=== PATIENT | male | born 1950 ===

== ENCOUNTER 2021-08-15 14:21 | Emergency (ER) | payer MEDICARE, OTHER, SELFPAY ==
--- NOTE | ~2021-08-15 | CT_ITS ---
EXAMINATION: CT CERVICAL SPINE WITHOUT CONTRAST CT THORACIC SPINE WITHOUT CONTRAST CLINICAL INFORMATION: Neck and back pain for 3 months now worsening. COMPARISON: CXR from 08/15/2021 TECHNIQUE: Thoracic spine - A volumetric helical acquisition of the thoracic spine was performed and images presented at 1.5 mm and 2 mm slice thickness. Coronal and sagittal reformatted images were generated and reviewed. Cervical spine - A volumetric, helical CT acquisition of the cervical spine was obtained without contrast; in addition to the standard set of axial images, multiplanar reformatted images were provided in the coronal and sagittal imaging planes. This CT examination was performed using dose optimization techniques as appropriate, variously including the following: *Automated exposure control *Adjustment of mA and/or kV according to patient size (this includes techniques or standardized protocols for targeted exams where dose is matched to indication/reason for exam; i.e. extremities or head) *Use of iterative reconstruction technique DLP: 2262 mGy-cm (total) FINDINGS: CERVICAL SPINE: No acute abnormalities. The craniocervical junction is intact. The occipital condyles, dens and atlantodental articulation are intact. There is osseous spurring at the atlantodental articulation. The vertebral body heights are maintained. No fractures in the anterior or posterior elements. No prevertebral soft tissue swelling. Multilevel facet osteoarthritis is present. The facet joints are ankylosed at C3-C4, and there is chronic minimal anterolisthesis of C3 on C4. Otherwise, the cervical vertebra have normal alignment. Mild and moderate multilevel degenerative disc space narrowing and vertebral osteophyte formation of the degenerated cervical spine. The posterior disc osteophyte complexes of C6-C7 and C7-T1 produce mild indentation on the ventral surface of the thecal sac. No significant canal stenosis. The uncovertebral joint hypertrophy of the cervical spine is worst on the left at C5-C6. The osteophytes cause severe left-sided neural foraminal stenosis at C5-C6. No suspicious lytic or osteoblastic lesion. No spinal hematoma or focal fluid collection in the visualized neck. The examined lung apices are clear. Thyroid gland is normal. THORACIC SPINE: The thoracic vertebra have well preserved height and alignment. The anterior and posterior elements are intact. No acute fracture or subluxation. Diffuse idiopathic skeletal hyperostosis as manifest by bulky, flowing anterior ligament ossification of the thoracic spine. Mild multilevel disc space narrowing and osteophyte formation of the thoracic spine. No focal lytic or blastic lesion. No paraspinal soft tissue mass or hematoma. Posterior disc osteophyte complexes at T2-T3 and T3-T4 produce mild central canal stenosis. There are osteophytes that produce mild left-sided neural foraminal stenosis at T1-T2, mild bilateral foraminal stenosis at T2-T3 and mild foraminal stenosis at T3-T4. Mild foraminal narrowing also observed at other levels of the degenerated spine. There are ossifications/enthesophytes of ligamentum flava at several levels, including T10-T11. There are no vertebral endplate erosions. No evidence of discitis or osteomyelitis. The visualized lungs are unremarkable. No pneumothorax or pleural effusion. CT/CT thoracic spine wo con IMPRESSION: * No acute CT imaging abnormalities in the degenerated cervical or thoracic spine. * No fractures or paraspinal soft tissue swelling. * Within the cervical spine, there are mild and moderate multilevel discovertebral degenerative changes. No significant central canal stenosis. However, there is severe left-sided neural foraminal stenosis at C5-C6. * Diffuse idiopathic skeletal hyperostosis of the thoracic spine. No suspicious lytic or blastic bone lesions.
--- NOTE | ~2021-08-15 | XR_ITS ---
EXAMINATION: XR CHEST CLINICAL INFORMATION: Left upper back pain. COMPARISON: None TECHNIQUE: 2 views of the chest were obtained. FINDINGS: Normal appearance of the cardiomediastinal silhouette. There are subtle ill-defined interstitial opacities in the right lung base. Otherwise, the lungs are clear. No pleural effusions or pneumothorax. No acute compression deformities. Thoracic spondylosis. XR/XR chest 2V IMPRESSION: 1. Questionable subtle ill-defined opacities in the right base which could be related with subsegmental atelectasis or bronchovascular crowding. However, aspiration and early consolidation cannot be excluded. Correlate clinically. 2. No acute compression deformities or acutely displaced rib fractures.
[2021-08-15 14:37] VITALS: PULSE 68; RESP 18; TEMP 36.8; O2SAT 94; BMI 37.6
--- NOTE | 2021-08-15 14:40 | ECG_ITS ---
Test Reason : BACK PAIN Blood Pressure : / mmHG Vent. Rate : 069 BPM Atrial Rate : 069 BPM P-R Int : 146 ms QRS Dur : 102 ms QT Int : 430 ms P-R-T Axes : 031 -46 -05 degrees QTc Int : 460 ms Sinus rhythm with occasional Premature ventricular complexes Left anterior fascicular block Abnormal ECG No previous ECGs available Referred By: Generic ED Physician Electronically Signed By:BENITO KIRKPATRICK
--- NOTE | 2021-08-15 19:58 | ED.BACK ---
HPI - Back Pain/Injury General Chief Complaint: Back Pain/Injury Stated Complaint: BACK PAIN Time Seen by Provider: 08/15/21 19:21 Source: patient and family ( at bedside) Mode of arrival: ambulatory Limitations: language barrier ([place] Citizen-speaking) History of Present Illness HPI Narrative: 71-year-old male with a past medical history of hypertension and chronic back pain presenting to the ED with complaints of acute on chronic back pain to the left upper back for the past 3 months that he reports is the burning sensation and is worse with movement or palpation. He reports that he has been seen by his primary care provider for this and had x-rays and was told that he had ?arthritis?. He reports that his PCP sent him for an MRI I will go his insurance denied it because he did not complete physical therapy because physical therapy was going to be too expensive insurance was not going to be covering it. He reports that he is taking naproxen and baclofen and no symptomatic relief. He denies any dizziness, headaches, neck pain/stiffness, paresthesias, chest pain, dyspnea on exertion, orthopnea, palpitations, lower extremity edema or upper extremity edema, abdominal pain, radiation of the back pain, rashes, recent trauma, history of cancer, history of hypercoagulation disorder, recent surgery, urinary incontinence/retention, hematuria, lower extremity weakness or any other symptoms complaints or concerns at this time. MD elicited complaint: back pain Onset (ago): month(s) (Three months) Timing: constant and progressively worsening Severity: severe Similar Symptoms Previously: Yes Quality: burning Location: left upper back Radiation: none Exacerbating factors: movement and other (Palpation of the site) Relieving factors: none Context: unknown Associated symptoms: denies other symptoms Treatments prior to arrival: other (Patient reports he is currently using naproxen and baclofen and no symptomatic relief) Work related injury: No Related Data Previous Rx's Medication Instructions Recorded lidocaine HCl 4 % topical cream 1 appl TOPICAL BID PRN #120 g 08/15/21 (Aspercreme (lidocaine HCl)) oxycodone 5 mg tablet 5 mg PO Q6H PRN #14 tab 08/15/21 prednisone 20 mg tablet 40 mg PO DAILY 5 Days #10 tab 08/15/21 Allergies Allergy/AdvReac Type Severity Reaction Status Date / Time No Known Allergies Allergy Verified 08/15/21 14:37 [No Known Allergies*] Review of Systems Review of Systems: Constitutional : No trauma, No Weight loss, No Fever, No Chills, ENT/Mouth : No Hearing loss, No Ear Pain, No Nasal Congestion, No Sinus Pain, No Hoarseness, No sore throat, No Rhinorrhea, No Swallowing Difficulty Cardiovascular : No Chest Pain, No SOB Respiratory : No Cough, No Dyspnea Gastrointestinal : No Nausea, No Vomiting, No Diarrhea, No abdominal Pain, No Hematochezia, No Melena Genitourinary : No Dysuria, No Urinary Frequency, No Hematuria, No Urinary or Bowel Incontinence/retention Musculoskeletal : + Back pain, No neck pain, No joint stiffness, No joint swelling Skin : No Skin Lesions, No rash or signs of infection Neuro : No Weakness, No radiation, No Numbness, No Paresthesias, No headache, no loss of bowel or bladder incontinence, no saddle anesthesia, Focal weakness, No radiation Denies history of IV drug usage. Yes all other systems are reviewed and are negative [facility] Past Medical History Attestation statement: The following information was validated with the patient. Social History Social History Advance Directives: No Physical Exam Vital Signs: Vital Signs: Last Vital Signs Temp 98.2 F 08/15/21 14:37 Pulse 68 08/15/21 14:37 Resp 18 08/15/21 14:37 Pulse Ox 94 08/15/21 14:37 Body Mass Index 37.6 vital signs have been reviewed as normal and appeared to be correct. Blood pressure normal. Heart rate normal. Respiration rate normal. Temperature normal. Oxygen saturation normal. Appearance: Alert. Oriented X3. No acute distress. Head: Normal external exam. Normocephalic. Atraumatic. Eyes: PERRLA. EOMI. Conjunctiva and sclera normal. Eyelids normal. ENT: Pharynx normal. Uvula midline. Moist mucous membranes. Neck: Normal inspection. Neck supple. FROM. No adenopathy. No meningeal signs. No neck mass noted. CVS: Normal heart rate and rhythm. Heart sound normal. No murmurs noted. Pulses normal throughout. Respiratory: No respiratory distress. Painless inspiration. Breath sounds normal. No wheezes/rales/rhonchi noted. Chest nontender. No accessory muscle usage noted or decreased air movement noted. Abdomen: Soft and nontender. Bowel sounds normal in all 4 quadrants. No distention noted. No organomegaly noted. No visible injury noted. Back: No CVA tenderness. Full range of motion noted. No obvious deformities, or edema. Mild para-spinal muscular tenderness to the left upper thoracic paraspinous musculature. Full ROM in back and lower extremities. 5/5 strength hip extension/flexion, abduction, adduction. Mild Lumbar pain with hip flexion against resistance. Straight leg raise test negative on right; Straight leg raise test negative on left; Reflexes normal ankle and knee bilaterally; EHL motor strength normal bilaterally. No rashes/lesion/induration/fluctuance or signs infection noted. Skin: Skin warm and dry. Normal skin color. Normal skin turgor. No rashes/lesions/lacerations noted. Extremities: No lower extremity edema. No calf tenderness is noted. Extremities exhibit normal range of motion. Extremities nontender. Neuro: Oriented X 3. No motor deficit. No sensory deficit. Reflexes normal. Patient has a normal steady gait. Course Course Course Narrative: 19:30pm - 71-year-old male with a past medical history of hypertension and chronic back pain presenting to the ED with complaints of acute on chronic back pain to the left upper back for the past 3 months that he reports is the burning sensation and is worse with movement or palpation. He reports that he has been seen by his primary care provider for this and had x-rays and was told that he had ?arthritis?. He reports that his PCP sent him for an MRI I will go his insurance denied it because he did not complete physical therapy because physical therapy was going to be too expensive insurance was not going to be covering it. He reports that he is taking naproxen and baclofen and no symptomatic relief. Patient continues to deny chest pain. He reports that this has been his same back pain for the past 3 months. Therefore offered labs to evaluate a troponin and he declined. Reports that he notices his back. Therefore at this time an EKG was obtained an EKG is sinus rhythm with occasional PVCs with left anterior fascicular block otherwise no acute ischemic changes are noted. No prior EKGs to compare to in our system at this time. Therefore will obtain a CT scan of cervical spine and thoracic spine. Provide symptomatic treatment with oxycodone and Lidoderm patch then re-evaluate. Reevaluation(s) Reevaluation #1: - CXR revealed Questionable subtle ill-defined opacities in the right base which could be related with subsegmental atelectasis or bronchovascular crowding. However, aspiration and early consolidation cannot be excluded. - Although patient denies any cough or upper respiratory symptoms. Therefore most likely atelectasis. I gave him a copy and explained him to follow up his primary care provider. - patient also had a CT scan of cervical spine and thoracic spine and revealed chronic changes therefore I gave him a copy of his results to follow up with his primary care provider for physical therapy or locator specialist referral. Along with instructions return if any new or worsening symptom. Patient and at bedside to understand agree this plan. Time: 21:07 MDM - Back Pain/Injury Medical Records Attestation: I reviewed the patient's medical records. Imaging Data Chest x-ray: Attestation: I personally reviewed and interpreted this imaging study as follows: Radiologist's impression: FINDINGS: Normal appearance of the cardiomediastinal silhouette. There are subtle ill-defined interstitial opacities in the right lung base. Otherwise, the lungs are clear. No pleural effusions or pneumothorax. No acute compression deformities. Thoracic spondylosis. XR/XR chest 2V IMPRESSION: 1.? Questionable subtle ill-defined opacities in the right base which could be related with subsegmental atelectasis or bronchovascular crowding. However, aspiration and early consolidation cannot be excluded. Correlate clinically. 2.? No acute compression deformities or acutely displaced rib fractures. CT scan of cervical spine and thoracic spine without contrast: Attestation: I personally reviewed and interpreted this imaging study as follows: Radiologist's impression: FINDINGS: CERVICAL SPINE: No acute abnormalities. The craniocervical junction is intact. The occipital condyles, dens and atlantodental articulation are intact. There is osseous spurring at the atlantodental articulation. The vertebral body heights are maintained.? No fractures in the anterior or posterior elements. No prevertebral soft tissue swelling. Multilevel facet osteoarthritis is present. The facet joints are ankylosed at C3-C4, and there is chronic minimal anterolisthesis of C3 on C4. Otherwise, the cervical vertebra have normal alignment. Mild and moderate multilevel degenerative disc space narrowing and vertebral osteophyte formation of the degenerated cervical spine. The posterior disc osteophyte complexes of C6-C7 and C7-T1 produce mild indentation on the ventral surface of the thecal sac. No significant canal stenosis. The uncovertebral joint hypertrophy of the cervical spine is worst on the left at C5-C6. The osteophytes cause severe left-sided neural foraminal stenosis at C5-C6. No suspicious lytic or osteoblastic lesion. No spinal hematoma or focal fluid collection in the visualized neck.? The examined lung apices are clear. Thyroid gland is normal.? THORACIC SPINE: The thoracic vertebra have well preserved height and alignment. The anterior and posterior elements are intact. No acute fracture or subluxation. Diffuse idiopathic skeletal hyperostosis as manifest by bulky, flowing anterior ligament ossification of the thoracic spine. Mild multilevel disc space narrowing and osteophyte formation of the thoracic spine. No focal lytic or blastic lesion. No paraspinal soft tissue mass or hematoma. Posterior disc osteophyte complexes at T2-T3 and T3-T4 produce mild central canal stenosis. There are osteophytes that produce mild left-sided neural foraminal stenosis at T1-T2, mild bilateral foraminal stenosis at T2-T3 and mild foraminal stenosis at T3-T4. Mild foraminal narrowing also observed at other levels of the degenerated spine. There are ossifications/enthesophytes of ligamentum flava at several levels, including T10-T11. There are no vertebral endplate erosions. No evidence of discitis or osteomyelitis. The visualized lungs are unremarkable. No pneumothorax or pleural effusion. CT/CT thoracic spine wo con IMPRESSION: *? No acute CT imaging abnormalities in the degenerated cervical or thoracic spine. *? No fractures or paraspinal soft tissue swelling. *? Within the cervical spine, there are mild and moderate multilevel discovertebral degenerative changes. No significant central canal stenosis. However, there is severe left-sided neural foraminal stenosis at C5-C6. *? Diffuse idiopathic skeletal hyperostosis of the thoracic spine. No suspicious lytic or blastic bone lesions. ECG Data Attestation: I personally reviewed and interpreted this ECG as follows: ECG interpretation date: 08/15/21 ECG interpretation time: 19:07 Interpretation: EKG is sinus rhythm with occasional PVCs with left anterior fascicular block otherwise no acute ischemic changes are noted. No prior EKGs to compare to in our system at this time. 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
[2021-08-15] MEDS: Lidocaine 4 % Patch ADH..PATCH 1 PATCH TRANSDERMA (20:07)
[2021-08-15] MEDS: oxyCODONE HCl Immed Release 5 MG TABLET PO (20:08)
--- NOTE | 2021-08-15 21:35 | PC.NURSE ---
1ST ENCOUNTER WITH PATIENT FOR DC PURPOSES. PT AWAKE, ALERT AND ORIENTED X 3. SKIN WARM AND DRY. RESP UNLABORED. DENIES N/V. STATES PAIN REDUCED AFTER MEDICATION. NEUROS INTACT. PT SITTING UP ON STRETCHER. NO ACUTE DISTRESS NOTED. EVALUATED BY PA. AWARE AND AGREEABLE TO DISPO PLAN
== END 2021-08-15 21:37 | disposition home or self-care (01) ==
PROVIDERS: Emergency Provider Emergency Medicine; PCP Internal Medicine
DX: M48.02 Spinal stenosis, cervical region (principal); M51.34 Other intervertebral disc degeneration, thoracic region; M54.2 Cervicalgia; Z79.899 Other long term (current) drug therapy
CPT/HCPCS: 71046; 72125; 72128; 93005; 99283; 99284

== ENCOUNTER 2022-04-23 10:16 | Emergency (ER) | payer MEDICARE, OTHER, SELFPAY ==
[2022-04-23 10:41] VITALS: BP 140/70; PULSE 74; RESP 16; TEMP 36.5; O2SAT 98; BMI 39.0
--- NOTE | 2022-04-23 11:39 | ED_ITS ---
HPI - Skin/Abscess/Foreign Bdy General Chief complaint: Skin/Abscess/Foreign Body Stated complaint: abscess Time Seen by Provider: 04/23/22 11:39 Source: patient Mode of arrival: ambulatory Limitations: no limitations History of Present Illness HPI narrative: 72 y/o male presents to the ER for evaluation of a cyst on his left under on that has been getting more painful and enlarged over the last 3 days. He denies history of the same. He denies but bite or insect bite. He is not diabetic. He reports the area is swollen, tender, red and has been worsening over the last 3 days. He denies any fevers at home. MD complaint: abscess/boil Onset (ago): day(s) (3) Tetanus up to date: yes Location: LUE Severity: moderate Severity scale (1-10): 7 Quality: aching Pain Consistency: constant Relieving factors: none Exacerbating factors: palpation and movement Context: none Associated symptoms: denies other symptoms Treatments prior to arrival: none Related Data Previous Rx's Medication Instructions Recorded cyclobenzaprine 10 mg tablet 10 mg PO Q8H #10 tab 08/15/21 lidocaine HCl 4 % topical cream 1 appl TOPICAL BID PRN #120 g 08/15/21 (Aspercreme (lidocaine HCl)) oxycodone 5 mg tablet 5 mg PO Q6H PRN #14 tab 08/15/21 prednisone 20 mg tablet 40 mg PO DAILY 5 Days #10 tab 08/15/21 cephalexin 500 mg capsule 500 mg PO Q6H 5 Days #20 cap 04/23/22 Allergies Allergy/AdvReac Type Severity Reaction Status Date / Time No Known Allergies Allergy Verified 08/15/21 14:37 [No Known Allergies*] Review of Systems Review of Systems: Constitutional: No Fever, No Chills Cardiovascular: No Chest Pain, No SOB Gastrointestinal: No Nausea, No Vomiting, No abdominal Pain Musculoskeletal: No joint pain, No Myalgias Skin: + Skin Lesions, No rash Neuro: No Weakness, No Numbness, No Dizziness, No Headache Heme/Lymph: No Bruising, No Lymphadenopathy PMFSH Social History Social History Advance Directives: No Advance Directives Information Provided: No Physical Exam Vital Signs: Vital Signs: Last Vital Signs Temp 97.7 F 04/23/22 10:41 Pulse 74 04/23/22 10:41 Resp 16 04/23/22 10:41 BP 140/70 H 04/23/22 10:41 Pulse Ox 98 04/23/22 10:41 BMI result Body Mass Index 39.0 Appearance: Alert. Oriented X3. No acute distress. HEENT: normal inspection CVS: Normal heart rate and rhythm. Pulses normal. Respiratory: No respiratory distress. Skin: Skin warm and dry. Normal skin color. Normal skin turgor. No rashes. Extremities: left axilla with a large 3cm abscess on lower axillary area, fluctuant and tender with mild surrounding erythema. Neuro: Oriented X 3. Grossly normal, not full Course Course Course Narrative: 72-year-old male presenting to the ER for evaluation of a painful abscess under his left under arm. Area is swollen, tender, fluctuant. Multiple hair follicle seem to be involved. There is mild surrounding cellulitis. Amenable to incision and drainage. Patient agrees have the procedure performed. Reevaluation(s) Reevaluation #1: Patient tolerated procedure well. Small amount of packing was placed. Wound care was discussed with patient and his . They will remove the packing at home in 2 days. Will prescribe Keflex for surrounding cellulitis. He is not diabetic. Stable for discharge home. Procedures Abscess I/D Site: chest (left axillary area) Side (if applicable): left Local Anesthetic: lidocaine 2% Amount of anesthesia used (mL): 3 Technique: incised with blade Sent for culture/gram staining?: No Irrigation: Yes Packing used?: plain Discharge Plan Discharge Clinical Impression: Abscess of skin or subcutaneous tissue, Cellulitis Patient Disposition: Home, Self-Care Instructions: Abscess Incision and Drainage (DC), Warm Compress or Soak (ED) Additional Instructions: Use warm compresses to the area several times per day. Take the prescribed antibiotic as directed, complete the entire course. Removed the packing in 2 days. If you have worsening signs or symptoms of infection including worsening redness, pain, drainage of pus call your doctor or come back to the emergency room for further evaluation. Prescriptions: New cephalexin 500 mg capsule 500 mg PO Q6H 5 Days Qty: 20 0RF No Action lidocaine HCl [Aspercreme (lidocaine HCl)] 4 % cream 1 appl topical BID PRN (Reason: pain) Qty: 120 0RF prednisone 20 mg tablet 40 mg PO DAILY 5 Days Qty: 10 0RF oxycodone 5 mg tablet 5 mg PO Q6H PRN (Reason: pain) Qty: 14 0RF cyclobenzaprine 10 mg tablet 10 mg PO Q8H Qty: 10 0RF Interventions: ED Discharge Assessment Last Done: 04/23/22 12:20 Discharge Date/Time: 04/23/22 12:20 Print Language: [place]
[2022-04-23] MEDS: Lidocaine HCl 2 % MPF 5 ML VIAL SUBCUT (12:01)
== END 2022-04-23 12:20 | disposition home or self-care (01) ==
PROVIDERS: Emergency Provider Emergency Medicine; PCP Internal Medicine
DX: L02.412 Cutaneous abscess of left axilla (principal); L03.112 Cellulitis of left axilla
CPT/HCPCS: 10060; 99283; 99284

== ENCOUNTER 2022-09-19 05:51 | Emergency (ER) | payer MEDICARE, OTHER, SELFPAY ==
--- NOTE | ~2022-09-19 | US_ITS ---
EXAMINATION: US VENOUS WITH DOPPLER UPPER EXTREMITY, RIGHT CLINICAL INFORMATION: Pain and swelling. COMPARISON: None TECHNIQUE: Ultrasound of the upper extremity is performed using compression sonography and color and pulse Doppler flow with assessment of augmentation of flow. There is also imaging and Doppler assessment of the jugular and subclavian veins. Spectral analysis with color-flow imaging is performed. FINDINGS: Respiratory variation, normal compression, and augmented flow are noted throughout the upper extremity including the axillary, brachial, cubital, and radial and ulnar veins. There is normal flow in the internal jugular and subclavian veins. There is no visible deep or superficial thrombophlebitis. Mild heterogeneous hypoechoic echotexture seen in the muscles of the distal forearms bilaterally. If the patient's symptoms progress, a followup ultrasound in 5 -7 days might be of value to exclude proximal propagation from a nonvisualized distal arm vein. US/US venous duplex UE RT IMPRESSION: 1. No evidence for deep venous thrombosis in the visualized veins of the right upper extremity. 2. Mild heterogeneous hypoechoic echotexture in the muscles of the distal forearms bilaterally is nonspecific and could be baseline for the patient given the bilaterality. Mild edema of indeterminate origin cannot be excluded. Correlate with physical exam. * If these findings persist or enlarge, short-term repeat targeted soft tissue ultrasound can be performed as clinically indicated to assess for change.
[2022-09-19 06:07] VITALS: BP 149/55; PULSE 63; RESP 17; TEMP 36.7; O2SAT 100; BMI 35.4
--- NOTE | 2022-09-19 06:40 | ED.EXTPRO ---
HPI - Extremity Problem General Chief complaint: General Medical Stated complaint: numbness in hands Time Seen by Provider: 09/19/22 06:36 Source: patient and family Mode of arrival: ambulatory Limitations: no limitations History of Present Illness HPI Narrative: 72 yo male with hx of HTN on lisinopril, HCTZ, pre-diabetes, presents with RUE hand pain and swelling atraumatic x 5 days. He has never had this before. He doesn't overuse his hand. No procedures on that side, no bites/infection. He notes it hurts to move his arm and now the swelling is making his fingers feel tingly Complaint: extremity pain and extremity swelling Onset (ago): day(s) (5) Pain Consistency: constant Location: right and upper extremity Quality: aching Radiation: none Relieving factors: immobilization Exacerbating factors: range of motion and palpation Associated symptoms: denies other symptoms Related Data Previous Rx's Medication Instructions Recorded cyclobenzaprine 10 mg tablet 10 mg PO Q8H Muscle spasm #10 tabs 08/15/21 lidocaine HCl 4 % topical cream 1 appl topical BID PRN pain #120 08/15/21 (Aspercreme (lidocaine HCl)) grams oxycodone 5 mg tablet 5 mg PO Q6H PRN pain #14 tabs 08/15/21 prednisone 20 mg tablet 40 mg PO DAILY rash 5 days #10 tabs 08/15/21 cephalexin 500 mg capsule 500 mg PO Q6H 5 days #20 caps 04/23/22 lisinopril 20 mg tablet 20 mg PO DAILY 5 days #5 tabs 09/19/22 morphine 15 mg immediate release 15 mg PO TID PRN pain #10 tabs 09/19/22 tablet prednisone 20 mg tablet 40 mg PO DAILY 4 days #8 tabs 09/19/22 Allergies Allergy/AdvReac Type Severity Reaction Status Date / Time No Known Allergies Allergy Verified 09/19/22 06:06 [No Known Allergies*] Review of Systems Review of Systems: Constitutional : No Fever, No Chills ENT/Mouth : No Ear Pain, No Hoarseness, No sore throat Eyes: No Eye Pain, No Swelling, No Redness, No Foreign Body Cardiovascular : No Chest Pain, No SOB Respiratory : No Cough, No Dyspnea Gastrointestinal : No Nausea, No Vomiting, No Diarrhea, No abdominal Pain Genitourinary : No Dysuria, No Hematuria Musculoskeletal : positive joint pain, No Myalgias, pos Joint Swelling Skin : No Skin lacerations, No rash Neuro : No Weakness, No Numbness, No Loss of Consciousness, No Dizziness, No Headache Psych : No Anxiety/Panic, No Depression Heme/Lymph: no easy bruising, no Lymphadenopathy Endocrine : No Polyuria, No Polydipsia All other systems reviewed and are negative PENDING SALE TO [facility] Past Medical History Attestation statement: The following information was validated with the patient. Medical History HTN (hypertension) Hyperlipidemia Pre-diabetes Social History Social History Patient Tobacco Use Status: Never used Tobacco Advance Directives: Yes Advance Directives Information Provided: Yes Advance Directives on File: No Physical Exam Vital Signs: Vital Signs: Last Vital Signs Temp 98.1 F 09/19/22 08:24 Pulse 61 09/19/22 08:24 Resp 20 09/19/22 08:24 BP 138/78 09/19/22 08:24 Pulse Ox 96 09/19/22 08:24 O2 Del Method 09/19/22 08:24 BMI result Body Mass Index 35.4 Appearance: Alert. Oriented X3. No acute distress. Eyes: Pupils equal, round and reactive to light. ENT: Pharynx normal. Neck: Normal inspection. Neck supple. CVS: Normal heart rate and rhythm. Pulses normal. Respiratory: No respiratory distress. Breath sounds normal. Abdomen: Soft and nontender. Skin: Skin warm and dry. Normal skin color. Normal skin turgor. Extremities: No lower extremity edema. R hand no erythema but moderate swelling on hand itself into fingers with mild warmth and moderate ttp - distal NV intact, ttp into wrist 2+ radial pulse, arm itself hurts to touch, L hand minimal pain and swelling no erythema. Neuro: Oriented X 3. No motor deficit. No sensory deficit. Course Course Course Narrative: CRP elevated, normal WBC count, CPK normal - doubt myositis no signs of skin infection will start on steroids, pain control MDM - Extremity (Nontraumatic) MDM Narrative Medical decision making narrative: 72 yo male with hx of HTN on lisinopril, HCTZ, pre-diabetes here with c/o R hand L hand pain - it is not cellulitic and does not appear infected - suspect either arthritis or gout. Will obtain labs, PO pain medications and steroids. US for DVT ordered. Dispo per result and findings - if uric acid high will hold HCTZ. Lab Data Result diagrams: 09/19/22 08:31 09/19/22 08:31 Labs: Lab Results 09/19/22 09/19/22 09/19/22 Range/Units 08:31 08:31 08:31 WBC 8.1 (4.8-10.8) X10*3/uL RBC 3.98 L (4.60-5.80) X10*6/uL Hgb 11.1 L (14.0-18.0) g/dl Hct 34.9 L (42.0-52.0) % MCV 87.7 (80.0-98.0) fL MCH 27.9 (27.0-33.0) pg MCHC 31.8 (31.0-36.0) g/dl RDW 16.4 H (11.0-16.0) % Plt Count 301 (160-400) X10*3/uL MPV 9.2 L (9.4-12.4) fL Immature Gran % (Auto) 0.2 (0.0-0.4) % Neut % (Auto) 70.8 (45-73) % Lymph % (Auto) 18.1 L (20-40) % Lumpkin % (Auto) 8.8 (2-11) % Eos % (Auto) 1.7 (0-4) % Baso % (Auto) 0.4 (0-2) % Lymph # (Auto) 1.5 (1.2-4.9) X10*3/uL [place]kin # (Auto) 0.7 (0.1-1.2) X10*3/uL Eos # (Auto) 0.1 (0.0-0.4) X10*3/uL Baso # (Auto) 0.0 (0.0-0.2) X10*3/uL Abs Immat Gran (auto) 0.02 (0.00-0.03) X10*3/uL Absolute Neuts (auto) 5.7 (2.0-8.3) x10*3/uL Absolute Nucleated RBC 0.000 (0.0-0.012) X10*3/uL Nucleated RBC % (auto) 0.0 (0.0-0.2) /100WBC PT 12.4 (10.0-13.1) SEC INR 1.1 (0.9-1.1) Sodium 143 (135-145) mmol/L Potassium 4.3 (3.3-5.1) mmol/L Chloride 103 (96-108) mmol/L Carbon Dioxide 31 H (22-29) mmol/L Anion Gap 13 (12-20) BUN 12 (9-16) mg/dL Creatinine 0.75 (0.5-1.4) mg/dL Estim Creat Clear Calc 114.9 Estimated GFR > 60 Random Glucose 97 (60-115) mg/dL Uric Acid 6.3 (3.4-7.0) mg/dL Calcium 9.7 (8.4-10.2) mg/dL Total Creatine Kinase 113 (38-174) U/L C-Reactive Protein 4.23 H (< or = 0.50) mg/dL Procedures Orthopedic Splinting/Casting Injury #1: Side: right Upper Extremity Immobilizer: wrist splint Discharge Plan Discharge Clinical Impression: Arthralgia Qualifiers: Joint pain location: hand Laterality: right Qualified Code(s): M25.541 - Pain in joints of right hand Patient Disposition: Home, Self-Care Instructions: Arthralgia (ED), Arm Pain (ED) Additional Instructions: mantener la hidroclorotiazida armaan 5 d?as. Use f?marcelina armaan 5 d?as. si se desarrolla enrojecimiento, empeoramiento de la hinchaz?n o el dolor, regrese al servicio de urgencias empezar prednisona el 20/09 no oxycodone with morphine Prescriptions: New prednisone 20 mg tablet 40 mg PO DAILY 4 Days Qty: 8 0RF morphine 15 mg tablet 15 mg PO TID PRN (Reason: pain) Qty: 10 0RF Rx Instructions: partial fill okay; Partial Fill upon patient request. lisinopril 20 mg tablet 20 mg PO DAILY 5 Days Qty: 5 0RF No Action lidocaine HCl [Aspercreme (lidocaine HCl)] 4 % cream 1 appl topical BID PRN (Reason: pain) Qty: 120 0RF prednisone 20 mg tablet 40 mg PO DAILY 5 Days Qty: 10 0RF oxycodone 5 mg tablet 5 mg PO Q6H PRN (Reason: pain) Qty: 14 0RF cyclobenzaprine 10 mg tablet 10 mg PO Q8H Qty: 10 0RF cephalexin 500 mg capsule 500 mg PO Q6H 5 Days Qty: 20 0RF Referrals: Joleen Wilkinson MD [Primary Care Provider] - 5 days Stand Alone Forms: Work/School Release Interventions: ED Discharge Assessment Last Done: 09/19/22 09:28 Discharge Date/Time: 09/19/22 09:28 Print Language: Danish
[2022-09-19] MEDS: Morphine Sulfate Immed Release 15 MG TABLET PO (07:09)
[2022-09-19] MEDS: predniSONE 20 MG TABLET 40 MG PO (07:09)
[2022-09-19 08:24] VITALS: BP 138/78; PULSE 61; RESP 20; TEMP 36.7; O2SAT 96
[2022-09-19 08:35] LABS: MANUAL DIFF FLAG NO
[2022-09-19 08:37] LABS: Basophils Percent Auto 0.4 % (0-2); Eosinophils Absolute Auto 0.1 X10*3/uL (0.0-0.4); Eosinophils Percent Auto 1.7 % (0-4); Hematocrit 34.9 % (42.0-52.0); Hemoglobin 11.1 g/dl (14.0-18.0); Imm Gran Abs Auto 0.02 X10*3/uL (0.00-0.03); Imm Gran Pct Auto 0.2 % (0.0-0.4); Lymphocytes Absolute Auto 1.5 X10*3/uL (1.2-4.9); Lymphocytes Percent Auto 18.1 % (20-40); Mean Corpuscular HGB Conc 31.8 g/dl (31.0-36.0); Mean Corpuscular Hemoglobin 27.9 pg (27.0-33.0); Mean Corpuscular Volume 87.7 fL (80.0-98.0); Mean Platelet Volume 9.2 fL (9.4-12.4); Monocytes Absolute Auto 0.7 X10*3/uL (0.1-1.2); Monocytes Percent Auto 8.8 % (2-11); Neutrophils Absolute Auto 5.7 x10*3/uL (2.0-8.3); Neutrophils Percent Auto 70.8 % (45-73); Platelet Count 301 X10*3/uL (160-400); Red Blood Count 3.98 X10*6/uL (4.60-5.80); Red Cell Distribution Width 16.4 % (11.0-16.0); White Blood Count 8.1 X10*3/uL (4.8-10.8)
[2022-09-19 08:43] LABS: INTERNATIONAL NORM RATIO 1.1 (0.9-1.1); Prothrombin Time 12.4 SEC (10.0-13.1)
[2022-09-19 08:53] LABS: Anion Gap 13 (12-20); Blood Urea Nitrogen 12 mg/dL (9-16); C Reactive Protein 4.23 mg/dL (< or = 0.50); Calcium 9.7 mg/dL (8.4-10.2); Carbon Dioxide 31 mmol/L (22-29); Chloride 103 mmol/L (96-108); Creatinine Clr Calc Pharmacy 114.9; Estimated Glomerular Filt Rate > 60; Glucose Random 97 mg/dL (60-115); Potassium 4.3 mmol/L (3.3-5.1); Sodium 143 mmol/L (135-145)
[2022-09-19 09:05] LABS: Uric Acid 6.3 mg/dL (3.4-7.0)
== END 2022-09-19 09:28 | disposition home or self-care (01) ==
PROVIDERS: Emergency Provider Emergency Medicine; PCP Internal Medicine
DX: M25.541 Pain in joints of right hand (principal); R60.0 Localized edema; Z79.899 Other long term (current) drug therapy
CPT/HCPCS: 29125; 36415; 80048; 82550; 84550; 85025; 85610; 86140; 93971; 99283; 99284

== ENCOUNTER 2023-06-02 09:40 | Outpatient (REF) | payer MEDICARE, MEDICAID, SELFPAY ==
[2023-06-02 14:22] LABS: Basophils Absolute Auto 0.1 X10*3/uL (0.0-0.2); Basophils Percent Auto 0.7 % (0-2); Eosinophils Absolute Auto 0.1 X10*3/uL (0.0-0.4); Eosinophils Percent Auto 1.2 % (0-4); Hematocrit 39.8 % (42.0-52.0); Hemoglobin 13.2 g/dl (14.0-18.0); Imm Gran Abs Auto 0.01 X10*3/uL (0.00-0.03); Imm Gran Pct Auto 0.1 % (0.0-0.4); Lymphocytes Percent Auto 29.4 % (20-40); MANUAL DIFF FLAG NO; Mean Corpuscular HGB Conc 33.2 g/dl (31.0-36.0); Mean Corpuscular Hemoglobin 31.2 pg (27.0-33.0); Mean Corpuscular Volume 94.1 fL (80.0-98.0); Mean Platelet Volume 11.4 fL (9.4-12.4); Monocytes Absolute Auto 0.6 X10*3/uL (0.1-1.2); Monocytes Percent Auto 8.7 % (2-11); Neutrophils Percent Auto 59.9 % (45-73); Platelet Count 253 X10*3/uL (160-400); Red Blood Count 4.23 X10*6/uL (4.60-5.80); Red Cell Distribution Width 14.1 % (11.0-16.0); White Blood Count 6.7 X10*3/uL (4.8-10.8)
[2023-06-02 15:15] LABS: Alanine Aminotransferase 15 U/L (0-40); Alkaline Phosphatase 47 U/L (39-117); Anion Gap 14 (12-20); Aspartate Amino Transferase 18 U/L (5-37); Bilirubin Total 0.5 mg/dL (0.0-1.0); Blood Urea Nitrogen 14 mg/dL (9-16); Calcium 10.5 mg/dL (8.4-10.2); Carbon Dioxide 26 mmol/L (22-29); Chloride 105 mmol/L (96-108); Estimated Glomerular Filt Rate > 60; Glucose Fasting 64 mg/dL (60-99); Potassium 3.8 mmol/L (3.3-5.1); Sodium 141 mmol/L (135-145); Total Protein 7.3 g/dL (6.5-8.0)
== END 2023-06-02 09:41 | disposition home or self-care (01) ==
LOC: HO.CHCLDS 09:40
PROVIDERS: Visit Provider Internal Medicine
DX: R73.03 Prediabetes (principal)
CPT/HCPCS: 36415; 80053; 85025

== ENCOUNTER 2023-07-03 08:28 | Outpatient (REF) | payer MEDICARE, MEDICAID, SELFPAY ==
[2023-07-03 14:33] LABS: Immature Retic Fraction 27.6 % (2.3-13.4); Retic HGB Equivalent 37.2 pg (30.0-35.0); Reticulocyte Percent 2.5 % (0.5-1.8); Reticulocytes Absolute 0.097 X10*6/uL (0.026-0.095)
[2023-07-03 15:30] LABS: Anion Gap 12 (12-20); Blood Urea Nitrogen 14 mg/dL (9-16); Calcium 9.9 mg/dL (8.4-10.2); Carbon Dioxide 28 mmol/L (22-29); Chloride 107 mmol/L (96-108); Estimated Glomerular Filt Rate > 60; Glucose Fasting 70 mg/dL (60-99); Potassium 3.9 mmol/L (3.3-5.1); Sodium 143 mmol/L (135-145)
[2023-07-03 15:36] LABS: Vitamin D 25-OH Total 36.6 ng/mL (>30)
[2023-07-06 12:04] LABS: Calcium (PTHI) 9.4 mg/dL (8.6-10.3); PTHI 35 pg/mL (16-77)
== END 2023-07-03 08:29 | disposition home or self-care (01) ==
LOC: HO.CHCLDS 08:28
PROVIDERS: Visit Provider Internal Medicine
DX: E83.52 Hypercalcemia (principal); D50.9 Iron deficiency anemia, unspecified
CPT/HCPCS: 36415; 80048; 82306; 83970; 85045

== ENCOUNTER 2023-07-20 15:39 | Outpatient (REF) | payer MEDICARE, MEDICAID, SELFPAY ==
[2023-07-20 18:27] LABS: Prostate Specific Antigen 3.98 ng/mL (<0.05-4.0)
[2023-07-22 21:24] LABS: Follicle Stimulating Hormone 2.4 mIU/mL (1.6-8.0); Lutenizing Hormone 2.9 mIU/mL (1.6-15.2)
[2023-07-25 17:03] LABS: Testosterone, Free 31.2 pg/mL (30.0-135.0); Testosterone, Total 260 ng/dL (250-1100)
== END 2023-07-20 15:40 | disposition home or self-care (01) ==
LOC: HO.CHCLDS 15:39
PROVIDERS: Visit Provider Internal Medicine
DX: Z12.5 Encounter for screening for malignant neoplasm of prostate (principal); N52.8 Other male erectile dysfunction
CPT/HCPCS: 36415; 83001; 83002; 84146; 84153; 84402; 84403

== ENCOUNTER → 2023-08-06 20:30 | Outpatient (REF) | payer MEDICARE, MEDICAID, SELFPAY | LOC: HO.SL 20:30 | PROVIDERS: PCP Internal Medicine; Visit Provider Internal Medicine | DX: Z13.89 Encounter for screening for other disorder (principal) ==

== ENCOUNTER 2023-09-04 08:39 | Outpatient (REF) | payer MEDICARE, MEDICAID, SELFPAY ==
[2023-09-11 01:53] LABS: Testosterone, Free 42.2 pg/mL (30.0-135.0); Testosterone, Total 251 ng/dL (250-1100)
== END 2023-09-04 08:40 | disposition home or self-care (01) ==
LOC: HO.CHCLDS 08:39
PROVIDERS: Visit Provider Internal Medicine
DX: N52.8 Other male erectile dysfunction (principal)
CPT/HCPCS: 36415; 84402; 84403

== ENCOUNTER 2023-09-15 08:44 | Outpatient (REF) | payer MEDICARE, MEDICAID, SELFPAY ==
[2023-09-15 15:21] LABS: Ferritin 125 ng/mL (20-250); TSH reflex Free T4 1.57 uIU/mL (0.32-4.0)
[2023-09-15 15:29] LABS: Vitamin B12 1140 pg/mL (200-900)
== END 2023-09-15 08:45 | disposition home or self-care (01) ==
LOC: HO.CHCLDS 08:44
PROVIDERS: Visit Provider Internal Medicine
DX: G47.61 Periodic limb movement disorder (principal); I10 Essential (primary) hypertension; M62.838 Other muscle spasm; M19.90 Unspecified osteoarthritis, unspecified site; E66.9 Obesity, unspecified; D50.9 Iron deficiency anemia, unspecified
CPT/HCPCS: 36415; 82607; 82728; 84443

== ENCOUNTER → 2023-10-05 19:30 | Outpatient (BNV) | payer MEDICARE, MEDICAID, SELFPAY | PROVIDERS: PCP Internal Medicine; Visit Provider Internal Medicine | DX: G47.33 Obstructive sleep apnea (adult) (pediatric) (principal) | CPT/HCPCS: 95811 ==

== ENCOUNTER → 2023-10-05 23:03 | Outpatient (REF) | payer MEDICARE, MEDICAID, SELFPAY | LOC: HO.SL 23:03 | PROVIDERS: PCP Internal Medicine; Visit Provider Internal Medicine | DX: G47.33 Obstructive sleep apnea (adult) (pediatric) (principal) | CPT/HCPCS: 95810 ==

== ENCOUNTER 2023-10-13 09:02 | Outpatient (AMB) | payer MEDICARE, MEDICAID, SELFPAY ==
--- NOTE | 2023-10-13 09:04 | MHC.OFFVIS ---
Intake Vital Signs 10/13/23 09:07 Height 5 ft 11 in Weight 276 lb 3.827 oz BMI 38.5 BP 130/70 Blood Pressure Location Rt brachial Position Sitting Pulse 70 Pulse Source Pulse Oximeter Temp 97 F Temp Source Skin Pulse Oximetry (%) 98 Oxygen Delivery Method Room Air Intake Visit Reasons: Osteoarthritis Intake Note: New patient, externally referred, presents today for joint pain. Former rheumatology patient of [facility], Dr. Torrez. c/o joint pain, feet pain, finger pain Technical Instructor Course Developer Required: Yes Technical Instructor Course Developer Language: Cane Flume Watcher Name: Neal [id number] Information Interpreted: clinical only Accompanied by: Self / Same As Patient Allergies No Known Allergies [No Known Allergies*] Allergy (Verified 09/19/22 06:06) HPI HPI Comments History of Present Illness Details Mr. De La Torre 73 yoM, accompanied by his , is here for evaluation of multiple joint pains. The patient has transferred his care from the [facility] due to insurance reasons. Patient reports that he is being treated for arthritis. However, per patient the current provider states he is not able to tell what is the reason for his joint pains. He is currently on methotrexate 2.5 mg 6 pills per week with folic acid 1 mg per day. Patient reports that initial onset was within 3 months of him taking the COVID vaccine in 2021. Therefore, he has been experiencing this for an estimated 7 months. Initially it was in his shoulders and his upper arms and now it is mainly in his buttocks and thighs; his glutes hurt and it makes walking difficult. He states that the only thing that has helped is prednisone. He was on prednisone for about 2 months. After it was stopped he could feel the pain returned. Given that he is prediabetic they did not want him to stay on the prednisone for too much longer. He was then started on methotrexate for the last 7 months and does not think that methotrexate is helping. He describes morning stiffness that takes him at least half an hour to loosen up. He says that when he wakes up in the morning he starts to exercise in the bed before he gets up. It makes it easier to get up and move around -his hands, knees and mainly his hips are stiff in the morning. He also reports lower back pain. He endorses dry eyes and uses restasis about 2 times per day. He denies episodes of red warm swollen joints; denies gout. He reports occasional swelling in lower extremities but thinks this is because of circulation - when he elevates his feet at night they are not swollen. He denies known family history of inflammatory arthritis and autoimmune diseases. He reports a brother that at 80 years old from nephritis secondary to severely high albumin levels. The patient denies Raynaud's phenomenon, butterfly rash on face or other rashes; denies photosensitivity - getting sick or developing a rash from being out in the sun; denies blood or froth in urine; patient denies hx of SOB, chest pain. Patient denies hx of Carditis or Pleuritis. Patient denies any history of DVT/PE and is not taking a blood thinner. Denies fevers, excessive fatigue, unexplained weight-loss or weight-gain, Denies: thinning hair or hair loss, hx of rashes; Denies: red burning eyes needing steroids to treat; dry mouth, mouth sores or ulcers; nose bleed; ringing in the ear, He has a history of diverticulitis but denies chronic abdominal pain, blood or mucous in stool; nausea, vomiting and diarrhea , difficulty swallowing, heartburn. Malignancy screening: denies personal cancer hx. Colonoscopy : Y Prostate check Y See PMHx Excerpted from ER visit 09/19/2022 - start presents with RUE hand pain and swelling atraumatic x 5 days. He has never had this before. He doesn't overuse his hand. No procedures on that side, no bites/infection. He notes it hurts to move his arm and now the swelling is making his fingers feel tingly Appearance: Alert. Oriented X3. No acute distress. Eyes: Pupils equal, round and reactive to light. ENT: Pharynx normal. Neck: Normal inspection. Neck supple. CVS: Normal heart rate and rhythm. Pulses normal. Respiratory: No respiratory distress. Breath sounds normal. Abdomen: Soft and nontender. Skin: Skin warm and dry. Normal skin color. Normal skin turgor. Extremities: No lower extremity edema. R hand no erythema but moderate swelling on hand itself into fingers with mild warmth and moderate ttp - distal NV intact, ttp into wrist 2+ radial pulse, arm itself hurts to touch, L hand minimal pain and swelling no erythema. Neuro: Oriented X 3. No motor deficit. No sensory deficit. CRP elevated, normal WBC count, CPK normal - doubt myositis no signs of skin infection will start on steroids, pain control MDM - Extremity (Nontraumatic) MDM Narrative Medical decision making narrative: 72 yo male with hx of HTN on lisinopril, HCTZ, pre-diabetes here with c/o R hand L hand pain - it is not cellulitic and does not appear infected - suspect either arthritis or gout. Will obtain labs, PO pain medications and steroids. US for DVT ordered. Dispo per result and findings - if uric acid high will hold HCTZ. Excerpted from ER visit 09/19/2022 - end REPLACED BY [facility] Medical History (Updated 10/13/23 @ 14:30 by TIFFANY Patel-URSULA) Bilateral hand pain Finger joint swelling Primary osteoarthritis involving multiple joints History of arthritis Pre-diabetes Hyperlipidemia HTN (hypertension) Surgical History (Updated 10/13/23 @ 09:11 by FRANCI Garcia) Hx of hand surgery History of back surgery Family History (Updated 10/13/23 @ 09:10 by FRANCI Garcia) Mother Guillain-Enid (Updated 10/13/23 @ 09:09 by FRANCI Garcia) Household Members: Spouse Alcohol intake: former Patient Tobacco Use Status: Former Tobacco user Current occupational status: retired Review of Systems Const All systems reviewed & are unremarkable except as noted in HPI and below Physical Exam Vital Signs: Last Vital Signs Temp 97 F 10/13/23 09:07 Pulse 70 10/13/23 09:07 BP 130/70 10/13/23 09:07 Pulse Ox 98 10/13/23 09:07 Oxygen Delivery Method Room Air 10/13/23 09:07 BMI result Body Mass Index 38.5 APPEARANCE: Patient in no acute distress. Normal gait EYES no redness, pupils equal and reactive to light, eyelids normal EARS:? External ear normal, canal clear and tympanic membrane normal. NOSE/SINUS:? Airflow through both nares, no nasal discharge, no bleeding THROAT:? Oral mucosa moist, no ulcerations NECK:? No thyromegaly or masses, no adenopathy, trachea midline. HEART:? Regulrar rhythm, S1-S2 heard, no murmurs, rubs or gallops. LUNG:? Clear to percussion and auscultation ABD:? Normal bowel sounds, no organomegaly, masses or tenderness. EXTREMITIES:? No edema, no calf tenderness, normal peripheral pulses. NEURO:? Oriented and alert x3.? No focal weakness.? Reflexes symmetric.? Gait normal. SKIN:? There scattered sebhorric kerratosis to upper chest and neck. No objective signs of Raynaud's phenomenon. JOINT EXAM: Cervical Spine:.? Full range of motion without pain; no tenderness. Thoracic Spine:.? No scoliosis.? No tenderness on palpation. Lumbar Spine:.? Alignment normal.? Full range of motion without pain, no tenderness. Chest Wall:.? No tenderness, swelling, increased warmth or erythema. Hands:.? Right tenderness 2nd PIP, 3rd MCP and unable to make a fist without stiffness and pain. trace swelling to 2nd mcp. Left: trace swelling to 2nd MCP but no increased warmth or erythema. Able to make a full fist and has a good entry level mechanical engineer strength. Mild osteophytes to Misha 2nd and 3rd DIPs Wrists:.? Right: mild pain with movement, some tenderness on palpation. Left: Normal pain-free range of motion without tenderness, swelling, increased warmth or erythema. Elbows:. Normal pain-free range of motion without pain, swelling, increased warmth or erythema. Tenderness bilateral on palpation to lateral epicondyle and olecranon R>L Shoulders:.?? Initial stiffness with movement but full range of motion without pain after 3 times. No tenderness, weakness, swelling, increased warmth or erythema. Hips:.? Full range of motion without mild pain to left hip; Left lateral numbness along the thigh per patient Hip bursa:.? No tenderness but gluteal tenderness bilaterally Knees:.?? Normal pain-free range of motion without tenderness, swelling, increased warmth or erythema.? There is no effusion or crepitation Ankles:.? Normal pain-free range of motion without tenderness, swelling, increased warmth or erythema. Feet:.? Normal pain-free range of motion without tenderness, swelling, increased warmth or erythema. Tender points:? No tenderness to digital palpation at the occiput, trapezius, second rib, knees and greater trochanter? Results Reviewed Results Reviewed: July 2021 cervical and thoracic imaging CT/CT thoracic spine wo con IMPRESSION: * No acute CT imaging abnormalities in the degenerated cervical or thoracic spine. * No fractures or paraspinal soft tissue swelling. * Within the cervical spine, there are mild and moderate multilevel discovertebral degenerative changes. No significant central canal stenosis. However, there is severe left-sided neural foraminal stenosis at C5-C6. * Diffuse idiopathic skeletal hyperostosis of the thoracic spine. No suspicious lytic or blastic bone lesions. Assessment & Plan Assessment & Plan (1) PMR (polymyalgia rheumatica): Code(s): M35.3 - Polymyalgia rheumatica (2) Inflammatory arthropathy: Code(s): M19.90 - Unspecified osteoarthritis, unspecified site (3) Bilateral hand pain: Code(s): M79.641 - Pain in right hand; M79.642 - Pain in left hand (4) Swelling of finger joint of right hand: Code(s): M25.441 - Effusion, right hand Plan #PMR vs inflammatory arthropathy/Hand Pain and swelling: Mr. De La Torre, 73-year-old male, who is primary language is Cypriot, is here for evaluation of joint pain and transfer of care. The patient describes the onset of his pain approximately 1 year ago. Upon review of his ER medical records and diagnostics (09/19/2022), I have put the time as of August 2022. After careful review of his medical records, physical exam and in depth analysis of his diagnostics, I presume that the patient was suffering from polymyalgia rheumatica (PMR) or RS3PE. At this time, I do not have his records from the [facility] to indicate if relevant rheumatologic labs was done, so I will hold off on ordering some labs until medical records are received. However, based on PE, marked tenderness to gluteal muscles, upper arm stiffness and patient's oral history, most of his pain following was in his shoulders upper arms, thighs and buttocks. At the ER, a venous duplex Doppler (09/19/2022) was done on his right upper extremity because of swelling and pain (see ER excerpt on extremities in HPI) I reviewed the Doppler report and there was heterogeneous hypoechoic echotexture seen in the muscles of the distal forearms bilaterally, suggesting mild edema which correlated clinically given the patient's swollen hand. It was during this time that the patient['s CRP was markedly elevated at 4.23. I also deduce that he had more muscle than joint pain, given that additional labs such as CK and aldolase (within normal limits) were ordered. Uric acid were obtain and within normal limits, suspecting gout due to swollen fingers which can also be seen in PMR. By his experience the patient also states that the prednisone really helped his pain and when he stop date most of his pain returned even while on methotrexate. Therefore, at this time, presuming PMR, I will order update labs for ESR and CRP, start a course of prednisone and hold methotrexate. Patient is prediabetic so we will be judicious while using prednisone. I have explained to the patient that should this be PMR the prednisone taper will last at least 6 months to effectively treat PMR. I also discussed with the patient to call the office if he feels that the joint pain is increasing and if swelling of his fingers returns after stopping methotrexate. We discussed the short-term concerns for prednisone. More specifically patient will keep close watch on his blood sugar and call the office with concerns. Patient states hand x-rays were done last year so I have requested those records to review and assess for changes seen in the context of inflammatory arthritis. #Spine DDD. He has a history of back surgery to remove L4 and imaging shows OA of the cervical and thoracic spine. He sometimes takes Ibuprofen 800 mg which helps his back pain. Discussed with patient potiential side effects of NSAIDs. Encouraged to take with food and not to consume more that 3 doses per week. He can also take Tylenol Arthritis but denies good effect. Encourage safe exercises that can strengthen the paraspinal muscles. I will research a mild Yoga program to give to patient at next visit. I spent 45 minutes reviewing records, evaluating patient, ordering diagnostics, prescribing and documenting Orders: Orders C Reactive Protein Today M19.90 - Unspecified osteoarthritis, unspecified site Complete Blood Count Auto Diff Today M15.9 - Polyosteoarthritis, unspecified Comprehensive Met. Panel Today M15.9 - Polyosteoarthritis, unspecified Erythrocyte Sedimentation Rate Today M19.90 - Unspecified osteoarthritis, unspecified site Uric Acid Today M25.449 - Effusion, unspecified hand Medications: New prednisone 3 tablets per day x7 days 2 tablets per day until next visit; see taper instructions 90 tabs 0RF Coding Level of Care Code Est Pt Level 4 (09852) Diagnoses PMR (polymyalgia rheumatica) M35.3 Inflammatory arthropathy M19.90 Bilateral hand pain M79.641; M79.642 Swelling of finger joint of right hand M25.441
[2023-10-13 09:07] VITALS: BP 130/70; PULSE 70; TEMP 36.1; O2SAT 98; BMI 38.5
== END 2023-10-13 10:17 | disposition home or self-care (01) ==
PROVIDERS: PCP Internal Medicine; Visit Provider Nurse Practitioner Family
DX: M35.3 Polymyalgia rheumatica (principal); M19.90 Unspecified osteoarthritis, unspecified site; M79.641 Pain in right hand; M79.642 Pain in left hand; M25.441 Effusion, right hand
CPT/HCPCS: 99214

== ENCOUNTER → 2023-10-13 09:02 | Outpatient (BNVA) | payer MEDICARE, MEDICAID, SELFPAY | PROVIDERS: PCP Internal Medicine; Visit Provider Nurse Practitioner Family | DX: M35.3 Polymyalgia rheumatica (principal); M19.90 Unspecified osteoarthritis, unspecified site; M79.641 Pain in right hand; M79.642 Pain in left hand; M25.441 Effusion, right hand | CPT/HCPCS: 99212 ==

== ENCOUNTER 2023-10-13 10:21 | Outpatient (REF) | payer MEDICARE, MEDICAID, SELFPAY ==
[2023-10-13 13:12] LABS: MANUAL DIFF FLAG NO
[2023-10-13 13:17] LABS: Basophils Percent Auto 0.4 % (0-2); Eosinophils Absolute Auto 0.1 X10*3/uL (0.0-0.4); Eosinophils Percent Auto 1.2 % (0-4); Hemoglobin 13.7 g/dl (14.0-18.0); Imm Gran Abs Auto 0.01 X10*3/uL (0.00-0.03); Imm Gran Pct Auto 0.1 % (0.0-0.4); Lymphocytes Absolute Auto 1.8 X10*3/uL (1.2-4.9); Lymphocytes Percent Auto 24.2 % (20-40); Mean Corpuscular HGB Conc 33.4 g/dl (31.0-36.0); Mean Corpuscular Hemoglobin 31.5 pg (27.0-33.0); Mean Corpuscular Volume 94.3 fL (80.0-98.0); Mean Platelet Volume 10.9 fL (9.4-12.4); Monocytes Absolute Auto 0.6 X10*3/uL (0.1-1.2); Monocytes Percent Auto 8.7 % (2-11); Neutrophils Absolute Auto 4.7 x10*3/uL (2.0-8.3); Neutrophils Percent Auto 65.4 % (45-73); Platelet Count 215 X10*3/uL (160-400); Red Blood Count 4.35 X10*6/uL (4.60-5.80); Red Cell Distribution Width 14.6 % (11.0-16.0); White Blood Count 7.2 X10*3/uL (4.8-10.8)
[2023-10-13 13:30] LABS: Alanine Aminotransferase 22 U/L (0-40); Albumin Level 4.1 g/dL (3.5-5.0); Alkaline Phosphatase 45 U/L (39-117); Anion Gap 9 (12-20); Aspartate Amino Transferase 21 U/L (5-37); Bilirubin Total 0.3 mg/dL (0.0-1.0); Blood Urea Nitrogen 11 mg/dL (9-16); C Reactive Protein 0.75 mg/dL (< or = 0.50); Carbon Dioxide 32 mmol/L (22-29); Chloride 105 mmol/L (96-108); Estimated Glomerular Filt Rate > 60; Glucose Random 93 mg/dL (60-115); Potassium 4.2 mmol/L (3.3-5.1); Sodium 142 mmol/L (135-145); Total Protein 7.6 g/dL (6.5-8.0); Uric Acid 5.9 mg/dL (3.4-7.0)
[2023-10-13 14:00] LABS: Erythrocyte Sedimentation Rate 44 MM/HR (0-15)
== END 2023-10-13 10:22 | disposition home or self-care (01) ==
LOC: HO.10HDL 10:21
PROVIDERS: Visit Provider Nurse Practitioner Family
DX: M19.90 Unspecified osteoarthritis, unspecified site (principal); M15.9 Polyosteoarthritis, unspecified; M25.449 Effusion, unspecified hand
CPT/HCPCS: 36415; 80053; 84550; 85025; 85652; 86140

== ENCOUNTER 2023-10-20 09:39 | Outpatient (AMB) | payer MEDICARE, MEDICAID, SELFPAY ==
--- NOTE | 2023-10-20 09:50 | MHC.OFFVIS ---
Intake Vital Signs 10/20/23 09:54 Height 5 ft 11 in Weight 272 lb BMI 37.9 BP 124/68 Blood Pressure Location Lt brachial Position Sitting Pulse 72 Intake Visit Reasons: lipoma of Rt upper extremity Intake Note: Patient referred by PCP Dr. Wilkinson for lipoma on Rt upper arm ad back. Has been present for 6-7 yrs. Patient c/o: Pain, tenderness with touch. Currently on prednisone for body inflammation. 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 Mid lower back mass Left shoulder mass has been present for several years time. His increasing size, becoming more symptomatic. He wished to have removed. 2. Lower back cyst similarly has been present for many years time and increasing in size and he wishes to have removed. Chart was reviewed patient evaluated [facility] Medical History Bilateral hand pain Finger joint swelling Primary osteoarthritis involving multiple joints History of arthritis Pre-diabetes Hyperlipidemia HTN (hypertension) Surgical History Hx of hand surgery History of back surgery Family History Mother Guillain-[place] Household Members: Spouse Alcohol intake: former Patient Tobacco Use Status: Former Tobacco user Current occupational status: retired Physical Exam Vital Signs: Last Vital Signs Pulse 72 10/20/23 09:54 BP 124/68 10/20/23 09:54 BMI result Body Mass Index 37.9 Chest Other: Chest breath sounds bilaterally, HS 1 in 2 GI Other: Corpulent, soft, upper abdominal rectus diastasis. No obvious hernias. Patient was examined both supine and standing with Valsalva Back/Spine/Pelvis Other: Lower mid back mass approximately 3 x 3 cm consistent with a large sebaceous cyst. Several seborrheic keratotic skin lesions. Extrem Other: Approximately 5 x 4 cm left anterior deltoid soft tissue mass consistent with a large lipoma. No periclavicular or cervical adenopathy. Assessment & Plan Assessment & Plan (1) Lipoma: Code(s): D17.9 - Benign lipomatous neoplasm, unspecified (2) Sebaceous cyst: Code(s): L72.3 - Sebaceous cyst Plan Risks, benefits, alternatives of excision of the left L2 and lipoma and lower back sebaceous cyst reviewed the patient and his significant other and included but not limited to bleeding, infection, recurrence, numbness, pain, scarring, seroma formation, wound dehiscence and the patient wished to proceed. All questions were answered. Arrangements were made for this. Coding Level of Care Code New Pt Level 5 (29571) Diagnoses Lipoma D17.9 Sebaceous cyst L72.3
[2023-10-20 09:54] VITALS: BP 124/68; PULSE 72; BMI 37.9
== END 2023-10-20 10:00 | disposition home or self-care (01) ==
PROVIDERS: PCP Internal Medicine; Visit Provider Surgery
DX: D17.9 Benign lipomatous neoplasm, unspecified (principal); L72.3 Sebaceous cyst
CPT/HCPCS: 99204

== ENCOUNTER → 2023-10-20 09:39 | Outpatient (BNVA) | payer MEDICARE, MEDICAID, SELFPAY | PROVIDERS: PCP Internal Medicine; Visit Provider Surgery | DX: L72.3 Sebaceous cyst (principal); D17.9 Benign lipomatous neoplasm, unspecified | CPT/HCPCS: 99202 ==

== ENCOUNTER 2023-11-11 08:54 | Outpatient (REF) | payer MEDICARE, MEDICAID, SELFPAY ==
--- NOTE | ~2023-11-11 | XR_ITS ---
EXAMINATION: XR BILATERAL HIPS WITH AP PELVIS CLINICAL INFORMATION: Right hip pain. COMPARISON: None available. TECHNIQUE: AP and frog-leg lateral views of each hip were obtained. FINDINGS: No fracture. Hip joint spaces are maintained. There is minimal subchondral sclerosis and irregularity of the acetabular roofs. Alignment is anatomic. Sacroiliac joints and pubic symphysis are normal. No abnormal soft tissue calcifications. XR/XR hips NEYDA min 3V IMPRESSION: There is minimal degenerative change of the hips. No fracture or dislocation is seen.
[2023-11-11 10:18] LABS: MANUAL DIFF FLAG NO
[2023-11-11 10:43] LABS: Basophils Absolute Auto 0.1 X10*3/uL (0.0-0.2); Basophils Percent Auto 0.5 % (0-2); Eosinophils Absolute Auto 0.1 X10*3/uL (0.0-0.4); Eosinophils Percent Auto 0.6 % (0-4); Hematocrit 41.3 % (42.0-52.0); Hemoglobin 13.9 g/dl (14.0-18.0); Imm Gran Abs Auto 0.03 X10*3/uL (0.00-0.03); Imm Gran Pct Auto 0.3 % (0.0-0.4); Lymphocytes Absolute Auto 2.3 X10*3/uL (1.2-4.9); Lymphocytes Percent Auto 20.7 % (20-40); Mean Corpuscular HGB Conc 33.7 g/dl (31.0-36.0); Mean Corpuscular Hemoglobin 31.6 pg (27.0-33.0); Mean Corpuscular Volume 93.9 fL (80.0-98.0); Mean Platelet Volume 10.6 fL (9.4-12.4); Monocytes Absolute Auto 0.8 X10*3/uL (0.1-1.2); Monocytes Percent Auto 7.5 % (2-11); Neutrophils Absolute Auto 7.7 x10*3/uL (2.0-8.3); Neutrophils Percent Auto 70.4 % (45-73); Platelet Count 231 X10*3/uL (160-400); Red Cell Distribution Width 14.2 % (11.0-16.0); White Blood Count 10.9 X10*3/uL (4.8-10.8)
[2023-11-11 10:59] LABS: Rheumatoid Factor < 13.0 IU/mL (<15.0)
[2023-11-11 11:01] LABS: Alanine Aminotransferase 19 U/L (0-40); Albumin Level 4.3 g/dL (3.5-5.0); Alkaline Phosphatase 47 U/L (39-117); Anion Gap 13 (12-20); Aspartate Amino Transferase 21 U/L (5-37); Bilirubin Total 0.3 mg/dL (0.0-1.0); Blood Urea Nitrogen 17 mg/dL (9-16); C Reactive Protein 0.57 mg/dL (< or = 0.50); Calcium 10.1 mg/dL (8.4-10.2); Carbon Dioxide 30 mmol/L (22-29); Chloride 103 mmol/L (96-108); Estimated Glomerular Filt Rate > 60; Glucose Random 96 mg/dL (60-115); Potassium 4.2 mmol/L (3.3-5.1); Sodium 142 mmol/L (135-145)
[2023-11-11 11:22] LABS: Erythrocyte Sedimentation Rate 45 MM/HR (0-15)
[2023-11-13 11:58] LABS: Cyclic Citrullinated Peptide <16 UNITS
== END 2023-11-11 08:55 | disposition home or self-care (01) ==
LOC: HO.XRAY 08:54
PROVIDERS: PCP Internal Medicine; Visit Provider Nurse Practitioner Family
DX: M35.3 Polymyalgia rheumatica (principal); M25.551 Pain in right hip; M25.552 Pain in left hip; M25.751 Osteophyte, right hip
CPT/HCPCS: 36415; 73522; 80053; 85025; 85652; 86140; 86200; 86431; 99212

== ENCOUNTER 2023-11-11 08:54 | Outpatient (AMB) | payer MEDICARE, MEDICAID, SELFPAY ==
--- NOTE | 2023-11-11 08:55 | A.OFFVIS_ITS ---
Intake Intake Visit Reasons: PMR/Inflammatory Arthritis. Intake Note: Patient last seen 10/13/23, presents today for follow up and test results. Patient reports taking Prednisone 20 mg QD. Chart states he is taking 10 mg QD. c/o neyda hip pain Surgical Orderly Required: Yes Surgical Orderly Language: Drive Worker Name: Marj [id number] Information Interpreted: clinical only Accompanied by: Spouse Allergies No Known Allergies [No Known Allergies*] Allergy (Verified 11/11/23 08:59) HPI HPI Comments History of Present Illness Details Mr. De La Torre 73 yoM, accompanied by his , is here for evaluation of multiple joint pains. The patient has transferred his care from [facility] due to insurance reasons. Patient reports that he is being treated for arthritis. However, per patient the current provider states he is not able to tell what is the reason for his joint pains. He is currently on methotrexate 2.5 mg 6 pills per week with folic acid 1 mg per day. Patient reports that initial onset was within 3 months of him taking the COVID vaccine in 2021. Therefore, he has been experiencing this for an estimated 7 months. Initially it was in his shoulders and his upper arms and now it is mainly in his buttocks and thighs; his glutes hurt and it makes walking difficult. He states that the only thing that has helped is prednisone. He was on prednisone for about 2 months. After it was stopped he could feel the pain returned. Given that he is prediabetic they did not want him to stay on the prednisone for too much longer. He was then started on methotrexate for the last 7 months and does not think that methotrexate is helping. He describes morning stiffness that takes him at least half an hour to loosen up. He says that when he wakes up in the morning he starts to exercise in the bed before he gets up. It makes it easier to get up and move around -his hands, knees and mainly his hips are stiff in the morning. He also reports lower back pain. He endorses dry eyes and uses restasis about 2 times per day. He denies episodes of red warm swollen joints; denies gout. He reports occasional swelling in lower extremities but thinks this is because of circulation - when he elevates his feet at night they are not swollen. He denies known family history of inflammatory arthritis and autoimmune diseases. He reports a brother that at 80 years old from nephritis secon ruperto to severely high albumin levels. The patient denies Raynaud's phenomenon, butterfly rash on face or other rashes; denies photosensitivity - getting sick or developing a rash from being out in the sun; denies blood or froth in urine; patient denies hx of SOB, chest pain. Patient denies hx of Carditis or Pleuritis. Patient denies any history of DVT/PE and is not taking a blood thinner. Denies fevers, excessive fatigue, unexplained weight-loss or weight-gain, Denies: thinning hair or hair loss, hx of rashes; Denies: red burning eyes needing steroids to treat; dry mouth, mouth sores or u lcers; nose bleed; ringing in the ear, He has a history of diverticulitis but denies chronic abdominal pain, blood or mucous in stool; nausea, vomiting and diarrhea , difficulty swallowing, heartbur n. Malignancy screening: denies personal cancer hx. Colonoscopy : Y Prostate check Y See PMHx Excerpted from ER visit 09/19/2022 - start presents with RUE hand pain and swelling atraumatic x 5 days. He has never had this before. He doesn't overuse his hand. No procedures on that side, no bites/infection. He notes it hurts to move his arm and now the swelling is maris ing his fingers feel tingly Appearance: Alert. Oriented X3. No acute distress. Eyes: Pupils equal, round and reactive to light. ENT: Pharynx normal. Neck: Normal inspection. Neck supple. CVS: Normal heart rate and rhythm. Pulses normal. Respiratory: No respiratory distress. Breath sounds normal. Abdomen: Soft and nontender. Skin: Skin warm and dry. Normal skin color. Normal skin turgor. Extremities: No lower extremity edema. R hand no erythema but moderate swelling on hand itself into fingers with mild warmth and moderate ttp - distal NV intact, ttp into wrist 2+ radial pulse, arm itself hurts to touch, L hand minimal pain and swelling no erythema. Neuro: Oriented X 3. No motor deficit. No sensory deficit. CRP elevated, normal WBC count, CPK normal - doubt myositis no signs of skin infection will start on steroids, pain control MDM - Extremity (Nontraumatic) MDM Narrative Medical decision making narrative: 72 yo male with hx of HTN on lisinopril, HCTZ, pre-diabetes here with c/o R hand L hand pain - it is not cellulitic and does not appear infected - suspect either arthritis or gout. Will obtain labs, PO pain medications and steroids. US for DVT ordered. Dispo per result and findings - if uric acid high will hold HCTZ. Excerpted from ER visit 09/19/2022 - end [facility] Medical History (Updated 11/11/23 @ 09:20 by TIFFANY Patel-) Bilateral hip pain Polymyalgia rheumatica SHAVON (obstructive sleep apnea) Bilateral hand pain Finger joint swelling Primary osteoarthritis involving multiple joints History of arthritis Pre-diabetes Hyperlipidemia HTN (hypertension) Surgical History Hx of hand surgery History of back surgery Family History Mother Guillain-[place] Social History Household Members: Spouse Alcohol intake: former Patient Tobacco Use Status: Former Tobacco user Current occupational status: retired Physical Exam APPEARANCE: Patient in no acute distress. Normal gait EYES no redness, pupils equal and reactive to light, eyelids normal EARS:? External ear normal, canal clear and tympanic membrane normal. NOSE/SINUS:? Airflow through both nares, no nasal discharge, no bleeding THROAT:? Oral mucosa moist, no ulcerations NECK:? No thyromegaly or masses, no adenopathy, trachea midline. HEART:? Regulrar rhythm, S1-S2 heard, no murmurs, rubs or gallops. LUNG:? Clear to percussion and auscultation ABD:? Normal bowel sounds, no organomegaly, masses or tenderness. EXTREMITIES:? No edema, no calf tenderness, normal peripheral pulses. NEURO:? Oriented and alert x3.? No focal weakness.? Reflexes symmetric.? Gait normal. SKIN:? There scattered sebhorric kerratosis to upper chest and neck. No objective signs of Raynaud's phenomenon. JOINT EXAM: Cervical Spine:.? Full range of motion without pain; no tenderness. Thoracic Spine:.? No scoliosis.? No tenderness on palpation. Lumbar Spine:.? Alignment normal.? Full range of motion without pain, no tenderness. Chest Wall:.? No tenderness, swelling, increased warmth or erythema. Hands:.? No thenar atrophy. Right tenderness 2nd PIP, 3rd MCP is resolved and he is able to make a fist without stiffness and pain. trace swelling to 2nd mcp is also resolved. Left: trace swelling to 2nd MCP is resolved, no increased warmth or erythema. Able to make a full fist and has a good core shaper sides strength. Mild osteophytes to Neyda 2nd and 3rd DIPs. Wrists:.? Right: mild pain with movement, tenderness on palpation is resolved. Left: Normal pain-free range of motion without tenderness, swelling, increased warmth or erythema. Elbows:. Normal pain-free range of motion without pain, swelling, increased warmth or erythema. Tenderness bilateral on palpation to lateral epicondyle and olecranon R>L is resolved Shoulders:.?? Resolved- Initial stiffness with movement but full range of motion without pain after 3 times. No tenderness, weakness, swelling, increased warmth or erythema. Hips:.? Full range of motion without mild pain to left hip; Left lateral numbness along the thigh remains. Tenderness to right iliac crest is new. Hip bursa:.? No tenderness - resolved gluteal tenderness bilaterally Knees:.?? Normal pain-free range of motion without tenderness, swelling, increased warmth or erythema.? There is no effusion or crepitation Ankles:.? Normal pain-free range of motion without tenderness, swelling, increased warmth or erythema. Feet:.? Normal pain-free range of motion without tenderness, swelling, increased warmth or erythema. Tender points:? No tenderness to digital palpation at the occiput, trapezius, second rib, knees and greater trochanter? Results Reviewed Results Reviewed: Laboratory Tests 10/13/23 10:25 WBC 7.2 RBC 4.35 L Hgb 13.7 L Hct 41.0 L ESR 44 H C-Reactive Protein 0.75 H Assessment & Plan Assessment & Plan (1) PMR (polymyalgia rheumatica): Code(s): M35.3 - Polymyalgia rheumatica (2) Bilateral hip pain: Code(s): M25.551 - Pain in right hip; M25.552 - Pain in left hip (3) Osteophyte of right iliac crest: Code(s): M25.751 - Osteophyte, right hip Plan #Polymyalgia Rheumatica (PMR): Mr. De La Torre, 73-year-old male, who is primary language is Venezuelan, is being treated for PMR. He has done well on Prednsione and is now on 10mg per day and has stopped Methotrexate. The pain and tenderness to his upper arms and thighs have resolved, his hands do not hurt and there are no tenderness on PE. I will check today to see if the CRP/ESR has normalized in order to proceed with the prednisone taper.. We will continue the Prednisone taper, reducing by 1 mg each month for the next three months. Patient is prediabetic so we will be judicious while using prednisone. I have reminded the patient that the prednisone taper will last at least 6 months to effectively treat PMR. I also discussed with the patient to call the office if he feels that the muscle pain is increasing and if swelling of his fingers returns after stopping methotrexate. We discussed the short-term concerns for prednisone. More specifically patient will keep close watch on his blood sugar and call the office with concerns. I have not received any Xrays or historical labs among the documentation from prior RA provider. I will go ahead and order hand x-rays and RF and CCP. I do see it stated in the records received that he was on Prednisone from 09/2022 to 03/2023. If we find that there is a challenge in tapering of Prednisone with persistent return of symptoms on lowered doses, we may have to reconsider this as SeroNeg RA and start a biologic DMARD. #Bilateral Hip Pain/Right Iliac Crest Pain:What is left is the pain in his hips (Right>L) that has onset and with walking and intensifies the more he walks. There is tenderness with palpation at the posterior left illiac crest/spine. This was not improved with Prednisone. I will order an Xray of bilateral Hips. There is numbness along is lateral right thigh. #Spine DDD. He has a history of back surgery to remove L4 and imaging shows OA of the cervical and thoracic spine. He sometimes takes Ibuprofen 800 mg which helps his back pain. Discussed with patient potential side effects of NSAIDs. Encouraged to take with food and not to consume more that 3 doses per week. He can also take Tylenol Arthritis but denies good effect. Encouraged safe exercises that can strengthen the paraspinal muscles. Orders: Orders Comprehensive Met. Panel Today M35.3 - Polymyalgia rheumatica Complete Blood Count Auto Diff Today M35.3 - Polymyalgia rheumatica Rheumatoid Factor Today M25.551 - Pain in right hip, M25.552 - Pain in left hip XR hand RT min 3V Today M25.551 - Pain in right hip, M25.552 - Pain in left hip, M35.3 - Polymyalgia rheumatica, M79.641 - Pain in right hand, M79.642 - Pain in left hand XR hand LT min 3V Today M25.551 - Pain in right hip, M25.552 - Pain in left hip, M35.3 - Polymyalgia rheumatica, M79.641 - Pain in right hand, M79.642 - Pain in left hand C Reactive Protein Today M35.3 - Polymyalgia rheumatica Erythrocyte Sedimentation Rate Today M35.3 - Polymyalgia rheumatica XR hips NEYDA min 3V Today M25.551 - Pain in right hip, M25.552 - Pain in left hip Cyclic Citrullinated Peptide Today M25.551 - Pain in right hip, M25.552 - Pain in left hip Medications: New prednisone Take with one 5mg Tablet for taper. take 4 tablets per day for 30 days then 3 tablet per day for for 30 days 90 tabs 0RF M35.3 - Polymyalgia rheumatica Coding Level of Care Code Est Pt Level 4 (99351) Diagnoses PMR (polymyalgia rheumatica) M35.3 Bilateral hip pain M25.551; M25.552 Osteophyte of right iliac crest M25.751
== END 2023-11-11 09:54 | disposition home or self-care (01) ==
PROVIDERS: PCP Internal Medicine; Visit Provider Nurse Practitioner Family
DX: M35.3 Polymyalgia rheumatica (principal); M25.551 Pain in right hip; M25.552 Pain in left hip; M25.751 Osteophyte, right hip
CPT/HCPCS: 99214

== ENCOUNTER 2023-11-12 08:34 | Day surgery (SDC) | payer MEDICARE, MEDICAID, SELFPAY ==
[2023-11-10 09:26] VITALS: BMI 37.9
--- NOTE | 2023-11-10 14:39 | P.CONAN_ITS ---
Documented by User: Barbara Benites NP 11/10/23 14:42 HPI - Anesthesia Eval Consult details Narrative: 73yo M for Wide Local Excision LEFT anterior deltoid Mass,and Wide Local Excision of Lower Mid Back Mass ? prednisone daily for arthrits Anesthesia Pre-Procedure Meds Is the patient on any of the following meds?: Dulaglutide (Trulicity) PMFSH Active Problems Active Problems: All Active Problems (Updated 10/13/23 @ 14:30 by Candice Jordan [facility]) Sebaceous cyst (Acute) Lipoma (Acute) Bilateral hand pain (Acute) Finger joint swelling (Acute) Primary osteoarthritis involving multiple joints (Acute) Past Medical History Medical History Bilateral hip pain Polymyalgia rheumatica SHAVON (obstructive sleep apnea) Bilateral hand pain Finger joint swelling Primary osteoarthritis involving multiple joints History of arthritis Pre-diabetes Hyperlipidemia HTN (hypertension) Family History Family History Mother Guillain-[place] Surgical History Surgical History Hx of hand surgery History of back surgery Social History Social History Household Members: Spouse Alcohol intake: former Patient Tobacco Use Status: Former Tobacco user Are you DNR?: No Advance Directives: No Advance Directives Information Provided: Yes Nutrition Risks: No Nutritional Risk Current occupational status: retired Meds Allergies Allergy/AdvReac Type Severity Reaction Status Date / Time No Known Allergies Allergy Verified 11/11/23 08:59 [No Known Allergies*] Home Medications Medication Instructions Recorded Confirmed Last Taken Type atorvastatin 40 mg tablet 40 mg PO BEDTIME 10/13/23 11/10/23 Unknown History blood sugar diagnostic (OneTouch #10 ea 10/13/23 10/20/23 Unknown History Ultra Test strips) blood-glucose meter (OneTouch #1 ea 10/13/23 10/20/23 Unknown History Ultra2 Meter) cholecalciferol (vitamin D3) 25 25 mcg PO QAM 10/13/23 11/10/23 Unknown History mcg (1,000 unit) tablet (Vitamin D3) cyclosporine 0.05 % eye drops in a 1 drp ophthalmic (eye) BID 10/13/23 11/10/23 Unknown History dropperette (Restasis) dulaglutide 1.5 mg/0.5 mL 1.5 mg subcut QWEEK 10/13/23 11/11/23 11/02/23 History subcutaneous pen injector (Trulicity) gabapentin 100 mg capsule 100 mg PO BEDTIME 10/13/23 11/10/23 Unknown History lancets 33 gauge (OneTouch Delica #100 ea 10/13/23 10/20/23 Unknown History Plus Lancet) lisinopril 20 1 tab PO DAILY 10/13/23 11/10/23 Unknown History mg-hydrochlorothiazide 12.5 mg tablet prednisone 5 mg tablet 10 mg PO DAILY 11/10/23 11/10/23 11/12/23 History Exam Height,Weight and Vital Signs: Height 5 ft 11 in Weight 123.377 kg Pertinent Lab Results Pertinent Lab Results: Laboratory Tests 10/13/23 10:25 WBC 7.2 Hgb 13.7 L Hct 41.0 L Plt Count 215 Sodium 142 Potassium 4.2 Chloride 105 Carbon Dioxide 32 H BUN 11 Creatinine 0.78 Assessment and Plan Assessment Anesthesia Assessment: Chart Reviewed Documented by User: Kailey Jacobs MD 11/12/23 11:07 HPI - Anesthesia Eval Anesthesia Pre-Procedure Meds If Yes to any meds - educate patient: Pt education - increased risk of aspiration and Pt education - possibility of cancelled proc at provider's discretion PMFSH Past Medical History Medical History Bilateral hip pain Polymyalgia rheumatica SHAVON (obstructive sleep apnea) Bilateral hand pain Finger joint swelling Primary osteoarthritis involving multiple joints History of arthritis Pre-diabetes Hyperlipidemia HTN (hypertension) Family History Family History Mother Guillain-[place] Family history of problems with anesthesia: No Surgical History Surgical History Hx of hand surgery History of back surgery History of Problems with Anesthesia: No Social History Social History Household Members: Spouse Alcohol intake: former Patient Tobacco Use Status: Former Tobacco user Are you DNR?: No Advance Directives: No Advance Directives Information Provided: Yes Nutrition Risks: No Nutritional Risk Current occupational status: retired [employer] Allergies Allergy/AdvReac Type Severity Reaction Status Date / Time No Known Allergies Allergy Verified 11/11/23 08:59 [No Known Allergies*] Home Medications Medication Instructions Recorded Confirmed Last Taken Type atorvastatin 40 mg tablet 40 mg PO BEDTIME 10/13/23 11/10/23 Unknown History blood sugar diagnostic (OneTouch #10 ea 10/13/23 10/20/23 Unknown History Ultra Test strips) blood-glucose meter (Compass LabsTouch #1 ea 10/13/23 10/20/23 Unknown History Ultra2 Meter) cholecalciferol (vitamin D3) 25 25 mcg PO QAM 10/13/23 11/10/23 Unknown History mcg (1,000 unit) tablet (Vitamin D3) cyclosporine 0.05 % eye drops in a 1 drp ophthalmic (eye) BID 10/13/23 11/10/23 Unknown History dropperette (Restasis) dulaglutide 1.5 mg/0.5 mL 1.5 mg subcut QWEEK 10/13/23 11/11/23 11/02/23 History subcutaneous pen injector (Trulicity) gabapentin 100 mg capsule 100 mg PO BEDTIME 10/13/23 11/10/23 Unknown History lancets 33 gauge (OneTouch Delica #100 ea 10/13/23 10/20/23 Unknown History Plus Lancet) lisinopril 20 1 tab PO DAILY 10/13/23 11/10/23 Unknown History mg-hydrochlorothiazide 12.5 mg tablet prednisone 5 mg tablet 10 mg PO DAILY 11/10/23 11/10/23 11/12/23 History Exam Airway Mallampati Class: II TM Dist: >3cm Neck ROM: Full Heart: rrr Lungs: cta Assessment and Plan Assessment Anesthesia Assessment: Anesthesia Plan Discussed Final Anesthetic Review Family History of Problems with Anesthesia: No History of Problems with Anesthesia: No NPO: Yes ASA Class: III Final Preanesthetic Review: No Changes in Pt Med Stat, Meds/Allgs Chart Reviewed, Consent Obtained/Reviewed and Anes Risks/Benef Reviewed Patient Risk: Intermediate Procedure Risk: Low Anesthetic Plan Anesthetic Plan: MAC: Disposition: Standard PACU
--- NOTE | 2023-11-11 12:01 | MHC.SHP ---
Pre-Procedural Eval Section A Date of Service: 11/11/23 The patient is an INPATIENT: No Changes since office visit: No Cold of Flu in the past 2 weeks, No New Medical Problems, No Changes in Medication and No Patient answered all questions The History & Physical has been completed within 30 days and I have reviewed it.: Yes Section B Chief Complaint: Benign lipomatous neoplasm,Sebaceous cyst Allergies: Allergies Allergy/AdvReac Type Severity Reaction Status Date / Time No Known Allergies Allergy Verified 11/11/23 08:59 [No Known Allergies*] Plan I have reviewed the history and physical and performed a pertinent physical examination on my patient. No changes have occurred unless specified. Time Spent With Patient Time: Total time managing care of this patient today ____ minutes.
[2023-11-12 09:30] VITALS: BP 134/79; PULSE 65; RESP 17; TEMP 36.6; O2SAT 96
[2023-11-12 09:40] VITALS: BMI 37.7
--- NOTE | 2023-11-12 09:42 | PC.NURSE ---
poc 94 at [phone]
[2023-11-12] MEDS: Lactated Ringers 1,000 ML 100 ML IVCONT (09:53)
[2023-11-12 10:12] LABS: Glucose, Whole Blood 94 mg/dL (60-115)
[2023-11-12 12:31] VITALS: BP 122/65; PULSE 71; RESP 16; TEMP 37.2; O2SAT 97
[2023-11-12 12:46] VITALS: BP 138/69; PULSE 79; RESP 16; TEMP 36.7; O2SAT 95
--- NOTE | 2023-11-12 13:27 | P.OP_ITS ---
Operative Note Operative Note Date of Service: 11/12/23 Narrative: Preoperative diagnosis: [] 1. Left deltoid lipoma 2. Midline lower back large sebaceous cyst Postop diagnosis: [] same Procedure [] 1 wide local excision lipoma. 2. Wide local excision sebaceous cyst lower back Surgeon: [] Jeremie Document Coordinator: [] Mignon Type of Anesthesia: [] MAC Indication for surgery: [] 1. 6 x 3 cm large lipoma deltoid area 2. 6 x 3 cm large sebaceous cyst of lower back Findings: [] patient brought to the operating room, placed on operative table in supine position, after adequate level of MAC anesthesia was induced, patient was placed in Right lateral decubitus position. the shoulder and back areas were all prepped and draped in usual sterile fashion. Each area underwent 1% lidocaine and 0.5% Marcaine infiltration. Commencing with a lipoma, longitudinal incision was made over this and carried down through skin, subcutaneous tissue, where a large lipoma with dimensions as described above was uneventfully enucleated. Specimen sent to pathology. Wound was irrigated, secured hemostasis, and closed using interrupted inverted dermal 3-0 Vicryl sutures followed by Steri-Strips and sterile dressings. Large lower back sebaceous cyst underwent transverse bi- elliptical incision and carried down through skin, subcutaneous tissue, were superior and inferior skin flaps were developed and circumferential dissection of a large sebaceous cyst with dimensions as described above was uneventfully performed using Bovie. Specimen sent to pathology. Wound was irrigated, secured hemostasis, and closed using interrupted inverted dermal 3-0 Vicryl sutures followed by Steri-Strips and sterile dressings. Sponge, needle, instrument counts reported correct. Patient tolerated the procedure well and emerged anesthesia in stable condition. EBL minimal
== END 2023-11-12 13:35 | disposition home or self-care (01) ==
PROVIDERS: PCP Internal Medicine; Visit Provider Surgery
PROC: (CPT 23073; principal; 2023-11-12 11:00)
DX: D17.9 Benign lipomatous neoplasm, unspecified (principal); L72.3 Sebaceous cyst; R73.03 Prediabetes; I10 Essential (primary) hypertension; E78.5 Hyperlipidemia, unspecified; M15.9 Polyosteoarthritis, unspecified; Z79.85 Long-term (current) use of injectable non-insulin antidiabetic drugs; Z79.899 Other long term (current) drug therapy; Z79.52 Long term (current) use of systemic steroids; Z98.890 Other specified postprocedural states; Z87.891 Personal history of nicotine dependence
CPT/HCPCS: 23073; 11406; 82947; 88304; 88305; J0131; J0690; J2250; J2704; J2795; J3010

== ENCOUNTER → 2023-11-12 08:34 | Outpatient (BNV) | payer MEDICARE, MEDICAID, SELFPAY | PROVIDERS: PCP Internal Medicine; Visit Provider Surgery | DX: D17.22 Benign lipomatous neoplasm of skin and subcutaneous tissue of left arm (principal); L72.0 Epidermal cyst | CPT/HCPCS: 11406; 23071 ==

== ENCOUNTER 2023-11-24 09:35 | Outpatient (AMB) | payer MEDICARE, MEDICAID, SELFPAY ==
[2023-11-24 09:40] VITALS: BP 130/70; PULSE 71; BMI 38.5
--- NOTE | 2023-11-24 09:40 | A.OFFVIS_ITS ---
Intake Vital Signs 11/24/23 09:40 Height 5 ft 11 in Weight 276 lb BMI 38.5 BP 130/70 Blood Pressure Location Rt brachial Position Sitting Pulse 71 Intake Visit Reasons: S/P anterior deltoid & lower back mass Intake Note: Patient here s/p exc on Lt shoulder and lower back. Patient c/o: yellowish discharge for the back lesion. White suture sticking out along scar line on Lt shoulder Reports sites are healing well. Financial Solutions Advisor Required: No Accompanied by: Spouse Allergies No Known Allergies [No Known Allergies*] Allergy (Verified 11/24/23 09:42) HPI HPI Comments History of Present Illness Details Patient presents with his for follow-up. He has no wound issues or complaints. Pathology is were both benign. [facility] Medical History Bilateral hip pain Polymyalgia rheumatica SHAVON (obstructive sleep apnea) Bilateral hand pain Finger joint swelling Primary osteoarthritis involving multiple joints History of arthritis Pre-diabetes Hyperlipidemia HTN (hypertension) Surgical History Hx of hand surgery History of back surgery Family History Mother Guillain-[place] Social History Household Members: Spouse Alcohol intake: former Patient Tobacco Use Status: Former Tobacco user Current occupational status: retired Physical Exam Vital Signs: Last Vital Signs Pulse 71 11/24/23 09:40 BP 130/70 11/24/23 09:40 BMI result Body Mass Index 38.5 Chest Other: Left deltoid and lower back wounds are clean dry and intact healing uneventfully. Patient has some mild fullness over the incision of the left deltoid. Under sterile to need this was aspirated approximately 5 cc of seroma was drained. Dressing was applied. Well tolerated. Assessment & Plan Assessment & Plan (1) Lipoma: Code(s): D17.9 - Benign lipomatous neoplasm, unspecified (2) Sebaceous cyst: Code(s): L72.3 - Sebaceous cyst Plan Patient have been given local instructions, and will follow-up p.r.n.. All questions answered. Coding Level of Care Code Global (26981) Diagnoses Lipoma D17.9 Sebaceous cyst L72.3
== END 2023-11-24 09:48 | disposition home or self-care (01) ==
PROVIDERS: PCP Internal Medicine; Visit Provider Surgery
DX: D17.9 Benign lipomatous neoplasm, unspecified (principal); L72.3 Sebaceous cyst
CPT/HCPCS: 99024

== ENCOUNTER → 2023-11-24 09:35 | Outpatient (BNVA) | payer MEDICARE, OTHER, SELFPAY | PROVIDERS: PCP Internal Medicine; Visit Provider Surgery | DX: Z09 Encounter for follow-up examination after completed treatment for conditions other than malignant neoplasm (principal) | CPT/HCPCS: 99212 ==

== ENCOUNTER 2024-02-10 08:45 | Outpatient (AMB) | payer MEDICARE, MEDICAID, SELFPAY ==
--- NOTE | 2024-02-10 09:03 | MHC.OFFVIS ---
Intake Vital Signs 02/10/24 09:15 Height 5 ft 11 in Weight 276 lb 7.355 oz BMI 38.6 BP 114/68 Blood Pressure Location Rt brachial Position Sitting Respiration 16 Pulse 71 Pulse Source Pulse Oximeter Temp 97.9 F Temp Source Skin Pulse Oximetry (%) 97 Oxygen Delivery Method Room Air Intake Visit Reasons: PolyMyalgia Rheumatica Tele Marketing Executive Required: Yes Tele Marketing Executive Name: Herb #[id number] Allergies No Known Allergies [No Known Allergies*] Allergy (Verified 02/10/24 09:20) Medication List - Last Reconciled 02/10/24 by Bindu Brown RN atorvastatin 40 mg PO BEDTIME blood sugar diagnostic ([employer] Ultra Test strips) As directed blood-glucose meter ([employer] Ultra2 Meter) As directed cholecalciferol (vitamin D3) (Vitamin D3) 25 mcg PO QAM cyclosporine 0.05% (Restasis) 1 drp ophthalmic (eye) BID dulaglutide (Trulicity) 1.5 mg subcut QWEEK gabapentin 100 mg PO BEDTIME lancets ([employer] Delica Plus Lancet) As directed lisinopril-hydrochlorothiazide 20-12.5 mg 1 tab PO DAILY prednisone 5 mg PO DAILY prednisone Take with one 5mg Tablet for taper. Take 3 tablets each day for 30 days and continue taper down by 1 mg (1 tablet) every 30 days. HPI HPI Comments History of Present Illness Details Mr. De La Torre returns for evaluation of his PMR. 11/11/2023 visit Candice De La Torre 73 yoM, accompanied by his , is here for evaluation of multiple joint pains. The patient has transferred his care from the [facility] due to insurance reasons. Patient reports that he is being treated for arthritis. However, per patient the current provider states he is not able to tell what is the reason for his joint pains. He is currently on methotrexate 2.5 mg 6 pills per week with folic acid 1 mg per day. Patient reports that initial onset was within 3 months of him taking the COVID vaccine in 2021. Therefore, he has been experiencing this for an estimated 7 months. Initially it was in his shoulders and his upper arms and now it is mainly in his buttocks and thighs; his glutes hurt and it makes walking difficult. He states that the only thing that has helped is prednisone. He was on prednisone for about 2 months. After it was stopped he could feel the pain returned. Given that he is prediabetic they did not want him to stay on the prednisone for too much longer. He was then started on methotrexate for the last 7 months and does not think that methotrexate is helping. He describes morning stiffness that takes him at least half an hour to loosen up. He says that when he wakes up in the morning he starts to exercise in the bed before he gets up. It makes it easier to get up and move around -his hands, knees and mainly his hips are stiff in the morning. He also reports lower back pain. He endorses dry eyes and uses restasis about 2 times per day. He denies episodes of red warm swollen joints; denies gout. He reports occasional swelling in lower extremities but thinks this is because of circulation - when he elevates his feet at night they are not swollen. He denies known family history of inflammatory arthritis and autoimmune diseases. He reports a brother that at 80 years old from nephritis secondary to severely high albumin levels. The patient denies Raynaud's phenomenon, butterfly rash on face or other rashes; denies photosensitivity - getting sick or developing a rash from being out in the sun; denies blood or froth in urine; patient denies hx of SOB, chest pain. Patient denies hx of Carditis or Pleuritis. Patient denies any history of DVT/PE and is not taking a blood thinner. Denies fevers, excessive fatigue, unexplained weight-loss or weight-gain, Denies: thinning hair or hair loss, hx of rashes; Denies: red burning eyes needing steroids to treat; dry mouth, mouth sores or ulcers; nose bleed; ringing in the ear, He has a history of diverticulitis but denies chronic abdominal pain, blood or mucous in stool; nausea, vomiting and diarrhea , difficulty swallowing, heartburn. Malignancy screening: denies personal cancer hx. Colonoscopy : Y Prostate check Y See PMHx Excerpted from ER visit 09/19/2022 - start presents with RUE hand pain and swelling atraumatic x 5 days. He has never had this before. He doesn't overuse his hand. No procedures on that side, no bites/infection. He notes it hurts to move his arm and now the swelling is making his fingers feel tingly Appearance: Alert. Oriented X3. No acute distress. Eyes: Pupils equal, round and reactive to light. ENT: Pharynx normal. Neck: Normal inspection. Neck supple. CVS: Normal heart rate and rhythm. Pulses normal. Respiratory: No respiratory distress. Breath sounds normal. Abdomen: Soft and nontender. Skin: Skin warm and dry. Normal skin color. Normal skin turgor. Extremities: No lower extremity edema. R hand no erythema but moderate swelling on hand itself into fingers with mild warmth and moderate ttp - distal NV intact, ttp into wrist 2+ radial pulse, arm itself hurts to touch, L hand minimal pain and swelling no erythema. Neuro: Oriented X 3. No motor deficit. No sensory deficit. CRP elevated, normal WBC count, CPK normal - doubt myositis no signs of skin infection will start on steroids, pain control MDM - Extremity (Nontraumatic) MDM Narrative Medical decision making narrative: 72 yo male with hx of HTN on lisinopril, HCTZ, pre-diabetes here with c/o R hand L hand pain - it is not cellulitic and does not appear infected - suspect either arthritis or gout. Will obtain labs, PO pain medications and steroids. US for DVT ordered. Dispo per result and findings - if uric acid high will hold HCTZ. Excerpted from ER visit 09/19/2022 - end [facility] Medical History (Updated 02/10/24 @ 12:46 by [facility] Degenerative disc disease, lumbar Right hip pain Bilateral hip pain Polymyalgia rheumatica SHAVON (obstructive sleep apnea) Bilateral hand pain Finger joint swelling Primary osteoarthritis involving multiple joints History of arthritis Pre-diabetes Hyperlipidemia HTN (hypertension) Surgical History Hx of hand surgery History of back surgery Family History Mother Guillain-[place] Social History Household Members: Spouse Alcohol intake: former Patient Tobacco Use Status: Former Tobacco user Current occupational status: retired Physical Exam Vital Signs: Last Vital Signs Temp 97.9 F 02/10/24 09:15 Pulse 71 02/10/24 09:15 Resp 16 02/10/24 09:15 BP 114/68 02/10/24 09:15 Pulse Ox 97 02/10/24 09:15 Oxygen Delivery Method Room Air 02/10/24 09:15 BMI result Body Mass Index 38.6 APPEARANCE: Patient in no acute distress. Normal gait EYES no redness, pupils equal and reactive to light, eyelids normal EARS:? External ear normal, canal clear and tympanic membrane normal. NOSE/SINUS:? Airflow through both nares, no nasal discharge, no bleeding THROAT:? Oral mucosa moist, no ulcerations NECK:? No thyromegaly or masses, no adenopathy, trachea midline. HEART:? Regulrar rhythm, S1-S2 heard, no murmurs, rubs or gallops. LUNG:? Clear to percussion and auscultation ABD:? Normal bowel sounds, no organomegaly, masses or tenderness. EXTREMITIES:? No edema, no calf tenderness, normal peripheral pulses. NEURO:? Oriented and alert x3.? No focal weakness.? Reflexes symmetric.? Gait normal. SKIN:? There scattered sebhorric kerratosis to upper chest and neck. No objective signs of Raynaud's phenomenon. JOINT EXAM: Cervical Spine:.? Full range of motion without pain; no tenderness. Thoracic Spine:.? No scoliosis.? No tenderness on palpation. Lumbar Spine:.? Alignment normal.? Full range of motion without pain, no tenderness. Chest Wall:.? No tenderness, swelling, increased warmth or erythema. Hands:.? No thenar atrophy. Right tenderness 2nd PIP, 3rd MCP is resolved and he is able to make a fist without stiffness and pain. trace swelling to 2nd mcp is also resolved. Left: trace swelling to 2nd MCP is resolved, no increased warmth or erythema. 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 Mild osteophytes to Neyda 2nd and 3rd DIPs. Wrists:.? Right: mild pain with movement, tenderness on palpation is resolved. Left: Normal pain-free range of motion without tenderness, swelling, increased warmth or erythema. Elbows:. Normal pain-free range of motion without pain, swelling, increased warmth or erythema. Tenderness bilateral on palpation to lateral epicondyle and olecranon R>L is resolved Shoulders:.?? Resolved- Initial stiffness with movement but full range of motion without pain after 3 times. No tenderness, weakness, swelling, increased warmth or erythema. Hips:.? Full range of motion without mild pain to left hip; Left lateral numbness along the thigh remains. Tenderness to right iliac crest is new. Hip bursa:.? No tenderness - resolved gluteal tenderness bilaterally Knees:.?? Normal pain-free range of motion without tenderness, swelling, increased warmth or erythema.? There is no effusion or crepitation Ankles:.? Normal pain-free range of motion without tenderness, swelling, increased warmth or erythema. Feet:.? Normal pain-free range of motion without tenderness, swelling, increased warmth or erythema. Tender points:? No tenderness to digital palpation at the occiput, trapezius, second rib, knees and greater trochanter? Office Procedures Joint Injection/Drain Joint Injection/Drain Details: Left Trochanteric Bursa injection with Kenalog and Lidocaine Primary Site: other Prep: site was prepped using aseptic technique Injected: 80 mg of, Kenalog, with 1 mL of and 1% plain lidocaine Approach Used: posterolateral Procedure: The patient tolerated the procedure well Coding 82704 - Glenohumeral/Tronchanteric Bursa/Intraarticular Procedure code (CPT) selection complete Results Reviewed Results Reviewed: EXAMINATION: XR BILATERAL HIPS WITH AP PELVIS CLINICAL INFORMATION: Right hip pain. COMPARISON: None available. TECHNIQUE: AP and frog-leg lateral views of each hip were obtained. FINDINGS: No fracture. Hip joint spaces are maintained. There is minimal subchondral sclerosis and irregularity of the acetabular roofs. Alignment is anatomic. Sacroiliac joints and pubic symphysis are normal. No abnormal soft tissue calcifications. XR/XR hips NEYDA min 3V IMPRESSION: There is minimal degenerative change of the hips. No fracture or dislocation is seen. Results Reviewed Laboratory Tests 10/13/23 10:25 WBC 7.2 RBC 4.35 L Hgb 13.7 L Hct 41.0 L ESR 44 H C-Reactive Protein 0.75 H Assessment & Plan Assessment & Plan (1) PMR (polymyalgia rheumatica): Code(s): M35.3 - Polymyalgia rheumatica (2) Bilateral hip pain: Code(s): M25.551 - Pain in right hip; M25.552 - Pain in left hip (3) Osteophyte of right iliac crest: Code(s): M25.751 - Osteophyte, right hip (4) Degenerative disc disease, lumbar: Code(s): M51.36 - Other intervertebral disc degeneration, lumbar region Plan #Polymyalgia Rheumatica (PMR): Mr. De La Torre, 73-year-old male, who is primary language is Chinese, is being treated for PMR. He has done well on Prednsione and is now on 7 mg per day and 3 months off Methotrexate. The pain and tenderness to his upper arms and thighs have resolved, his hands do not hurt and there are no tenderness on PE. He did not do labs as requested before visit so he will recheck today to see if the CRP/ESR has normalized in order to proceed with the prednisone taper. We will continue the Prednisone taper, reducing by 1 mg each month for the next three months. Patient is prediabetic so we will be judicious while using prednisone. I have reminded the patient that the prednisone taper will last at least 6 months to effectively treat PMR. I also discussed with the patient to call the office if he feels that the muscle pain is increasing and if swelling of his fingers returns after stopping methotrexate. We discussed the short-term concerns for prednisone. More specifically patient will keep close watch on his blood sugar and call the office with concerns. I have not received any Xrays or historical labs among the documentation from prior RA provider. I will go ahead and order hand x-rays and RF and CCP. I do see it stated in the records received that he was on Prednisone from 09/2022 to 03/2023. If we find that there is a challenge in tapering of Prednisone with persistent return of symptoms on lowered doses, we may have to reconsider this as SeroNeg RA and start a biologic DMARD. #Bilateral Hip Pain/Right Iliac Crest Pain: He continue with hips concern that has onset and with walking and intensifies the more he walks. It is bothered by sitting or standing. Xray shows mild OA. Today there is more tenderness to left trochanteric so we will do an injection today and if that improves he will schedule to do the right hip in two weeks. There is numbness along is lateral right thigh. #Spine DDD. He has a history of back surgery to remove L4 and imaging shows OA of the cervical and thoracic spine. He sometimes takes Ibuprofen 800 mg which helps his back pain. Discussed with patient potential side effects of NSAIDs. Encouraged to take with food and not to consume more that 3 doses per week. He can also take Tylenol Arthritis but denies good effect. Encouraged safe exercises that can strengthen the paraspinal muscles. Follow-up in 4 months Spent 25 minutes reviewing chart, assessing patient and documenting. Orders: Orders Erythrocyte Sedimentation Rate Today M35.3 - Polymyalgia rheumatica C Reactive Protein Today M35.3 - Polymyalgia rheumatica Coding Level of Care Code Est Pt Level 3 (38369) Diagnoses PMR (polymyalgia rheumatica) M35.3 Bilateral hip pain M25.551; M25.552 Osteophyte of right iliac crest M25.751 Degenerative disc disease, lumbar M51.36 CPT Codes Coding - Joint 7: 45824 - Glenohumeral/Tronchanteric Bursa/Intraarticular ([id number])
[2024-02-10 09:15] VITALS: BP 114/68; PULSE 71; RESP 16; TEMP 36.6; O2SAT 97; BMI 38.6
== END 2024-02-10 10:09 | disposition home or self-care (01) ==
PROVIDERS: PCP Internal Medicine; Visit Provider Nurse Practitioner Family
DX: M35.3 Polymyalgia rheumatica (principal); M25.551 Pain in right hip; M25.552 Pain in left hip; M25.751 Osteophyte, right hip; M51.36 Other intervertebral disc degeneration, lumbar region
CPT/HCPCS: 20610; 99213

== ENCOUNTER → 2024-02-10 08:45 | Outpatient (BNVA) | payer MEDICARE, MEDICAID, SELFPAY | PROVIDERS: PCP Internal Medicine; Visit Provider Nurse Practitioner Family | DX: M35.3 Polymyalgia rheumatica (principal); M25.551 Pain in right hip; M25.751 Osteophyte, right hip; M51.36 Other intervertebral disc degeneration, lumbar region | CPT/HCPCS: 20610; 99212 ==

== ENCOUNTER 2024-06-13 09:14 | Outpatient (AMB) | payer MEDICARE, MEDICAID, SELFPAY ==
--- NOTE | 2024-06-13 09:26 | A.OFFVIS_ITS ---
Vital Signs 06/13/24 09:33 Height 5 ft 11 in Weight 274 lb 0.553 oz BMI 38.2 BP 122/70 Blood Pressure Location Rt brachial Position Sitting Respiration 16 Pulse 71 Pulse Source Pulse Oximeter Pulse Oximetry (%) 95 Oxygen Delivery Method Room Air Intake Visit Reasons: PMR/Right Piriformis Muscle Syndrome./CM Intake Note: Patient presents for PMR/Right Piriformis muscle syndrome. Coordinator Volunteer Services Required: Yes Coordinator Volunteer Services Services: Coordinator Volunteer Services Present Coordinator Volunteer Services Name: Kash Piedra [id number] Allergies No Known Allergies [No Known Allergies*] Allergy (Verified 06/13/24 09:32) Medication List - Last Reconciled 06/13/24 by Heber Weinberg MD atorvastatin 40 mg PO BEDTIME blood sugar diagnostic ([employer] Ultra Test strips) As directed blood-glucose meter ([employer] Ultra2 Meter) As directed cholecalciferol (vitamin D3) (Vitamin D3) 25 mcg PO QAM cyclosporine 0.05% (Restasis) 1 drp ophthalmic (eye) BID dulaglutide (Trulicity) 1.5 mg subcut QWEEK gabapentin 100 mg PO BEDTIME lancets ([employer] Delica Plus Lancet) As directed lisinopril-hydrochlorothiazide 20-12.5 mg 1 tab PO DAILY prednisone 5 mg PO DAILY prednisone Take with one 5mg Tablet for taper. Take 2 tablets each day for 30 days and continue taper down by 1 mg (1 tablet) every 30 days. HPI Comments Details: This is a 74-year-old male with PMR/seronegative RA who presents for follow-up. This is his 1st visit with me. Patient was previously diagnosed with rheumatoid arthritis and was started on methotrexate at the [facility]. Per patient methotrexate was not helpful it was stopped after 7 months and he has been on prednisone which had been tapered down by 1 mg per month. Currently on 3 mg of prednisone daily. He states that he feels about the same overall. Denies any swollen joints. States that his main complaint is pain on the outside of the both hips that radiates down the outside of the hips still bit worse on the left. When he walks he gets pain in the area, he rests for 15 seconds then continues and is able to complete 3-4 miles walk. [facility] Medical History Degenerative disc disease, lumbar Right hip pain Bilateral hip pain Polymyalgia rheumatica SHAVON (obstructive sleep apnea) Bilateral hand pain Finger joint swelling Primary osteoarthritis involving multiple joints History of arthritis Pre-diabetes Hyperlipidemia HTN (hypertension) Surgical History Hx of hand surgery History of back surgery Family History Mother Guillain-[place] Social History Household Members: Spouse Alcohol intake: former Patient Tobacco Use Status: Former Tobacco user Current occupational status: retired Review of Systems Musc Reports arthralgias, Reports numbness and Reports radiating pain into limb Neuro Reports numbness Physical Exam Vital Signs: Last Vital Signs Pulse 71 06/13/24 09:33 Resp 16 06/13/24 09:33 BP 122/70 06/13/24 09:33 Pulse Ox 95 06/13/24 09:33 Oxygen Delivery Method Room Air 06/13/24 09:33 BMI result Body Mass Index 38.2 Const General: cooperative, healthy appearing and comfortable Nutritional Appearance: obese morbidly obese Orientation/consciousness: patient oriented x3 Limitations: no limitations HEENT Head: Yes normocephalic and Yes atraumatic Mouth: oropharynx normal and moist mucous membranes Resp Effort & Inspection: normal respiratory effort and able to speak in complete sentences Auscultation: clear to auscultation bilaterally Cardio Rate: regular rate Rhythm: regular rhythm Skin General skin exam: no rashes or lesions noted Neuro General: patient oriented x3 Extrem Other: Osteoarthritic changes of both hands with no active synovitis No wrist swelling or tenderness or pain with flexion and extension bilaterally No elbow pain with full range of motion bilaterally Minimal bilateral shoulder stiffness with full abduction Negative better cuff provocative maneuvers, negative Speed's test bilaterally Discomfort with hip Allison's test on the left Assessment & Plan Assessment & Plan (1) Polymyalgia rheumatica: Code(s): M35.3 - Polymyalgia rheumatica Category: Medical Plan: This is a 74-year-old male who presents for follow-up. This is her 1st visit with me. Previously patient was diagnosed with seronegative RA and was on methotrexate for approximately 7 months without improvement. Was also on prednisone. He is now being treated as PMR. He has on has been tapered down by 1 mg per month. He is currently on 3 mg of prednisone daily. Upon clinical evaluation I do not see any signs suggestive of active inflammation. Symptoms are likely mechanical in nature Reduce prednisone to 2 mg daily for 1 month, 1 mg daily for 1 month then stop Labs today and before next visit in 3 months (2) Greater trochanteric bursitis of left hip: Code(s): M70.62 - Trochanteric bursitis, left hip Category: Medical Plan: Provided patient with home exercises Plan I spent 45 minutes reviewing patient's chart, evaluating patient, ordering diagnostic workup, counseling patient and documenting in the chart Orders: Orders Complete Blood Count Auto Diff 3 Months M35.3 - Polymyalgia rheumatica C Reactive Protein 3 Months M35.3 - Polymyalgia rheumatica Erythrocyte Sedimentation Rate 3 Months M35.3 - Polymyalgia rheumatica Complete Blood Count Auto Diff Today M35.3 - Polymyalgia rheumatica Comprehensive Met. Panel Today M35.3 - Polymyalgia rheumatica C Reactive Protein Today M35.3 - Polymyalgia rheumatica Erythrocyte Sedimentation Rate Today M35.3 - Polymyalgia rheumatica Immunofixation Pnl, Serum Today M35.3 - Polymyalgia rheumatica Protein Electrophoresis, Serum Today M35.3 - Polymyalgia rheumatica Comprehensive Met. Panel 3 Months M35.3 - Polymyalgia rheumatica Hepatitis A,B,C Profile Today Z11.59 - Encounter for screening for other viral diseases T Spot TB Today Z11.7 - Encounter for testing for latent tuberculosis infection Medications: Changed From prednisone Take with one 5mg Tablet for taper. Take 2 tablets each day for 30 days and continue taper down by 1 mg (1 tablet) every 30 days. 180 tabs 1RF M35.3 - Polymyalgia rheumatica To prednisone Take 2 mg daily for 1 month then 1 mg daily for 1 month then stop 90 tabs 0RF M35.3 - Polymyalgia rheumatica Discontinued prednisone Discontinued Reason: Doctor's Order 5 mg PO DAILY 30 tabs 1RF Coding Level of Care Code Est Pt Level 5 (92856) Diagnoses Polymyalgia rheumatica M35.3 Greater trochanteric bursitis of left hip M70.62
[2024-06-13 09:33] VITALS: BP 122/70; PULSE 71; RESP 16; O2SAT 95; BMI 38.2
== END 2024-06-13 10:06 | disposition home or self-care (01) ==
PROVIDERS: PCP Internal Medicine; Visit Provider Student in an Organized Health Care Education/Training Program
DX: M35.3 Polymyalgia rheumatica (principal); M70.62 Trochanteric bursitis, left hip
CPT/HCPCS: 99215

== ENCOUNTER → 2024-06-13 09:14 | Outpatient (BNVA) | payer MEDICARE, MEDICAID, SELFPAY | PROVIDERS: PCP Internal Medicine; Visit Provider Student in an Organized Health Care Education/Training Program | DX: M35.3 Polymyalgia rheumatica (principal); M70.62 Trochanteric bursitis, left hip | CPT/HCPCS: 99212 ==

== ENCOUNTER 2024-07-12 10:42 | Outpatient (REF) | payer MEDICARE, MEDICAID, SELFPAY ==
[2024-07-12 14:28] LABS: MANUAL DIFF FLAG NO
[2024-07-12 14:35] LABS: Basophils Absolute Auto 0.1 X10*3/uL (0.0-0.2); Basophils Percent Auto 0.7 % (0-2); Eosinophils Absolute Auto 0.1 X10*3/uL (0.0-0.4); Eosinophils Percent Auto 1.2 % (0-4); Hematocrit 40.7 % (42.0-52.0); Hemoglobin 13.4 g/dl (14.0-18.0); Imm Gran Abs Auto 0.02 X10*3/uL (0.00-0.03); Imm Gran Pct Auto 0.3 % (0.0-0.4); Lymphocytes Absolute Auto 1.7 X10*3/uL (1.2-4.9); Lymphocytes Percent Auto 23.8 % (20-40); Mean Corpuscular HGB Conc 32.9 g/dl (31.0-36.0); Mean Corpuscular Hemoglobin 30.6 pg (27.0-33.0); Mean Corpuscular Volume 92.9 fL (80.0-98.0); Mean Platelet Volume 11.1 fL (9.4-12.4); Monocytes Absolute Auto 0.6 X10*3/uL (0.1-1.2); Monocytes Percent Auto 8.8 % (2-11); Neutrophils Absolute Auto 4.7 x10*3/uL (2.0-8.3); Neutrophils Percent Auto 65.2 % (45-73); Platelet Count 252 X10*3/uL (160-400); Red Blood Count 4.38 X10*6/uL (4.60-5.80); Red Cell Distribution Width 13.9 % (11.0-16.0); White Blood Count 7.2 X10*3/uL (4.8-10.8)
[2024-07-12 15:02] LABS: Alanine Aminotransferase 16 U/L (0-40); Albumin Level 4.3 g/dL (3.5-5.0); Alkaline Phosphatase 46 U/L (39-117); Anion Gap 15 (12-20); Aspartate Amino Transferase 19 U/L (5-37); Bilirubin Total 0.3 mg/dL (0.0-1.0); Blood Urea Nitrogen 15 mg/dL (9-16); Calcium 10.3 mg/dL (8.4-10.2); Carbon Dioxide 26 mmol/L (22-29); Chloride 103 mmol/L (96-108); Cholesterol 129 mg/dL (<200); Estimated Glomerular Filt Rate > 60; Glucose Random 82 mg/dL (60-115); HDL Cholesterol 35 mg/dL (>40); LDL Cholesterol Calculated 58 mg/dL (<100); Potassium 4.3 mmol/L (3.3-5.1); Sodium 140 mmol/L (135-145); Total Protein 8.1 g/dL (6.5-8.0); Triglycerides 182 mg/dL (<150)
[2024-07-12 15:08] LABS: TSH reflex Free T4 1.35 uIU/mL (0.32-4.0)
== END 2024-07-12 10:43 | disposition home or self-care (01) ==
LOC: HO.CHCLDS 10:42
PROVIDERS: Visit Provider Internal Medicine
DX: I10 Essential (primary) hypertension (principal); E78.2 Mixed hyperlipidemia
CPT/HCPCS: 36415; 80053; 80061; 84443; 85025

== ENCOUNTER 2024-08-11 15:26 | Outpatient (REF) | payer MEDICARE, MEDICAID, SELFPAY ==
[2024-08-11 17:32] LABS: MANUAL DIFF FLAG NO
[2024-08-11 17:41] LABS: Basophils Absolute Auto 0.1 X10*3/uL (0.0-0.2); Basophils Percent Auto 0.7 % (0-2); Eosinophils Absolute Auto 0.1 X10*3/uL (0.0-0.4); Eosinophils Percent Auto 1.5 % (0-4); Hematocrit 38.7 % (42.0-52.0); Hemoglobin 12.9 g/dl (14.0-18.0); Imm Gran Abs Auto 0.02 X10*3/uL (0.00-0.03); Imm Gran Pct Auto 0.3 % (0.0-0.4); Lymphocytes Absolute Auto 2.1 X10*3/uL (1.2-4.9); Lymphocytes Percent Auto 27.8 % (20-40); Mean Corpuscular HGB Conc 33.3 g/dl (31.0-36.0); Mean Corpuscular Hemoglobin 30.2 pg (27.0-33.0); Mean Corpuscular Volume 90.6 fL (80.0-98.0); Mean Platelet Volume 11.5 fL (9.4-12.4); Monocytes Absolute Auto 0.7 X10*3/uL (0.1-1.2); Monocytes Percent Auto 8.8 % (2-11); Neutrophils Absolute Auto 4.5 x10*3/uL (2.0-8.3); Neutrophils Percent Auto 60.9 % (45-73); Platelet Count 227 X10*3/uL (160-400); Red Blood Count 4.27 X10*6/uL (4.60-5.80); Red Cell Distribution Width 14.3 % (11.0-16.0); White Blood Count 7.4 X10*3/uL (4.8-10.8)
[2024-08-11 17:49] LABS: C Reactive Protein 0.85 mg/dL (< or = 0.50); Uric Acid 6.7 mg/dL (3.4-7.0)
[2024-08-11 18:54] LABS: Erythrocyte Sedimentation Rate 38 MM/HR (0-15)
== END 2024-08-11 15:27 | disposition home or self-care (01) ==
LOC: HO.CHCLDS 15:26
PROVIDERS: Visit Provider Internal Medicine
DX: M25.561 Pain in right knee (principal)
CPT/HCPCS: 36415; 84550; 85025; 85652; 86140

== ENCOUNTER 2024-08-12 09:58 | Outpatient (REF) | payer MEDICARE, SELFPAY ==
--- NOTE | ~2024-08-12 | XR_ITS ---
EXAMINATION: XR KNEE, RIGHT CLINICAL INFORMATION: right knee pain COMPARISON: None available. TECHNIQUE: Four views of the right knee. FINDINGS: No acute fracture, dislocation, or suspicious bone lesion. Normal alignment. Minimal medial and patellofemoral compartment joint space narrowing with early marginal productive osteophytes. Mild spurring of the tibial spines. There are enthesophytes of the tibial tubercle, and both inferior and superior patella. No significant joint effusion evident on the lateral projection. Soft tissues demonstrate very early vascular calcifications. XR/XR knee RT 3V IMPRESSION: 1. No acute findings right knee. 2. Mild medial and patellofemoral degenerative arthritis. 3. No evidence of significant joint effusion. Electronically signed by: Lamberto Fuentes MD 10/23/2024 09:17 PM TEOFILO
== END 2024-08-12 09:59 | disposition home or self-care (01) ==
LOC: HO.XRAY 09:58
PROVIDERS: PCP Internal Medicine; Visit Provider Internal Medicine
DX: M25.561 Pain in right knee (principal)
CPT/HCPCS: 73562

== ENCOUNTER → 2024-08-12 10:00 | Outpatient (BNV) | payer MEDICARE, SELFPAY | PROVIDERS: PCP Internal Medicine; Visit Provider Radiology Diagnostic Radiology | DX: M25.561 Pain in right knee (principal) | CPT/HCPCS: 73564 ==

== ENCOUNTER 2024-08-23 09:39 | Outpatient (REF) | payer MEDICARE, SELFPAY ==
[2024-08-23 14:23] LABS: MANUAL DIFF FLAG NO
[2024-08-23 14:32] LABS: Basophils Percent Auto 0.5 % (0-2); Eosinophils Absolute Auto 0.1 X10*3/uL (0.0-0.4); Eosinophils Percent Auto 1.2 % (0-4); Hemoglobin 13.4 g/dl (14.0-18.0); Imm Gran Abs Auto 0.02 X10*3/uL (0.00-0.03); Imm Gran Pct Auto 0.2 % (0.0-0.4); Lymphocytes Percent Auto 24.5 % (20-40); Mean Corpuscular HGB Conc 32.7 g/dl (31.0-36.0); Mean Corpuscular Volume 91.7 fL (80.0-98.0); Monocytes Absolute Auto 0.8 X10*3/uL (0.1-1.2); Monocytes Percent Auto 9.2 % (2-11); Neutrophils Absolute Auto 5.3 x10*3/uL (2.0-8.3); Neutrophils Percent Auto 64.4 % (45-73); Platelet Count 254 X10*3/uL (160-400); Red Blood Count 4.47 X10*6/uL (4.60-5.80); Red Cell Distribution Width 14.2 % (11.0-16.0); White Blood Count 8.2 X10*3/uL (4.8-10.8)
[2024-08-23 14:43] LABS: Alanine Aminotransferase 13 U/L (0-40); Albumin Level 4.2 g/dL (3.5-5.0); Alkaline Phosphatase 51 U/L (39-117); Anion Gap 13 (12-20); Aspartate Amino Transferase 18 U/L (5-37); Bilirubin Total 0.4 mg/dL (0.0-1.0); Blood Urea Nitrogen 18 mg/dL (9-16); C Reactive Protein 1.36 mg/dL (< or = 0.50); Calcium 10.3 mg/dL (8.4-10.2); Carbon Dioxide 28 mmol/L (22-29); Chloride 103 mmol/L (96-108); Estimated Glomerular Filt Rate > 60; Glucose Random 89 mg/dL (60-115); Potassium 4.6 mmol/L (3.3-5.1); Sodium 139 mmol/L (135-145); Total Protein 7.9 g/dL (6.5-8.0)
[2024-08-23 15:08] LABS: Erythrocyte Sedimentation Rate 57 MM/HR (0-15)
[2024-08-24 08:07] LABS: HBsAGNum1 0.29 S/CO (0.00-0.99); Hepatitis A Antibody IgM 0.29 Index (0-0.79); Hepatitis B Core Antibody Nonreactive (Nonreactive); Hepatitis B Surface Antigen Negative (Negative); ~Hepatitis A Antibody IgM Nonreactive (Nonreactive); ~Hepatitis B Surface Antibody NONREACTIVE (Nonreactive); ~Hepatitis C Antibody Nonreactive (Nonreactive)
[2024-08-24 21:58] LABS: IgA 181 mg/dL (70-320); IgG 1351 mg/dL (600-1540); IgM 63 mg/dL (50-300)
[2024-08-25 12:48] LABS: Prot Elec - Albumin 4.1 g/dL (3.8-4.8); Prot Elec - Alpha1 0.3 g/dL (0.2-0.3); Prot Elec - Alpha2 0.9 g/dL (0.5-0.9); Prot Elec - Beta 1 0.5 g/dL (0.4-0.6); Prot Elec - Beta 2 0.5 g/dL (0.2-0.5); Prot Elec - Gamma 1.2 g/dL (0.8-1.7); Prot Elec - Total Protein 7.5 g/dL (6.1-8.1)
[2024-08-26 03:03] LABS: TS Negative Control Passed; TS Panel A 0; TS Panel B 0; TS Positive Control Passed; TSpotTB Negative (Negative)
== END 2024-08-23 09:40 | disposition home or self-care (01) ==
LOC: HO.CHCLDS 09:39
PROVIDERS: Nurse Practitioner Family; Visit Provider Student in an Organized Health Care Education/Training Program
DX: M35.3 Polymyalgia rheumatica (principal); Z11.59 Encounter for screening for other viral diseases; Z11.7 Encounter for testing for latent tuberculosis infection; Z72.89 Other problems related to lifestyle
CPT/HCPCS: 36415; 80053; 82784; 84165; 85025; 85652; 86140; 86334; 86481; 86704; 86706; 86709; 86803; 87340

== ENCOUNTER 2024-09-13 09:33 | Outpatient (AMB) | payer MEDICARE, MEDICAID, SELFPAY ==
--- NOTE | 2024-09-13 09:43 | A.OFFVIS_ITS ---
Vital Signs 09/13/24 09:49 Height 5 ft 11 in Weight 267 lb 10.259 oz BMI 37.3 BP 112/68 Blood Pressure Location Rt brachial Position Sitting Pulse 73 Pulse Oximetry (%) 96 Oxygen Delivery Method Room Air Intake Visit Reasons: PMR Intake Note: Patient presents for PMR. Electronics Scale Tester Required: Yes Electronics Scale Tester Language: Rubber Goods Repairer Services: Electronics Scale Tester Present Electronics Scale Tester Name: Lucero [id number] Information Interpreted: non-clinical & clinical Allergies No Known Allergies [No Known Allergies*] Allergy (Verified 09/13/24 09:48) Medication List - Last Reconciled 09/13/24 by Heber Weinberg MD atorvastatin 40 mg PO BEDTIME blood sugar diagnostic ([employer] Ultra Test strips) As directed blood-glucose meter ([employer] Ultra2 Meter) As directed cholecalciferol (vitamin D3) (Vitamin D3) 25 mcg PO QAM cyclosporine 0.05% (Restasis) 1 drp ophthalmic (eye) BID dulaglutide (Trulicity) 1.5 mg subcut QWEEK gabapentin 100 mg PO BEDTIME lancets ([employer] Delica Plus Lancet) As directed lisinopril-hydrochlorothiazide 20-12.5 mg 1 tab PO DAILY HPI Comments Details: 74-year-old male previously diagnosed with PMR and seronegative RA returns for follow-up. He has tapered off his prednisone about a month ago. He states that he continues to have pain in his left hip and buttock area, numbness along the outside of his left thigh. The numbness has been ongoing for the last 2 months. He also has been having right knee pain. states that his hands and low back are stiff in the morning for the last 10 minutes or so. Denies any recent illnesses or fevers. [facility] Medical History Diverticulitis Degenerative disc disease, lumbar Right hip pain Bilateral hip pain Polymyalgia rheumatica SHAVON (obstructive sleep apnea) Bilateral hand pain Finger joint swelling Primary osteoarthritis involving multiple joints History of arthritis Pre-diabetes Hyperlipidemia HTN (hypertension) Surgical History Hx of hand surgery History of back surgery Family History Mother Guillain-[place] Social History Household Members: Spouse Alcohol intake: former Patient Tobacco Use Status: Former Tobacco user Current occupational status: retired Review of [employer] Reports arthralgias, Reports numbness, Reports radiating pain into limb and Reports stiffness Neuro Reports numbness Physical Exam Vital Signs: Last Vital Signs Pulse 73 09/13/24 09:49 BP 112/68 09/13/24 09:49 Pulse Ox 96 09/13/24 09:49 Oxygen Delivery Method Room Air 09/13/24 09:49 BMI result Body Mass Index 37.3 Const General: cooperative, healthy appearing and comfortable Nutritional Appearance: obese morbidly obese Orientation/consciousness: patient oriented x3 Limitations: no limitations HEENT Head: Yes normocephalic and Yes atraumatic Mouth: oropharynx normal and moist mucous membranes Resp Effort & Inspection: normal respiratory effort and able to speak in complete sentences Auscultation: clear to auscultation bilaterally Cardio Rate: regular rate Rhythm: regular rhythm Skin General skin exam: no rashes or lesions noted Neuro General: patient oriented x3 Extrem Other: Osteoarthritic changes of both hands with no active synovitis No wrist swelling or tenderness or pain with flexion and extension bilaterally No elbow pain with full range of motion bilaterally Minimal bilateral shoulder stiffness with full abduction Negative better cuff provocative maneuvers, negative Speed's test bilaterally Discomfort with hip Allison's test on the left Assessment & Plan Assessment & Plan (1) Polymyalgia rheumatica: Code(s): M35.3 - Polymyalgia rheumatica Category: Medical Plan: This is a 74-year-old male who presents for follow-up. Previously patient was diagnosed with seronegative RA and was on methotrexate for approximately 7 months without improvement. Per patient, prednisone gave him about 70% improvement. He has been off prednisone now for the last month. Has been having recurrent left trochanteric bursitis/gluteus bursitis. Per patient has generalized morning stiffness lasting 10 minutes, intermittent swelling of his hands, right knee pain. I think at this time, we should change DMARDs. Given patient's history of diabetes on Mounjaro prednisone would not be a good choice. He also has history of diverticulitis and was hospitalized 2 years ago. IL 6 inhibitors would be relatively contraindicated at this time. Start leflunomide 10 mg daily for 1 month, check blood work, if unremarkable, I will increase it to 20 mg daily Labs in one-month and in 2 months before next visit (2) Encounter for monitoring leflunomide therapy: Code(s): Z51.81 - Encounter for therapeutic drug level monitoring; Z79.899 - Other custodial (current) drug therapy Category: Medical Plan: Monitor safety labs Plan I spent 35 minutes reviewing patient's chart, evaluating patient, ordering di agnostic workup, counseling patient and documenting in the chart Orders: Orders Complete Blood Count Auto Diff 2 Months M35.3 - Polymyalgia rheumatica C Reactive Protein 2 Months M35.3 - Polymyalgia rheumatica Erythrocyte Sedimentation Rate 2 Months M35.3 - Polymyalgia rheumatica Erythrocyte Sedimentation Rate 1 Month M35.3 - Polymyalgia rheumatica Comprehensive Met. Panel 2 Months M35.3 - Polymyalgia rheumatica Complete Blood Count Auto Diff 1 Month M35.3 - Polymyalgia rheumatica Comprehensive Met. Panel 1 Month M35.3 - Polymyalgia rheumatica C Reactive Protein 1 Month M35.3 - Polymyalgia rheumatica Medications: New leflunomide 10 mg PO DAILY 30 tabs 0RF Coding Level of Care Code Est Pt Level 4 (07180) Complex EM visit Add On G2211 Diagnoses Polymyalgia rheumatica M35.3 Encounter for monitoring leflunomide therapy Z51.81; Z79.899
[2024-09-13 09:49] VITALS: BP 112/68; PULSE 73; O2SAT 96; BMI 37.3
== END 2024-09-13 10:26 | disposition home or self-care (01) ==
PROVIDERS: PCP Internal Medicine; Visit Provider Student in an Organized Health Care Education/Training Program
DX: M35.3 Polymyalgia rheumatica (principal); Z51.81 Encounter for therapeutic drug level monitoring; Z79.899 Other long term (current) drug therapy
CPT/HCPCS: 99214; G2211

== ENCOUNTER → 2024-09-13 09:33 | Outpatient (BNVA) | payer MEDICARE, MEDICAID, SELFPAY | PROVIDERS: PCP Internal Medicine; Visit Provider Student in an Organized Health Care Education/Training Program | DX: M35.3 Polymyalgia rheumatica (principal); Z51.81 Encounter for therapeutic drug level monitoring; Z79.899 Other long term (current) drug therapy | CPT/HCPCS: 99212 ==

== ENCOUNTER 2024-11-08 14:07 | Outpatient (REF) | payer MEDICARE, MEDICAID, SELFPAY ==
[2024-11-08 17:47] LABS: MANUAL DIFF FLAG NO
[2024-11-08 17:59] LABS: Basophils Absolute Auto 0.1 X10*3/uL (0.0-0.2); Eosinophils Absolute Auto 0.2 X10*3/uL (0.0-0.4); Eosinophils Percent Auto 2.5 % (0-4); Hematocrit 38.5 % (42.0-52.0); Hemoglobin 12.9 g/dl (14.0-18.0); Imm Gran Abs Auto 0.01 X10*3/uL (0.00-0.03); Imm Gran Pct Auto 0.1 % (0.0-0.4); Lymphocytes Percent Auto 30.1 % (20-40); Mean Corpuscular HGB Conc 33.5 g/dl (31.0-36.0); Mean Corpuscular Hemoglobin 30.2 pg (27.0-33.0); Mean Corpuscular Volume 90.2 fL (80.0-98.0); Mean Platelet Volume 11.7 fL (9.4-12.4); Monocytes Absolute Auto 0.6 X10*3/uL (0.1-1.2); Monocytes Percent Auto 8.7 % (2-11); Neutrophils Absolute Auto 3.8 x10*3/uL (2.0-8.3); Neutrophils Percent Auto 57.6 % (45-73); Platelet Count 239 X10*3/uL (160-400); Red Blood Count 4.27 X10*6/uL (4.60-5.80); Red Cell Distribution Width 15.2 % (11.0-16.0); White Blood Count 6.7 X10*3/uL (4.8-10.8)
[2024-11-08 18:25] LABS: Alanine Aminotransferase 18 U/L (0-40); Albumin Level 3.9 g/dL (3.5-5.0); Alkaline Phosphatase 49 U/L (39-117); Anion Gap 10 (12-20); Aspartate Amino Transferase 22 U/L (5-37); Bilirubin Total 0.3 mg/dL (0.0-1.0); Blood Urea Nitrogen 15 mg/dL (9-16); C Reactive Protein 0.72 mg/dL (< or = 0.50); Calcium 9.3 mg/dL (8.4-10.2); Carbon Dioxide 30 mmol/L (22-29); Chloride 104 mmol/L (96-108); Estimated Glomerular Filt Rate > 60; Glucose Random 102 mg/dL (60-115); Sodium 140 mmol/L (135-145); Total Protein 7.2 g/dL (6.5-8.0)
[2024-11-08 19:32] LABS: Erythrocyte Sedimentation Rate 38 MM/HR (0-15)
== END 2024-11-08 14:08 | disposition home or self-care (01) ==
LOC: HO.CHCLDS 14:07
PROVIDERS: Visit Provider Student in an Organized Health Care Education/Training Program
DX: M35.3 Polymyalgia rheumatica (principal)
CPT/HCPCS: 36415; 80053; 85025; 85652; 86140

== ENCOUNTER 2024-11-10 12:28 | Outpatient (AMB) | payer MEDICARE, MEDICAID, SELFPAY ==
--- NOTE | 2024-11-10 12:36 | A.OFFVIS_ITS ---
Vital Signs 11/10/24 12:40 Height 5 ft 11 in Weight 266 lb 8.622 oz BMI 37.2 BP 120/60 Blood Pressure Location Rt brachial Position Sitting Pulse 67 Pulse Source Pulse Oximeter Pulse Oximetry (%) 97 Oxygen Delivery Method Room Air Intake Visit Reasons: PMR Intake Note: Patient presents for PMR. Editor Dictionary Required: Yes Editor Dictionary Language: Plastic Parts Fabricator Trimmer Services: Editor Dictionary Present Editor Dictionary Name: Calderon [id number] Information Interpreted: non-clinical & clinical Allergies No Known Allergies [No Known Allergies*] Allergy (Verified 11/10/24 12:40) Medication List - Last Reconciled 11/10/24 by Heber Weinberg MD atorvastatin 40 mg PO BEDTIME blood sugar diagnostic ([employer] Ultra Test strips) As directed blood-glucose meter ([employer] Ultra2 Meter) As directed cholecalciferol (vitamin D3) (Vitamin D3) 25 mcg PO QAM cyclosporine 0.05% (Restasis) 1 drp ophthalmic (eye) BID dulaglutide (Trulicity) 1.5 mg subcut QWEEK gabapentin 100 mg PO BEDTIME lancets ([employer] Delica Plus Lancet) As directed leflunomide 20 mg PO DAILY lisinopril-hydrochlorothiazide 20-12.5 mg 1 tab PO DAILY HPI Comments Details: 74-year-old male previously diagnosed with PMR and seronegative RA returns for follow-up. He took leflunomide 10 mg daily for 1 month, did not do the requested blood work, he has been without leflunomide for one-month. States that he feels better overall. His overall joint pains are improved. When he walks he does not have to stop, he can continue without significant pain. His morning stiffness of his hands that lasts 1 hour did specifically improve when he was taking leflunomide, it did get a little worse when he ran out. He does not recall any side effects related to leflunomide He continues to have right buttock pain especially when he sits on his buttocks, the pain shoots down his right thigh [facility] Medical History Diverticulitis Degenerative disc disease, lumbar Right hip pain Bilateral hip pain Polymyalgia rheumatica SHAVON (obstructive sleep apnea) Bilateral hand pain Finger joint swelling Primary osteoarthritis involving multiple joints History of arthritis Pre-diabetes Hyperlipidemia HTN (hypertension) Surgical History Hx of hand surgery History of back surgery Family History Mother Guillain-[place] Social History Household Members: Spouse Alcohol intake: former Patient Tobacco Use Status: Former Tobacco user Current occupational status: retired Review of Systems [facility] Reports arthralgias, Reports radiating pain into limb and Reports stiffness Physical Exam Vital Signs: Last Vital Signs Pulse 67 11/10/24 12:40 BP 120/60 11/10/24 12:40 Pulse Ox 97 11/10/24 12:40 Oxygen Delivery Method Room Air 11/10/24 12:40 BMI result Body Mass Index 37.2 Const General: cooperative, healthy appearing and comfortable Nutritional Appearance: obese morbidly obese Orientation/consciousness: patient oriented x3 Limitations: no limitations HEENT Head: Yes normocephalic and Yes atraumatic Mouth: oropharynx normal and moist mucous membranes Resp Effort & Inspection: normal respiratory effort and able to speak in complete sentences Auscultation: clear to auscultation bilaterally Cardio Rate: regular rate Rhythm: regular rhythm Skin General skin exam: no rashes or lesions noted Neuro General: patient oriented x3 Extrem Other: Osteoarthritic changes of both hands with no active synovitis No wrist swelling or tenderness or pain with flexion and extension bilaterally Normal bilateral hand knee bolter strength No elbow pain with full range of motion bilaterally Normal pain-free range of motion of shoulders Negative better cuff provocative maneuvers, negative Speed's test bilaterally Right buttock tenderness No trochanteric bursa area tenderness Negative straight leg raise test bilaterally No knee pain with full flexion-extension bilaterally Assessment & Plan Assessment & Plan (1) Polymyalgia rheumatica: Code(s): M35.3 - Polymyalgia rheumatica Category: Medical Plan: This is a 74-year-old male who presents for follow-up. Previously patient was diagnosed with seronegative RA and was on methotrexate for approximately 7 months without improvement. Per patient, prednisone gave him about 70% improvement. Patient took leflunomide 10 mg daily for one-month, then ran out for the last 30 days. He has noticed significant improvement since starting leflunomide. Specifically the pain and morning stiffness of his hands that lasts 1 hour significantly improved on leflunomide symptoms did get a little worse when he ran out of leflunomide Advised patient that he was supposed to get safety blood work done at one-month, so we can refill the leflunomide Restart leflunomide at 20 mg daily Blood work in one-month and in 2 months before next visit (2) Encounter for monitoring leflunomide therapy: Code(s): Z51.81 - Encounter for therapeutic drug level monitoring; Z79.899 - Other intermediate (current) drug therapy Category: Medical Plan: Monitor safety labs (3) Sciatica: Code(s): M54.30 - Sciatica, unspecified side Category: Medical Qualifiers: Laterality: right Qualified Code(s): M54.31 - Sciatica, right side Plan: Referred to pain meds Plan I spent 25 minutes reviewing patient's chart, evaluating patient, ordering diagnostic workup, counseling patient and documenting in the chart Orders: Orders Comprehensive Met. Panel 2 Months M35.3 - Polymyalgia rheumatica, Z51.81 - Encounter for therapeutic drug level monitoring, Z79.899 - Other intermediate (current) drug therapy Erythrocyte Sedimentation Rate 2 Months M35.3 - Polymyalgia rheumatica, Z51.81 - Encounter for therapeutic drug level monitoring, Z79.899 - Other intermediate (current) drug therapy Complete Blood Count Auto Diff 1 Month M35.3 - Polymyalgia rheumatica, Z51.81 - Encounter for therapeutic drug level monitoring, Z79.899 - Other terminal makeup operator (current) drug therapy Erythrocyte Sedimentation Rate 1 Month M35.3 - Polymyalgia rheumatica, Z51.81 - Encounter for therapeutic drug level monitoring, Z79.899 - Other intermediate (current) drug therapy Complete Blood Count Auto Diff 2 Months M35.3 - Polymyalgia rheumatica, Z51.81 - Encounter for therapeutic drug level monitoring, Z79.899 - Other intermediate (current) drug therapy C Reactive Protein 2 Months M35.3 - Polymyalgia rheumatica, Z51.81 - Encounter for therapeutic drug level monitoring, Z79.899 - Other intermediate (current) drug therapy Comprehensive Met. Panel 1 Month M35.3 - Polymyalgia rheumatica, Z51.81 - Encounter for therapeutic drug level monitoring, Z79.899 - Other terminal makeup operator (current) drug therapy C Reactive Protein 1 Month M35.3 - Polymyalgia rheumatica, Z51.81 - Encounter for therapeutic drug level monitoring, Z79.899 - Other terminal makeup operator (current) drug therapy Referrals Pain Management Referral M54.30 - Sciatica, unspecified side Medications: Changed From leflunomide 10 mg PO DAILY 90 tabs 0RF M35.3 - Polymyalgia rheumatica To leflunomide 20 mg PO DAILY 30 tabs 0RF M35.3 - Polymyalgia rheumatica Coding Level of Care Code Est Pt Level 4 (94660) Complex EM visit Add On G2211 Diagnoses Polymyalgia rheumatica M35.3 Encounter for monitoring leflunomide therapy Z51.81; Z79.899 Sciatica of right side M54.31 Laterality: right
[2024-11-10 12:40] VITALS: BP 120/60; PULSE 67; O2SAT 97; BMI 37.2
== END 2024-11-10 13:05 | disposition home or self-care (01) ==
PROVIDERS: PCP Internal Medicine; Visit Provider Student in an Organized Health Care Education/Training Program
DX: M35.3 Polymyalgia rheumatica (principal); Z51.81 Encounter for therapeutic drug level monitoring; Z79.899 Other long term (current) drug therapy; M54.31 Sciatica, right side
CPT/HCPCS: 99214; G2211

== ENCOUNTER → 2024-11-10 12:28 | Outpatient (BNVA) | payer MEDICARE, MEDICAID, SELFPAY | PROVIDERS: PCP Internal Medicine; Visit Provider Student in an Organized Health Care Education/Training Program | DX: M35.3 Polymyalgia rheumatica (principal); M06.00 Rheumatoid arthritis without rheumatoid factor, unspecified site; M54.31 Sciatica, right side; Z51.81 Encounter for therapeutic drug level monitoring; Z79.899 Other long term (current) drug therapy | CPT/HCPCS: 99212 ==

== ENCOUNTER 2024-11-22 08:36 | Outpatient (AMB) | payer MEDICARE, MEDICAID, SELFPAY ==
--- NOTE | 2024-11-22 08:38 | A.OFFVIS_ITS ---
Vital Signs 11/22/24 08:46 Height 5 ft 11 in Weight 265 lb BMI 37.0 BP 129/63 Blood Pressure Location Lt brachial Position Sitting Pulse 73 Pulse Source Pulse Oximeter Pulse Oximetry (%) 97 Oxygen Delivery Method Room Air Intake Visit Reasons: Sciatica Intake Note: Pain today 5.5 Drosser Required: No Accompanied by: Spouse Allergies No Known Allergies [No Known Allergies*] Allergy (Verified 11/22/24 08:45) HPI HPI Sciatica: Details: Patient is a pleasant 74 years old patient with history of arthritis, lumbar degenerative disc disease, h/o back surgery for L4 disc level over 20 years ago, bilateral hip pain, polymyalgia rheumatica, SHAVON, presents today for initial evaluation of lower back pain with radiation into bilateral lower extremities. Denies any recent trauma, injury or falls. He is on leflunomide therapy through [facility] for PMR. Patient reports low back pain that spreads across his waist line and into left buttock and lateral hip and into left anterior thigh. He also suffers from chronic multiple joint pain upper and lower extremities in his neck, hips, knees and legs. Patient also experiences bilateral sacroiliac joint pain. His walking is limited to 5 min, standing 10 min and sitting 20-30 min due to worsening low back pain. He reports no significant pain when sitting or resting but avoids prolonged sitting due to increased pain. Pain affects his daily activities and functioning, mobility, sleep, social interactions and quality of life. He completed 8 sessions of formal physical therapy and had to stop PT due to increasing pain with exercises. Patient reports he was getting spine injections in the past with various results. Denies any fever or chills, abdominal or groin pain, bladder or bowel dysfunction, or saddle anesthesia. Oswestry Low Back Pain Disability Score=26 (severe disability) Location: Lower back radiates down bilateral hips to knees, polyarthralgia Duration: Chronic pain, worsening for past 1 year Characteristics of symptom or complaint: Numbness, burning, tingling, pins and needles, sharp, pressure, shooting Aggravating or associated factors: Walking, standing, climbing or descending stairs, bending, lifting, heat Relieving factors: Cold therapy, topical OTC applications, naproxen, baclofen, rest Treatment: PT, injections PFSH Medical History Diverticulitis Degenerative disc disease, lumbar Right hip pain Bilateral hip pain Polymyalgia rheumatica SHAVON (obstructive sleep apnea) Bilateral hand pain Finger joint swelling Primary osteoarthritis involving multiple joints History of arthritis Pre-diabetes Hyperlipidemia HTN (hypertension) Surgical History Hx of hand surgery History of back surgery Family History Mother Guillain-[place] Social History Household Members: Spouse Alcohol intake: former Patient Tobacco Use Status: Former Tobacco user Current occupational status: retired Review of Systems Const All systems reviewed & are unremarkable except as noted in HPI and below Physical Exam Vital Signs: Last Vital Signs Pulse 73 11/22/24 08:46 BP 129/63 11/22/24 08:46 Pulse Ox 97 11/22/24 08:46 Oxygen Delivery Method Room Air 11/22/24 08:46 BMI result Body Mass Index 37.0 General: Appears afebrile. Alert and oriented. Mood and affect appropriate. Follows and participates in conversation appropriately. Respiratory effort is unlabored. No cough. Able to transition from sit to stand unassisted. Antalgic gait. Ambulates with normal heel strike and toe off on the right, increased pain on the left with toe/heel standing. General: Yes no CVA tenderness Back/Spine/Pelvis Other: Limited lumbar ROM due to pain. Mildly antalgic gait. No limping. Lumbar pain easily reproduces with extension, axial rotation and flexion or bending forward. Demonstrates 5/5 right and 4/5 left strength of quadriceps bilaterally as well as flexion/dorsiflexion of bilateral feet against resistance. 2+ pedal pulses bilaterally. Straight leg rise with dorsiflexion is positive on the left. Diminished patellar and achilles reflexes bilaterally. Facet loading test posi tive bilaterally. Nargis sign, Montez?s, Gaenslen, Pelvic compression and Stinchfield tests are positive bilaterally, right>left. Mild groin pain with I/E hip rotations on the right. Valsalva maneuver negative. Back: no CVA tenderness Cervical Spine: loss of normal cervical lordosis, cervical muscular tenderness, pain with cervical ROM and No Cervical spine tenderness Thoracic/Lumbar Spine: thoracic and lumbar spine normal to inspection, Thoracic/lumbar spine scar(s), Lasegue's sign positive on the left and l ocalized, pain with thoraco-lumbar ROM, paraspinal muscle tenderness, thoraco- lumbar ROM limited, No thoracic spinal tenderness and lumbar spinal tenderness (L4-S1) Pelvis: buttock tenderness (right>left) bilaterally Sacroiliac joints: bilaterally tender to palpation Extrem General: Yes capillary refill normal, Yes no clubbing, cyanosis or edema and Yes no calf tenderness Results Reviewed Results Reviewed: XR BILATERAL HIPS WITH AP PELVIS 11/11/23 CLINICAL INFORMATION: Right hip pain. FINDINGS: No fracture. Hip joint spaces are maintained. There is minimal subchondral sclerosis and irregularity of the acetabular roofs. Alignment is anatomic. Sacroiliac joints and pubic symphysis are normal. No abnormal soft tissue calcifications. IMPRESSION: There is minimal degenerative change of the hips. No fracture or dislocation is seen. XR KNEE, RIGHT 08/12/24 CLINICAL INFORMATION: right knee pain COMPARISON: None available. TECHNIQUE: Four views of the right knee. FINDINGS: No acute fracture, dislocation, or suspicious bone lesion. Normal alignment. Minimal medial and patellofemoral compartment joint space narrowing with early marginal productive osteophytes. Mild spurring of the tibial spines. There are enthesophytes of the tibial tubercle, and both inferior and superior patella. No significant joint effusion evident on the lateral projection. Soft tissues demonstrate very early vascular calcifications. IMPRESSION: 1. No acute findings right knee. 2. Mild medial and patellofemoral degenerative arthritis. 3. No evidence of significant joint effusion. CT CERVICAL SPINE WITHOUT CONTRAST CT THORACIC SPINE WITHOUT CONTRAST 08/15/21 CLINICAL INFORMATION: Neck and back pain for 3 months now worsening. COMPARISON: CXR from 08/15/2021 TECHNIQUE: Thoracic spine - A volumetric helical acquisition of the thoracic spine was performed and images presented at 1.5 mm and 2 mm slice thickness. Coronal and sagittal reformatted images were generated and reviewed. Cervical spine - A volumetric, helical CT acquisition of the cervical spine was obtained without contrast; in addition to the standard set of axial images, multiplanar reformatted images were provided in the coronal and sagittal imaging planes. This CT examination was performed using dose optimization techniques as appropriate, variously including the following: *Automated exposure control *Adjustment of mA and/or kV according to patient size (this includes techniques or standardized protocols for targeted exams where dose is matched to indication/reason for exam; i.e. extremities or head) *Use of iterative reconstruction technique DLP: 2262 mGy-cm (total) FINDINGS: CERVICAL SPINE: No acute abnormalities. The craniocervical junction is intact. The occipital condyles, dens and atlantodental articulation are intact. There is osseous spurring at the atlantodental articulation. The vertebral body heights are maintained. No fractures in the anterior or posterior elements. No prevertebral soft tissue swelling. Multilevel facet osteoarthritis is present. The facet joints are ankylosed at C3-C4, and there is chronic minimal anterolisthesis of C3 on C4. Otherwise, the cervical vertebra have normal alignment. Mild and moderate multilevel degenerative disc space narrowing and vertebral osteophyte formation of the degenerated cervical spine. The posterior disc osteophyte complexes of C6-C7 and C7-T1 produce mild indentation on the ventral surface of the thecal sac. No significant canal stenosis. The uncovertebral joint hypertrophy of the cervical spine is worst on the left at C5-C6. The osteophytes cause severe left-sided neural foraminal stenosis at C5-C6. No suspicious lytic or osteoblastic lesion. No spinal hematoma or focal fluid collection in the visualized neck. The examined lung apices are clear. Thyroid gland is normal. THORACIC SPINE: The thoracic vertebra have well preserved height and alignment. The anterior and posterior elements are intact. No acute fracture or subluxation. Diffuse idiopathic skeletal hyperostosis as manifest by bulky, flowing anterior ligament ossification of the thoracic spine. Mild multilevel disc space narrowing and osteophyte formation of the thoracic spine. No focal lytic or blastic lesion. No paraspinal soft tissue mass or hematoma. Posterior disc osteophyte complexes at T2-T3 and T3-T4 produce mild central canal stenosis. There are osteophytes that produce mild left-sided neural foraminal stenosis at T1-T2, mild bilateral foraminal stenosis at T2-T3 and mild foraminal stenosis at T3-T4. Mild foraminal narrowing also observed at other levels of the degenerated spine. There are ossifications/enthesophytes of ligamentum flava at several levels, including T10-T11. There are no vertebral endplate erosions. No evidence of discitis or osteomyelitis. The visualized lungs are unremarkable. No pneumothorax or pleural effusion. IMPRESSION: * No acute CT imaging abnormalities in the degenerated cervical or thoracic spine. * No fractures or paraspinal soft tissue swelling. * Within the cervical spine, there are mild and moderate multilevel discovertebral degenerative changes. No significant central canal stenosis. However, there is severe left-sided neural foraminal stenosis at C5-C6. * Diffuse idiopathic skeletal hyperostosis of the thoracic spine. No suspicious lytic or blastic bone lesions. Assessment & Plan Assessment & Plan (1) Degenerative disc disease, lumbar: Code(s): M51.36 - Other intervertebral disc degeneration, lumbar region Category: Medical (2) Lumbar radiculopathy: Code(s): M54.16 - Radiculopathy, lumbar region Category: Medical (3) Lumbar post-laminectomy syndrome: Code(s): M96.1 - Postlaminectomy syndrome, not elsewhere classified Category: Medical (4) Discogenic low back pain: Code(s): M51.360 - Other intervertebral disc degeneration, lumbar region with discogenic back pain only Category: Medical (5) Degenerative disc disease, lumbar: Code(s): M51.36 - Other intervertebral disc degeneration, lumbar region Category: Medical (6) Lumbar radiculopathy: Code(s): M54.16 - Radiculopathy, lumbar region Category: Medical (7) Lumbar post-laminectomy syndrome: Code(s): M96.1 - Postlaminectomy syndrome, not elsewhere classified Category: Medical (8) Primary osteoarthritis involving multiple joints: Code(s): M15.9 - Polyosteoarthritis, unspecified Category: Medical Plan Discussed interventional treatments for axial low back, radicular and discogenic back pain with SIJ and hip pain components. We will obtain MRI of the lumbar spine to assess for neural integrity and compression prior to interventional treatments. He is unable to restart formal PT due to significant pain with exercises and movements. Refill provided for gabapentin with increased dose. Reviewed side effects and precautions with patient. All questions and concerns have been answered and patient agreed with the treatment plan. Follow up for MRI results and sooner as needed. Orders: Orders MR lumbar spine wo con 11/22/24 M51.36 - Other intervertebral disc degeneration, lumbar region, M51.360 - Other intervertebral disc degeneration, lumbar region with discogenic back pain only, M54.16 - Radiculopathy, lumbar region, M96.1 - Postlaminectomy syndrome, not elsewhere classified Medications: Changed From gabapentin 100 mg PO BEDTIME M51.36 - Other intervertebral disc degenerat ion, lumbar region, M51.360 - Other intervertebral disc degeneration, lumbar region with discogenic back pain only, M54.16 - Radiculopathy, lumbar region, M54.31 - Sciatica, right side, M96.1 - Postlaminectomy syndrome, not elsewhere classified To gabapentin 100 mg PO TID 30 days 90 caps 0RF pain M51.36 - Other intervertebral disc degeneration, lumbar region, M51.360 - Other intervertebral disc degeneration, lumbar region with discogenic back pain only, M54.16 - Radiculopathy, lumbar region, M54.31 - Sciatica, right side, M96.1 - Postlaminectomy syndrome, not elsewhere classified Coding Level of Care Code New Pt Level 4 (47196) Complex EM visit Add On G2211 Diagnoses Degenerative disc disease, lumbar M51.36 Lumbar radiculopathy M54.16 Lumbar post-laminectomy syndrome M96.1 Discogenic low back pain M51.360 Primary osteoarthritis involving multiple joints M15.9
[2024-11-22 08:46] VITALS: BP 129/63; PULSE 73; O2SAT 97; BMI 37.0
== END 2024-11-22 09:19 | disposition home or self-care (01) ==
PROVIDERS: PCP Internal Medicine; Referring Provider Student in an Organized Health Care Education/Training Program; Visit Provider Nurse Practitioner Family
DX: M51.369 Other intervertebral disc degeneration, lumbar region without mention of lumbar back pain or lower extremity pain (principal); M54.16 Radiculopathy, lumbar region; M96.1 Postlaminectomy syndrome, not elsewhere classified; M51.360 Other intervertebral disc degeneration, lumbar region with discogenic back pain only; M15.9 Polyosteoarthritis, unspecified
CPT/HCPCS: 99204; G2211

== ENCOUNTER → 2024-11-22 08:36 | Outpatient (BNVA) | payer MEDICARE, MEDICAID, SELFPAY | PROVIDERS: PCP Internal Medicine; Referring Provider Student in an Organized Health Care Education/Training Program; Visit Provider Nurse Practitioner Family | DX: M51.360 Other intervertebral disc degeneration, lumbar region with discogenic back pain only (principal); M54.16 Radiculopathy, lumbar region; M96.1 Postlaminectomy syndrome, not elsewhere classified; M15.9 Polyosteoarthritis, unspecified | CPT/HCPCS: 99202 ==

== ENCOUNTER 2024-11-29 18:12 | Outpatient (REF) | payer MEDICARE, MEDICAID, SELFPAY ==
--- NOTE | ~2024-11-29 | MR_ITS ---
CLINICAL HISTORY: M51.36 - Other intervertebral disc degeneration, lumbar region MR lumbar spine without gadolinium Comparison: None available at this time Findings: Small subacute Schmorl's node of the lower endplate of L3. Otherwise, normal heights of 5 lumbar vertebrae. Mild retrolisthesis at L3-L4 and lumbosacral junction. Modic type 1 endplate changes at L3-L4, L4-L5, and L5-S1. Multifocal hemangiomas noted. Subcutaneous edema present. No drainable paraspinal fluid collection. No suspicious features of the imaged renal cystic lesions by noncontrast imaging in the [id number]. Conus terminates at T12-L1. L1-L2: Disc bulge and bilateral facet arthropathy. No spinal stenosis. L2-L3: Disc bulge, annular fissure, endplate hypertrophy, and bilateral facet arthropathy. Mild bilateral lateral recess narrowing. Trace left foraminal narrowing. L3-L4: Disc bulge, annular fissure, small extrusion, endplate hypertrophy, and bilateral facet arthropathy. Mild spinal canal stenosis with moderate to marked bilateral lateral recess narrowing. Mild bilateral foraminal narrowing. L4-L5: Disc bulge, endplate hypertrophy, and bilateral facet arthropathy. No significant central spinal canal stenosis. Severe left lateral recess narrowing. Moderate -severe left-sided foraminal narrowing. L5-S1: Listhesis, disc bulge, endplate hypertrophy, and annular fissure. Mild left lateral recess narrowing. Mild right and mild-moderate left foraminal narrowing. IMPRESSION: 1. Severe left lateral recess narrowing and severe left-sided foraminal narrowing at L4-L5. 2. Additional spinal stenosis including bilateral lateral recess narrowing of L3-L4. 3. Multifocal facet arthropathy of the lumbar spine. This document has been electronically signed by: Nathanael Espinoza MD on 11/29/2024 19:03:21
== END 2024-11-29 18:13 | disposition home or self-care (01) ==
LOC: HO.MRI 18:12
PROVIDERS: PCP Internal Medicine; Visit Provider Nurse Practitioner Family
DX: M54.16 Radiculopathy, lumbar region (principal); M96.1 Postlaminectomy syndrome, not elsewhere classified; M51.360 Other intervertebral disc degeneration, lumbar region with discogenic back pain only
CPT/HCPCS: 72148

== ENCOUNTER → 2024-11-29 18:28 | Outpatient (BNV) | payer MEDICARE, MEDICAID, SELFPAY | PROVIDERS: PCP Internal Medicine; Visit Provider Radiology Neuroradiology | DX: M48.061 Spinal stenosis, lumbar region without neurogenic claudication (principal); M46.96 Unspecified inflammatory spondylopathy, lumbar region | CPT/HCPCS: 72148 ==

== ENCOUNTER 2024-12-08 13:19 | Outpatient (AMB) | payer MEDICARE, MEDICAID, SELFPAY ==
--- NOTE | 2024-12-08 13:21 | A.OFFVIS_ITS ---
Vital Signs 12/08/24 13:26 Height 5 ft 11 in Weight 266 lb 7 oz BMI 37.2 BP 148/78 H Blood Pressure Location Lt brachial Position Sitting Pulse 72 Pulse Source Pulse Oximeter Pulse Oximetry (%) 98 Oxygen Delivery Method Room Air Intake Visit Reasons: MRI FOLLOW UP Intake Note: Pain today 05/02 Player Manager Required: Yes Player Manager Language: Thread Milling Machine Set Up Operator Services: Player Manager Present Player Manager Name: [id number] Information Interpreted: non-clinical & clinical Accompanied by: Spouse Allergies No Known Allergies [No Known Allergies*] Allergy (Verified 12/08/24 13:26) HPI Comments Details: Patient presents today for follow up to discuss recent lumbar spine MRI results. Patient continues to endorse significant low back pain with radiation into both legs, worse on the left side in L5 distribution. Lumbar spine MRI results were discussed with patient and his with assistance of Medical call center receptionist via [employer] device. Patient is interested to undergo therapeutic SALVATORE injections. Patient does not want additional back surgery but will consider neurosurgical evaluation if no relief with injection. Denies any recent cough, cold, infection, fever or any other significant changes in medical history since last office visit. Denies any changes to medications, medical history or recent hospitalizations. PRIOR: Patient is a pleasant 74 years old patient with history of arthritis, lumbar degenerative disc disease, h/o back surgery for L4 disc level over 20 years ago, bilateral hip pain, polymyalgia rheumatica, SHAVON, presents today for initial evaluation of lower back pain with radiation into bilateral lower extremities. Denies any recent trauma, injury or falls. He is on leflunomide therapy through [facility] for PMR. Patient reports low back pain that spreads across his waist line and into left buttock and lateral hip and into left anterior thigh. He also suffers from chronic multiple joint pain upper and lower extremities in his neck, hips, knees and legs. Patient also experiences bilateral sacroiliac joint pain. His walking is limited to 5 min, standing 10 min and sitting 20-30 min due to worsening low back pain. He reports no significant pain when sitting or resting but avoids prolonged sitting due to increased pain. Pain affects his daily activities and functioning, mobility, sleep, social interactions and quality of life. He completed 8 sessions of formal physical therapy and had to stop PT due to increasing pain with exercises. Patient reports he was getting spine injections in the past with various results. Denies any fever or chills, abdominal or groin pain, bladder or bowel dysfunction, or saddle anesthesia. Oswestry Low Back Pain Disability Score=26 (severe disability) Location: Lower back radiates down bilateral hips to knees, polyarthralgia Duration: Chronic pain, worsening for past 1 year Characteristics of symptom or complaint: Numbness, burning, tingling, pins and needles, sharp, pressure, shooting Aggravating or associated factors: Walking, standing, climbing or descending stairs, bending, lifting, heat Relieving factors: Cold therapy, topical OTC applications, naproxen, baclofen, rest Treatment: PT, injections PFSH Medical History Diverticulitis Degenerative disc disease, lumbar Right hip pain Bilateral hip pain Polymyalgia rheumatica SHAVON (obstructive sleep apnea) Bilateral hand pain Finger joint swelling Primary osteoarthritis involving multiple joints History of arthritis Pre-diabetes Hyperlipidemia HTN (hypertension) Surgical History Hx of hand surgery History of back surgery Family History Mother Guillain-[place] Social History Household Members: Spouse Alcohol intake: former Patient Tobacco Use Status: Former Tobacco user Current occupational status: retired Review of Systems Const All systems reviewed & are unremarkable except as noted in HPI and below Physical Exam Vital Signs: Last Vital Signs Pulse 72 12/08/24 13:26 BP 148/78 H 12/08/24 13:26 Pulse Ox 98 12/08/24 13:26 Oxygen Delivery Method Room Air 12/08/24 13:26 BMI result Body Mass Index 37.2 General: Appears afebrile. Alert and oriented. Mood and affect appropriate. Follows and participates in conversation appropriately. Respiratory effort is unlabored. No cough. Able to transition from sit to stand unassisted. Antalgic gait. Ambulates with normal heel strike and toe off on the right, increased pain on the left with toe/heel standing. General: Yes no CVA tenderness Back/Spine/Pelvis Other: Limited lumbar ROM due to pain. Mildly antalgic gait with limping. Lumbar pain significantly reproduced with extension, axial rotation and flexion or bending forward. Demonstrates 5/5 right and 4/5 left strength of quadriceps bilaterally as well as flexion/dorsiflexion of bilateral feet against resistance. 2+ pedal pulses bilaterally. Straight leg rise with dorsiflexion is positive on the left. Diminished patellar and achilles reflexes bilaterally. Facet loading test positive bilaterally. Nargis sign, Montez?s, Gaenslen, Pelvic compression and Stinchfield tests are positive bilaterally, right>left. Mild groin pain with I/E hip rotations on the right. Valsalva maneuver is negative. Back: no CVA tenderness Cervical Spine: loss of normal cervical lordosis, cervical muscular tenderness, pain with cervical ROM and No Cervical spine tenderness Thoracic/Lumbar Spine: thoracic and lumbar spine normal to inspection, Thoracic/lumbar spine scar(s), Lasegue's sign positive on the left and localized, pain with thoraco-lumbar ROM, paraspinal muscle tenderness, thoraco- lumbar ROM limited, No thoracic spinal tenderness and lumbar spinal tenderness (L4-S1) Pelvis: buttock tenderness (right>left) bilaterally Sacroiliac joints: bilaterally tender to palpation Results Reviewed Results Reviewed: MR lumbar spine without gadolinium 11/29/24 Comparison: None available at this time Findings: Small subacute Schmorl's node of the lower endplate of L3. Otherwise, normal heights of 5 lumbar vertebrae. Mild retrolisthesis at L3-L4 and lumbosacral junction. Modic type 1 endplate changes at L3-L4, L4-L5, and L5-S1. Multifocal hemangiomas noted. Subcutaneous edema present. No drainable paraspinal fluid collection. No suspicious features of the imaged renal cystic lesions by noncontrast imaging in the [id number]. Conus terminates at T12-L1. L1-L2: Disc bulge and bilateral facet arthropathy. No spinal stenosis. L2-L3: Disc bulge, annular fissure, endplate hypertrophy, and bilateral facet arthropathy. Mild bilateral lateral recess narrowing. Trace left foraminal narrowing. L3-L4: Disc bulge, annular fissure, small extrusion, endplate hypertrophy, and bilateral facet arthropathy. Mild spinal canal stenosis with moderate to marked bilateral lateral recess narrowing. Mild bilateral foraminal narrowing. L4-L5: Disc bulge, endplate hypertrophy, and bilateral facet arthropathy. No significant central spinal canal stenosis. Severe left lateral recess narrowing. Moderate -severe left-sided foraminal narrowing. L5-S1: Listhesis, disc bulge, endplate hypertrophy, and annular fissure. Mild left lateral recess narrowing. Mild right and mild-moderate left foraminal narrowing. IMPRESSION: 1. Severe left lateral recess narrowing and severe left-sided foraminal narrowing at L4-L5. 2. Additional spinal stenosis including bilateral lateral recess narrowing of L3-L4. 3. Multifocal facet arthropathy of the lumbar spine. Assessment & Plan Assessment & Plan (1) Degenerative disc disease, lumbar: Code(s): M51.36 - Other intervertebral disc degeneration, lumbar region Category: Medical (2) Lumbar radiculopathy: Code(s): M54.16 - Radiculopathy, lumbar region Category: Medical (3) Lumbar post-laminectomy syndrome: Code(s): M96.1 - Postlaminectomy syndrome, not elsewhere classified Category: Medical (4) Neuroforaminal stenosis of lumbar spine: Code(s): M48.061 - Spinal stenosis, lumbar region without neurogenic claudication Category: Medical Plan Lumbar spine MRI results were discussed with patient and his family with assistance of Internship via [employer]. Schedule Left L4-L5 TFESI injection with local and fluoroscopy. Expectations, risks and benefits were reviewed. Patient is aware he will be contacted to schedule this procedure. Patient is aware of hyperglycemic effects of steroids. Short script provided for Vicodin for moderate-severe pain while patient awaits for injection. Side effects and precautions reviewed with patient. All questions were answered and the patient is in agreement of plan. Follow-up after injections and sooner as needed. Medications: New hydrocodone-acetaminophen 5-325 mg Partial Fill upon patient request. 1 tab PO BID PRN 20 tabs 0RF pain M51.36 - Other intervertebral disc degeneration, lumbar region Coding Level of Care Code Est Pt Level 4 (06189) Complex EM visit Add On G2211 Diagnoses Degenerative disc disease, lumbar M51.36 Lumbar radiculopathy M54.16 Lumbar post-laminectomy syndrome M96.1 Neuroforaminal stenosis of lumbar spine M48.061
[2024-12-08 13:26] VITALS: BP 148/78; PULSE 72; O2SAT 98; BMI 37.2
== END 2024-12-08 14:01 | disposition home or self-care (01) ==
PROVIDERS: PCP Internal Medicine; Visit Provider Nurse Practitioner Family
DX: M51.369 Other intervertebral disc degeneration, lumbar region without mention of lumbar back pain or lower extremity pain (principal); M54.16 Radiculopathy, lumbar region; M96.1 Postlaminectomy syndrome, not elsewhere classified; M48.061 Spinal stenosis, lumbar region without neurogenic claudication
CPT/HCPCS: 99214; G2211

== ENCOUNTER 2025-01-05 07:34 | Outpatient (REF) | payer MEDICARE, MEDICAID, SELFPAY ==
--- NOTE | ~2025-01-05 | FL_ITS ---
EXAMINATION: FLUOROSCOPY GUIDANCE FOR NEEDLE PLACEMENT CLINICAL INFORMATION: M54.16 - Radiculopathy, lumbar region COMPARISON: None available. TECHNIQUE: Fluoroscopy guidance for treatment planning. 2 static images obtained. Lumbar region. FINDINGS: 2 images obtained during a procedure in the lumbar region demonstrated a needle overlapping the vertebral body in the level of concern this is nondiagnostic. FLUOROSCOPY TIME: 0.2 minutes. DOSE AREA PRODUCT: 4.98 uGy-m2 (microgray-meter squared) FL/FL guidance in treatment room IMPRESSION: Nondiagnostic fluoroscopy-guided in the lumbar region. Please refer to the procedure note. Electronically signed by: Calderon Rendon MD 01/05/2025 11:30 AM TEOFILO
--- OUTSIDE RECORDS SUMMARY | 2025-01-05 07:36 | XMS_ITS | Clinical Summary ---
Author Organization [facility] Address [address] [place] [address] Care Team Providers Care Try On Baster Name Role Phone Yasir Patel Primary Care Provider [phone] Source Comments PLEASE NOTE, if this patient is a minor, it may be UNLAWFUL to discuss sensitive information that is contained in these records (such as FAMILY PLANNING, MENTAL HEALTH or SUBSTANCE ABUSE) with the minor patient's parent or other person without the patient's specific authorization.[facility] Allergies No known active allergies Medications loratadine (CLARITIN) 10 mg tabletIndication s:Cough TAKE 1 TAB BY MOUTH NIGHTLY AT BEDTIME NEEDED FOR ALLERGIES 30 Tab 1 09/20/20 20 Active miscellaneous medical supply miscIndications: Other sleep apnea by miscellaneous route nightly at bedtime CPAP supplies per patient need 99 Each 5 08/27/20 21 Active acetaminophen (TYLENOL) 500 mg tabletIndication s:Fever, unspecified fever cause Take 2 Tablets by mouth every 8 (eight) hours 90 Tablet 11 10/24/20 21 Active diclofenac sodium (VOLTAREN) 1 % gelIndications:N julius pain APPLY TOPICALLY 2 (TWO) TIMES DAILY NEEDED FOR PAIN 100 g 1 11/19/20 21 Active naproxen (NAPROSYN) 500 mg tabletIndication s:Neck pain on right side Take 1 Tablet by mouth 2 (two) times daily with a meal prn 60 Tablet 5 01/29/20 22 Active baclofen 20 mg tablet Take 1 Tablet by mouth 3 (three) times daily prn 90 Tablet 5 01/29/20 22 Active polyethylene glycol 3350 17 gram/dose powderIndication s:Constipation by delayed colonic transit Take 17 g by mouth once daily 510 g 5 01/29/20 22 Active lisinopriL-hydro chlorothiazide 20-12.5 mg per tabletIndication s:Essential hypertension TAKE 1 TABLET BY MOUTH EVERY DAY 90 Tablet 08/21/20 22 Active atorvastatin (LIPITOR) 40 mg tabletIndication s:Mixed hyperlipidemia,E ssential hypertension TAKE 1 TABLET BY MOUTH EVERY DAY 90 Tablet 09/03/20 22 Active metFORMIN XR (GLUCOPHAGE-XR) 500 mg 24 hr tablet TAKE 1 TABLET BY MOUTH ONCE DAILY WITH DINNER 90 Tablet 11/21/20 22 Active Active Problems Problem Noted Date Diagnosed Date Prediabetes 08/30/2020 Overview (08/30/2020): August 2020- A1c 6.4% Other sleep apnea 08/11/2019 Overview (11/30/2020): On CPAP HTN (hypertension) 12/01/2016 OA (osteoarthritis) 12/01/2016 Hyperlipidemia 12/01/2016 Muscle spasm 12/01/2016 History of back surgery 12/01/2016 Overview (12/01/2016): S/p Lumbar surgery L4 removed. 10+ yrs ago, says one day did a bad movement and got a herniated disk, could not move, called 911, went to the hosp, had emergency surgery, got better but for ever has some pain, some days worse than others. H/O colonoscopy 12/01/2016 Overview (03/26/2021): January 2020 [facility] tubular adenoma x2, follow up 5-7 years Immunizations Name Administration Dates Next Due Flu, Adjuvant, 65y+ (Fluad) 08/04/2020, 0 Flu, Multi Dose 0.5 ML 08/17/2018,08/17/2018 Flu, Preservative Free 08/11/2019,09/08/2017, Influenza (FLUZONE), high-do se, trivalent, PF 10/22/2021 Moderna COVID-19 Vaccine, re d cap blue label, 12+ Primary Series 10/10/2021,02/09/2021,01/12/2021 PNEUMOCOCCAL CONJUGATE PCV 13 08/11/2019 PNEUMOCOCCAL POLYSACCHARIDE PPV23 09/03/2017,10/2017 TDAP 08/11/2019,09/03/2017,09/03/2017 Td (adult) unspecified 03/11/2001 ZOSTER VACCINE, RECOMBINANT (SHINGRIX) 0,09/30/2019 Zoster, Live Vaccine (Zostavax) 09/03/2017,09/03 Family History Medical History Relation Name Comments Hypertension Brother No Known Problems Daughter Cancer Father prostrate Cancer Mother ovarian Cancer Sister ovarian No Known Problems Son Relation Name Status Comments Brother Alive 4 brothers Daughter Father Alive Mother Sister 0 sister Son Social History Tobacco Use Types Packs/Day Years Used Date Smoking Tobacco: Former Cigarettes 1 10 Smokeless Tobacco: Never Comments:quit 30 years ago Alcohol Use Standard Drinks/Week Comments No 0 (1 standard drink = 0.6 oz pur e alcohol) Social Connections Answer Date Recorded Connectedness 0 01/28/2022 Financial Resource Strain Answer Date R ecorded Financial Resource Strain 0 2021 Stress Answer Date Recorded Stress 0 01/28/2022 Physical Activity Answer Date Recorded Physical Activity 0 07/17/2019 Food Insecurity Answer Date Recorded Food 0 01/28/2022 Transportation Needs Answer Date Record ed Transportation 0 01/28/2022 Housing Stability Answer Date Recorded Housing 0 01/28/2022 Safety and Environment Answer Date Jorge rded Safety 0 01/28/2022 Utilities Answer Date Recorded Utilities 0 01/28/2022 Employment Answer Date Recorded Employment 0 07/17/2019 Sex and Gender Information Value Date Recorded Sex Assigned at Male 08/11/2019 7:14 AM PDT Legal Sex Male 6:29 AM PST Gender Identity Male 08/11/2019 7:14 AM PDT Sexual Orientation Straight 08/13/2019 11 :24 PM PDT 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 Not on file Not on file Not on f ile Last Filed Vital Signs Vital Sign Reading Time Taken Comments Blood Pressure 129/75 07/20/2023 1:04 PM EDT Pulse 71 07/20/2023 1:04 PM EDT Temperature 37.4 ??C (99.4 ??F) 10/29/2021 1:47 PM ES T Respiratory Rate 18 01/28/2022 3:15 PM EST Oxygen Saturation 96% 10/29/2021 1:47 PM EST Inhaled Oxygen Concentration - - Weight 124.3 kg (274 lb) 01/28/2022 3:15 PM EST Height 180.3 cm (5' 11 ) 01/28/2022 3:15 PM EST Body Mass Index 38.22 01/28/2022 3:15 PM EST Plan of Treatment Health Maintenance Due Date Last Done Comments Dental FMX/Pano [address] Colonography 1995 FIT/gFOBT 1995 Fecal DNA 1995 Flexible Sigmoidoscopy 1995 Falls Prevention 02/28/2022 02/28/2021, 09/30/2019 Lipid Screening 09/05/2022 09/05/2021, 05/2020, 08/11/2019, Additional history exists Medicare Annual Wellness Visit 01/28/2023 0 01/28/2022, 08/27/2021, 11/30/2020 Diabetes Screening 07/23/2023 07/23/2022, 0 06/11/2022, 01/28/2022, Additional history exists Dental BW 06/12/2024 06/10/2023 Dental Examination 06/12/2024 06/10/2023 Dental Perio Charting 06/12/2024 06/10/2023 Dental Prophy 06/12/2024 06/10/2023 [id number]-96 ( season) 2024 10/10/2021, 02/09/2021, 01/12/2021 Imm-Influenza (#1) 2024 10/22/2021, 1 (Managed by Outside Provider), 08/04/2020, Additional history exists Alcohol and Drug Screen 11/23/2024 01/29/20 22, 08/27/2021, 02/28/2021, Additional history exists Depression Annual Screen 11/23/2024 022, 08/29/2020, 12/01/2016 Colonoscopy 01/30/2025 01/31/2020 Colorectal Cancer Screening 01/30/2025 Imm-DTaP/Tdap/Td (4 - Td or Tdap) 08/11/2029 08/11/2019, 09/03/2017, 09/03/2017, Additional history exists Hepatitis C Screening Completed 08/11/2019 Imm-Pneumococcal 65+ Completed 08/11/2019, 09/03/2017, 09/03/2017 Imm-Zoster, Recombinant Completed 08/29/20 20, 09/30/2019, 09/03/2017, Additional history exists Abdominal Aortic Aneurysm Screening Completed 05/31/2021 Procedures Procedure Name Priority Date/Time Associated Diagnosis Comments COMP PERIODONTAL EVALUATION - NEW/EST PATIENT Routine 06/10/2023 9:40 AM EDT Encounter for dental examination BITEWINGS - FOUR RADIOGRAPHIC IMAGES Routine 06/10/2023 9:40 AM EDT Fractured dental jewish with loss of material Encounter for dental examination PROPHYLAXIS - ADULT Routine 06/10/2023 9 :40 AM EDT Encounter for dental examination PERIODIC ORAL EVALUATION ESTABLISHED PATIENT Routine 06/10/2023 9:40 AM EDT Encounter for dental examination HEMOGLOBIN GLYCOSYLATED A1C Routine 01/28/2022 3:54 PM EST Prediabetes LIPID PANEL Routine 09/05/2021 9:15 AM EDT Examination, medical, general Primary hypertension US ABDOMINAL AORTA REAL TIME SCREEN STUDY AAA Routine 05/31/2021 12:00 AM EDT History of smoking COLONOSCOPY Routine 01/31/2020 HEPATITIS A,B,C PANEL Routine 08/11/2019 11:33 AM EDT Laboratory exam ordered as part of routine general medical examination Need for hepatitis C screening test from Last 3 Months or Most Recently Relevant to Health Maintenance Results * (ABNORMAL) HEMOGLOBIN, GLYCOSYLATED (A1C) (01/28/2022 3:54 PM EST) HEMOGLOBIN A1C 5.9(H) <5.7 % of total Hgb [facility] Comment: For someone without known diabetes, a hemoglobin A1c value between 5.7% and 6.4% is consistent with prediabetes and should be confirmed with a follow-up test. For someone with known diabetes, a value <7% indicates that their diabetes is well controlled. A1c targets should be individualized based on duration of diabetes, age, comorbid conditions, and other considerations. This assay result is consistent with an increased risk of diabetes. Currently, no consensus exists regarding use of hemoglobin A1c for diagnosis of diabetes for children. Blood Blood / Unknown 01/28/2022 3 :54 PM EST 01/28/2022 3:55 PM EST Yasir Patel [facility] - BLOOD DRAW Edited R esult - Final [id number] [address] [address], [facility] [address] [address] * (ABNORMAL) LIPID PANEL (09/05/2021 9:15 AM EDT) CHOLESTEROL, TOTAL 146 <200 mg/dL [facility] HDL CHOLESTEROL 38(L) > OR = 40 mg/dL [facility] TRIGLYCERIDES 220(H) <150 mg/dL [facility] Comment: If a non-fasting specimen was collected, consider repeat triglyceride testing on a fasting specimen if clinically indicated. Kelby et al. J. of Clin. Lipidol. 2015;9:129-169. LDL-CHOLESTEROL 76 99 mg/dL (calc) [facility] Comment: Reference range: <100 Desirable range <100 mg/dL for primary prevention; ?? <70 mg/dL for patients with CHD or diabetic patients with > or = 2 CHD risk factors. LDL-C is now calculated using the Jaime-Kevin calculation, which is a validated novel method providing better accuracy than the Friedewald equation in the estimation of LDL-C. Jaime AGUILA et al. ANA LUISA. 2013;310(19): 7341-1259 (http://education.poLight/faq/SQJ881) CHOL/HDLC RATIO 3.8 <5.0 (calc) [facility] NON-HDL CHOLESTEROL 108 <130 mg/dL (calc) [facility] Comment: For patients with diabetes plus 1 major ASCVD risk factor, treating to a non-HDL-C goal of <100 mg/dL (LDL-C of <70 mg/dL) is considered a therapeutic option. Blood Blood / Unknown 09/05/2021 9 :15 AM EDT 09/05/2021 9:15 AM EDT [facility] - BLOOD DRAW Final Re sult [facility] [address] [facility] [address] [place] [address], [place] [facility] [address] [facility] [address] [address] * US ABDOMINAL AORTA REAL TIME SCREEN STUDY AAA (05/31/2021 12:00 AM EDT) 05/31/2021 Yasir GARZAP IMG ULTRASOUND Final Res ult * COLONOSCOPY (01/31/2020) Provider [facility] PROCEDURES Final Result * (ABNORMAL) HEPATITIS A,B,C PANEL (08/11/2019 11:33 AM EDT) HEPATITIS B SURFACE ANTIBODY NEGATIVE NEGATIVE [facility] HEPATITIS B SURFACE ANTIGEN NEGATIVE NEGATIVE [facility] Comment: Over the counter supplements containing high doses of biotin may interfere with this assay. ??If interference is suspected, patients shoud be retested after refraining from biotin supplements for 72 hours. HEPATITIS B CORE ANTIBODY NEGATIVE NEGATIVE [facility] HEPATITIS C VIRUS DIAGNOSTIC NEGATIVE NEGATIVE [facility] HEPATITIS A ANTIBODY TOTAL POSITIVE(A) NEGATIVE [facility] Comment: Over the counter supplements containing high doses of biotin may interfere with this assay. ??If interference is suspected, patients shoud be retested after refraining from biotin supplements for 72 hours. Blood specimen (specimen) Blood / Unknown 08/11/2019 11:33 AM EDT 08/11/2019 12:47 PM EDT Narrative [facility] - 08/11/2019 4:24 PM EDT [employer], a member of [address] [address] Hotel Assistant General Manager - Bethany Vigil MD PT ID [id number] ORD# [id number] Ranjan Howardgeovanikatarinacorey [facility] - BLOOD DRAW Edited Result - Final [facility] [address] [place] [address], from Last 3 Months or Most Recently Relevant to Health Maintenance Insurance [place] MED[place] HE[employer] SAF[employer] [place] [address] [place] [address] [facility] Care Teams Try On Baster Relationship Specialty Start Date End Date Yasir Patel FNP [address] [place] [address] PCP - General Family Medicine, DIRECTOR OF PLANNING 06/17/23
--- OUTSIDE RECORDS SUMMARY | 2025-01-05 07:36 | XMS_ITS | Encounter Summary ---
Author Organization [employer] Address [address] [facility] [address] [place] [address] Care Team Providers Care Auto Claim Representative Name Role Phone Joleen Wilkinson MD Primary Care Provider [phone] Encounter Details Date Type Department Care Team ([facility] st Contact Info) Description 08/12/2024 Orders Only [facility] [address] [place], [place] [id number] Joleen Wilkinson MD [address] [place] [address] Acute pain of right knee (Primary Dx) Social History Tobacco Use Types Packs/Day Years Used Date Smoking Tobacco: Never Passive Smoke Exposure: Never Smokeless Tobacco: Never Alcohol Use Standard Drinks/Week Comments Never 0 (1 standard drink = 0.6 oz pur e alcohol) Depression Answer Date Recorded Patient Health Questionnaire-9 Score 0 07/20/2023 Housing Stability Answer Date Recorded What is your housing situation today? I have awildagurinder hyman 09/09/[address] you li ve. Do you have problems with any of the following? None of the above 09/09/2023 Food Insecurity Answer Date Recorded Within the past 12 months, y ou worried that your food would run out before you got money to buy more: Never True 09/09/2023 Within the past 12 months,th e food you bought just didn't last and you didn't have enough money to get more: Never True Transportation Answer Date Recorded In the past 12 months, has l ack of transportation kept you from medical appts, meetings, work or from getting things needed for daily living? No 09/09/2023 Utilities Answer Date Recorded In the past 12 months, has t he electric, gas, oil or water company threatened to shut off services in your home? No 09/09/2023 Depression Answer Date Recorded Patient Health Questionnaire-2 Score 0 07/20/2023 Sex and Gender Information Value Date Recorded Sex Assigned at Male 09/22/2022 10:31 AM EDT Legal Sex Male 10:31 AM EDT Gender Identity Male 03/20/2023 4:00 PM EDT Sexual Orientation Don't know 09/22/2022 10 :31 AM EDT documented as of this encounter Plan of Treatment Upcoming Encounters Date Type Department Care Team (Late st Contact Info) Description 01/31/2025 10:00 AM EDT Office Visit [facility] [address] [place] [address] Joleen Wilkinson MD [address] [place] [address] documented as of this encounter Visit Diagnoses Diagnosis Acute pain of right knee- Primary documented in this encounter Additional Health Concerns Assessment Noted Time PHQ-9 Depression Total Score: 0 07/20/20 23 2:36 PM EDT documented as of this encounter Care Teams Auto Claim Representative Relationship Specialty Start Date End Date Joleen Wilkinson MD [address] [place] [address] PCP - General Internal Medicine 03/26/17 documented as of this encounter
--- OUTSIDE RECORDS SUMMARY | 2025-01-05 07:36 | XMS_ITS | Clinical Summary ---
Author Organization [employer] Address [address] [facility] [address] [place] [address] Care Team Providers Care Intelligence Support Officer Name Role Phone Joleen Wilkinson MD Primary Care Provider [phone] Allergies No known active allergies Medications * This document contains information received from the source organization and may not represent a complete record from that organization. fexofenadine (Sharon) 180 MG tabletIndications :Urticaria Take 1 tablet (180 mg) by mouth if needed each day (Allergies). 30 tablet 1 07/20/20 23 Active diphenhydrAMINE (BENADryl) 25 MG tabletIndications :Urticaria Take 1 tablet (25 mg) by mouth if needed at bedtime for itching. 30 tablet 1 07/20/20 23 Active Restasis 0.05 % ophthalmic emulsion INSTILL INSTILL 1 DROP INTO BOTH EYES TWICE A DAY 07/28/20 23 Active folic acid (Folvite) 1 MG tablet Take 1,000 mcg by mouth in the morning. 07/16/20 23 Active vardenafil (Levitra) 10 MG tabletIndications :Other male erectile dysfunction Take 1 tablet (10 mg) by mouth if needed each day for erectile dysfunction. 10 tablet 09/03/20 23 Active Blood Glucose Monitoring Suppl (FreeStyle Lite) w/Device kitIndications:Pr ediabetes 1 Units in the morning. 1 kit 09/03/20 23 Active Alcohol Swabs (Alcohol Pads) 70 % padsIndications:P rediabetes 1 Box in the morning. 100 each 11 09/03/20 23 Active gabapentin (Neurontin) 100 MG capsuleIndication s:Periodic limb movement Take 1 capsule (100 mg) by mouth at bedtime. 30 capsule 11 09/11/20 23 Active zolpidem (Ambien) 10 MG tabletIndications :Other sleep apnea TAKE 1/2 TABLET BY MOUTH IF NEEDED AT BEDTIME FOR SLEEP FOR UP TO 1 DAYTAKE 1 TABLET 30 MINUTES BEFORE THE PROCEDURE.ND GHT TAKE ANOTHER IF NOT SLEEPING 2 tablet 10/05/20 23 Active baclofen (Lioresal) 20 MG tablet Take 1 tablet by mouth in the morning and 1 tablet in the evening. 06/14/20 22 Active naproxen (Naprosyn) 500 MG tablet Take 1 tablet by mouth every 12 (twelve) hours. 06/11/20 22 Active baclofen (Lioresal) 20 MG tabletIndications :Chronic left-sided low back pain without sciatica Take 1 tablet (20 mg) by mouth 3 times daily. 40 tablet 2 07/12/20 24 Active predniSONE (Deltasone) 20 MG tabletIndications :Acute pain of right knee 20 mg once a day x 3 days. 3 tablet 08/12/20 24 Active Mounjaro 7.5 MG/0.5ML solution auto-injectorIndi cations:Prediabet es,Class 2 severe obesity due to excess calories with serious comorbidity and body mass index (BMI) of 37.0 to 37.9 in adult (CMS/[facility]) INJECT 7.5 MG UNDER THE SKIN 1 (ONE) TIME PER WEEK. 2 mL 1 09/09/20 24 Active naproxen (Naprosyn) 500 MG tabletIndications :Chronic left-sided low back pain without sciatica TAKE 1 TABLET BY MOUTH WITH BREAKFAST AND EVENING MEAL 60 tablet 3 11/09/20 24 Active leflunomide (Arava) 20 MG tablet Take 1 tablet by mouth Once per day. 11/10/20 24 Active metFORMIN XR (Glucophage-XR) 500 MG 24 hr tablet Take 500 mg by mouth with evening meal. 11/21/20 22 Active Mounjaro 10 MG/0.5ML solution auto-injectorIndi cations:Class 2 severe obesity due to excess calories with serious comorbidity and body mass index (BMI) of 37.0 to 37.9 in adult (CMS/HCC) INJECT 10 MG UNDER THE SKIN 1 (ONE) TIME PER WEEK. 2 mL 1 12/05/19 25 Active lisinopril-hydroC HLOROthiazide 20-12.5 MG tabletIndications :Essential hypertension TOME PABLO TABLETA TODOS [place] EN LA MANANA 90 tablet 2 12/08/19 25 Active atorvastatin (Lipitor) 40 MG tablet TOME PABLO TABLETA TODOS [place] 90 tablet 1 12/08/19 25 Active cholecalciferol (D3-1000) 25 MCG (1000 UT) tabletIndications :Other osteoarthritis involving multiple joints TAKE 1 TABLET BY MOUTH EVERY MORNING 90 tablet 3 12/09/19 25 Active cholecalciferol (Vitamin D-3) 25 MCG (1000 UT) tabletIndications :Other osteoarthritis involving multiple joints Take 1 tablet (25 mcg) by mouth in the morning. 60 tablet 11 09/22/20 23 025 Discontinued lisinopril-hydroC HLOROthiazide 20-12.5 MG tabletIndications :Essential hypertension TAKE 1 TABLET BY MOUTH EVERY DAY IN THE MORNING 90 tablet 3 01/12/20 24 025 Discontinued atorvastatin (Lipitor) 40 MG tablet TOME PABLO TABLETA TODOS [place] 90 tablet 1 06/07/20 24 025 Discontinued Active Problems Problem Noted Date Diagnosed Date Rheumatoid arthritis with negative rheumatoid fa ctor 10/13/2024 PMR (polymyalgia rheumatica) 10/13/2024 Arthritis pain 10/22/2022 Microcytic anemia 07/24/2022 Prediabetes 08/30/2020 Overview (04/23/2023): August 2020- A1c 6.4% Chronic back pain 03/26/2017 Obesity 03/26/2017 Other sleep apnea 03/26/2017 Overview (04/23/2023): On CPAP Hyperlipidemia 12/01/2016 Muscle spasm 12/01/2016 OA (osteoarthritis) 12/01/2016 HTN (hypertension) 03/26/1999 Encounters Date Type Department Care Team Description 12/21/2024 10:00 AM EST Office Visit [facility] [address] [place] [address] Bryant Renee 12/09/2024 9:00 AM EST Office Visit [facility] [address] [place] [address] Bryant Renee 12/09/2024 Refill [facility] [address] [place] [address] Joleen Wilkinson MD Other osteoarthritis involving multiple joints 12/08/2024 Orders Only GENERIC EXTERNAL DATA DEPARTMENT Provider, Generic External Data 12/08/2024 Refill [facility] [address] [place] [address] Joleen Wilkinson MD Essential hypertension 12/04/2024 Refill [facility] [address] [place] [address] Joleen Wilkinson MD Class 2 severe obesity due to excess calories with serious comorbidity and body mass index (BMI) of 37.0 to 37.9 in adult ([facility]) 11/29/2024 11:00 AM EST Office Visit [facility] [address] [place] [address] Shantelle Mancia Dental calculus (Primary Dx) 11/29/2024 Orders Only [facility] External Provider, [facility] 11/09/2024 Refill [facility] [address] [place] [address] Joleen Wilkinson MD Chronic left-sided low back pain without sciatica 10/13/2024 9:15 AM EST Office Visit [facility] [address] [place] [address] Joleen Wilkinson MD Class 2 severe obesity due to excess calories with serious comorbidity and body mass index (BMI) of 37.0 to 37.9 in adult ([facility]) (Primary Dx); Prediabetes; 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 ([facility]); PMR (polymyalgia rheumatica) ([facility]) 10/13/2024 Travel from Last 3 Months Immunizations Name Administration Dates Next Due Influenza High-dose Quadriva lent Preservative Free 09/04/2023,10/22/2022,08/12/2021 Influenza Quadrivalent Adjuvanted 08/04/2020 Influenza injectable quadriv alent IIV4 with preservative 08/17/2018 Influenza injectable quadriv alent preservative free 08/11/2019,08/17/2018,09/08/2017 Influenza, High Dose Seasona l, Preservative Free 10/22/2021 Pneumococcal Conjugate PCV 13 08/11/2019 Pneumococcal Polysaccharide PPSV23 09/03/2017 Td (adult), unspecified 03/11/2001 Tdap 08/11/2019,09/03/2017 Zoster, Recombinant 08/29/2020,09/30/2019 Zoster, live 09/03/2017 Social History Tobacco Use Types Packs/Day Years Used Date Smoking Tobacco: Never Passive Smoke Exposure: Never Smokeless Tobacco: Never Tobacco Cessation:Counseling Given: Not Answered Alcohol Use Standard Drinks/Week Comments Never 0 (1 standard drink = 0.6 oz pur e alcohol) Depression Answer Date Recorded Patient Health Questionnaire-9 Score 0 07/20/2023 Housing Stability Answer Date Recorded What is your housing situation today? I have awilda hyman 09/09/[address] you [...] Don't know 09/22/2022 10 :31 AM EDT Last Filed Vital Signs Vital Sign Reading Time Taken Comments Blood Pressure 130/70 12/21/2024 10:15 AM EST Pulse 70 10/13/2024 9:25 AM EST Temperature 36.7 ??C (98 ??F) 10/13/2024 9:25 AM EST Respiratory Rate 20 10/13/2024 9:25 AM EST Oxygen Saturation 98% 10/13/2024 9:25 AM EST Inhaled Oxygen Concentration - - Weight 118 kg (261 lb) 10/13/2024 9:25 AM EST Height 182 cm (5' 11.65 ) 10/13/2024 9:25 AM EST Body Mass Index 35.74 10/13/2024 9:25 AM EST Plan of Treatment Upcoming Encounters Date Type Department Care Team (Late st Contact Info) Description 01/31/2025 10:00 AM EDT Office Visit [facility] [address], [place] [phone] Joleen Wilkinson MD [address] [place] [address] Health Maintenance Due Date Last Done Comments CT Colonography 1950 FIT DNA/Cologuard 1950 FIT 1950 FOBT 1950 Sigmoidoscopy 1950 Alcohol/Substance Use Screening 1962 Depression Screening 07/20/2024 07/20/2023, 07/20/20 23 SDOH Screening 07/20/2024 07/20/2023 COVID-19 Vaccine ( season) 2024 10/10/2021, 02/09/2021, 01/12/2021 RSV Patients and Patients Aged 60 years or older (1 - 1-dose 75+ series) 2025 Dental Oral Exam 05/30/2025 11/29/2024, , 08/19/2023 Dental Prophylaxis 05/30/2025 11/29/2024, 0 02/18/2024, 08/19/2023 Diabetes: Hemoglobin A1C 07/12/2025 024, 07/23/2022, 06/11/2022 Dental X-Ray: Bitewings 11/30/2025 11/29/2024, 08/19 Tobacco Screening 12/21/2025 12/21/2024 Dental X-Ray: Full Mouth 08/20/2026 08/19/2023 Lipid Panel 07/12/2029 07/12/2024, 08/3 11/2021, 06/11/2022 DTaP/Tdap/Td Vaccines (3 - Td or Tdap) 08/11/2029 08/11/2019, 09/03/2017, 03/11/2001 Colonoscopy 09/09/2032 09/09/2022 Colorectal Cancer Screening 09/09/2032 Pneumococcal Vaccine: 50+ Years Completed 08/11/2019, 09/03/2017 Zoster Vaccines Completed 08/29/2020, 11/0 06/2019, 09/03/2017 Hepatitis C Screening Completed 07/23/2022, 022 Influenza Vaccine Completed 08/18/2024, , 10/22/2022, Additional history exists HIB Vaccines Aged Out No longer eligi ble based on patient's age to complete this topic HPV Vaccines Aged Out No longer eligi ble based on patient's age to complete this topic Hepatitis A Vaccines Aged Out No long er eligible based on patient's age to complete this topic Hepatitis B Vaccines Aged Out No long er eligible based on patient's age to complete this topic IPV Vaccines Aged Out No longer eligi ble based on patient's age to complete this topic Meningococcal Vaccine Aged Out No lucy kortney eligible based on patient's age to complete this topic RSV under 20 months Aged Out No longe r eligible based on patient's age to complete this topic Rotavirus Vaccines Aged Out No longer eligible based on patient's age to complete this topic Procedures Procedure Name Priority Date/Time Associated Diagnosis Comments CASE PRESENTATION, DETAILED AND EXTENSIVE TREATMENT PLANNING Routine 12/21/2024 10:00 AM EST 27 I RESIN-BASED COMPOSITE - 1 SURF, ANTERIOR Routine 12/21/2024 10:00 AM EST 13 B(V) RESIN-BASED COMPOSITE - 1 SURF, POSTERIOR Routine 12/21/2024 10:00 AM EST 12 B(V) RESIN-BASED COMPOSITE - 1 SURF, POSTERIOR Routine 12/21/2024 10:00 AM EST CASE PRESENTATION, DETAILED AND EXTENSIVE TREATMENT PLANNING Routine 12/09/2024 9:00 AM EST 11 I RESIN-BASED COMPOSITE - 1 SURF, ANTERIOR Routine 12/09/2024 9:00 AM EST 10 I RESIN-BASED COMPOSITE - 1 SURF, ANTERIOR Routine 12/09/2024 9:00 AM EST 5 O RESIN-BASED COMPOSITE - 1 SURF, POSTERIOR Routine 12/09/2024 9:00 AM EST 6 I RESIN-BASED COMPOSITE - 1 SURF, ANTERIOR Routine 12/09/2024 9:00 AM EST C-REACTIVE PROTEIN Routine 12/08/2024 2: 19 PM EST COMPREHENSIVE METABOLIC PANEL Routine 12/08/2024 2:19 PM EST SED RATE BY MODIFIED WESTERGREN Routine 12/08/2024 2:19 PM EST CBC WITH AUTO DIFFERENTIAL Routine 12/08/2024 2:19 PM EST MR LUMBAR SPINE WO CONTRAST Routine 11/29/2024 7:03 PM EST COMPREHENSIVE PERIODONTAL EVALUATION - NEW OR ESTABLISHED PATIENT Routine 11/29/2024 11:00 AM EST PERIODIC ORAL EVALUATION - ESTABLISHED PATIENT Routine 11/29/2024 11:00 AM EST INTRAORAL - PERIAPICAL EACH ADDITIONAL RADIOGRAPHIC IMAGE Routine 11/29/2024 11:00 AM EST INTRAORAL - PERIAPICAL FIRST RADIOGRAPHIC IMAGE Routine 11/29/2024 11:00 AM EST BITEWINGS - 4 RADIOGRAPHIC IMAGES Routine 11/29/2024 11:00 AM EST ORAL HYGIENE INSTRUCTIONS Routine 11/29/2024 11:00 AM EST CASE PRESENTATION, DETAILED AND EXTENSIVE TREATMENT PLANNING Routine 11/29/2024 11:00 AM EST PROPHYLAXIS - ADULT Routine 11/29/2024 1 1:00 AM EST 5 B(V) COMPOSITE FILLING Routine 11/29/2024 12:00 AM EST POCT GLUCOSE Routine 10/13/2024 10:12 AM EST Class 2 severe obesity due to excess calories with serious comorbidity and body mass index (BMI) of 37.0 to 37.9 in adult ([facility]) Prediabetes POCT GLYCATED HEMOGLOBIN, TOTAL Routine 07/12/2024 11:24 AM EDT Prediabetes LIPID PANEL, STANDARD Routine 07/12/2024 10:44 AM EDT Primary hypertension Mixed hyperlipidemia INTRAORAL - COMPLETE SERIES OF RADIOGRAPHIC IMAGES Routine 08/19/2023 10:00 AM EDT HM COLONOSCOPY Routine 09/09/2022 ANDREIA HISTORICAL HEPATITIS C AB W/REFL TO HCV RNA, QN, PCR Routine 07/23/2022 8:48 AM EDT from Last 3 Months or Most Recently Relevant to Health Maintenance Results * (ABNORMAL) CBC auto differential (12/08/2024 2:19 PM EST) White Blood Count 7.2 4.8 - 10.8 X10*3/uL [facility] Red Blood Count 4.34(L) 4.60 - 5.80 X10*6/uL [facility] Hemoglobin 13.0(L) 14.0 - 18.0 g/dl [facility] Hematocrit 39.5(L) 42.0 - 52.0 % [facility] Mean Corpuscular Volume 91.0 80.0 - 98.0 fL [facility] Mean Corpuscular Hemoglobin 30.0 27.0 - 33.0 pg [facility] Mean Corpuscular HGB Conc 32.9 31.0 - 36.0 g/dl [facility] Red Cell Distribution Width 14.4 11.0 - 16.0 % [facility] Platelet Count 231 160 - 400 X10*3/uL [facility] Mean Platelet Volume 11.1 9.4 - 12.4 fL [facility] Neutrophils Percent Auto 61.3 45 - 73 % [facility] Imm Gran Pct Auto 0.3 0.0 - 0.4 % [facility] Lymphocytes Percent Auto 26.7 20 - 40 % [facility] Monocytes Percent Auto 9.0 2 - 11 % [facility] Eosinophils Percent Auto 1.7 0 - 4 % [facility] Basophils Percent Auto 1.0 0 - 2 % [facility] NRBC Pct Auto 0.0 0.0 - 0.2 /100WBC [facility] Neutrophils Absolute Auto 4.4 2.0 - 8.3 x10*3/uL [facility] Imm Gran Abs Auto 0.02 0.00 - 0.03 X10*3/uL [facility] Lymphocytes Absolute Auto 1.9 1.2 - 4.9 X10*3/uL [facility] Monocytes Absolute Auto 0.7 0.1 - 1.2 X10*3/uL [facility] Eosinophils Absolute Auto 0.1 0.0 - 0.4 X10*3/uL [facility] Basophils Absolute Auto 0.1 0.0 - 0.2 X10*3/uL [facility] NRBC Abs Auto 0.000 0.0 - 0.012 X10*3/uL [facility] 12/08/2024 2:19 PM EST 12/08/2024 2:19 PM EST Generic External Data Provider LAB BLOOD ORDERAB LES Final Result Performing Organization Address [facility] Co de Phone Number [facility] [address] [place] [phone] * (ABNORMAL) Sed Rate by Modified Westergren (12/08/2024 2:19 PM EST) Pathologist [facility] Erythrocyte Sedimentation Rate 51(H) 0 - 15 MM/HR [facility] Comment:Patients with polycy themia and many hemoglobin abnormalitiesmay have depressed sed rates whereas patients with anemiamay have elevated sed rates. 12/08/2024 2:19 PM EST 12/08/2024 2:19 PM EST Generic External Data Provider LAB BLOOD ORDERAB LES Final Result Performing Organization Address [facility] Co de Phone Number [facility] [address] [place] [phone] * (ABNORMAL) C-reactive Protein (12/08/2024 2:19 PM EST) Pathologist [facility] C Reactive Protein 0.66(H) < or = 0.50 mg/dL [facility] 12/08/2024 2:19 PM EST 12/08/2024 2:19 PM EST us Generic External Data Provider LAB BLOOD ORDERAB LES Final Result [facility] [address] [place] [address] [phone] * (ABNORMAL) Comprehensive Metabolic Panel (12/08/2024 2:19 PM EST) Sodium 143 135 - 145 mmol/L [facility] Potassium 3.9 3.3 - 5.1 mmol/L [facility] Chloride 108 96 - 108 mmol/L [facility] Carbon Dioxide 30(H) 22 - 29 mmol/L [facility] Anion Gap 9(L) 12 - 20 [facility] Urea Nitrogen (BUN) 15 9 - 16 mg/dL [facility] Creatinine, Serum 0.78 0.5 - 1.4 mg/dL [facility] Estimated Glomerular Filt Rate >60 [facility] Comment:Chronic Kidney Disea se: Estimated GFR < 60 mL/min/1.07l3Npgaug Kidney Disease: Estimated GFR < 15 mL/min/1.73m2 Glucose 81 60 - 115 mg/dL [facility] Calcium 9.5 8.4 - 10.2 mg/dL [facility] Bilirubin, Total 0.2 0.0 - 1.0 mg/dL [facility] Aspartate Amino Transferase 21 5 - 37 U/L [facility] Alanine Aminotransferase 16 0 - 40 U/L [facility] Total Protein 7.7 6.5 - 8.0 g/dL [facility] Albumin Level 4.0 3.5 - 5.0 g/dL [facility] Alkaline Phosphatase 46 39 - 117 U/L [facility] 12/08/2024 2:19 PM EST 12/08/2024 2:19 PM EST us Generic External Data Provider LAB BLOOD ORDERAB LES Final Result [facility] [address] [place] [phone] [phone] * MR Lumbar Spine w/o Contrast (11/29/2024 7:03 PM EST) Anatomical Region Laterality Modality Spine, L-spine Magnetic Resonan ce 11/29/2024 7:03 PM EST Narrative 11/29/2024 7:04 PM EST ? [facility] ?[address] ?[place] [address] ? Magnetic Resonance Report ? Signed ? Patient: Jeferson Rae ?MR#: [id number] ?? [id number] ? : 1950 ?Acct:[id number] ? Age/Sex: 74 / M ?ADM Date: 11/29/24 ? Loc: HO.MRI ? Attending Dr: Caroline ALLEN ? Ordering Physician: Caroline Allison ?? Date of Service: 11/29/24 ?? Procedure(s): MR lumbar spine wo con ?? Accession Number(s): [id number] ? cc: Joleen Wilkinson MD; Caroline Allison ? CLINICAL HISTORY: M51.36 - Other intervertebral disc degeneration, lumbar region ? MR lumbar spine without gadolinium ? Comparison: None available at this time ? Findings: ?? Small subacute Schmorl's node of the lower endplate of L3. Otherwise, ?? normal heights of 5 lumbar vertebrae. Mild retrolisthesis at L3-L4 and ?? lumbosacral junction. ?? Modic type 1 endplate changes at L3-L4, L4-L5, and L5-S1. Multifocal ?? hemangiomas noted. ?? Subcutaneous edema present. No drainable paraspinal fluid collection. No ?? suspicious features of the imaged renal cystic lesions by noncontrast ?? imaging in the [id number]. Conus terminates at T12-L1. ?? L1-L2: Disc bulge and bilateral facet arthropathy. No spinal stenosis. ?? L2-L3: Disc bulge, annular fissure, endplate hypertrophy, and bilateral ?? facet arthropathy. Mild bilateral lateral recess narrowing. Trace left ?? foraminal narrowing. ?? L3-L4: Disc bulge, annular fissure, small extrusion, endplate hypertrophy, ?? and bilateral facet arthropathy. Mild spinal canal stenosis with moderate ?? to marked bilateral lateral recess narrowing. Mild bilateral foraminal ?? narrowing. ?? L4-L5: Disc bulge, endplate hypertrophy, and bilateral facet arthropathy. ?? No significant central spinal canal stenosis. Severe left lateral recess ?? narrowing. Moderate -severe left-sided foraminal narrowing. ?? L5-S1: Listhesis, disc bulge, endplate hypertrophy, and annular fissure. ?? Mild left lateral recess narrowing. Mild right and mild-moderate left ?? foraminal narrowing. ? IMPRESSION: ?? 1. Severe left lateral recess narrowing and severe left-sided foraminal ?? narrowing at L4-L5. ?? 2. Additional spinal stenosis including bilateral lateral recess narrowing ?? of L3-L4. ?? 3. Multifocal facet arthropathy of the lumbar spine. ? This document has been electronically signed by: Nathanael Espinoza MD on ?? 11/29/2024 19:03:21 ? Dictated By: ?Nathanael Espinoza MD ? Signed By: ?<Electronically signed by Nathanael Espinoza MD in OV> ? 11/29/24 1904 ? DD/ 02 ? TD/TT: 11/29/241902 ? Cane Stripper: ? Procedure Note Al, Venkatesh - 11/29/2024 [place] [address] Magnetic Resonance Report Signed Patient: Bernard Rae#: [id number] : 1950Acct:[id number] Age/Sex: 74 / MADM Date: 11/29/24 Loc: HO.MRI Attending Dr: Caroline ALLEN Ordering Physician: Caroline Allison Date of Service: 11/29/24 Procedure(s): MR lumbar spine wo con Accession Number(s): [id number] cc: Joleen Wilkinson MD; Caroline Allison CLINICAL HISTORY: M51.36 - Other intervertebral disc degeneration, lumbarregion MR lumbar spine without gadolinium Comparison: None available at this time Findings: Small subacute Schmorl's node of the lower endplate of L3. Otherwise, normal heights of 5 lumbar vertebrae. Mild retrolisthesis at L3-L4 and lumbosacral junction. Modic type 1 endplate changes at L3-L4, L4-L5, and L5-S1. Multifocal hemangiomas noted. Subcutaneous edema present. No drainable paraspinal fluid collection. No suspicious features of the imaged renal cystic lesions by noncontrast imaging in the [id number]. Conus terminates at T12-L1. L1-L2: Disc bulge and bilateral facet arthropathy. No spinal stenosis. L2-L3: Disc bulge, annular fissure, endplate hypertrophy, and bilateral facet arthropathy. Mild bilateral lateral recess narrowing. Trace left foraminal narrowing. L3-L4: Disc bulge, annular fissure, small extrusion, endplate hypertrophy, and bilateral facet arthropathy. Mild spinal canal stenosis with moderate to marked bilateral lateral recess narrowing. Mild bilateral foraminal narrowing. L4-L5: Disc bulge, endplate hypertrophy, and bilateral facet arthropathy. No significant central spinal canal stenosis. Severe left lateral recess narrowing. Moderate -severe left-sided foraminal narrowing. L5-S1: Listhesis, disc bulge, endplate hypertrophy, and annular fissure. Mild left lateral recess narrowing. Mild right and mild-moderate left foraminal narrowing. IMPRESSION: 1. Severe left lateral recess narrowing and severe left-sided foraminal narrowing at L4-L5. 2. Additional spinal stenosis including bilateral lateral recess narrowing of L3-L4. 3. Multifocal facet arthropathy of the lumbar spine. This document has been electronically signed by: Nathanael Espinoza MD on 11/29/2024 19:03:21 Dictated By: Nathanael Espinoza MD Signed By: <Electronically signed by Nathanael Espinoza MD in OV> 11/29/241903 DD/ 02 TD/TT: 11/29/241902 Cane Stripper: [facility] External Provider IMG MRI PROCEDURES Edited Result - Final * POCT Glucose (10/13/2024 10:12 AM EST) Glucose Blood, POC 113 60 - 200 mg/dL QC Media Lot # [id number] Lot# Expiration Date [id number] Blood Capillary blood specimen / Unknown 10/13/2024 10:12 AM EST Joleen Wilkinson MD POINT OF CARE TEST ENTER/ED IT ORDERABLES Final Result * POCT HGB A1C (07/12/2024 11:24 AM EDT) Hemoglobin A1C 5.6 4.0 - 6.0 % QC Media Lot # [id number] Lot# Expiration Date Blood 07/12/2024 11:2 4 AM EDT Joleen Wilkinson MD POINT OF CARE TEST ENTER/ED IT ORDERABLES Final Result * (ABNORMAL) Lipid Panel, Standard (07/12/2024 10:44 AM EDT) Triglycerides 182(H) <150 mg/dL [facility] Comment:Desirable Triglyceri de: less than 150 mg/dLBorderline High Triglyceride 150-199 mg/dLHigh Triglyceride: 200-499 mg/dLVery High Triglyceride: greater than or equal to 5OO mg/dL Cholesterol 129 <200 mg/dL [facility] Comment:Desirable Cholestero l: less than 200 mg/dLBorderline High Cholesterol: 200-239 mg/dLHigh Cholesterol: greater than 239 mg/dL LDL Cholesterol Calculated 58 <100 mg/dL [facility] Comment:Desirable LDL: less than 100 mg/dLNear Optimal/Above Optimal LDL: 110- 129 mg/dLBorderline High LDL: 130-159 mg/dLHigh LDL: 160-189 mg/dLVery High LDL: greater than or equal to 190 mg/dL HDL Cholesterol 35(L) >40 mg/dL [facility] Comment:Desirable HDL: great er than 40 mg/dL Note: This HDL assay may give artificially low results in patients with liver disease. Blood Venous blood specimen / Unknown 07/12/2024 10:44 AM EDT 07/12/2024 2:24 PM EDT us Joleen Wilkinson MD LAB BLOOD ORDERABLES Final Result [facility] [address] [place] [address] [phone] * Hm Colonoscopy (09/09/2022) Colonoscopy Normal Normal Historical Provider HEALTH MAINTENANCE Edited Result - Final * HEPATITIS C AB W/REFL TO HCV RNA, QN, PCR (07/23/2022 8:48 AM EDT) HEPATITIS C ANTIBODY NON-REACT MAURICE NON-REACT MAURICE [facility] INDEX 0.17 <1.00 [facility] Comment: ?? HCV antibody was non-reactive. There is no laboratory ?? evidence of HCV infection. ?? In most cases, no further action is required. However, if recent HCV exposure is suspected, a test for HCV RNA (test code 30776) is suggested. ?? For additional information please refer to http://education.Prixel/faq/QXI53h4 (This link is being provided for informational/ educational purposes only.) ?? 07/23/2022 8:48 AM EDT Joleen Wilkinson MD HISTORICAL/NON ORDERABLE LA BS Final Result [facility] [address] from Last 3 Months or Most Recently Relevant to Health Maintenance Insurance [facility] STANDARD AET[employer] MEDICARE REPLACEMENT DENTAL - HSN FULL (MEDICAID) Care Teams Intelligence Support Officer Relationship Specialty Start Date End Date Joleen Wilkinson MD [address] [place] [address] [place] [address] PCP - General Internal Medicine 03/26/17
--- OUTSIDE RECORDS SUMMARY | 2025-01-05 07:36 | XMS_ITS | Clinical Summary ---
Author Organization [facility] Address [address] [place] [address] Care Team Providers Care Barista Name Role Phone Unavailable Primary Care Provider Unavailabl e Social History Tobacco Use Types Packs/Day Years Used Date Smoking Tobacco: Never Assessed Sex and Gender Information Value Date Recorded Sex Assigned at Not on file Gender Identity Not on file Sexual Orientation Not on file Job Start Date Occupation Industry Not on file Not on file Not on file Plan of Treatment Not on file
--- OUTSIDE RECORDS SUMMARY | 2025-01-05 07:37 | XMS_ITS | Encounter Summary ---
Author Organization [employer] Address [address] [place] [address] [address], [place] [address] Care Team Providers Care Machine Carton Marker Name Role Phone Joleen Wilkinson MD Primary Care Provider [phone] Reason for Visit * Reason Onset Date Comments Appointment Confirmation 07/06/2023 Encounter Details Date Type Department Care Team ([facility] st Contact Info) Description 07/06/2023 Telephone [facility] PEDS [address] [place] [address] Joleen Wilkinson MD [address] [place] [address] Appointment Confirmation Social History Tobacco Use Types Packs/Day Years Used Date Smoking Tobacco: Never Smokeless Tobacco: Never Alcohol Use Standard Drinks/Week Comments Never 0 (1 standard drink = 0.6 oz pur e alcohol) Sex and Gender Information Value Date Recorded Sex Assigned at Male 09/22/2022 10:31 AM EDT Legal Sex Male 10:31 AM EDT Gender Identity Male 03/20/2023 4:00 PM EDT Sexual Orientation Don't know 09/22/2022 10 :31 AM EDT documented as of this encounter Miscellaneous Notes * Telephone Encounter - Hong Luther RN - 07/06/2023 1:02 PM EDT Referred for sleep study on 07/02/23. Please contact pt with status. Thank you. * Telephone Encounter - Kelley Oh - 07/06/2023 10:42 AM EDT Tc from pt stating that on last Visit 07/02/2023, that he was informed by a nurse that he was goingto receive a call with appt details at [facility] but pt states that no one at [facility] has contact him with appt details. Please contact pt at [phone] Yi Speaker documented in this encounter Plan of Treatment Upcoming Encounters Date Type Department Care Team (Late st Contact Info) Description 01/31/2025 10:00 AM EDT Office Visit [facility] MED & PEDS [address] [place] [address] Joleen Wilkinson MD [address] [place] [address] documented as of this encounter Visit Diagnoses Not on filedocumented in this encounter Care Teams Machine Carton Marker Relationship Specialty Start Date End Date Joleen Wilkinson MD [address] [place] [address] PCP - General Internal Medicine 03/26/17 documented as of this encounter
--- OUTSIDE RECORDS SUMMARY | 2025-01-05 07:37 | XMS_ITS | Encounter Summary ---
Author Organization [facility] Address [address] [facility] 7t [place] [address] Care Team Providers Care Bill Board Poster Name Role Phone Joleen Wilkinson MD Primary Care Provider [phone] Encounter Details Date Type Department Care Team (Late st Contact Info) Description 12/08/2024 Orders Only GENERIC EXTERNAL DATA DEPARTMENT Provider, Generic External Data Social History Tobacco Use Types Packs/Day Years [...] Description 01/31/2025 10:00 AM EDT Office Visit [facility] MED & PEDS [address] [place] [address] Joleen Wilkinson MD [address] [place] [address] documented as of this encounter Procedures Procedure Name Priority Date/Time Associated Diagnosis Comments CBC WITH AUTO DIFFERENTIAL Routine 12/08/2024 2:19 PM EST SED RATE BY MODIFIED WESTERGREN Routine 12/08/2024 2:19 PM EST C-REACTIVE PROTEIN Routine 12/08/2024 2: 19 PM EST COMPREHENSIVE METABOLIC PANEL Routine 12/08/2024 2:19 PM EST documented in this encounter Results * (ABNORMAL) C-reactive Protein (12/08/2024 2:19 PM EST) C Reactive Protein 0.66(H) < or = 0.50 mg/dL [facility] 12/08/2024 2:19 PM EST 12/08/2024 2:19 PM EST us Generic External Data Provider LAB BLOOD ORDERAB LES Final Result [facility] [address] [place] [address] [phone] * (ABNORMAL) Comprehensive Metabolic Panel (12/08/2024 2:19 PM EST) Sodium 143 135 - 145 mmol/L [facility] Potassium 3.9 3.3 - 5.1 mmol/L [facility] Chloride 108 96 - 108 mmol/L [facility] Carbon Dioxide 30(H) 22 - 29 mmol/L [facility] Anion Gap 9(L) 12 - 20 [facility] Urea Nitrogen (BUN) 15 9 - 16 mg/dL [facility] Creatinine, Serum 0.78 0.5 - 1.4 mg/dL [facility] Estimated Glomerular Filt Rate >60 [facility] Comment:Chronic Kidney Disea se: Estimated GFR < 60 mL/min/1.27i0Fftgda Kidney Disease: Estimated GFR < 15 mL/min/1.73m2 Glucose 81 60 - 115 mg/dL [facility] Calcium 9.5 8.4 - 10.2 mg/dL [facility] Bilirubin, Total 0.2 0.0 - 1.0 mg/dL [facility] Aspartate Amino Transferase 21 5 - 37 U/L [facility] Alanine Aminotransferase 16 0 - 40 U/L [facility] Total Protein 7.7 6.5 - 8.0 g/dL [facility] Albumin Level 4.0 3.5 - 5.0 g/dL [facility] Alkaline Phosphatase 46 39 - 117 U/L [facility] 12/08/2024 2:19 PM EST 12/08/2024 2:19 PM EST us Generic External Data Provider LAB BLOOD ORDERAB LES Final Result [facility] [address] [place] [phone] * (ABNORMAL) Sed Rate by Modified Ant (12/08/2024 2:19 PM EST) Erythrocyte Sedimentation Rate 51(H) 0 - 15 MM/HR [facility] Comment:Patients with polycy themia and many hemoglobin abnormalitiesmay have depressed sed rates whereas patients with anemiamay have elevated sed rates. 12/08/2024 2:19 PM EST 12/08/2024 2:19 PM EST us Generic External Data Provider LAB BLOOD ORDERAB LES Final Result [facility] [address] [place], [place] [phone] * (ABNORMAL) CBC auto differential (12/08/2024 2:19 PM EST) White Blood Count 7.2 4.8 - 10.8 X10*3/uL [facility] Red Blood Count 4.34(L) 4.60 - 5.80 X10*6/uL [facility] Hemoglobin 13.0(L) 14.0 - 18.0 g/dl [facility] Hematocrit 39.5(L) 42.0 - 52.0 % [facility] Mean Corpuscular Volume 91.0 80.0 - 98.0 fL [facility] Mean Corpuscular Hemoglobin 30.0 27.0 - 33.0 pg [facility] Mean Corpuscular HGB Conc 32.9 31.0 - 36.0 g/dl [facility] Red Cell Distribution Width 14.4 11.0 - 16.0 % [facility] Platelet Count 231 160 - 400 X10*3/uL [facility] Mean Platelet Volume 11.1 9.4 - 12.4 fL [facility] Neutrophils Percent Auto 61.3 45 - 73 % [facility] Imm Gran Pct Auto 0.3 0.0 - 0.4 % [facility] Lymphocytes Percent Auto 26.7 20 - 40 % [facility] Monocytes Percent Auto 9.0 2 - 11 % [facility] Eosinophils Percent Auto 1.7 0 - 4 % [facility] Basophils Percent Auto 1.0 0 - 2 % [facility] NRBC Pct Auto 0.0 0.0 - 0.2 /100WBC [facility] Neutrophils Absolute Auto 4.4 2.0 - 8.3 x10*3/uL [facility] Imm Gran Abs Auto 0.02 0.00 - 0.03 X10*3/uL [facility] Lymphocytes Absolute Auto 1.9 1.2 - 4.9 X10*3/uL [facility] Monocytes Absolute Auto 0.7 0.1 - 1.2 X10*3/uL [facility] Eosinophils Absolute Auto 0.1 0.0 - 0.4 X10*3/uL [facility] Basophils Absolute Auto 0.1 0.0 - 0.2 X10*3/uL [facility] NRBC Abs Auto 0.000 0.0 - 0.012 X10*3/uL [facility] 12/08/2024 2:19 PM EST 12/08/2024 2:19 PM EST us Generic External Data Provider LAB BLOOD ORDERAB LES Final Result [facility] [address] [place] [address] [phone] documented in this encounter Visit Diagnoses Not on filedocumented in this encounter Additional Health Concerns Assessment Noted Time PHQ-9 Depression Total Score: 0 07/20/20 23 2:36 PM EDT documented as of this encounter Care Teams Bill Board Poster Relationship Specialty Start Date End Date Joleen Wilkinson MD [address] [place] [address] PCP - General Internal Medicine 03/26/17 documented as of this encounter
--- OUTSIDE RECORDS SUMMARY | 2025-01-05 07:37 | XMS_ITS | Encounter Summary ---
Author Organization [employer] Address [address] [place] [address] 7t [place] [address] Care Team Providers Care Shallot Packer Name Role Phone Joleen Wilkinson MD Primary Care Provider [phone] Encounter Details Date Type Department Care Team ([facility] st Contact Info) Description 07/16/2023 Orders Only [facility] MED & PEDS [address] [place], [place] [phone] Joleen Wilkinson MD [address] [place] [address] Other sleep apnea (Primary Dx) Social History Tobacco Use Types Packs/Day Years Used Date Smoking Tobacco: Never Smokeless Tobacco: Never Alcohol Use Standard Drinks/Week Comments Never 0 (1 standard drink = 0.6 oz pur e alcohol) Depression Answer Date Recorded Patient Health Questionnaire-9 Score 0 07/20/2023 Depression Answer Date Recorded Patient Health Questionnaire-2 Score 0 07/20/2023 Sex and Gender Information Value Date Recorded Sex Assigned at Male 09/22/2022 10:31 AM EDT Legal Sex Male 10:31 AM EDT Gender Identity Male 03/20/2023 4:00 PM EDT Sexual Orientation Don't know 09/22/2022 10 :31 AM EDT documented as of this encounter Progress Notes * Joleen Wilkinson MD - 07/16/2023 7:55 PM EDT Subjective Patient ID: Jeferson De La Torre is a 73 y.o. male who presents for No chief complaint on file.. HPI Review of Systems Objective Physical Exam Assessment/Plan documented in this encounter Plan of Treatment Upcoming Encounters Date Type Department Care Team (Late st Contact Info) Description 01/31/2025 10:00 AM EDT Office Visit [facility] MED & PEDS [address] [place] [address] Joleen Wilkinson MD [address] [place] [address] documented as of this encounter Visit Diagnoses Diagnosis Other sleep apnea- Primary documented in this encounter Care Teams Shallot Packer Relationship Specialty Start Date End Date Joleen Wilkinson MD [address] [place] [address] PCP - General Internal Medicine 03/26/17 documented as of this encounter
--- OUTSIDE RECORDS SUMMARY | 2025-01-05 07:37 | XMS_ITS | Encounter Summary ---
Author Organization [employer] Address [address] [facility] 7t [place] [address] Care Team Providers Care Computer Help Desk Representative Name Role Phone Joleen Wilkinson MD Primary Care Provider [phone] Reason for Visit * Reason Comments Filling Encounter Details Date Type Department Care Team ([facility] Contact Info) Description 12/21/2024 10:00 AM EST Office Visit [facility] [address] [place] [address] Bryant Renee [address] [place] [address] Social History Tobacco Use Types Packs/Day Years [...] AM EDT documented as of this encounter Last Filed Vital Signs Vital Sign Reading Time Taken Comments Blood Pressure 130/70 12/21/2024 10:15 AM EST Pulse - - Temperature - - Respiratory Rate - - Oxygen Saturation - - Inhaled Oxygen Concentration - - Weight - - Height - - Body Mass Index - - documented in this encounter Progress Notes * Bryant Renee - 12/21/2024 10:00 AM EST Patient ID: Jeferson De La Torre is a 74 y.o. male. Time Out: Timeout Date: 12/21/24, Timeout Time: 101 Location: [facility] Tooth: #12, #13, and #27 Procedure: Presybeterian Verified the above with patient, assistant infant teacher, and provider. Confirmed via patient's chart, intraorally and by radiographs. Rib Sawyer: Yes. Language: Yoruba. Rib Sawyer's Name: Roosevelt Ross pt can understand Icelandic partially Chief Complaint Patient presents with Filling Medical Hx: Vitals: Blood pressure 130/70. Medications, Med Hx reviewed with patient and updated in chart. Consent Obtained: The risks, benefits, indications, potential complications, and alternatives were explained to the patient and informed consent was obtained with good understanding. Treatment Provided: Dental procedures in this visit D2391 - RESTORATIVE - RESIN-BASED COMPOSITE RESTORATIONS - DIRECT - RESIN-BASED COMPOSITE - ONE SURFACE, POSTERIOR 12 B(V) (Completed) Service provider: Bryant Renee Billez provider: Bryant Renee [id number] - RESTORATIVE - RESIN-BASED COMPOSITE RESTORATIONS - DIRECT - RESIN-BASED COMPOSITE - ONE SURFACE, POSTERIOR 13 B(V) (Completed) Service provider: Bryant Renee Billez provider: Bryant Renee [id number] - RESTORATIVE - RESIN-BASED COMPOSITE RESTORATIONS - DIRECT - RESIN-BASED COMPOSITE - ONE SURFACE, ANTERIOR 27 I (Completed) Service provider: Bryant Renee Billing provider: Bryant Renee [id number] - ADJUNCTIVE GENERAL SERVICES - PROFESSIONAL VISITS - CASE PRESENTATION, SUBSEQUENT TO DETAILED AND EXTENSIVE TREATMENT PLANNING (Completed) Service provider: Bryant Renee Billing provider: Bryant Renee Diagnosis: #12, 13 - cervical abfraction ; #27 #- incisal attrition Topical: 20% Benzocaine Anesthesia: 4% Septocaine (Articaine) w/ 1:200,000 epinephrine Number of Cartridges: 1 Injection Type: Buccal infiltration Confirmed profound anesthesia. Isolation: high speed suction and cotton rolls and bite block Prep: All caries removed and Preparation finalized Matrix: None Etch: 37% Phosphoric Acid Etch Desensitizer: Gluma Liner/Base: None Haddad: I-Haddad Presybeterian Material: Voco Grandioso Packable Shade: A3 Polished. Occlusion & contacts verified. Patient satisfied with comfort and esthetics. Patient tolerated procedure well. Post-operative instructions were given. Patient departed alert, oriented, and in stable condition. 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 Pt was recommended to get eleni removed surgically as that makes acceptance of partial dentures difficult. NV: post and core #19 Aircraft Accessories Mechanic: Roosevelt Dentist: Dr. Bryant Renee, DMD documented in this encounter Plan of Treatment Upcoming Encounters Date Type Department Care Team (Late st Contact Info) Description 01/31/2025 10:00 AM EDT Office Visit [facility] MED & PEDS [address] [place] [address] Joleen Wilkinson MD [address] [place], [place] [phone] Scheduled Orders Name Type Priority Associated Diagnoses Orde r Schedule Kailey Kailey ADJUNCTIVE GENERAL SERVICES - MISCELLANEOUS SERVICES - OCCLUSAL GUARD - HARD APPLIANCE, FULL ARCH Dental Routine 1 Occurren jeni starting 12/21/2024 19 19 CROWN PREP Dental Routine 1 Occurr ences starting 12/21/2024 documented as of this encounter Procedures Procedure Name Priority Date/Time Associated Diagnosis Comments 13 B(V) RESIN-BASED COMPOSITE - 1 SURF, POSTERIOR Routine 12/21/2024 10:00 AM EST 12 B(V) RESIN-BASED COMPOSITE - 1 SURF, POSTERIOR Routine 12/21/2024 10:00 AM EST 27 I RESIN-BASED COMPOSITE - 1 SURF, ANTERIOR Routine 12/21/2024 10:00 AM EST CASE PRESENTATION, DETAILED AND EXTENSIVE TREATMENT PLANNING Routine 12/21/2024 10:00 AM EST documented in this encounter Visit Diagnoses Not on filedocumented in this encounter Additional Health Concerns Assessment Noted Time PHQ-9 Depression Total Score: 0 07/20/20 23 2:36 PM EDT documented as of this encounter Care Teams Computer Help Desk Representative Relationship Specialty Start Date End Date Joleen Wilkinson MD [address] [place] [address] PCP - General Internal Medicine 03/26/17 documented as of this encounter
--- OUTSIDE RECORDS SUMMARY | 2025-01-05 07:37 | XMS_ITS | Clinical Summary ---
Author Organization [facility] Address [address] [place] [address] Care Team Providers Care Television Newscast Director Name Role Phone Joleen Wilkinson MD Primary Care Provider [phone] Social History Tobacco Use Types Packs/Day Years Used Date Smoking Tobacco: Former Smokeless Tobacco: Never Alcohol Use Standard Drinks/Week Comments Never 0 (1 standard drink = 0.6 oz pur e alcohol) Sex and Gender Information Value Date Recorded Sex Assigned at Not on file Legal Sex Male 2:10 PM EST Gender Identity Not on file Sexual Orientation Not on file Obstetrics History Plan of Treatment Health Maintenance Due Date Last Done Comments DTaP,Tdap,and Td Vaccines (1 - Tdap) 1957 Pneumococcal Vaccine: 50+ Ye ars (1 of 1 - PCV) 2000 Zoster Vaccines (1 of 2) 2000 Cholesterol Screening (Lipid Panel) 10/22/2022 Colorectal Cancer Screening: Colonoscopy 10/22/2022 Depression Screening 10/22/2022 Falls Risk Assessment 10/22/2022 Hepatitis C Screening 10/22/2022 Social Influencers of Health Screening 10/22/2022 COVID-19 Vaccine ( - 2023-2 5 season) 2024 Influenza Vaccine (#1) 2024 RSV Immunization Patients 60 + Years Old (1 - 1-dose 75+ series) 2025 Abdominal Aortic Aneurysm (A AA) Screen Completed 07/15/2021 HIB Vaccines Aged Out No longer eligi [...] on patient's age to complete this topic MMR Vaccines Aged Out No longer eligi ble based on patient's age to complete this topic Meningococcal ACWY Vaccine Aged Out N o longer eligible based on patient's age to complete this topic Meningococcal B Vacine Aged Out No lo nger eligible based on patient's age to complete this topic RSV Immunization Patients Un griffin 20 months Aged Out No longer eligible b ased on patient's age to complete this topic Varicella Vaccines Aged Out No longer eligible based on patient's age to complete this topic Procedures Procedure Name Priority Date/Time Associated Diagnosis Comments US ABDOMEN AORTA SCR STUDY AAA Routine 07/15/2021 10:57 AM EDT Encounter for screening for cardiovascular disorders from Last 3 Months or Most Recently Relevant to Health Maintenance Results * US ABDOMEN AORTA SCR STUDY AAA (07/15/2021 10:57 AM EDT) Anatomical Region Laterality Modality Ultrasound 07/15/2021 10:3 0 AM EDT Narrative 07/15/2021 10:57 AM EDT [facility] Diagnostic Imaging Department [address] [place] [address] Patient: ??JEFERSON EDGE ?/Age/Sex: 1950 - 71 - M Unit#: ??[id number] ? Location/Status: ??SPDIUS/REG CLI ? Mnemonic/Ordering Site: ??AAASCRSTUD/SPUS Ordering Physician: ??JAE PATEL DRILL PUNCH OPERATOR US Abdomen Aorta Scr Study AAA - 07/15/21 - 1046 HISTORY: The patient is a 71-year-old male smoker with hypercholesterolemia presenting for screening for an abdominal aortic aneurysm. FINDINGS: Real-time ultrasonography of the abdominal aorta is performed. ??The examination is somewhat limited by the patient's body habitus. ??The abdominal aorta is normal in caliber, with the suprarenal aorta measuring 2.2 x 2.3 cm, the proximal infrarenal aorta measuring 1.9 x 2.3 cm, and the distal infrarenal aorta measuring 1.7 x 2.4 cm. ??The common iliac arteries are normal in caliber, with the right NICO measuring 1.1 cm and the left NICO measuring 1.2 cm. IMPRESSION: Somewhat limited examination demonstrates the abdominal aorta to be of normal caliber, without aneurysm. Code 70956 G9551 Dictating Physician: ??LUIS MIGUEL STANTON MD Electronically Signed by: ??LUIS MIGUEL STANTON MD Dic Date/Time: ??07/15/21 1055 Sign date/Time: ??07/15/21 1057 Procedure Note Luis Miguel Stanton MD - 11/19/2022 [facility] Diagnostic Imaging Department [address] [place] [address] Patient: JEFERSON EDGE /Age/Sex: 1950 - 71 - M Unit#: [id number] Location/Status: [facility]/REG CLI Mnemonic/Ordering Site: [facility] Ordering Physician: JAE PATEL DRILL PUNCH OPERATOR US Abdomen Aorta Scr Study AAA - 07/15/21 - 1046 HISTORY: The patient is a 71-year-old male smoker withhypercholesterolemia presenting for screening for an abdominal aortic aneurysm. FINDINGS: Real-time ultrasonography of the abdominal aorta is performed.The examination is somewhat limited by the patient's body habitus. Theabdominal aorta is normal in caliber, with the suprarenal aorta measuring 2.2 x 2.3cm, the proximal infrarenal aorta measuring 1.9 x 2.3 cm, and the distalinfrarenal aorta measuring 1.7 x 2.4 cm. The common iliac arteries are normal incaliber, with the right NICO measuring 1.1 cm and the left NICO measuring 1.2 cm. IMPRESSION: Somewhat limited examination demonstrates the abdominal aortato be of normal caliber, without aneurysm. Code 95803 G9551 Dictating Physician: LUIS MIGUEL STANTON MD Electronically Signed by: LUIS MIGUEL STANTON MD Dic Date/Time: 07/15/21 1055 Sign date/Time: 07/15/21 105 us aJe Patel NP IMG US PROCEDURES Final Re sult from Last 3 Months or Most Recently Relevant to Health Maintenance Care Teams Television Newscast Director Relationship Specialty Start Date End Date Joleen Wilkinson MD [address] [place] [address] PCP - General Internal Medicine 08/05/22
--- OUTSIDE RECORDS SUMMARY | 2025-01-05 07:37 | XMS_ITS | Encounter Summary ---
Author Organization [employer] Address [address] [facility] 7t [place] [address] Care Team Providers Care Physician Neonatology Name Role Phone Joleen Wilkinson MD Primary Care Provider [phone] Reason for Visit * Reason Comments Med Refill Encounter Details Date Type Department Care Team ([facility] st Contact Info) Description 12/08/2024 Refill [facility] MED & PEDS [address] [place] [address] Joleen Wilkinson MD [address] [place] [address] Essential hypertension Social History Tobacco Use Types Packs/Day Years [...] Description 01/31/2025 10:00 AM EDT Office Visit [facility] MED & PEDS [address] [place] [address] Joleen Wilkinson MD [address] [place] [address] documented as of this encounter Visit Diagnoses Diagnosis Essential hypertension Unspecified essential hypertension documented in this encounter Additional Health Concerns Assessment Noted Time PHQ-9 Depression Total Score: 0 07/20/20 23 2:36 PM EDT documented as of this encounter Care Teams Physician Neonatology Relationship Specialty Start Date End Date Joleen Wilkinson MD [address] [place] [address] PCP - General Internal Medicine 03/26/17 documented as of this encounter
--- OUTSIDE RECORDS SUMMARY | 2025-01-05 07:37 | XMS_ITS | Encounter Summary ---
Author Organization [employer] Address [address] [facility] 7t [place] [address] Care Team Providers Care Substation Operator Chief Name Role Phone Joleen Wilkinson MD Primary Care Provider [phone] Encounter Details Date Type Department Care Team ([facility] st Contact Info) Description 06/06/2024 Orders Only [facility] MED & PEDS [address] [place], [place] [phone] Joleen Wilkinson MD [address] [place] [address] Class 2 obesity due to excess calories without serious comorbidity with body mass index (BMI) of 37.0 to 37.9 in adult (Primary Dx) Social History Tobacco Use Types [...] Description 01/31/2025 10:00 AM EDT Office Visit [facility] MED & PEDS [address] [place] [address] Joleen Wilkinson MD [address] [place] [address] documented as of this encounter Visit Diagnoses Diagnosis Class 2 obesity due to excess calories without serious comorbidity with body mass index (BMI) of 37.0 to 37.9 in adult- Primary documented in this encounter Additional Health Concerns Assessment Noted Time PHQ-9 Depression Total Score: 0 07/20/20 23 2:36 PM EDT documented as of this encounter Care Teams Substation Operator Chief Relationship Specialty Start Date End Date Joleen Wilkinson MD [address] [place] [address] PCP - General Internal Medicine 03/26/17 documented as of this encounter
--- OUTSIDE RECORDS SUMMARY | 2025-01-05 07:37 | XMS_ITS | Encounter Summary ---
Author Organization [employer] Address [address] [facility] 7t [place] [address] Care Team Providers Care Outbound Supervisor Name Role Phone Joleen Wilkinson MD Primary Care Provider [phone] Encounter Details Date Type Department Care Team (Late st Contact Info) Description 09/23/[address] [facility] MEDICINE [address] [place] [address] Joleen Wilkinson MD [address] [place], [place] [phone] Social History Tobacco Use Types Packs/Day Years [...] [facility] MED & PEDS [address] [place] [address] Joleen Wilkinson MD 505 [place] [address] documented as of this encounter Procedures Procedure Name Priority Date/Time Associated Diagnosis Comments COLONOSCOPY Routine 09/09/2022 documented in this encounter Results * Hm Colonoscopy (09/09/2022) Colonoscopy Normal Normal us Historical Provider HEALTH MAINTENANCE Edited Result - Final documented in this encounter Visit Diagnoses Not on filedocumented in this encounter Additional Health Concerns Assessment Noted Time PHQ-9 Depression Total Score: 0 07/20/20 23 2:36 PM EDT documented as of this encounter Care Teams Outbound Supervisor Relationship Specialty Start Date End Date Joleen Wilkinson MD [address] [place] [address] PCP - General Internal Medicine 03/26/17 documented as of this encounter
--- OUTSIDE RECORDS SUMMARY | 2025-01-05 07:37 | XMS_ITS | Encounter Summary ---
Author Organization [employer] Address [address] [facility] 7t [place] [address] Care Team Providers Care Monitor And Storage Bin Tender Name Role Phone Joleen Wilkinson MD Primary Care Provider [phone] Reason for Visit * Reason Comments Med Refill Encounter Details Date Type Department Care Team ([facility] st Contact Info) Description 12/09/2024 Refill [facility] CHC MED & PEDS [address] [place] [address] Joleen Wilkinson MD [address] [place] [address] Other osteoarthritis involving multiple joints Social History Tobacco Use Types Packs/Day Years [...] Description 01/31/2025 10:00 AM EDT Office Visit [facility] CH[facility] MED & PEDS [address] [place] [address] Joleen Wilkinson MD [address] [place] [address] documented as of this encounter Visit Diagnoses Diagnosis Other osteoarthritis involving multiple joints documented in this encounter Additional Health Concerns Assessment Noted Time PHQ-9 Depression Total Score: 0 07/20/20 23 2:36 PM EDT documented as of this encounter Care Teams Monitor And Storage Bin Tender Relationship Specialty Start Date End Date Joleen Wilkinson MD [address] [place] [address] PCP - General Internal Medicine 03/26/17 documented as of this encounter
--- OUTSIDE RECORDS SUMMARY | 2025-01-05 07:37 | XMS_ITS | Encounter Summary ---
Author Organization [employer] Address [address] [facility] 7t [place] [address] Care Team Providers Care Public Accountant Name Role Phone Joleen Wilkinson MD Primary Care Provider [phone] Encounter Details Date Type Department Care Team ([facility] st Contact Info) Description 04/08/2024 Orders Only [facility] CHC MED & PEDS [address] [place] [address] Joleen Wilkinson MD [address] [place] [address] Social History Tobacco Use Types Packs/Day Years [...] t he electric, gas, oil or water [employer] threatened to shut off services in your [...] Description 01/31/2025 10:00 AM EDT Office Visit [facility] MED & PEDS [address] [place] [address] Joleen Wilkinson MD [address] [place] [address] documented as of this encounter Visit Diagnoses Not on filedocumented in this encounter Additional Health Concerns Assessment Noted Time PHQ-9 Depression Total Score: 0 07/20/20 23 2:36 PM EDT documented as of this encounter Care Teams Public Accountant Relationship Specialty Start Date End Date Joleen Wilkinson MD [address] [place] [address] PCP - General Internal Medicine 03/26/17 documented as of this encounter
--- OUTSIDE RECORDS SUMMARY | 2025-01-05 07:37 | XMS_ITS | Encounter Summary ---
Author Organization [employer] [facility] Address [address] [facility] 7t [place] [address] Care Team Providers Care Bottle Capper Name Role Phone Joleen Wilkinson MD Primary Care Provider [phone] Reason for Visit * Reason Onset Date Comments Lab Orders 02/23/2024 Referral 02/23/2024 Encounter Details Date Type Department Care Team ([facility] st Contact Info) Description 02/23/2024 Telephone [facility] MEDICINE [address] [place], [place] [phone] Joleen Wilkinson MD [address] [place], [place] [phone] Lab Orders; Referral Social History Tobacco Use Types Packs/Day Years [...] encounter Miscellaneous Notes * Telephone Encounter - Mona Venegas RN - 02/23/2024 12:58 PM EDT Please call pt to r/s cancelled f/u appt with PCP. Pt is requesting routine BW but pt had CMP whichincludes most of these labs requested. PCP can determine need for repeat labs if indicated. * Telephone Encounter - Claudio Barraza - 02/23/2024 11:34 AM EDT Tc wilver Daniels from [employer] calling on behalf of the patient requesting a referral for a Kidney Health Screening and a GFR Blood test as well as a ACR urine test documented in this encounter Plan of Treatment Upcoming Encounters Date Type Department Care Team ([facility] st Contact Info) Description 01/31/2025 10:00 AM EDT Office Visit [facility] MED & PEDS [address] [place] [address] Joleen Wilkinson MD 505 [place] [address] documented as of this encounter Visit Diagnoses Not on filedocumented in this encounter Additional Health Concerns Assessment Noted Time PHQ-9 Depression Total Score: 0 07/20/20 23 2:36 PM EDT documented as of this encounter Care Teams Bottle Capper Relationship Specialty Start Date End Date Joleen Wilkinson MD [address] [place] [address] PCP - General Internal Medicine 03/26/17 documented as of this encounter
--- OUTSIDE RECORDS SUMMARY | 2025-01-05 07:37 | XMS_ITS | Encounter Summary ---
Author Organization [employer] [facility] Address [address] [facility] 7t [place] [address] Care Team Providers Care Barrel Inspector Tight Name Role Phone Joleen Wilkinson MD Primary Care Provider [phone] Reason for Visit * Reason Comments Filling Encounter Details Date Type Department Care Team ([facility] Contact Info) Description 12/09/2024 9:00 AM EST Office Visit [facility] ADULT DENTAL [address] [place] [address] Bryant Renee [address] [place] [address] Social History Tobacco Use Types Packs/Day Years [...] Sign Reading Time Taken Comments Blood Pressure 128/84 12/09/2024 8:53 AM EST Pulse - - Temperature - - Respiratory Rate - - Oxygen Saturation - - Inhaled Oxygen Concentration - - Weight - - Height - - Body Mass Index - - documented in this encounter Progress Notes * Bryant Renee - 12/09/2024 9:00 AM EST Patient ID: Jeferson De La Torre is a 74 y.o. male. Time Out: Timeout Date: 12/09/24, Timeout Time: 852 Location: [facility] Tooth: #5, #6, #10, and #11 Procedure: Taoist Verified the above with patient, instructional support assistant, and provider. Confirmed via patient's chart, intraorally and by radiographs. Welder Journeyman: not applicable Chief Complaint Patient presents with Filling Medical Hx: Vitals: Blood pressure 128/84. Medications, Med Hx reviewed with patient and updated in chart. Consent Obtained: The risks, benefits, indications, potential complications, and alternatives were explained to the patient and informed consent was obtained with good understanding. Treatment Provided: Dental procedures in this visit [id number] - RESTORATIVE - RESIN-BASED COMPOSITE RESTORATIONS - DIRECT - RESIN-BASED COMPOSITE - ONE SURFACE, ANTERIOR 6 I (Completed) Service provider: Bryant Renee Billing provider: Bryant Renee [id number] - RESTORATIVE - RESIN-BASED COMPOSITE RESTORATIONS - DIRECT - RESIN-BASED COMPOSITE - ONE SURFACE, POSTERIOR 5 O (Completed) Service provider: Bryant Renee Billing provider: Bryant Renee [id number] - RESTORATIVE - RESIN-BASED COMPOSITE RESTORATIONS - DIRECT - RESIN-BASED COMPOSITE - ONE SURFACE, ANTERIOR 10 I (Completed) Service provider: Bryant Renee Billing provider: Bryant Renee [id number] - RESTORATIVE - RESIN-BASED COMPOSITE RESTORATIONS - DIRECT - RESIN-BASED COMPOSITE - ONE SURFACE, ANTERIOR 11 I (Completed) Service provider: Bryant Renee Billing provider: Bryant Renee [id number] - ADJUNCTIVE GENERAL SERVICES - PROFESSIONAL VISITS - CASE PRESENTATION, SUBSEQUENT TO DETAILED AND EXTENSIVE TREATMENT PLANNING (Completed) Service provider: Bryant Renee Billing provider: Bryant Renee Diagnosis: Incisal and occlusal attrition Topical: 20% Benzocaine Anesthesia: n/a Number of Cartridges: n/a Injection Type: N/A Confirmed profound anesthesia. Isolation: high speed suction and cotton rolls and bite block Prep: Preparation finalized Matrix: None Etch: 37% Phosphoric Acid Etch Desensitizer: Gluma Liner/Base: None Haddad: I-Haddad Taoist Material: Voco Grandioso Packable Shade: A3 Polished. Occlusion & contacts verified. Patient satisfied with comfort and esthetics. Patient tolerated procedure well. Post-operative instructions were given. Patient departed alert, oriented, and in stable condition. NV: restorative Care Process Manager: Mary Henderson Dentist: Dr. Bryant Renee, DMD documented in this encounter Plan of Treatment Upcoming Encounters Date Type Department Care Team (Late st Contact Info) Description 01/31/2025 10:00 AM EDT Office Visit [facility] MED & PEDS [address] [place] [address] Joleen Wilkinson MD [address] [place] [address] documented as of this encounter Procedures Procedure Name Priority Date/Time Associated Diagnosis Comments 5 O RESIN-BASED COMPOSITE - 1 SURF, POSTERIOR Routine 12/09/2024 9:00 AM EST 11 I RESIN-BASED COMPOSITE - 1 SURF, ANTERIOR Routine 12/09/2024 9:00 AM EST 10 I RESIN-BASED COMPOSITE - 1 SURF, ANTERIOR Routine 12/09/2024 9:00 AM EST 6 I RESIN-BASED COMPOSITE - 1 SURF, ANTERIOR Routine 12/09/2024 9:00 AM EST CASE PRESENTATION, DETAILED AND EXTENSIVE TREATMENT PLANNING Routine 12/09/2024 9:00 AM EST documented in this encounter Visit Diagnoses Not on filedocumented in this encounter Additional Health Concerns Assessment Noted Time PHQ-9 Depression Total Score: 0 07/20/20 23 2:36 PM EDT documented as of this encounter Care Teams Barrel Inspector Tight Relationship Specialty Start Date End Date Joleen Wilkinson MD [address] [place] [address] PCP - General Internal Medicine 03/26/17 documented as of this encounter
--- OUTSIDE RECORDS SUMMARY | 2025-01-05 07:37 | XMS_ITS | Encounter Summary ---
Author Organization [employer] Address [address] [facility] 7t [place] [address] Care Team Providers Care Environmental Assistant Name Role Phone Joleen Wilkinson MD Primary Care Provider [phone] Encounter Details Date Type Department Care Team ([facility] st Contact Info) Description 09/11/2023 Orders Only [facility] CHC MED & PEDS [address] [place], [place] [phone] Joleen Wilkinson MD [address] [place] [address] Other sleep apnea (Primary Dx); Periodic limb movement Social History Tobacco Use Types Packs/Day Years Used Date Smoking Tobacco: Never Passive Smoke Exposure: Never Smokeless Tobacco: Never Alcohol Use Standard Drinks/Week Comments Never 0 (1 standard drink = 0.6 oz pur e alcohol) Depression Answer Date Recorded Patient Health Questionnaire-9 Score 0 07/20/2023 Housing Stability Answer Date Recorded What is your housing situation today? I have awilda hyamn 09/09/[address] you li [...] [facility] [address] [place], [place] [phone] Joleen Wilkinson MD [address] [place], [place] [phone] documented as of this encounter Procedures Procedure Name Priority Date/Time Associated Diagnosis Comments TSH W/REFLEX TO FT4 Routine 09/15/2023 8 :48 AM EDT Periodic limb movement FERRITIN Routine 09/15/2023 8:48 AM EDT Periodic limb movement VITAMIN B12 Routine 09/15/2023 8:48 AM EDT Periodic limb movement documented in this encounter Results * Ferritin (09/15/2023 8:48 AM EDT) Ferritin 125 20 - 250 ng/mL [facility] Blood Venous blood specimen / Unknown 09/15/2023 8:48 AM EDT 09/15/2023 2:36 PM EDT Joleen Wilkinson MD LAB BLOOD ORDERABLES Final Result [facility] [address] [place] [address] [phone] * (ABNORMAL) Vitamin B12 (09/15/2023 8:48 AM EDT) Vitamin B12 1,140(H) 200 - 900 pg/mL [facility] Comment:NORMAL 200-900 PG/ML INDETERMINATE 160-199 PG/ML DEFICIENT < 160 PG/ML Blood Venous blood specimen / Unknown 09/15/2023 8:48 AM EDT 09/15/2023 2:36 PM EDT us Joleen Wilkinson MD LAB BLOOD ORDERABLES Final Result Performing Organization Address [facility] Co de Phone Number [facility] [address] [place] [address] [phone] * TSH W/Reflex to FT4 (09/15/2023 8:48 AM EDT) TSH reflex Free T4 1.57 0.32 - 4.0 uIU/mL [facility] Blood 09/15/2023 8:48 AM EDT 09/15/2023 2:36 PM EDT us Joleen Wilkinson MD LAB BLOOD ORDERABLES Final Result Performing Organization Address [facility] de Phone Number [facility] [address] [place] [phone] documented in this encounter Visit Diagnoses Diagnosis Other sleep apnea- Primary Periodic limb movement Periodic limb movement disorder documented in this encounter Additional Health Concerns Assessment Noted Time PHQ-9 Depression Total Score: 0 07/20/20 23 2:36 PM EDT documented as of this encounter Care Teams Environmental Assistant Relationship Specialty Start Date End Date Joleen Wilkinson MD [address] [place] [address] PCP - General Internal Medicine 03/26/17 documented as of this encounter
--- OUTSIDE RECORDS SUMMARY | 2025-01-05 07:37 | XMS_ITS | Encounter Summary ---
Author Organization [employer] Address [address] [facility] 7t [place] [address] Care Team Providers Care Careers Counsellor Name Role Phone Joleen Wilkinson MD Primary Care Provider [phone] Reason for Visit * Reason Onset Date Comments Call Back Request 10/21/2023 Encounter Details Date Type Department Care Team ([facility] st Contact Info) Description 10/21/2023 Telephone [facility] MEDICINE [address] [place] [address] Joleen Wilkinson MD [address] [facility] [address] [place], [place] [phone] Call Back Request Social History Tobacco Use Types Packs/Day Years [...] Telephone Encounter - Mona Venegas RN - 10/23/2023 10:49 AM EST Noted thank you. * Telephone Encounter - Mona Venegas RN - 10/22/2023 11:16 AM EST Returned call to pt regarding message below. Pt states requesting sleep study results. Informed pt results were just scanned into chart yesterday and will send message to PCP for next steps for CPAP.Pt verbalized understanding and agrees with plan. Please review and advise if rx can be generated for CPAP and supplies. * Telephone Encounter - Claudio Barraza - 10/21/2023 1:38 PM EST Tc from patient requesting a call back in regards to lab work results. Patient speaks croatian documented in this encounter Plan of Treatment Upcoming Encounters Date Type Department Care Team (Late st Contact Info) Description 01/31/2025 10:00 AM EDT Office Visit [facility] MED & PEDS [address] [place] [address] Joleen Wilkinson MD [address] [place] [address] documented as of this encounter Visit Diagnoses Not on filedocumented in this encounter Additional Health Concerns Assessment Noted Time PHQ-9 Depression Total Score: 0 07/20/20 23 2:36 PM EDT documented as of this encounter Care Teams Careers Counsellor Relationship Specialty Start Date End Date Joleen Wilkinson MD [address] [place] [phone] PCP - General Internal Medicine 03/26/17 documented as of this encounter
== END 2025-01-05 07:35 | disposition home or self-care (01) ==
LOC: CF 07:34
PROVIDERS: Visit Provider Internal Medicine
DX: M54.16 Radiculopathy, lumbar region (principal)
CPT/HCPCS: 64483; J1100; J2003; Q9967

== ENCOUNTER 2025-01-05 10:34 | Outpatient (AMB) | payer MEDICARE, MEDICAID, SELFPAY ==
[2025-01-05 10:39] VITALS: BP 139/71; PULSE 78; O2SAT 98; BMI 37.0
--- NOTE | 2025-01-05 10:39 | A.OFFVIS_ITS ---
Vital Signs 01/05/25 10:39 Height 5 ft 11 in Weight 265 lb BMI 37.0 BP 139/71 Blood Pressure Location Lt brachial Position Sitting Pulse 78 Pulse Source Pulse Oximeter Pulse Oximetry (%) 98 Oxygen Delivery Method Room Air Intake Visit Reasons: Left L4-L5 TF[employer] Consultant Required: No Allergies No Known Allergies [No Known Allergies*] Allergy (Verified 01/05/25 10:40) Medication List - Last Reconciled 01/05/25 by Dulce Pacheco, MARKET DEVELOPMENT DIRECTOR atorvastatin 40 mg PO BEDTIME blood sugar diagnostic (Climeworksuch Ultra Test strips) As directed blood-glucose meter (just.me Ultra2 Meter) As directed cholecalciferol (vitamin D3) (Vitamin D3) 25 mcg PO QAM cyclosporine 0.05% (Restasis) 1 drp ophthalmic (eye) BID dulaglutide (Trulicity) 1.5 mg subcut QWEEK gabapentin 100 mg PO TID 30 days hydrocodone-acetaminophen 5-325 mg 1 tab PO BID PRN lancets (Senior Whole HealthTouch Delica Plus Lancet) As directed leflunomide 20 mg PO DAILY lisinopril-hydrochlorothiazide 20-12.5 mg 1 tab PO DAILY HPI HPI Left L4-L5 TFESI: Details: Patient presents for scheduled procedure. Denies any recent cough, cold, infection, fever or other significant changes in medical history since last offi ce visit. [facility] Medical History Diverticulitis Degenerative disc disease, lumbar Right hip pain Bilateral hip pain Polymyalgia rheumatica SHAVON (obstructive sleep apnea) Bilateral hand pain Finger joint swelling Primary osteoarthritis involving multiple joints History of arthritis Pre-diabetes Hyperlipidemia HTN (hypertension) Surgical History Hx of hand surgery History of back surgery Family History Mother Guillain-[place] Social History Household Members: Spouse Alcohol intake: former Patient Tobacco Use Status: Former Tobacco user Current occupational status: retired Physical Exam Vital Signs: Last Vital Signs Pulse 78 01/05/25 10:39 BP 139/71 01/05/25 10:39 Pulse Ox 98 01/05/25 10:39 Oxygen Delivery Method Room Air 01/05/25 10:39 BMI result Body Mass Index 37.0 Office Procedures Details: Transforaminal epidural steroid injection, Left L4/5 After obtaining written consent, pre-procedure blood pressure and heart rate were stable and recorded in the nursing record. The patient was placed in the prone position on the fluoroscopy table. The lumbosacral area was prepped with chloraprep, allowed to dry and draped in sterile fashion. Using fluoroscopy, the skin overlying our target was anesthetized with 0.5% lidocaine. A 22 gauge 3.5 inch spinal needle was advanced to the safe triangle in the upper pole of the left L4 foramen. No paresthesias were elicited with needle placement and aspiration was negative for blood and CSF. Correct needle position was confirmed with approximately 1 ml contrast dye (Omnipaque 180 mg/ml) injected under real-time fluoroscopy. No evidence of vascular or intrathecal uptake was seen and there was both epidural and peripheral spread of the contrast agent. 10 mg dexamethasone plus 1 ml containing 0.5% lidocaine was slowly injected. The needle was flushed and removed. The skin was cleansed and a sterile bandages were applied. The patient tolerated the procedure well and no complications were encountered. Following the procedure the patient's vital signs were stable. The patient was discharged home in good condition with post-procedural instructions. Time Out: Immediately prior to the procedure, the following was verbally confirmed that there is a signed consent form and that the correct patient, planned procedure, site and side are consistent with documentation and that necessary equipment and/or blood products are available prior to the start of the case. Complications: none EBL: <5 cc 27[address] - Lumbar/Sacral Procedure code (CPT) selection complete Assessment & Plan Assessment & Plan (1) Neuroforaminal stenosis of lumbar spine: Code(s): M48.061 - Spinal stenosis, lumbar region without neurogenic claudication Category: Medical (2) Lumbar radiculopathy: Code(s): M54.16 - Radiculopathy, lumbar region Category: Medical Plan Patient is status post left L4-5 TFESI. Patient tolerated procedure well and was discharged home in stable condition with discharge instructions. All questions were answered. We will follow-up via telephone or in clinic to assess response to therapy. A f ollow-up appointment was made during today's visit. Orders: Orders FL guidance in treatment room Today M54.16 - Radiculopathy, lumbar region Coding Level of Care Code Procedure Only Diagnoses Neuroforaminal stenosis of lumbar spine M48.061 Lumbar radiculopathy M54.16 CPT Codes Transforaminal Epidural Steroid Inj - TESI 3: 78853 - Lumbar/Sacral ([id number])
--- OUTSIDE RECORDS SUMMARY | 2025-01-05 11:16 | XMS_ITS | Clinical Summary ---
Author Organization [facility] it Address [address] [place] [address] Care Team Providers Care Tufting Machine Operator Name Role Phone Joleen Wilkinson MD Primary Care Provider +1 [phone] Social History Tobacco Use Types Packs/Day Years [...] Comments DTaP,Tdap,and Td Vaccines (1 - Tdap) 1969 Pneumococcal Vaccine: 50+ Ye ars (1 of [...] AM EDT Narrative 07/15/2021 10:57 AM EDT [facility] Diagnostic Imaging Department [address] [place] [address] Patient: ??JEFERSON EDGE ?/Age/Sex: 1950 - 71 - M Unit#: ??[id number] ? Location/Status: ??SPDIUS/REG CLI ? Mnemonic/Ordering Site: ??AAASCRSTUD/SPUS Ordering Physician: ??JAE PATEL PULLEY MORTISER OPERATOR US Abdomen Aorta Scr Study AAA [...] be of normal caliber, without aneurysm. Code 38737 G9551 Dictating Physician: ??LUIS MIGUEL STANTON MD Electronically Signed by: ??LUIS MIGUEL STANTON MD Dic Date/Time: ??07/15/21 1055 Sign date/Time: ??07/15/21 1057 Procedure Note Luis Miguel Stanton MD - 11/19/2022 [facility] Diagnostic Imaging Department [address] [place] [address] Patient: JEFERSON EDGE /Age/Sex: 1950 - 71 - M Unit#: [id number] [facility] Mnemonic/Ordering Site: [facility] Ordering Physician: JAE PATEL PULLEY MORTISER OPERATOR US Abdomen Aorta Scr Study AAA [...] be of normal caliber, without aneurysm. Code 83881 G9551 Dictating Physician: LUIS MIGUEL STANTON MD Electronically Signed by: LUIS MIGUEL STANTON MD Dic Date/Time: 07/15/21 1055 Sign date/Time: 07/15/21 105 us Jae Patel NP IMG US PROCEDURES Final Re sult from Last 3 Months or Most Recently Relevant to Health Maintenance Care Teams Tufting Machine Operator Relationship Specialty Start Date End Date Joleen Wilkinson MD [address] [place] [address] PCP - General Internal Medicine 08/05/22
--- OUTSIDE RECORDS SUMMARY | 2025-01-05 11:16 | XMS_ITS | Encounter Summary ---
Author Organization [employer] Address [address] [facility] 7t [place] [address] Care Team Providers Care Employment Supervisor Name Role Phone Joleen Wilkinson MD Primary Care Provider +1 [phone] Encounter Details Date Type Department Care Team ([facility] st Contact Info) Description 09/11/2023 Orders Only [facility] CHC MED & PEDS [address] [place], [place] [phone] Joleen Wilkinson MD [address] [place] [address] Other sleep apnea (Primary Dx); Periodic limb [...] Description 01/31/2025 10:00 AM EDT Office Visit [facility] CHC MED & PEDS [address] [place], [place] [phone] Joleen Wilkinson MD [address], [place] [phone] documented as of this encounter Procedures Procedure Name Priority Date/Time Associated Diagnosis Comments TSH W/REFLEX TO FT4 Routine 09/15/2023 8 :48 AM EDT Periodic limb movement FERRITIN Routine 09/15/2023 8:48 AM EDT Periodic limb movement VITAMIN B12 Routine 09/15/2023 8:48 AM EDT Periodic limb movement documented in this encounter Results * Ferritin (09/15/2023 8:48 AM EDT) Ferritin 125 20 - 250 ng/mL [facility] Blood Venous blood specimen / Unknown 09/15/2023 8:48 AM EDT 09/15/2023 2:36 PM EDT Joleen Wilkinson MD LAB BLOOD ORDERABLES Final Result [facility] [address] [place] [address] [phone] * (ABNORMAL) Vitamin B12 (09/15/2023 8:48 AM EDT) Vitamin B12 1,140(H) 200 - 900 pg/mL [facility] Comment:NORMAL 200-900 PG/ML INDETERMINATE 160-199 PG/ML DEFICIENT < 160 PG/ML Blood Venous blood specimen / Unknown 09/15/2023 8:48 AM EDT 09/15/2023 2:36 PM EDT us Joleen Wilkinson MD LAB BLOOD ORDERABLES Final Result Performing Organization Address [facility] Co de Phone Number [facility] [address] [place] [address] [phone] * TSH W/Reflex to FT4 (09/15/2023 8:48 AM EDT) TSH reflex Free T4 1.57 0.32 - 4.0 uIU/mL [facility] Blood 09/15/2023 8:48 AM EDT 09/15/2023 2:36 PM EDT us Joleen Wilkinson MD LAB BLOOD ORDERABLES Final Result Performing Organization Address [facility] de Phone Number [facility] [address] [place] [phone] documented in this encounter Visit Diagnoses Diagnosis Other sleep apnea- Primary Periodic limb movement Periodic limb movement disorder documented in this encounter Additional Health Concerns Assessment Noted Time PHQ-9 Depression Total Score: 0 07/20/20 23 2:36 PM EDT documented as of this encounter Care Teams Employment Supervisor Relationship Specialty Start Date End Date Joleen Wilkinson MD [address] [place] [address] PCP - General Internal Medicine 03/26/17 documented as of this encounter
--- OUTSIDE RECORDS SUMMARY | 2025-01-05 11:16 | XMS_ITS | Clinical Summary ---
Author Organization [facility] Address [address] [place] [address] Care Team Providers Care Bolter Helper Name Role Phone Unavailable Primary Care Provider [...]
--- OUTSIDE RECORDS SUMMARY | 2025-01-05 11:16 | XMS_ITS | Encounter Summary ---
Author Organization [employer] Address [address] [facility] 7t [place] [address] Care Team Providers Care Administrative Services Coordinator Name Role Phone Joleen Wilkinson MD Primary Care Provider [phone] [phone] Encounter Details Date Type Department Care Team ([facility] st Contact Info) Description 08/12/2024 Orders Only [facility] CHC MED & PEDS [address] [place], [place] [phone] Joleen Wilkinson MD [address] [place] [address] Acute pain of right knee (Primary Dx) [...] [facility] MED [facility] PEDS [address] [place] [address] Joleen Wilkinson MD [address] [place] [address] documented as of this encounter Visit Diagnoses Diagnosis Acute pain of right knee- Primary documented in this encounter Additional Health Concerns Assessment Noted Time PHQ-9 Depression Total Score: 0 07/20/20 23 2:36 PM EDT documented as of this encounter Care Teams Administrative Services Coordinator Relationship Specialty Start Date End Date Joleen Wilkinson MD [address] [place] [address] PCP - General Internal Medicine 03/26/17 documented as of this encounter
--- OUTSIDE RECORDS SUMMARY | 2025-01-05 11:16 | XMS_ITS | Encounter Summary ---
Author Organization [employer] Address [address] [place] [address] 7t [place] [address] Care Team Providers Care Offset Press Operator Name Role Phone Joleen Wilkinson MD Primary Care Provider [phone]- [phone] Encounter Details Date Type Department Care Team ([facility] st Contact Info) Description 07/16/2023 Orders Only [facility] CHC MED & PEDS [address] [place], [place] [phone] Joleen Wilkinson MD [address] [place] [address] Other sleep apnea (Primary Dx) Social History [...] 10:00 AM EDT Office Visit [facility] MED & PEDS [address] [place] [address] Joleen Wilkinson MD [address] [place] [address] documented as of this encounter Visit Diagnoses Diagnosis Other sleep apnea- Primary documented in this encounter Care Teams Offset Press Operator Relationship Specialty Start Date End Date Joleen Wilkinson MD [address] [place] [address] PCP - General Internal Medicine 03/26/17 documented as of this encounter
--- OUTSIDE RECORDS SUMMARY | 2025-01-05 11:16 | XMS_ITS | Encounter Summary ---
Author Organization [employer] Address [address] [facility] 7t [place] [address] Care Team Providers Care Laborer Hoisting Name Role Phone Joleen Wilkinson MD Primary Care Provider [phone]- [phone] Reason for Visit * Reason Onset Date Comments Call Back Request 10/21/2023 Encounter Details Date Type Department Care Team ([facility] st Contact Info) Description 10/21/2023 Telephone [facility] MEDICINE [address] [place] [address] Joleen Wilkinson MD [address] [facility] [address] [place], [place] [phone] Call Back Request Social History Tobacco Use [...] regards to lab work results. Patient speaks chinese documented in this encounter Plan of Treatment Upcoming Encounters Date Type Department Care Team (Late st Contact Info) Description 01/31/2025 10:00 AM EDT Office Visit [facility] MED & PEDS [address] [place] [address] Joleen Wilkinson MD [address] [place] [address] documented as of this encounter Visit Diagnoses Not on filedocumented in this encounter Additional Health Concerns Assessment Noted Time PHQ-9 Depression Total Score: 0 07/20/20 23 2:36 PM EDT documented as of this encounter Care Teams Laborer Hoisting Relationship Specialty Start Date End Date Joleen Wilkinson MD [address] [place] [address] PCP - General Internal Medicine 03/26/17 documented as of this encounter
--- OUTSIDE RECORDS SUMMARY | 2025-01-05 11:16 | XMS_ITS | Encounter Summary ---
Author Organization [employer] [facility] Address [address] [facility] 7t [place] [address] Care Team Providers Care Route Delivery Manager Name Role Phone Joleen Wilkinson MD Primary Care Provider [phone]- [phone] Reason for Visit * Reason Onset Date Comments Lab Orders 02/23/2024 Referral 02/23/2024 Encounter Details Date Type Department Care Team ([facility] st Contact Info) Description 02/23/2024 Telephone [facility] MEDICINE [address] [place], [place] [phone] Joleen Wilkinson MD [address] [facility] [address] [place], [place] [phone] Lab Orders; Referral Social History Tobacco Use [...] 11:34 AM EDT Tc wilver Daniels from [employer] calling on behalf of the patient requesting a referral for a Kidney Health Screening and a GFR Blood test as well as a ACR urine test documented in this encounter Plan of Treatment Upcoming Encounters Date Type Department Care Team ([facility] st Contact Info) Description 01/31/2025 10:00 AM EDT Office Visit [facility] MED & PEDS [address] [place] [address] Joleen Wilkinson MD [address] [place] [address] documented as of this encounter Visit Diagnoses Not on filedocumented in this encounter Additional Health Concerns Assessment Noted Time PHQ-9 Depression Total Score: 0 07/20/20 23 2:36 PM EDT documented as of this encounter Care Teams Route Delivery Manager Relationship Specialty Start Date End Date Joleen Wilkinson MD [address] [place] [address] PCP - General Internal Medicine 03/26/17 documented as of this encounter
--- OUTSIDE RECORDS SUMMARY | 2025-01-05 11:16 | XMS_ITS | Encounter Summary ---
Author Organization [employer] Address [address] [facility] 7t [place] [address] Care Team Providers Care Associate Professor Of Forestry Name Role Phone Joleen Wilkinson MD Primary Care Provider [phone] Encounter Details Date Type Department Care Team (Late st Contact Info) Description 09/23/2023 Abstract [facility] MEDICINE [address] [place] [address] Joleen Wilkinson MD [address] [place], [place] [phone] Social History Tobacco Use Types Packs/Day Years [...] Description 01/31/2025 10:00 AM EDT Office Visit [facility] MED & PEDS [address] [place] [address] Joleen Wilkinson MD [address] [place] [address] documented as of this encounter Procedures Procedure [...] documented as of this encounter Care Teams Associate Professor Of Forestry Relationship Specialty Start Date End Date Joleen Wilkinson MD [address] [place] [address] PCP - General Internal Medicine 03/26/17 documented as of this encounter
--- OUTSIDE RECORDS SUMMARY | 2025-01-05 11:16 | XMS_ITS | Clinical Summary ---
Author Organization [facility] Address [address] [place] [address] Care Team Providers Care Program Director/Morning Show Host Name Role Phone Yasir Patel Primary Care Provider [phone] [phone] Source Comments PLEASE NOTE, if this patient [...] H/O colonoscopy 12/01/2016 Overview (03/26/2021): January 2020 [facility] tubular adenoma x2, follow up 5-7 [...] Charting 06/12/2024 06/10/2023 Dental Prophy 06/12/2024 06/10/2023 [id number] ( season) 2024 10/10/2021, 02/09/2021, 01/12/2021 Imm-Influenza [...] Routine 06/10/2023 9:40 AM EDT Fractured dental mandaen with loss of material Encounter for dental [...] A1C 5.9(H) <5.7 % of total Hgb [employer] Comment: For someone without known diabetes, a [...] EST 01/28/2022 3:55 PM EST Yasir Patel CLINIC NURSE LAB - BLOOD DRAW Edited R esult - Final [employer] [address] [address], [employer] [address] [address] * (ABNORMAL) LIPID PANEL (09/05/2021 9:15 AM EDT) CHOLESTEROL, TOTAL 146 <200 mg/dL [employer] HDL CHOLESTEROL 38(L) > OR = 40 mg/dL [employer] TRIGLYCERIDES 220(H) <150 mg/dL [employer] Comment: If a non-fasting specimen was collected, consider repeat triglyceride testing on a fasting specimen if clinically indicated. Kelby et al. J. of Clin. Lipidol. 2015;9:129-169. LDL-CHOLESTEROL 76 99 mg/dL (calc) [employer] Comment: Reference range: <100 Desirable range <100 mg/dL for primary prevention; ?? <70 mg/dL for patients with CHD or diabetic patients with > or = 2 CHD risk factors. LDL-C is now calculated using the Jaime-Kevin calculation, which is a validated novel method providing better accuracy than the Friedewald equation in the estimation of LDL-C. Jaime AGUILA et al. ANA LUISA. 2013;310(19): 3853-5706 (http://education.Descargas Online/faq/QUX799) CHOL/HDLC RATIO 3.8 <5.0 (calc) [facility] NON-HDL CHOLESTEROL 108 <130 mg/dL (calc) [employer] Comment: For patients with diabetes plus 1 major ASCVD risk factor, treating to a non-HDL-C goal of <100 mg/dL (LDL-C of <70 mg/dL) is considered a therapeutic option. Blood Blood / Unknown 09/05/2021 9 :15 AM EDT 09/05/2021 9:15 AM EDT Yasir GARZ[facility] LAB - BLOOD DRAW Final Re sult [facility] [address] [facility] [address] [place] [address], [place] [facility] [address] [facility] [address] [address] * US ABDOMINAL AORTA REAL TIME SCREEN STUDY AAA (05/31/2021 12:00 AM EDT) 05/31/2021 Yasir GARZAP IMG ULTRASOUND Final Res ult * COLONOSCOPY (01/31/2020) Provider Ochin PROCEDURES Final Result * (ABNORMAL) HEPATITIS A,B,C PANEL (08/11/2019 11:33 AM EDT) HEPATITIS B SURFACE ANTIBODY NEGATIVE NEGATIVE [facility] HEPATITIS B SURFACE ANTIGEN NEGATIVE NEGATIVE [facility] Comment: Over the counter supplements containing high doses of biotin may interfere with this assay. ??If interference is suspected, patients shoud be retested after refraining from biotin supplements for 72 hours. HEPATITIS B CORE ANTIBODY NEGATIVE NEGATIVE [facility] HEPATITIS C VIRUS DIAGNOSTIC NEGATIVE NEGATIVE [facility] HEPATITIS A ANTIBODY TOTAL POSITIVE(A) NEGATIVE [facility] Comment: Over the counter supplements containing high doses of biotin may interfere with this assay. ??If interference is suspected, patients shoud be retested after refraining from biotin supplements for 72 hours. Blood specimen (specimen) Blood / Unknown 08/11/2019 11:33 AM EDT 08/11/2019 12:47 PM EDT Narrative [email or web address] [facility] - 08/11/2019 4:24 PM EDT [employer], a member of [address] [address] Drycleaner - Bethany Vigil MD PT ID [id number] ORD# [id number] Ranjan Howardgeovanikatarinacorey [facility] - BLOOD DRAW Edited Result - Final [facility] [address] [place] [address], from Last 3 Months or Most Recently Relevant to Health Maintenance Insurance [place] [employer] [place] [address] [address] [facility] Care Teams Program Director/Morning Show Host Relationship Specialty Start Date End Date Yasir Patel FNP [address] [place] [address] PCP - General Family Medicine, PIPE CHANGER 06/17/23
--- OUTSIDE RECORDS SUMMARY | 2025-01-05 11:16 | XMS_ITS | Clinical Summary ---
Author Organization [employer] Address [address] [facility] 7t [place] [address] Care Team Providers Care Supervisor Rod Placing Name Role Phone Joleen Wilkinson MD Primary Care Provider [phone] Allergies No known active allergies Medications * [...] DAYTAKE 1 TABLET 30 MINUTES BEFORE THE PROCEDURE.PA GHT TAKE ANOTHER IF NOT SLEEPING 2 [...] (BMI) of 37.0 to 37.9 in adult ([facility]) INJECT 7.5 MG UNDER THE SKIN 1 [...] 12/21/2024 10:00 AM EST Office Visit [facility] [address] [place] [address] Bryant Renee 12/09/2024 9:00 AM EST Office Visit [facility] [address] [place] [address] Bryant Renee 12/09/2024 Refill [facility] [address] [place] [address] Joleen Wilkinson MD Other osteoarthritis involving multiple joints 12/08/2024 Orders Only GENERIC EXTERNAL DATA DEPARTMENT Provider, Generic External Data 12/08/2024 Refill [facility] [address] [place] [address] Joleen Wilkinson MD Essential hypertension 12/04/2024 Refill [facility] [address] [place] [address] Joleen Wilkinson MD Class 2 severe obesity due to excess calories with serious comorbidity and body mass index (BMI) of 37.0 to 37.9 in adult ([facility]) 11/29/2024 11:00 AM EST Office Visit [facility] [address] [place] [address] Shantelle Mancia Dental calculus (Primary Dx) 11/29/2024 Orders Only [facility] External Provider, [facility] 11/09/2024 Refill [facility] [address] [place] [address] Joleen Wilkinson MD Chronic left-sided low back pain without sciatica 10/13/2024 9:15 AM EST Office Visit [facility] [address] [place] [address] Joleen Wilkinson MD Class 2 severe obesity due to excess calories with serious comorbidity and body mass index (BMI) of 37.0 to 37.9 in adult ([facility]) (Primary Dx); Prediabetes; 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 ([facility]); PMR (polymyalgia rheumatica) ([facility]) 10/13/2024 Travel from Last 3 Months Immunizations [...] Description 01/31/2025 10:00 AM EDT Office Visit [facility] MED & PEDS [address] [place], [place] [phone] Joleen Wilkinson MD [address] [place] [address] Health Maintenance Due Date Last Done Comments [...] (BMI) of 37.0 to 37.9 in adult ([facility]) Prediabetes POCT GLYCATED HEMOGLOBIN, TOTAL Routine 07/12/2024 [...] Blood Count 7.2 4.8 - 10.8 X10*3/uL [facility] Red Blood Count 4.34(L) 4.60 - 5.80 X10*6/uL [facility] Hemoglobin 13.0(L) 14.0 - 18.0 g/dl [facility] Hematocrit 39.5(L) 42.0 - 52.0 % [facility] Mean Corpuscular Volume 91.0 80.0 - 98.0 fL [facility] Mean Corpuscular Hemoglobin 30.0 27.0 - 33.0 pg [facility] Mean Corpuscular HGB Conc 32.9 31.0 - 36.0 g/dl [facility] Red Cell Distribution Width 14.4 11.0 - 16.0 % [facility] Platelet Count 231 160 - 400 X10*3/uL [facility] Mean Platelet Volume 11.1 9.4 - 12.4 fL [facility] Neutrophils Percent Auto 61.3 45 - 73 % [facility] Imm Gran Pct Auto 0.3 0.0 - 0.4 % [facility] Lymphocytes Percent Auto 26.7 20 - 40 % [facility] Monocytes Percent Auto 9.0 2 - 11 % [facility] Eosinophils Percent Auto 1.7 0 - 4 % [facility] Basophils Percent Auto 1.0 0 - 2 % [facility] NRBC Pct Auto 0.0 0.0 - 0.2 /100WBC [facility] Neutrophils Absolute Auto 4.4 2.0 - 8.3 x10*3/uL [facility] Imm Gran Abs Auto 0.02 0.00 - 0.03 X10*3/uL [facility] Lymphocytes Absolute Auto 1.9 1.2 - 4.9 X10*3/uL [facility] Monocytes Absolute Auto 0.7 0.1 - 1.2 X10*3/uL [facility] Eosinophils Absolute Auto 0.1 0.0 - 0.4 X10*3/uL [facility] Basophils Absolute Auto 0.1 0.0 - 0.2 X10*3/uL [facility] NRBC Abs Auto 0.000 0.0 - 0.012 X10*3/uL [facility] 12/08/2024 2:19 PM EST 12/08/2024 2:19 PM EST Generic External Data Provider LAB BLOOD ORDERAB LES Final Result Performing Organization Address [facility] Co de Phone Number [facility] [address] [place] [phone] * (ABNORMAL) Sed Rate by Modified Westergren (12/08/2024 2:19 PM EST) Pathologist [facility] Erythrocyte Sedimentation Rate 51(H) 0 - 15 MM/HR [facility] Comment:Patients with polycy themia and many hemoglobin abnormalitiesmay have depressed sed rates whereas patients with anemiamay have elevated sed rates. 12/08/2024 2:19 PM EST 12/08/2024 2:19 PM EST Generic External Data Provider LAB BLOOD ORDERAB LES Final Result Performing Organization Address [facility] Co de Phone Number [facility] [address] [place] [phone] * (ABNORMAL) C-reactive Protein (12/08/2024 2:19 PM EST) Pathologist [facility] C Reactive Protein 0.66(H) < or = 0.50 mg/dL [facility] 12/08/2024 2:19 PM EST 12/08/2024 2:19 PM EST us Generic External Data Provider LAB BLOOD ORDERAB LES Final Result [facility] [address] [place] [address] [phone] * (ABNORMAL) Comprehensive Metabolic Panel (12/08/2024 2:19 PM EST) Sodium 143 135 - 145 mmol/L [facility] Potassium 3.9 3.3 - 5.1 mmol/L [facility] Chloride 108 96 - 108 mmol/L [facility] Carbon Dioxide 30(H) 22 - 29 mmol/L [facility] Anion Gap 9(L) 12 - 20 [facility] Urea Nitrogen (BUN) 15 9 - 16 mg/dL [facility] Creatinine, Serum 0.78 0.5 - 1.4 mg/dL [facility] Estimated Glomerular Filt Rate >60 [facility] Comment:Chronic Kidney Disea se: Estimated GFR < 60 mL/min/1.93b6Kyqhnl Kidney Disease: Estimated GFR < 15 mL/min/1.73m2 Glucose 81 60 - 115 mg/dL [facility] Calcium 9.5 8.4 - 10.2 mg/dL [facility] Bilirubin, Total 0.2 0.0 - 1.0 mg/dL [facility] Aspartate Amino Transferase 21 5 - 37 U/L [facility] Alanine Aminotransferase 16 0 - 40 U/L [facility] Total Protein 7.7 6.5 - 8.0 g/dL [facility] Albumin Level 4.0 3.5 - 5.0 g/dL [facility] Alkaline Phosphatase 46 39 - 117 U/L [facility] 12/08/2024 2:19 PM EST 12/08/2024 2:19 PM EST us Generic External Data Provider LAB BLOOD ORDERAB LES Final Result [facility] [address] [place] [phone] * MR Lumbar Spine w/o Contrast (11/29/2024 7:03 PM EST) Anatomical Region Laterality Modality Spine, L-spine Magnetic Resonan ce 11/29/2024 7:03 PM EST Narrative 11/29/2024 7:04 PM EST ? [facility] ?[address] ?[place] [address] ? Magnetic Resonance Report ? Signed ? Patient: Jeferson Rae ?MR#: [id number] ?? [id number] ? : 1950 ?Acct:[id number] ? Age/Sex: 74 / M ?ADM Date: 11/29/24 ? Loc: HO.MRI ? Attending Dr: Caroline ALLEN ? Ordering Physician: Caroline Allison ?? Date of Service: 11/29/24 ?? Procedure(s): MR lumbar spine wo con ?? Accession Number(s): [id number] ? cc: Joleen Wilkinson MD; Caroline Allison [...] lesions by noncontrast ?? imaging in the mmcke-oc-hghe. Conus terminates at T12-L1. ?? L1-L2: Disc [...] ? DD/ 02 ? TD/TT: 11/29/241902 ? [employer]: ? Procedure Note Al, Venkatesh - 11/29/2024 [place] [address] Magnetic Resonance Report Signed Patient: Bernard Rae#: [id number] : 1950Acct:[id number] Age/Sex: 74 / MADM Date: 11/29/24 Loc: HO.MRI Attending Dr: Caroline ALLEN Ordering Physician: Caroline Allison Date of Service: 11/29/24 Procedure(s): MR lumbar spine wo con Accession Number(s): [id number] cc: Joleen Wilkinson MD; Caroline Allison CLINICAL [...] cystic lesions by noncontrast imaging in the ldjjs-aa-jhib. Conus terminates at T12-L1. L1-L2: Disc bulge [...] in OV> 11/29/241903 DD/ 02 TD/TT: 11/29/241902 [employer]: [facility] External Provider IMG MRI PROCEDURES Edited Result - Final * POCT Glucose (10/13/2024 10:12 AM EST) Glucose Blood, POC 113 60 - 200 mg/dL QC Media Lot # [id number] Lot# Expiration Date [id number] Blood Capillary blood specimen / Unknown 10/13/2024 [...] 10:44 AM EDT) Triglycerides 182(H) <150 mg/dL [facility] Comment:Desirable Triglyceri de: less than 150 mg/dLBorderline High Triglyceride 150-199 mg/dLHigh Triglyceride: 200-499 mg/dLVery High Triglyceride: greater than or equal to 5OO mg/dL Cholesterol 129 <200 mg/dL [facility] Comment:Desirable Cholestero l: less than 200 mg/dLBorderline High Cholesterol: 200-239 mg/dLHigh Cholesterol: greater than 239 mg/dL LDL Cholesterol Calculated 58 <100 mg/dL [facility] Comment:Desirable LDL: less than 100 mg/dLNear Optimal/Above Optimal LDL: 110- 129 mg/dLBorderline High LDL: 130-159 mg/dLHigh LDL: 160-189 mg/dLVery High LDL: greater than or equal to 190 mg/dL HDL Cholesterol 35(L) >40 mg/dL [facility] Comment:Desirable HDL: great er than 40 mg/dL Note: This HDL assay may give artificially low results in patients with liver disease. Blood Venous blood specimen / Unknown 07/12/2024 10:44 AM EDT 07/12/2024 2:24 PM EDT us Joleen Wilkinson MD LAB BLOOD ORDERABLES Final Result [facility] [address] [place] [address] [phone] * Hm Colonoscopy (09/09/2022) Colonoscopy Normal Normal Historical Provider HEALTH MAINTENANCE Edited Result - Final * HEPATITIS C AB W/REFL TO HCV RNA, QN, PCR (07/23/2022 8:48 AM EDT) HEPATITIS C ANTIBODY NON-REACT MAURICE NON-REACT MAURICE [facility] INDEX 0.17 <1.00 [facility] Comment: ?? HCV antibody was non-reactive. There is no laboratory ?? evidence of HCV infection. ?? In most cases, no further action is required. However, if recent HCV exposure is suspected, a test for HCV RNA (test code 06450) is suggested. ?? For additional information please refer to http://education.Treato/faq/NBZ44d7 (This link is being provided for informational/ educational purposes only.) ?? 07/23/2022 8:48 AM EDT Joleen Wilkinson MD HISTORICAL/NON ORDERABLE LA BS Final Result [facility] [address] from Last 3 Months or Most Recently Relevant to Health Maintenance Insurance [facility] STANDARD [employer] MEDICARE REPLACEMENT DENTAL - HSN FULL (MEDICAID) Care Teams Supervisor Rod Placing Relationship Specialty Start Date End Date Joleen Wilkinson MD [address] [place] [address] [place] [address] PCP - General Internal Medicine 03/26/17
--- OUTSIDE RECORDS SUMMARY | 2025-01-05 11:16 | XMS_ITS | Encounter Summary ---
Author Organization [employer] Address [address] [facility] 7t [place] [address] Care Team Providers Care Assistant Head Cashier Name Role Phone Joleen Wilkinson MD Primary Care Provider [phone] Encounter Details Date Type Department Care Team ([facility] st Contact Info) Description 06/06/2024 Orders Only [facility] MED & PEDS [address] [place], [place] [phone] Joleen Wilkinson MD [address] [place] [address] Class 2 obesity due to excess calories [...] 10:00 AM EDT Office Visit [facility] [address] [place] [address] Joleen Wilkinson MD [address] [place] [address] documented as of this encounter Visit Diagnoses Diagnosis Class 2 obesity due to excess calories without serious comorbidity with body mass index (BMI) of 37.0 to 37.9 in adult- Primary documented in this encounter Additional Health Concerns Assessment Noted Time PHQ-9 Depression Total Score: 0 07/20/20 23 2:36 PM EDT documented as of this encounter Care Teams Assistant Head Cashier Relationship Specialty Start Date End Date Joleen Wilkinson MD [address] [place] [address] PCP - General Internal Medicine 03/26/17 documented as of this encounter
--- OUTSIDE RECORDS SUMMARY | 2025-01-05 11:16 | XMS_ITS | Encounter Summary ---
Author Organization [employer] Address [address] [facility] 7t [place] [address] Care Team Providers Care Core Machine Operator Name Role Phone Joleen Wilkinson MD Primary Care Provider [phone] Encounter Details Date Type Department Care Team ([facility] st Contact Info) Description 04/08/2024 Orders Only [facility] MED & PEDS [address] [place] [address] Joleen Wilkinson MD [address] [place] [address] Social History Tobacco Use Types Packs/Day Years [...] t he electric, gas, oil or water [employer] threatened to shut off services in your [...] Description 01/31/2025 10:00 AM EDT Office Visit [facility] MED & PEDS [address] [place] [address] Joleen Wilkinson MD [address] [place] [address] documented as of this encounter Visit Diagnoses Not on filedocumented in this encounter Additional Health Concerns Assessment Noted Time PHQ-9 Depression Total Score: 0 07/20/20 23 2:36 PM EDT documented as of this encounter Care Teams Core Machine Operator Relationship Specialty Start Date End Date Joleen Wilkinson MD [address] [place] [address] PCP - General Internal Medicine 03/26/17 documented as of this encounter
--- OUTSIDE RECORDS SUMMARY | 2025-01-05 11:17 | XMS_ITS | Encounter Summary ---
Author Organization [employer] Address 75 [facility] 7t [place] [address] Care Team Providers Care System Support Technician Name Role Phone Joleen Wilkinson MD Primary Care Provider [phone] Reason for Visit * Reason Comments Filling Encounter Details Date Type Department Care Team ([facility] Contact Info) Description 12/21/2024 10:00 AM EST Office Visit [facility] ADULT DENTAL [address] [place] [address] Bryant Renee [address] [place] [address] Social History Tobacco Use Types Packs/Day Years [...] Timeout Date: 12/21/24, Timeout Time: 101 Location: [facility] Tooth: #12, #13, and #27 Procedure: Baptism Verified the above with patient, wardrobe assistant, and provider. Confirmed via patient's chart, intraorally and by radiographs. Director Quality Systems: Yes. Language: Danish. Director Quality Systems's Name: Roosevelt Ross pt can understand Lithuanian partially Chief Complaint Patient presents with Filling [...] (Completed) Service provider: Bryant Renee Billez provider: Braynt Renee [id number] - RESTORATIVE - RESIN-BASED COMPOSITE [...] Etch Desensitizer: Gluma Liner/Base: None Haddad: I-Haddad Baptism Material: Voco Grandioso Packable Shade: A3 Polished. Occlusion & contacts verified. Patient satisfied with comfort and esthetics. Patient tolerated procedure well. Post-operative instructions were given. Patient departed alert, oriented, and in stable condition. 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 Pt was recommended to get eleni removed surgically as that makes acceptance of partial dentures difficult. NV: post and core #19 Mill Feeder: Roosevelt Dentist: Dr. Bryant Renee, DMD documented in this encounter Plan of Treatment Upcoming Encounters Date Type Department Care Team (Late st Contact Info) Description 01/31/2025 10:00 AM EDT Office Visit [facility] MED & PEDS [address] [place] [address] Joleen Wilkinson MD [address] [place], [place] [phone] Scheduled Orders Name Type Priority Associated Diagnoses [...] documented as of this encounter Care Teams System Support Technician Relationship Specialty Start Date End Date Joleen Wilkinson MD [address] [place] [address] PCP - General Internal Medicine 03/26/17 documented as of this encounter
--- OUTSIDE RECORDS SUMMARY | 2025-01-05 11:17 | XMS_ITS | Encounter Summary ---
Author Organization [employer] Address 75 [facility] [address]t [place] [address] Care Team Providers Care Batch Tester Name Role Phone Joleen Wilkinson MD Primary Care Provider [phone] Reason for Visit * Reason Comments Med Refill Encounter Details Date Type Department Care Team ([facility] st Contact Info) Description 12/08/2024 Refill [facility] MED & PEDS [address] [place] [address] Joleen Wilkinson MD [address] [place] [address] Essential hypertension Social History Tobacco Use Types [...] 01/31/2025 10:00 AM EDT Office Visit [facility] MED & PEDS [address] [place] [address] Joleen Wilkinson MD [address] [place] [address] documented as of this encounter Visit Diagnoses Diagnosis Essential hypertension Unspecified essential hypertension documented in this encounter Additional Health Concerns Assessment Noted Time PHQ-9 Depression Total Score: 0 07/20/20 23 2:36 PM EDT documented as of this encounter Care Teams Batch Tester Relationship Specialty Start Date End Date Joleen Wilkinson MD [address] [place] [address] PCP - General Internal Medicine 03/26/17 documented as of this encounter
--- OUTSIDE RECORDS SUMMARY | 2025-01-05 11:17 | XMS_ITS | Encounter Summary ---
Author Organization [employer] Address [address] [place] [address] [address], [place] [address] Care Team Providers Care Novelties Sales Representative Name Role Phone Joleen Wilkinson MD Primary Care Provider [phone] Reason for Visit * Reason Onset Date Comments Appointment Confirmation 07/06/2023 Encounter Details Date Type Department Care Team ([facility] st Contact Info) Description 07/06/2023 Telephone [facility] MED & PEDS [address] [place] [address] Joleen Wilkinson MD [address] [place] [address] Appointment Confirmation Social History Tobacco Use Types [...] receive a call [facility] [place] [facility] but pt states that no one at [facility] has contact him with appt details. Please contact pt at [phone] Wolof Speaker documented in this encounter Plan of Treatment Upcoming Encounters Date Type Department Care Team (Late st Contact Info) Description 01/31/2025 10:00 AM EDT Office Visit [facility] MED & PEDS [address] [place] [address] Joleen Wilkinson MD [address] [place] [address] documented as of this encounter Visit Diagnoses Not on filedocumented in this encounter Care Teams Novelties Sales Representative Relationship Specialty Start Date End Date Joleen Wilkinson MD [address] [place] [address] PCP - General Internal Medicine 03/26/17 documented as of this encounter
--- OUTSIDE RECORDS SUMMARY | 2025-01-05 11:17 | XMS_ITS | Encounter Summary ---
Author Organization [facility] Address 75 [facility] [address]t [place] [address] Care Team Providers Care Mailhouse Operator Name Role Phone Joleen Wilkinson MD Primary Care Provider [phone] Reason for Visit * Reason Comments Filling Encounter Details Date Type Department Care Team ([facility] Contact Info) Description 12/09/2024 9:00 AM EST Office Visit [facility] ADULT DENTAL [address] [place] [address] Bryant Renee [address] [place] [address] Social History Tobacco Use Types Packs/Day Years [...] Timeout Date: 12/09/24, Timeout Time: 852 Location: [facility] Tooth: #5, #6, #10, and #11 Procedure: Evangelical Verified the above with patient, hospital administrative assistant, and provider. Confirmed via patient's chart, intraorally and by radiographs. Senior Maintenance Machinist: not applicable Chief Complaint Patient presents with [...] Etch Desensitizer: Gluma Liner/Base: None Haddad: I-Haddad Evangelical Material: Voco Grandioso Packable Shade: A3 Polished. Occlusion & contacts verified. Patient satisfied with comfort and esthetics. Patient tolerated procedure well. Post-operative instructions were given. Patient departed alert, oriented, and in stable condition. NV: restorative [place] Strip Gauger: Mary Henderson Dentist: Dr. Bryant Renee, DMD documented in this encounter Plan of Treatment Upcoming Encounters Date Type Department Care Team (Late st Contact Info) Description 01/31/2025 10:00 AM EDT Office Visit [facility] MED & PEDS [address] [place] [address] Joleen Wilkinson MD [address] [place] [address] documented as of this encounter Procedures Procedure [...] documented as of this encounter Care Teams Mailhouse Operator Relationship Specialty Start Date End Date Joleen Wilkinson MD [address] [place] [address] PCP - General Internal Medicine 03/26/17 documented as of this encounter
--- OUTSIDE RECORDS SUMMARY | 2025-01-05 11:17 | XMS_ITS | Encounter Summary ---
Author Organization [facility] Address [address] [facility] [address] [place] [address] Care Team Providers Care Feather Cutting Machine Feeder Name Role Phone Joleen Wilkinson MD Primary Care Provider [phone] Encounter Details Date Type Department Care Team [...] Description 01/31/2025 10:00 AM EDT Office Visit [facility] CH[facility] MED & PEDS [address] [place] [address] Joleen Wilkinson MD [address] [place] [address] documented as of this encounter Procedures Procedure [...] Protein 0.66(H) < or = 0.50 mg/dL [facility] 12/08/2024 2:19 PM EST 12/08/2024 2:19 PM EST us Generic External Data Provider LAB BLOOD ORDERAB LES Final Result [facility] [address] [place] [address] [phone] * (ABNORMAL) Comprehensive Metabolic Panel (12/08/2024 2:19 PM EST) Sodium 143 135 - 145 mmol/L [facility] Potassium 3.9 3.3 - 5.1 mmol/L [facility] Chloride 108 96 - 108 mmol/L [facility] Carbon Dioxide 30(H) 22 - 29 mmol/L [facility] Anion Gap 9(L) 12 - 20 [facility] Urea Nitrogen (BUN) 15 9 - 16 mg/dL [facility] Creatinine, Serum 0.78 0.5 - 1.4 mg/dL [facility] Estimated Glomerular Filt Rate >60 [facility] Comment:Chronic Kidney Disea se: Estimated GFR < 60 mL/min/1.13a4Mrevyf Kidney Disease: Estimated GFR < 15 mL/min/1.73m2 Glucose 81 60 - 115 mg/dL [facility] Calcium 9.5 8.4 - 10.2 mg/dL [facility] Bilirubin, Total 0.2 0.0 - 1.0 mg/dL [facility] Aspartate Amino Transferase 21 5 - 37 U/L [facility] Alanine Aminotransferase 16 0 - 40 U/L [facility] Total Protein 7.7 6.5 - 8.0 g/dL [facility] Albumin Level 4.0 3.5 - 5.0 g/dL [facility] Alkaline Phosphatase 46 39 - 117 U/L [facility] 12/08/2024 2:19 PM EST 12/08/2024 2:19 PM EST us Generic External Data Provider LAB BLOOD ORDERAB LES Final Result [facility] [address] [place] [phone] * (ABNORMAL) Sed Rate by Modified Ant (12/08/2024 2:19 PM EST) Erythrocyte Sedimentation Rate 51(H) 0 - 15 MM/HR [facility] Comment:Patients with polycy themia and many hemoglobin abnormalitiesmay have depressed sed rates whereas patients with anemiamay have elevated sed rates. 12/08/2024 2:19 PM EST 12/08/2024 2:19 PM EST us Generic External Data Provider LAB BLOOD ORDERAB LES Final Result [facility] [address] [place], [place] [phone] * (ABNORMAL) CBC auto differential (12/08/2024 2:19 PM EST) White Blood Count 7.2 4.8 - 10.8 X10*3/uL [facility] Red Blood Count 4.34(L) 4.60 - 5.80 X10*6/uL [facility] Hemoglobin 13.0(L) 14.0 - 18.0 g/dl [facility] Hematocrit 39.5(L) 42.0 - 52.0 % [facility] Mean Corpuscular Volume 91.0 80.0 - 98.0 fL [facility] Mean Corpuscular Hemoglobin 30.0 27.0 - 33.0 pg [facility] Mean Corpuscular HGB Conc 32.9 31.0 - 36.0 g/dl [facility] Red Cell Distribution Width 14.4 11.0 - 16.0 % [facility] Platelet Count 231 160 - 400 X10*3/uL [facility] Mean Platelet Volume 11.1 9.4 - 12.4 fL [facility] Neutrophils Percent Auto 61.3 45 - 73 % [facility] Imm Gran Pct Auto 0.3 0.0 - 0.4 % [facility] Lymphocytes Percent Auto 26.7 20 - 40 % [facility] Monocytes Percent Auto 9.0 2 - 11 % [facility] Eosinophils Percent Auto 1.7 0 - 4 % [facility] Basophils Percent Auto 1.0 0 - 2 % [facility] NRBC Pct Auto 0.0 0.0 - 0.2 /100WBC [facility] Neutrophils Absolute Auto 4.4 2.0 - 8.3 x10*3/uL [facility] Imm Gran Abs Auto 0.02 0.00 - 0.03 X10*3/uL [facility] Lymphocytes Absolute Auto 1.9 1.2 - 4.9 X10*3/uL [facility] Monocytes Absolute Auto 0.7 0.1 - 1.2 X10*3/uL [facility] Eosinophils Absolute Auto 0.1 0.0 - 0.4 X10*3/uL [facility] Basophils Absolute Auto 0.1 0.0 - 0.2 X10*3/uL [facility] NRBC Abs Auto 0.000 0.0 - 0.012 X10*3/uL [facility] 12/08/2024 2:19 PM EST 12/08/2024 2:19 PM EST us Generic External Data Provider LAB BLOOD ORDERAB LES Final Result [facility] [address] [place] [address] [phone] documented in this encounter Visit Diagnoses Not on filedocumented in this encounter Additional Health Concerns Assessment Noted Time PHQ-9 Depression Total Score: 0 07/20/20 23 2:36 PM EDT documented as of this encounter Care Teams Feather Cutting Machine Feeder Relationship Specialty Start Date End Date Joleen Wlikinson MD [address] [place] [phone] PCP - General Internal Medicine 03/26/17 documented as of this encounter
--- OUTSIDE RECORDS SUMMARY | 2025-01-05 11:17 | XMS_ITS | Encounter Summary ---
Author Organization [employer] Address [address] [place] [address] Care Team Providers Care Financial Aid Director Name Role Phone Joleen Wilkinson MD Primary Care Provider [phone] Reason for Visit * Reason Comments Med Refill Encounter Details Date Type Department Care Team ([facility] st Contact Info) Description 12/09/2024 Refill [facility] CHC MED & PEDS [address] [place] [address] Joleen Wilkinson MD [address] [place] [address] Other osteoarthritis involving multiple joints Social History [...] Description 01/31/2025 10:00 AM EDT Office Visit [facility] CHC MED & PEDS [address] [place] [address] Joleen Wilkinson MD [address] [place] [address] documented as of this encounter Visit Diagnoses Diagnosis Other osteoarthritis involving multiple joints documented in this encounter Additional Health Concerns Assessment Noted Time PHQ-9 Depression Total Score: 0 07/20/20 23 2:36 PM EDT documented as of this encounter Care Teams Financial Aid Director Relationship Specialty Start Date End Date Joleen Wilkinson MD [address] [place] [address] PCP - General Internal Medicine 03/26/17 documented as of this encounter
== END 2025-01-05 11:02 | disposition home or self-care (01) ==
LOC: HO.PMCPRC 10:34
PROVIDERS: PCP Internal Medicine; Visit Provider Internal Medicine
DX: M54.16 Radiculopathy, lumbar region (principal); M48.061 Spinal stenosis, lumbar region without neurogenic claudication
CPT/HCPCS: 64483

== ENCOUNTER 2025-01-06 09:29 | Outpatient (REF) | payer MEDICARE, MEDICAID, SELFPAY ==
[2025-01-06 09:49] LABS: MANUAL DIFF FLAG NO
--- OUTSIDE RECORDS SUMMARY | 2025-01-06 09:56 | XMS_ITS | Clinical Summary ---
Author Organization [facility] it Address [address] [place] [address] Care Team Providers Care Needle Punch Machine Operator Helper Name Role Phone Joleen Wilkinson MD Primary Care Provider [phone] Social History Tobacco Use Types Packs/Day Years [...] AM EDT Narrative 07/15/2021 10:57 AM EDT [facility] Diagnostic Imaging Department [address] [place] [address] Patient: ??JEFERSON EGDE ?/Age/Sex: 1950 - 71 - M Unit#: ??[id number] ? Location/Status: ??SPDIUS/REG CLI ? Mnemonic/Ordering Site: ??AAASCRSTUD/SPUS Ordering Physician: ??JAE PATEL SOUBRETTE US Abdomen Aorta Scr Study AAA - [...] be of normal caliber, without aneurysm. Code 55281 G9551 Dictating Physician: ??LUIS MIGUEL STANTON MD Electronically Signed by: ??LUIS MIGUEL STANTON MD Dic Date/Time: ??07/15/21 1055 Sign date/Time: ??07/15/21 1057 Procedure Note Luis Miguel Stanton MD - 11/19/2022 [facility] Diagnostic Imaging Department [address] [place] [address] Patient: JEFERSON EDGE /Age/Sex: 1950 - 71 - M Unit#: [id number] [facility]ing Site: [facility] Ordering Physician: JAE PATEL SOUBRETTE US Abdomen Aorta Scr Study AAA - [...] be of normal caliber, without aneurysm. Code 74613 G9551 Dictating Physician: LUIS MIGUEL STANTON MD Electronically Signed by: LUIS MIGUEL STANTON MD Dic Date/Time: 07/15/21 1055 Sign date/Time: 07/15/21 105 us Jae Patel NP IMG US PROCEDURES Final Re sult from Last 3 Months or Most Recently Relevant to Health Maintenance Care Teams Needle Punch Machine Operator Helper Relationship Specialty Start Date End Date Joleen Wilkinson MD [address] [place] [address] PCP - General Internal Medicine 08/05/22
--- OUTSIDE RECORDS SUMMARY | 2025-01-06 09:56 | XMS_ITS | Encounter Summary ---
Author Organization [employer] Address [address] [facility] 7t [place] [address] Care Team Providers Care Aircraft Life Support Fitter Name Role Phone Joleen Wilkinson MD Primary Care Provider [phone] Encounter Details Date Type Department Care Team ([facility] st Contact Info) Description 06/06/2024 Orders Only [facility] CHC MED & PEDS [address] [place], [place] [phone] Joleen Wilkinson MD [address] [place] [address] Class 2 obesity due to excess calories [...] [facility] [address] [place] [address] Joleen Wilkinson MD [address] [place] [address] documented as of this encounter Visit Diagnoses Diagnosis Class 2 obesity due to excess calories without serious comorbidity with body mass index (BMI) of 37.0 to 37.9 in adult- Primary documented in this encounter Additional Health Concerns Assessment Noted Time PHQ-9 Depression Total Score: 0 07/20/20 23 2:36 PM EDT documented as of this encounter Care Teams Aircraft Life Support Fitter Relationship Specialty Start Date End Date Joleen Wilkinson MD [address] [place] [address] PCP - General Internal Medicine 03/26/17 documented as of this encounter
--- OUTSIDE RECORDS SUMMARY | 2025-01-06 09:56 | XMS_ITS | Clinical Summary ---
Author Organization [facility] Address [address] [place] [address] Care Team Providers Care Bulk Tank Car Unloader Name Role Phone Yasir Patel Primary Care Provider [phone] Source Comments PLEASE NOTE, if this patient [...] H/O colonoscopy 12/01/2016 Overview (03/26/2021): January 2020 [facility] tubular adenoma x2, follow up 5-7 [...] Charting 06/12/2024 06/10/2023 Dental Prophy 06/12/2024 06/10/2023 [id number] ( season) 2024 10/10/2021, 02/09/2021, 01/12/2021 Imm-Influenza [...] Routine 06/10/2023 9:40 AM EDT Fractured dental [facility] with loss of material Encounter for dental [...] A1C 5.9(H) <5.7 % of total Hgb [facility] Comment: For someone without known diabetes, a [...] EST 01/28/2022 3:55 PM EST Yasir Patel TOOL ROOM ATTENDANT LAB - BLOOD DRAW Edited R esult - Final [facility] [address] [address], [facility] [address] [address] * (ABNORMAL) LIPID PANEL (09/05/2021 9:15 AM EDT) CHOLESTEROL, TOTAL 146 <200 mg/dL [facility] HDL CHOLESTEROL 38(L) > OR = 40 mg/dL [facility] TRIGLYCERIDES 220(H) <150 mg/dL [facility] Comment: If a non-fasting specimen was collected, consider repeat triglyceride testing on a fasting specimen if clinically indicated. Kelby et al. J. of Clin. Lipidol. 2015;9:129-169. LDL-CHOLESTEROL 76 99 mg/dL (calc) [facility] Comment: Reference range: <100 Desirable range <100 mg/dL for primary prevention; ?? <70 mg/dL for patients with CHD or diabetic patients with > or = 2 CHD risk factors. LDL-C is now calculated using the Jaime-Kevin calculation, which is a validated novel method providing better accuracy than the Friedewald equation in the estimation of LDL-C. Jaime AGUILA et al. ANA LUISA. 2013;310(19): 1428-1187 (http://education.Topadmit/faq/XCY092) CHOL/HDLC RATIO 3.8 <5.0 (calc) [facility] NON-HDL CHOLESTEROL 108 <130 mg/dL (calc) [facility] Comment: For patients with diabetes plus 1 major ASCVD risk factor, treating to a non-HDL-C goal of <100 mg/dL (LDL-C of <70 mg/dL) is considered a therapeutic option. Blood Blood / Unknown 09/05/2021 9 :15 AM EDT 09/05/2021 9:15 AM EDT Yasir GARZAP LAB - BLOOD DRAW Final Re sult [facility] [address] [facility] [address] [place] [address], [place] [facility] [address] [facility] [address] [address] * US ABDOMINAL AORTA REAL TIME SCREEN STUDY AAA (05/31/2021 12:00 AM EDT) 05/31/2021 Yasir GARZAP IMG ULTRASOUND Final Res ult * COLONOSCOPY (01/31/2020) Provider [facility] PROCEDURES Final Result * (ABNORMAL) HEPATITIS A,B,C PANEL (08/11/2019 11:33 AM EDT) HEPATITIS B SURFACE ANTIBODY NEGATIVE NEGATIVE [facility] HEPATITIS B SURFACE ANTIGEN NEGATIVE NEGATIVE [facility] Comment: Over the counter supplements containing high doses of biotin may interfere with this assay. ??If interference is suspected, patients shoud be retested after refraining from biotin supplements for 72 hours. HEPATITIS B CORE ANTIBODY NEGATIVE NEGATIVE [facility] HEPATITIS C VIRUS DIAGNOSTIC NEGATIVE NEGATIVE [facility] HEPATITIS A ANTIBODY TOTAL POSITIVE(A) NEGATIVE [facility] Comment: Over the counter supplements containing high doses of biotin may interfere with this assay. ??If interference is suspected, patients shoud be retested after refraining from biotin supplements for 72 hours. Blood specimen (specimen) Blood / Unknown 08/11/2019 11:33 AM EDT 08/11/2019 12:47 PM EDT Narrative [employer] [facility] - 08/11/2019 4:24 PM EDT [employer], a member of [address] [address] Scientific Research Manager - Bethany Vigil MD PT ID [id number] ORD# [id number] Ranjan Howardgeovanikatarinacorey [facility] LAB - BLOOD DRAW Edited Result - Final [facility] [address] [place] [address], from Last 3 Months or Most Recently Relevant to Health Maintenance [place] HEALTH SAF[employer]Y NET [place] [address] [place] [address] [facility]ARE [facility] MEDICARE DENTAL Care Teams Bulk Tank Car Unloader Relationship Specialty Start Date End Date Yasir Patel FNP [address] [place] [address] PCP - General Family Medicine, RENAL SOCIAL WORKER 06/17/23
--- OUTSIDE RECORDS SUMMARY | 2025-01-06 09:56 | XMS_ITS | Encounter Summary ---
Author Organization [employer] Address [address] [place] [address] Care Team Providers Care Contract Sheltered Workshop Supervisor Name Role Phone Joleen Wilkinson MD Primary Care Provider [phone] Encounter Details Date Type Department Care Team ([facility] st Contact Info) Description 04/08/2024 Orders Only [facility] MED & PEDS [address] [place], [place] [phone] Joleen Wilkinson MD [address] [place] [address] Social History Tobacco Use Types Packs/Day Years [...] t he electric, gas, oil or water [employer] threatened to shut off services in your [...] 10:00 AM EDT Office Visit [facility] MED & PEDS [address] [place] [address] Joleen Wilkinson MD [address] [place] [address] documented as of this encounter Visit Diagnoses Not on filedocumented in this encounter Additional Health Concerns Assessment Noted Time PHQ-9 Depression Total Score: 0 07/20/20 23 2:36 PM EDT documented as of this encounter Care Teams Contract Sheltered Workshop Supervisor Relationship Specialty Start Date End Date Joleen Wilkinson MD [address] [place] [address] PCP - General Internal Medicine 03/26/17 documented as of this encounter
--- OUTSIDE RECORDS SUMMARY | 2025-01-06 09:56 | XMS_ITS | Clinical Summary ---
Author Organization [facility] Address [address] [place] [address] Care Team Providers Care Rinkman Name Role Phone Unavailable Primary Care Provider [...]
--- OUTSIDE RECORDS SUMMARY | 2025-01-06 09:56 | XMS_ITS | Clinical Summary ---
Author Organization [employer] Address [address] [facility] 7t [place] [address] Care Team Providers Care Javascript Programmer Name Role Phone Joleen Wilkinson MD Primary Care Provider +1 [phone] Allergies No known active allergies Medications * [...] DAYTAKE 1 TABLET 30 MINUTES BEFORE THE PROCEDURE.GA GHT TAKE ANOTHER IF NOT SLEEPING 2 [...] (BMI) of 37.0 to 37.9 in adult ([facility]) INJECT 7.5 MG UNDER THE SKIN 1 [...] [facility] [address] [place] [address] Bryant Renee 12/09/2024 9:00 AM EST Office Visit [facility] [address] [place] [address] Bryant Renee 12/09/2024 Refill [facility] [address] [place] [address] Joleen Wilkinson MD Other osteoarthritis involving multiple joints 12/08/2024 Orders Only GENERIC EXTERNAL DATA DEPARTMENT Provider, Generic External Data 12/08/2024 Refill [facility] [address] [place] [address] Joleen Wilkinson MD Essential hypertension 12/04/2024 Refill [facility] [address] [place] [address] Joleen Wilkinson MD Class 2 severe obesity due to excess calories with serious comorbidity and body mass index (BMI) of 37.0 to 37.9 in adult ([facility]) 11/29/2024 11:00 AM EST Office Visit [facility] [address] [place] [address] Shantelle Mancia Dental calculus (Primary Dx) 11/29/2024 Orders Only [facility] External Provider, [facility] 11/09/2024 Refill [facility] [address] [place] [address] Joleen Wilkinson MD Chronic left-sided low back pain without sciatica 10/13/2024 9:15 AM EST Office Visit [facility] [address] [place] [address] Joleen Wilkinson MD Class 2 severe obesity due to excess calories with serious comorbidity and body mass index (BMI) of 37.0 to 37.9 in adult (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); PMR (polymyalgia rheumatica) ([facility]) 10/13/2024 Travel from Last 3 Months Immunizations [...] Description 01/31/2025 10:00 AM EDT Office Visit [facility] & PEDS [address] [place], [place] [phone] Joleen Wilkinson MD [address] [place] [address] Health Maintenance Due Date Last Done Comments [...] (BMI) of 37.0 to 37.9 in adult ([facility]) Prediabetes POCT GLYCATED HEMOGLOBIN, TOTAL Routine 07/12/2024 [...] Blood Count 7.2 4.8 - 10.8 X10*3/uL [facility] Red Blood Count 4.34(L) 4.60 - 5.80 X10*6/uL [facility] Hemoglobin 13.0(L) 14.0 - 18.0 g/dl [facility] Hematocrit 39.5(L) 42.0 - 52.0 % [facility] Mean Corpuscular Volume 91.0 80.0 - 98.0 fL [facility] Mean Corpuscular Hemoglobin 30.0 27.0 - 33.0 pg [facility] Mean Corpuscular HGB Conc 32.9 31.0 - 36.0 g/dl [facility] Red Cell Distribution Width 14.4 11.0 - 16.0 % [facility] Platelet Count 231 160 - 400 X10*3/uL [facility] Mean Platelet Volume 11.1 9.4 - 12.4 fL [facility] Neutrophils Percent Auto 61.3 45 - 73 % [facility] Imm Gran Pct Auto 0.3 0.0 - 0.4 % [facility] Lymphocytes Percent Auto 26.7 20 - 40 % [facility] Monocytes Percent Auto 9.0 2 - 11 % [facility] Eosinophils Percent Auto 1.7 0 - 4 % [facility] Basophils Percent Auto 1.0 0 - 2 % [facility] NRBC Pct Auto 0.0 0.0 - 0.2 /100WBC [facility] Neutrophils Absolute Auto 4.4 2.0 - 8.3 x10*3/uL [facility] Imm Gran Abs Auto 0.02 0.00 - 0.03 X10*3/uL [facility] Lymphocytes Absolute Auto 1.9 1.2 - 4.9 X10*3/uL [facility] Monocytes Absolute Auto 0.7 0.1 - 1.2 X10*3/uL [facility] Eosinophils Absolute Auto 0.1 0.0 - 0.4 X10*3/uL [facility] Basophils Absolute Auto 0.1 0.0 - 0.2 X10*3/uL [facility] NRBC Abs Auto 0.000 0.0 - 0.012 X10*3/uL [facility] 12/08/2024 2:19 PM EST 12/08/2024 2:19 PM EST Generic External Data Provider LAB BLOOD ORDERAB LES Final Result Performing Organization Address [facility] Co de Phone Number [facility] [address] [place] [phone] * (ABNORMAL) Sed Rate by Modified Westergren (12/08/2024 2:19 PM EST) Pathologist [facility] Erythrocyte Sedimentation Rate 51(H) 0 - 15 MM/HR [facility] Comment:Patients with polycy themia and many hemoglobin abnormalitiesmay have depressed sed rates whereas patients with anemiamay have elevated sed rates. 12/08/2024 2:19 PM EST 12/08/2024 2:19 PM EST Generic External Data Provider LAB BLOOD ORDERAB LES Final Result Performing Organization Address [facility] Co de Phone Number [facility] [address] [place] [phone] * (ABNORMAL) C-reactive Protein (12/08/2024 2:19 PM EST) Pathologist [facility] C Reactive Protein 0.66(H) < or = 0.50 mg/dL [facility] 12/08/2024 2:19 PM EST 12/08/2024 2:19 PM EST us Generic External Data Provider LAB BLOOD ORDERAB LES Final Result [facility] [address] [place] [address] [phone] * (ABNORMAL) Comprehensive Metabolic Panel (12/08/2024 2:19 PM EST) Sodium 143 135 - 145 mmol/L [facility] Potassium 3.9 3.3 - 5.1 mmol/L [facility] Chloride 108 96 - 108 mmol/L [facility] Carbon Dioxide 30(H) 22 - 29 mmol/L [facility] Anion Gap 9(L) 12 - 20 [facility] Urea Nitrogen (BUN) 15 9 - 16 mg/dL [facility] Creatinine, Serum 0.78 0.5 - 1.4 mg/dL [facility] Estimated Glomerular Filt Rate >60 [facility] Comment:Chronic Kidney Disea se: Estimated GFR < 60 mL/min/[id number] Kidney Disease: Estimated GFR < 15 mL/min/1.73m2 Glucose 81 60 - 115 mg/dL [facility] Calcium 9.5 8.4 - 10.2 mg/dL [facility] Bilirubin, Total 0.2 0.0 - 1.0 mg/dL [facility] Aspartate Amino Transferase 21 5 - 37 U/L [facility] Alanine Aminotransferase 16 0 - 40 U/L [facility] Total Protein 7.7 6.5 - 8.0 g/dL [facility] Albumin Level 4.0 3.5 - 5.0 g/dL [facility] Alkaline Phosphatase 46 39 - 117 U/L [facility] 12/08/2024 2:19 PM EST 12/08/2024 2:19 PM EST us Generic External Data Provider LAB BLOOD ORDERAB LES Final Result [facility] [address] [place] [phone] * MR Lumbar Spine w/o Contrast (11/29/2024 7:03 PM EST) Anatomical Region Laterality Modality Spine, L-spine Magnetic Resonan ce 11/29/2024 7:03 PM EST Narrative 11/29/2024 7:04 PM EST ? [facility] ?[address] ?[place] [address] ? Magnetic Resonance Report ? Signed ? Patient: Jeferson Rae ?MR#: [id number] ?? [id number] ? : 1950 ?Acct:[id number] ? Age/Sex: 74 / M ?ADM Date: 11/29/24 ? Loc: HO.MRI ? Attending Dr: Caroline ALLEN ? Ordering Physician: Caroline Allison ?? Date of Service: 11/29/24 ?? Procedure(s): MR lumbar spine wo con ?? Accession Number(s): [id number] ? cc: Joleen Wilkinson MD; Caroline Allison [...] lesions by noncontrast ?? imaging in the barjq-cz-kzns. Conus terminates at T12-L1. ?? L1-L2: Disc [...] ? DD/ 02 ? TD/TT: 11/29/241902 ? Network Professional: ? Procedure Note Al, Venkatesh - 11/29/2024 [place] [address] Magnetic Resonance Report Signed Patient: Bernard Rae#: [id number] : 1950Acct:[id number] Age/Sex: 74 / MADM Date: 11/29/24 Loc: HO.MRI Attending Dr: Caroline ALLEN Ordering Physician: Caroline Allison Date of Service: 11/29/24 Procedure(s): MR lumbar spine wo con Accession Number(s): [id number] cc: Joleen Wilkinson MD; Caroline Allison CLINICAL [...] cystic lesions by noncontrast imaging in the tsfke-nm-stam. Conus terminates at T12-L1. L1-L2: Disc bulge [...] in OV> 11/29/241903 DD/ 02 TD/TT: 11/29/241902 Network Professional: [facility] External Provider IMG MRI PROCEDURES Edited Result - Final * POCT Glucose (10/13/2024 10:12 AM EST) Glucose Blood, POC 113 60 - 200 mg/dL QC Media Lot # [id number] Lot# Expiration Date [id number] Blood Capillary blood specimen / Unknown 10/13/2024 [...] 10:44 AM EDT) Triglycerides 182(H) <150 mg/dL [facility] Comment:Desirable Triglyceri de: less than 150 mg/dLBorderline High Triglyceride 150-199 mg/dLHigh Triglyceride: 200-499 mg/dLVery High Triglyceride: greater than or equal to 5OO mg/dL Cholesterol 129 <200 mg/dL [facility] Comment:Desirable Cholestero l: less than 200 mg/dLBorderline High Cholesterol: 200-239 mg/dLHigh Cholesterol: greater than 239 mg/dL LDL Cholesterol Calculated 58 <100 mg/dL [facility] Comment:Desirable LDL: less than 100 mg/dLNear Optimal/Above Optimal LDL: 110- 129 mg/dLBorderline High LDL: 130-159 mg/dLHigh LDL: 160-189 mg/dLVery High LDL: greater than or equal to 190 mg/dL HDL Cholesterol 35(L) >40 mg/dL [facility] Comment:Desirable HDL: great er than 40 mg/dL Note: This HDL assay may give artificially low results in patients with liver disease. Blood Venous blood specimen / Unknown 07/12/2024 10:44 AM EDT 07/12/2024 2:24 PM EDT us Joleen Wilkinson MD LAB BLOOD ORDERABLES Final Result [facility] [address] [place] [address] [phone] * Hm Colonoscopy (09/09/2022) Colonoscopy Normal Normal Historical Provider HEALTH MAINTENANCE Edited Result - Final * HEPATITIS C AB W/REFL TO HCV RNA, QN, PCR (07/23/2022 8:48 AM EDT) HEPATITIS C ANTIBODY NON-REACT MAURICE NON-REACT MAURICE [facility] INDEX 0.17 <1.00 [facility] Comment: ?? HCV antibody was non-reactive. There is no laboratory ?? evidence of HCV infection. ?? In most cases, no further action is required. However, if recent HCV exposure is suspected, a test for HCV RNA (test code 04704) is suggested. ?? For additional information please refer to http://education.[employer]/faq/HLY53u4 (This link is being provided for informational/ educational purposes only.) ?? 07/23/2022 8:48 AM EDT Joleen Wilkinson MD HISTORICAL/NON ORDERABLE LA BS Final Result [facility] [address] from Last 3 Months or Most Recently Relevant to Health Maintenance Insurance [facility] STANDARD [employer] MEDICARE REPLACEMENT DENTAL - HSN FULL (MEDICAID) Care Teams Javascript Programmer Relationship Specialty Start Date End Date Joleen Wilkinson MD [address] [place] [address] [place] [address] PCP - General Internal Medicine 03/26/17
--- OUTSIDE RECORDS SUMMARY | 2025-01-06 09:56 | XMS_ITS | Encounter Summary ---
Author Organization [employer] Address [address] [facility] 7t [place] [address] Care Team Providers Care Cylinder Machine Operator Name Role Phone Joleen Wilkinson MD Primary Care Provider +1 [phone] Encounter Details Date Type Department Care Team ([facility] st Contact Info) Description 08/12/2024 Orders Only [facility] MED & PEDS [address] [place], [place] [phone] Joleen Wilkinson MD [address] [place] [address] Acute pain of right knee (Primary Dx) [...] 01/31/2025 10:00 AM EDT Office Visit [facility]ED[facility] [address] [place] [address] Joleen Wilkinson MD [address] [place] [address] documented as of this encounter Visit Diagnoses Diagnosis Acute pain of right knee- Primary documented in this encounter Additional Health Concerns Assessment Noted Time PHQ-9 Depression Total Score: 0 07/20/20 23 2:36 PM EDT documented as of this encounter Care Teams Cylinder Machine Operator Relationship Specialty Start Date End Date Joleen Wilkinson MD [address] [place] [address] PCP - General Internal Medicine 03/26/17 documented as of this encounter
--- OUTSIDE RECORDS SUMMARY | 2025-01-06 09:56 | XMS_ITS | Encounter Summary ---
Author Organization [employer] Address [address] [facility] 7t [place] [address] Care Team Providers Care Sound Person Name Role Phone Joleen Wilkinson MD Primary Care Provider [phone]- [phone] Reason for Visit * Reason Onset Date Comments Call Back Request 10/21/2023 Encounter Details Date Type Department Care Team ([facility] st Contact Info) Description 10/21/2023 Telephone [facility] MEDICINE [address] [place] [address] Joleen Wilkinson MD [address] [facility] [address] [place], [place] [phone] Call Back Request Social History Tobacco Use [...] regards to lab work results. Patient speaks polish documented in this encounter Plan of Treatment Upcoming Encounters Date Type Department Care Team (Late st Contact Info) Description 01/31/2025 10:00 AM EDT Office Visit [facility] MED & PEDS [address] [place] [address] Joleen Wilkinson MD [address] [place] [address] documented as of this encounter Visit Diagnoses Not on filedocumented in this encounter Additional Health Concerns Assessment Noted Time PHQ-9 Depression Total Score: 0 07/20/20 23 2:36 PM EDT documented as of this encounter Care Teams Sound Person Relationship Specialty Start Date End Date Joleen Wilkinson MD [address] [place] [phone] PCP - General Internal Medicine 03/26/17 documented as of this encounter
--- OUTSIDE RECORDS SUMMARY | 2025-01-06 09:56 | XMS_ITS | Encounter Summary ---
Author Organization [employer] Address [address] [facility] 7t [place] [address] Care Team Providers Care Highway Construction Inspector Name Role Phone Joleen Wilkinson MD Primary Care Provider [phone] [phone] Encounter Details Date Type Department Care Team ([facility] st Contact Info) Description 09/11/2023 Orders Only [facility] CHC MED & PEDS [address] [place], [place] [phone] Joleen Wilkinson MD [address] [place] [address] Other sleep apnea (Primary Dx); Periodic limb [...] Description 01/31/2025 10:00 AM EDT Office Visit [facility] MED & PEDS [address] [place], [place] [phone] Joleen Wilkinson MD [address] [place], [place] [phone] documented as of this encounter Procedures Procedure Name Priority Date/Time Associated Diagnosis Comments TSH W/REFLEX TO FT4 Routine 09/15/2023 8 :48 AM EDT Periodic limb movement FERRITIN Routine 09/15/2023 8:48 AM EDT Periodic limb movement VITAMIN B12 Routine 09/15/2023 8:48 AM EDT Periodic limb movement documented in this encounter Results * Ferritin (09/15/2023 8:48 AM EDT) Ferritin 125 20 - 250 ng/mL [facility] Blood Venous blood specimen / Unknown 09/15/2023 8:48 AM EDT 09/15/2023 2:36 PM EDT Joleen Wilkinson MD LAB BLOOD ORDERABLES Final Result [facility] [address] [place] [address] [phone] * (ABNORMAL) Vitamin B12 (09/15/2023 8:48 AM EDT) Vitamin B12 1,140(H) 200 - 900 pg/mL [facility] Comment:NORMAL 200-900 PG/ML INDETERMINATE 160-199 PG/ML DEFICIENT < 160 PG/ML Blood Venous blood specimen / Unknown 09/15/2023 8:48 AM EDT 09/15/2023 2:36 PM EDT us Joleen Wilkinson MD LAB BLOOD ORDERABLES Final Result Performing Organization Address [facility] Co de Phone Number [facility] [address] [place] [address] [phone] * TSH W/Reflex to FT4 (09/15/2023 8:48 AM EDT) TSH reflex Free T4 1.57 0.32 - 4.0 uIU/mL [facility] Blood 09/15/2023 8:48 AM EDT 09/15/2023 2:36 PM EDT us Joleen Wilkinson MD LAB BLOOD ORDERABLES Final Result Performing Organization Address [facility] de Phone Number [facility] [address] [place] [phone] documented in this encounter Visit Diagnoses Diagnosis Other sleep apnea- Primary Periodic limb movement Periodic limb movement disorder documented in this encounter Additional Health Concerns Assessment Noted Time PHQ-9 Depression Total Score: 0 07/20/20 23 2:36 PM EDT documented as of this encounter Care Teams Highway Construction Inspector Relationship Specialty Start Date End Date Joleen Wilkinson MD [address] [place] [address] PCP - General Internal Medicine 03/26/17 documented as of this encounter
--- OUTSIDE RECORDS SUMMARY | 2025-01-06 09:56 | XMS_ITS | Encounter Summary ---
Author Organization [employer] [facility] Address [address] [facility] 7t [place] [address] Care Team Providers Care Shopping Centre Manager Name Role Phone Joleen Wilkinson MD Primary Care Provider [phone]- [phone] Reason for Visit * Reason Onset Date Comments Lab Orders 02/23/2024 Referral 02/23/2024 Encounter Details Date Type Department Care Team ([facility] st Contact Info) Description 02/23/2024 Telephone [facility] MEDICINE [address] [place], [place] [phone] Joleen Wilkinson MD [address] [facility] [address] [place], [place] [phone] Lab Orders; Referral Social History Tobacco Use [...] 11:34 AM EDT Tc wilver Daniels from [employer] calling on behalf of the patient requesting a referral for a Kidney Health Screening and a GFR Blood test as well as a ACR urine test documented in this encounter Plan of Treatment Upcoming Encounters Date Type Department Care Team ([facility] st Contact Info) Description 01/31/2025 10:00 AM EDT Office Visit [facility] MED & PEDS [address] [place] [address] Joleen Wilkinson MD [address] [place] [address] documented as of this encounter Visit Diagnoses Not on filedocumented in this encounter Additional Health Concerns Assessment Noted Time PHQ-9 Depression Total Score: 0 07/20/20 23 2:36 PM EDT documented as of this encounter Care Teams Shopping Centre Manager Relationship Specialty Start Date End Date Joleen Wilkinson MD [address] [place] [address] PCP - General Internal Medicine 03/26/17 documented as of this encounter
--- OUTSIDE RECORDS SUMMARY | 2025-01-06 09:57 | XMS_ITS | Encounter Summary ---
Author Organization [employer] Address [address] [facility] 7t [place] [address] Care Team Providers Care Microwave Remote Sensing Scientist Name Role Phone Joleen Wilkinson MD Primary Care Provider [phone] Encounter Details Date Type Department Care Team (Late st Contact Info) Description 09/23/2023 Abstract [facility] MEDICINE [address] [place] [address] Joleen Wilkinson MD [address] [place], [place] [phone] Social History Tobacco Use Types Packs/Day Years [...] 10:00 AM EDT Office Visit [facility] MED & PEDS [address] [place] [address] Joleen Wilkinson MD [address] [place] [address] documented as of this encounter Procedures Procedure [...] documented as of this encounter Care Teams Microwave Remote Sensing Scientist Relationship Specialty Start Date End Date Joleen Wilkinson MD [address] [place] [address] PCP - General Internal Medicine 03/26/17 documented as of this encounter
--- OUTSIDE RECORDS SUMMARY | 2025-01-06 09:57 | XMS_ITS | Encounter Summary ---
Author Organization [employer] Address [address] [place] [address] 7t [place] [address] Care Team Providers Care Staff Assistant Name Role Phone Joleen Wilkinson MD Primary Care Provider +1- [phone] Encounter Details Date Type Department Care Team ([facility] st Contact Info) Description 07/16/2023 Orders Only [facility] CHC MED & PEDS [address] [place], [place] [phone] Joleen Wilkinson MD [address] [place] [address] Other sleep apnea (Primary Dx) Social History [...] Description 01/31/2025 10:00 AM EDT Office Visit [facility] MED & PEDS [address] [place] [address] Joleen Wilkinson MD [address] [place] [address] documented as of this encounter Visit Diagnoses Diagnosis Other sleep apnea- Primary documented in this encounter Care Teams Staff Assistant Relationship Specialty Start Date End Date Joleen Wilkinson MD 505 [place] [address] PCP - General Internal Medicine 03/26/17 documented as of this encounter
--- OUTSIDE RECORDS SUMMARY | 2025-01-06 09:57 | XMS_ITS | Encounter Summary ---
Author Organization [employer] Address [address] [facility] 7t [place] [address] Care Team Providers Care Sales/Marketing Name Role Phone Joleen Wilkinson MD Primary Care Provider +1 [phone] Reason for Visit * Reason Comments Med Refill Encounter Details Date Type Department Care Team ([facility] st Contact Info) Description 12/09/2024 Refill [facility] CHC MED & PEDS [address] [place] [address] Joleen Wilkinson MD [address] [place], [place] [phone] Other osteoarthritis involving multiple joints Social History [...] Description 01/31/2025 10:00 AM EDT Office Visit [facility] MED & PEDS [address] [place] [address] Joleen Wilkinson MD [address] [place] [address] documented as of this encounter Visit Diagnoses Diagnosis Other osteoarthritis involving multiple joints documented in this encounter Additional Health Concerns Assessment Noted Time PHQ-9 Depression Total Score: 0 07/20/20 23 2:36 PM EDT documented as of this encounter Care Teams Sales/Marketing Relationship Specialty Start Date End Date Joleen Wilkinson MD [address] [place] [address] PCP - General Internal Medicine 03/26/17 documented as of this encounter
--- OUTSIDE RECORDS SUMMARY | 2025-01-06 09:57 | XMS_ITS | Encounter Summary ---
Author Organization [employer] Address [address] [place] [address], [place] [address] Care Team Providers Care Piston Maker Name Role Phone Joleen Wilkinson MD Primary Care Provider +1- [phone] Reason for Visit * Reason Onset Date Comments Appointment Confirmation 07/06/2023 Encounter Details Date Type Department Care Team ([facility] st Contact Info) Description 07/06/2023 Telephone [facility] CHC MED & PEDS [address] [place] [address] Joleen Wilkinson MD [address] [place] [address] Appointment Confirmation Social History Tobacco Use Types [...] receive a call with appt details at [facility] but pt states that no one at [facility] has contact him with appt details. Please contact pt at [phone] Kiswahili Speaker documented in this encounter Plan of Treatment Upcoming Encounters Date Type Department Care Team (Late st Contact Info) Description 01/31/2025 10:00 AM EDT Office Visit [facility] MED & PEDS [address] [place] [address] Joleen Wilkinson MD [address] [place] [address] documented as of this encounter Visit Diagnoses Not on filedocumented in this encounter Care Teams Piston Maker Relationship Specialty Start Date End Date Joleen Wilkinson MD [address] [place] [address] PCP - General Internal Medicine 03/26/17 documented as of this encounter
--- OUTSIDE RECORDS SUMMARY | 2025-01-06 09:57 | XMS_ITS | Encounter Summary ---
Author Organization [facility] Address [address] [facility] [address] [place] [address] Care Team Providers Care Efficiency Manager Name Role Phone Joleen Wilkinson MD Primary Care Provider [phone] Encounter Details Date Type Department Care Team [...] Description 01/31/2025 10:00 AM EDT Office Visit [facility] MED & PEDS [address] [place] [address] Joleen Wilkinson MD [address] [place] [address] documented as of this encounter Procedures Procedure [...] Protein 0.66(H) < or = 0.50 mg/dL [facility] 12/08/2024 2:19 PM EST 12/08/2024 2:19 PM EST us Generic External Data Provider LAB BLOOD ORDERAB LES Final Result [facility] [address] [place] [phone] * (ABNORMAL) Comprehensive Metabolic Panel (12/08/2024 2:19 PM EST) Sodium 143 135 - 145 mmol/L [facility] Potassium 3.9 3.3 - 5.1 mmol/L [facility] Chloride 108 96 - 108 mmol/L [facility] Carbon Dioxide 30(H) 22 - 29 mmol/L [facility] Anion Gap 9(L) 12 - 20 [facility] Urea Nitrogen (BUN) 15 9 - 16 mg/dL [facility] Creatinine, Serum 0.78 0.5 - 1.4 mg/dL [facility] Estimated Glomerular Filt Rate >60 [facility] Comment:Chronic Kidney Disea se: Estimated GFR < 60 mL/min/[id number] Kidney Disease: Estimated GFR < 15 mL/min/1.73m2 Glucose 81 60 - 115 mg/dL [facility] Calcium 9.5 8.4 - 10.2 mg/dL [facility] Bilirubin, Total 0.2 0.0 - 1.0 mg/dL [facility] Aspartate Amino Transferase 21 5 - 37 U/L [facility] Alanine Aminotransferase 16 0 - 40 U/L [facility] Total Protein 7.7 6.5 - 8.0 g/dL [facility] Albumin Level 4.0 3.5 - 5.0 g/dL [facility] Alkaline Phosphatase 46 39 - 117 U/L [facility] 12/08/2024 2:19 PM EST 12/08/2024 2:19 PM EST us Generic External Data Provider LAB BLOOD ORDERAB LES Final Result [facility] [address] [place] [phone] * (ABNORMAL) Sed Rate by Modified Ant (12/08/2024 2:19 PM EST) Erythrocyte Sedimentation Rate 51(H) 0 - 15 MM/HR [facility] Comment:Patients with polycy themia and many hemoglobin abnormalitiesmay have depressed sed rates whereas patients with anemiamay have elevated sed rates. 12/08/2024 2:19 PM EST 12/08/2024 2:19 PM EST us Generic External Data Provider LAB BLOOD ORDERAB LES Final Result [facility] [address], [place] [phone] * (ABNORMAL) CBC auto differential (12/08/2024 2:19 PM EST) White Blood Count 7.2 4.8 - 10.8 X10*3/uL [facility] Red Blood Count 4.34(L) 4.60 - 5.80 X10*6/uL [facility] Hemoglobin 13.0(L) 14.0 - 18.0 g/dl [facility] Hematocrit 39.5(L) 42.0 - 52.0 % [facility] Mean Corpuscular Volume 91.0 80.0 - 98.0 fL [facility] Mean Corpuscular Hemoglobin 30.0 27.0 - 33.0 pg [facility] Mean Corpuscular HGB Conc 32.9 31.0 - 36.0 g/dl [facility] Red Cell Distribution Width 14.4 11.0 - 16.0 % [facility] Platelet Count 231 160 - 400 X10*3/uL [facility] Mean Platelet Volume 11.1 9.4 - 12.4 fL [facility] Neutrophils Percent Auto 61.3 45 - 73 % [facility] Imm Gran Pct Auto 0.3 0.0 - 0.4 % [facility] Lymphocytes Percent Auto 26.7 20 - 40 % [facility] Monocytes Percent Auto 9.0 2 - 11 % [facility] Eosinophils Percent Auto 1.7 0 - 4 % [facility] Basophils Percent Auto 1.0 0 - 2 % [facility] NRBC Pct Auto 0.0 0.0 - 0.2 /100WBC [facility] Neutrophils Absolute Auto 4.4 2.0 - 8.3 x10*3/uL [facility] Imm Gran Abs Auto 0.02 0.00 - 0.03 X10*3/uL [facility] Lymphocytes Absolute Auto 1.9 1.2 - 4.9 X10*3/uL [facility] Monocytes Absolute Auto 0.7 0.1 - 1.2 X10*3/uL [facility] Eosinophils Absolute Auto 0.1 0.0 - 0.4 X10*3/uL [facility] Basophils Absolute Auto 0.1 0.0 - 0.2 X10*3/uL [facility] NRBC Abs Auto 0.000 0.0 - 0.012 X10*3/uL [facility] 12/08/2024 2:19 PM EST 12/08/2024 2:19 PM EST us Generic External Data Provider LAB BLOOD ORDERAB LES Final Result [facility] [address] [place] [phone] documented in this encounter Visit Diagnoses Not on filedocumented in this encounter Additional Health Concerns Assessment Noted Time PHQ-9 Depression Total Score: 0 07/20/20 23 2:36 PM EDT documented as of this encounter Care Teams Efficiency Manager Relationship Specialty Start Date End Date Joleen Wilkinson MD [address] [place] [phone] PCP - General Internal Medicine 03/26/17 documented as of this encounter
--- OUTSIDE RECORDS SUMMARY | 2025-01-06 09:57 | XMS_ITS | Encounter Summary ---
Author Organization [facility] Address [address] [facility] 7[address] [place] [address] Care Team Providers Care Registered Veterinary Technician Name Role Phone Joleen Wilkinson MD Primary Care Provider [phone] Reason for Visit * Reason Comments Filling Encounter Details Date Type Department Care Team ([facility] Contact Info) Description 12/09/2024 9:00 AM EST Office Visit [facility] ADULT DENTAL [address] [place] [address] Bryant Renee [address] [place] [address] Social History Tobacco Use Types Packs/Day Years [...] Timeout Date: 12/09/24, Timeout Time: 852 Location: [facility] Tooth: #5, #6, #10, and #11 Procedure: Gnosticism Verified the above with patient, administrative assistant office manager, and provider. Confirmed via patient's chart, intraorally and by radiographs. Java Sdet: not applicable Chief Complaint Patient presents with [...] Etch Desensitizer: Gluma Liner/Base: None Haddad: I-Haddad Gnosticism Material: Voco Grandioso Packable Shade: A3 Polished. Occlusion & contacts verified. Patient satisfied with comfort and esthetics. Patient tolerated procedure well. Post-operative instructions were given. Patient departed alert, oriented, and in stable condition. NV: restorative Medical Appointment Clerk: Mary Henderson Dentist: Dr. Bryant Renee, DMD documented in this encounter Plan of Treatment Upcoming Encounters Date Type Department Care Team (Late st Contact Info) Description 01/31/2025 10:00 AM EDT Office Visit [facility] MED & PEDS [address] [place] [address] Joleen Wilkinson MD [address] [place] [address] documented as of this encounter Procedures Procedure [...] documented as of this encounter Care Teams Registered Veterinary Technician Relationship Specialty Start Date End Date Joleen Wilkinson MD [address] [place] [phone] PCP - General Internal Medicine 03/26/17 documented as of this encounter
--- OUTSIDE RECORDS SUMMARY | 2025-01-06 09:57 | XMS_ITS | Encounter Summary ---
Author Organization [facility] Address [address] [facility] 7[address] [place] [address] Care Team Providers Care Surveyor Rod Helper Name Role Phone Joleen Wilkinson MD Primary Care Provider [phone] Reason for Visit * Reason Comments Med Refill Encounter Details Date Type Department Care Team ([facility] st Contact Info) Description 12/08/2024 Refill [facility] CHC MED & PEDS [address] [place] [address] Joleen Wilkinson MD [address] [place] [address] Essential hypertension Social History Tobacco Use Types [...] Description 01/31/2025 10:00 AM EDT Office Visit [facility] MED & PEDS [address] [place] [address] Joleen Wilkinson MD [address] [place] [address] documented as of this encounter Visit Diagnoses Diagnosis Essential hypertension Unspecified essential hypertension documented in this encounter Additional Health Concerns Assessment Noted Time PHQ-9 Depression Total Score: 0 07/20/20 23 2:36 PM EDT documented as of this encounter Care Teams Surveyor Rod Helper Relationship Specialty Start Date End Date Joleen Wilkinson MD [address] [place] [address] PCP - General Internal Medicine 03/26/17 documented as of this encounter
--- OUTSIDE RECORDS SUMMARY | 2025-01-06 09:57 | XMS_ITS | Encounter Summary ---
Author Organization [facility] Address [address] [facility] [address] [place] [address] Care Team Providers Care Oyster Grower Name Role Phone Joleen Wilkinson MD Primary Care Provider [phone] Reason for Visit * Reason Comments Filling Encounter Details Date Type Department Care Team ([facility] Contact Info) Description 12/21/2024 10:00 AM EST Office Visit [facility] ADULT DENTAL [address] [place] [address] Bryant Renee [address] [place] [address] Social History Tobacco Use Types Packs/Day Years [...] Timeout Date: 12/21/24, Timeout Time: 101 Location: [facility] Tooth: #12, #13, and #27 Procedure: Religious Verified the above with patient, agency sales management assistant, and provider. Confirmed via patient's chart, intraorally and by radiographs. Artificial Fly Tier: Yes. Language: Pashto. Artificial Fly Tier's Name: Roosevelt Ross pt can understand Setswana partially Chief Complaint Patient presents with Filling [...] Etch Desensitizer: Gluma Liner/Base: None Haddad: I-Haddad Religious Material: Voco Grandioso Packable Shade: A3 Polished. Occlusion & contacts verified. Patient satisfied with comfort and esthetics. Patient tolerated procedure well. Post-operative instructions were given. Patient departed alert, oriented, and in stable condition. 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 Pt was recommended to get eleni removed surgically as that makes acceptance of partial dentures difficult. NV: post and core #19 Plate Roller: Roosevelt Dentist: Dr. Bryant Renee, DMD documented in this encounter Plan of Treatment Upcoming Encounters Date Type Department Care Team (Late st Contact Info) Description 01/31/2025 10:00 AM EDT Office Visit [facility] MED & PEDS [address] [place] [address] Joleen Wilkinson MD [address] [place], [place] [phone] Scheduled Orders Name Type Priority Associated Diagnoses [...] documented as of this encounter Care Teams Oyster Grower Relationship Specialty Start Date End Date Joleen Wilkinson MD [address] [place] [phone] PCP - General Internal Medicine 03/26/17 documented as of this encounter
[2025-01-06 10:08] LABS: Basophils Percent Auto 0.2 % (0-2); Imm Gran Abs Auto 0.06 X10*3/uL (0.00-0.03); Imm Gran Pct Auto 0.5 % (0.0-0.4); Lymphocytes Absolute Auto 1.3 X10*3/uL (1.2-4.9); Lymphocytes Percent Auto 10.8 % (20-40); Mean Corpuscular HGB Conc 33.3 g/dl (31.0-36.0); Mean Corpuscular Hemoglobin 29.5 pg (27.0-33.0); Mean Corpuscular Volume 88.6 fL (80.0-98.0); Mean Platelet Volume 11.5 fL (9.4-12.4); Monocytes Absolute Auto 0.8 X10*3/uL (0.1-1.2); Monocytes Percent Auto 6.8 % (2-11); Neutrophils Absolute Auto 10.1 x10*3/uL (2.0-8.3); Neutrophils Percent Auto 81.7 % (45-73); Platelet Count 241 X10*3/uL (160-400); Red Cell Distribution Width 14.2 % (11.0-16.0); White Blood Count 12.4 X10*3/uL (4.8-10.8)
[2025-01-06 10:41] LABS: Erythrocyte Sedimentation Rate 49 MM/HR (0-15)
[2025-01-06 11:10] LABS: Alanine Aminotransferase 19 U/L (0-40); Albumin Level 4.1 g/dL (3.5-5.0); Alkaline Phosphatase 50 U/L (39-117); Anion Gap 13 (12-20); Aspartate Amino Transferase 24 U/L (5-37); Bilirubin Total 0.2 mg/dL (0.0-1.0); Blood Urea Nitrogen 16 mg/dL (9-16); C Reactive Protein 0.68 mg/dL (< or = 0.50); Calcium 9.6 mg/dL (8.4-10.2); Carbon Dioxide 23 mmol/L (22-29); Chloride 107 mmol/L (96-108); Estimated Glomerular Filt Rate > 60; Glucose Random 151 mg/dL (60-115); Potassium 3.4 mmol/L (3.3-5.1); Sodium 140 mmol/L (135-145); Total Protein 7.7 g/dL (6.5-8.0)
== END 2025-01-06 09:30 | disposition home or self-care (01) ==
LOC: HO.LAB 09:29
PROVIDERS: PCP Internal Medicine; Visit Provider Student in an Organized Health Care Education/Training Program
DX: M35.3 Polymyalgia rheumatica (principal); Z51.81 Encounter for therapeutic drug level monitoring; Z79.899 Other long term (current) drug therapy
CPT/HCPCS: 36415; 80053; 85025; 85652; 86140

== ENCOUNTER 2025-01-12 13:00 | Outpatient (AMB) | payer MEDICARE, MEDICAID, SELFPAY ==
--- NOTE | 2025-01-12 13:02 | MHC.OFFVIS ---
Vital Signs 01/12/25 13:13 Height 5 ft 11 in Weight 257 lb 7.999 oz BMI 35.9 BP 112/70 Blood Pressure Location Lt brachial Position Sitting Pulse 83 Pulse Source Pulse Oximeter Pulse Oximetry (%) 97 Oxygen Delivery Method Room Air Intake Visit Reasons: PMR Intake Note: Patient presents for PMR. I been taking Leflunomide for 2 months and is not working. Health Insurance Assessor Required: Yes Health Insurance Assessor Language: Mine Car Dispatcher Services: Health Insurance Assessor Offered & Declined Health Insurance Assessor Name: Tania Guerra Information Interpreted: non-clinical & clinical Merchandiser Retail Representative: Merchandiser Retail Representative Present (Tania Guerra) Accompanied by: Spouse Allergies No Known Allergies [No Known Allergies*] Allergy (Verified 01/12/25 13:13) Medication List - Last Reconciled 01/12/25 by Jil Claros MD atorvastatin 40 mg PO BEDTIME blood sugar diagnostic (MiewTouch Ultra Test strips) As directed blood-glucose meter (OneTouch Ultra2 Meter) As directed cholecalciferol (vitamin D3) (Vitamin D3) 25 mcg PO QAM cyclosporine 0.05% (Restasis) 1 drp ophthalmic (eye) BID dulaglutide (Trulicity) 1.5 mg subcut QWEEK gabapentin 100 mg PO TID 30 days hydrocodone-acetaminophen 5-325 mg 1 tab PO BID PRN lancets (MiewTouch Delica Plus Lancet) As directed leflunomide 20 mg PO DAILY lisinopril-hydrochlorothiazide 20-12.5 mg 1 tab PO DAILY HPI Comments Details: Patient is a 74-year-old male with hyperlipidemia, diabetes, hypertension, degenerative disc disease of the lumbar spine, polyarticular osteoarthritis and polymyalgia rheumatica/Seronegative RA here today for follow up Interval History: Patient last seen 11/10/[address] Weinberg. At that time he was started on leflunomide however did not do the monitoring labs and so no refills were given. He does note that he felt better while he was taking the leflunomide. Numbness to the lateral thigh Had steroid injection to the back 7 days ago AM stiffness for 30 mins No associated swelling to the hands Rheumatologic History: Initial history: Mr. De La Torre 73 yoM, accompanied by his , is here for evaluation of multiple joint pains. The patient has transferred his care from the [facility] due to insurance reasons. Patient reports that he is being treated for arthritis. However, per patient the current provider states he is not able to tell what is the reason for his joint pains. He is currently on methotrexate 2.5 mg 6 pills per week with folic acid 1 mg per day. Patient reports that initial onset was within 3 months of him taking the COVID vaccine in 2021. Therefore, he has been experiencing this for an estimated 7 months. Initially it was in his shoulders and his upper arms and now it is mainly in his buttocks and thighs; his glutes hurt and it makes walking difficult. He states that the only thing that has helped is prednisone. He was on prednisone for about 2 months. After it was stopped he could feel the pain returned. Given that he is prediabetic they did not want him to stay on the prednisone for too much longer. He was then started on methotrexate for the last 7 months and does not think that methotrexate is helping. He describes morning stiffness that takes him at least half an hour to loosen up. He says that when he wakes up in the morning he starts to exercise in the bed before he gets up. It makes it easier to get up and move around -his hands, knees and mainly his hips are stiff in the morning. He also reports lower back pain. He endorses dry eyes and uses restasis about 2 times per day. He denies episodes of red warm swollen joints; denies gout. He reports occasional swelling in lower extremities but thinks this is because of circulation - when he elevates his feet at night they are not swollen. He denies known family history of inflammatory arthritis and autoimmune diseases. He reports a brother that at 80 years old from nephritis secondary to severely high albumin levels. The patient denies Raynaud's phenomenon, butterfly rash on face or other rashes; denies photosensitivity - getting sick or developing a rash from being out in the sun; denies blood or froth in urine; patient denies hx of SOB, chest pain. Patient denies hx of Carditis or Pleuritis. Patient denies any history of DVT/PE and is not taking a blood thinner. Denies fevers, excessive fatigue, unexplained weight-loss or weight-gain, Denies: thinning hair or hair loss, hx of rashes; Denies: red burning eyes needing steroids to treat; dry mouth, mouth sores or ulcers; nose bleed; ringing in the ear, He has a history of diverticulitis but denies chronic abdominal pain, blood or mucous in stool; nausea, vomiting and diarrhea , difficulty swallowing, heartburn. Current Rheumatology Medication(s): Leflunomide 20 mg PFSH Medical History Diverticulitis Degenerative disc disease, lumbar Right hip pain Bilateral hip pain Polymyalgia rheumatica SHAVON (obstructive sleep apnea) Bilateral hand pain Finger joint swelling Primary osteoarthritis involving multiple joints History of arthritis Pre-diabetes Hyperlipidemia HTN (hypertension) Surgical History Hx of hand surgery History of back surgery Family History Mother Guillain-Ogema Social History Household Members: Spouse Alcohol intake: former Patient Tobacco Use Status: Former Tobacco user Current occupational status: retired Review of Systems Const Details: Review of Systems Constitutional: Denies fever, chills, weight loss ENT: Denies vision changes, eye pain or eye redness, dental caries, dry mouth GI: Denies nausea, vomiting, diarrhea, abdominal pain, change in BM Pulm: Denies SOB, KELLOGG, hemoptysis, wheezing Cards: Denies chest pain, palpitations Skin: Denies Raynaud's, rash, nail changes, photosensitivity, STUDENT COUNSELLOR: Denies headaches, weakness, paresthesias, recurrent falls MSK: as per HPI All other systems reviewed and are unremarkable except noted above Physical Exam Vital signs reviewed Physical Examination CONSTITUITIONAL Patient alert and cooperative. Well appearing and in no apparent painful distress HEENT Conjunctiva and sclera clear. ?Pupils equal round and reactive to light. ?No lymphadenopathy. ? CHEST/RESPIRATORY SYSTEM Normal respiratory effort and able to speak in complete sentences. ?Clear to auscultation bilaterally. ?No crackles, rales, rhonchi, wheezes heard. CARDIAC SYSTEM Regular rate and rhythm. ?S1 and S2 heard no murmurs. ?Radial pulses intact bilaterally MSK Hands: ?Good aviation survival technician strength bilaterally. No deformities noted. ?No synovitis noted to the MCPs, PIPs or DIPs. ?No tenderness to palpation of these joints. Heberden's nodes Wrists: ?Full range of motion at the wrists without pain. ?No tenderness to palpation or synovitis noted to the wrists. Elbows: Full range of motion without pain. No tenderness, weakness, swelling, increased warmth or erythema. Shoulders: Full range of motion without pain. No tenderness, weakness, swelling, increased warmth or erythema. Hips: Full range of motion without pain. Hip bursa: No tenderness to palpation. Tenderness to palpation of the lateral thigh on the left Knees: ?Full range of motion. ?No tenderness, swelling, increased warmth or erythema.? Bilateral crepitations Ankles: Full range of motion. ?No tenderness, swelling, increased warmth or erythema.? Feet: ?Negative squeeze test. ?No tenderness to palpation or swelling of the MTPs. Tender points:?No tenderness to palpation of the bilateral trapezius, supraspinatus, greater trochanters, anterior costochondral junctions, bilateral gluteal areas, bilateral suboccipital muscle insertions SKIN Skin intact without rashes. Results Reviewed Results Reviewed: Laboratory Tests 11/11/23 08/23/24 01/06/25 10:16 09:42 09:48 WBC 12.4 H RBC 4.40 L Hgb 13.0 L Hct 39.0 L Plt Count 241 ESR 49 H Sodium 140 Potassium 3.4 Chloride 107 Carbon Dioxide 23 BUN 16 Creatinine 0.80 Calcium 9.6 Total Bilirubin 0.2 AST 24 ALT 19 Alkaline Phosphatase 50 C-Reactive Protein 0.68 H Rheumatoid Factor < 13.0 Cycl Citrul Peptide IgG <16 Hepatitis A IgM Ab Nonreactive Hep Bs Antigen Negative Hep Bs Antibody NONREACTIVE Hep B Core Total Ab Nonreactive Hepatitis C Ab (EIA) Nonreactive TB Test (T-Spot) Com Negative Assessment & Plan Assessment & Plan (1) Primary osteoarthritis involving multiple joints: Code(s): M15.9 - Polyosteoarthritis, unspecified Category: Medical Plan: #Polyarticular OA Patient today based on my exam does not have any evidence of inflammatory arthritis. He is on leflunomide 20 mg but continues to report OA type symptoms with 30 minutes of morning stiffness in the hands, no MCP or PIP involvement and no swelling to any joints. Discussed increasing his gabapentin to 300 mg t.i.d. and using topical diclofenac q.i.d.. We will hold leflunomide for now Unsure if the elevated inflammatory markers are related to an underlying inflammatory process. We will monitor off immunosuppression and and see if there is any change in his numbers. Plan - Stop leflunomide - Topical diclofenac q.i.d. to bilateral hands - Increase gabapentin to 300 mg t.i.d. - RTC 4 months - Labs prior to visit: CBC, CMP, ESR, CRP Plan I spent 30 minutes reviewing the record and labs, taking a history, examining the patient, discussing the treatment plan and documenting in the medical record Orders: Orders Comprehensive Met. Panel 4 Months M35.3 - Polymyalgia rheumatica C Reactive Protein 4 Months M35.3 - Polymyalgia rheumatica Complete Blood Count Auto Diff 4 Months M35.3 - Polymyalgia rheumatica Erythrocyte Sedimentation Rate 4 Months M35.3 - Polymyalgia rheumatica Medications: New diclofenac sodium 1% apply to single knee, ankle, foot; for foot includes sole/toes/top of foot 4 grams topical QID 100 grams 4RF M19.049 - Primary osteoarthritis, unspecified hand Changed From gabapentin 100 mg PO TID 30 days 90 caps 0RF pain M51.36 - Other intervertebral disc degeneration, lumbar region, M51.360 - Other intervertebral disc degeneration, lumbar region with discogenic back pain only, M54.16 - Radiculopathy, lumbar region, M54.31 - Sciatica, right side, M96.1 - Postlaminectomy syndrome, not elsewhere classified To gabapentin 300 mg PO TID 30 days 90 caps 5RF pain M51.36 - Other intervertebral disc degeneration, lumbar region, M51.360 - Other intervertebral disc degeneration, lumbar region with discogenic back pain only, M54.16 - Radiculopathy, lumbar region, M54.31 - Sciatica, right side, M96.1 - Postlaminectomy syndrome, not elsewhere classified Discontinued leflunomide Discontinued Reason: Doctor's Order 20 mg PO DAILY 90 tabs 0RF M35.3 - Polymyalgia rheumatica Coding Level of Care Code Est Pt Level 4 (40502) Diagnoses Primary osteoarthritis involving multiple joints M15.9
[2025-01-12 13:13] VITALS: BP 112/70; PULSE 83; O2SAT 97; BMI 35.9
--- OUTSIDE RECORDS SUMMARY | 2025-01-12 13:54 | XMS_ITS | Encounter Summary ---
Author Organization [email or web address] Address [address] [place] [address] 7[address] [place] [address] Care Team Providers Care Route Returner Name Role Phone Joleen Wilkinson MD Primary Care Provider [phone] Encounter Details Date Type Department Care Team ([facility] st Contact Info) Description 07/16/2023 Orders Only [facility] MED & PEDS [address] [place], [place] [phone] Joleen Wilkinson MD [address] [place] [address] Other sleep apnea (Primary Dx) Social History [...] [facility] [address] [place] [address] Joleen Wilkinson MD [address] [place] [address] documented as of this encounter Visit Diagnoses Diagnosis Other sleep apnea- Primary documented in this encounter Care Teams Route Returner Relationship Specialty Start Date End Date Joleen Wilkinson MD [address] [facility] [place] [address] PCP - General Internal Medicine 03/26/17 documented as of this encounter
--- OUTSIDE RECORDS SUMMARY | 2025-01-12 13:54 | XMS_ITS | Encounter Summary ---
Author Organization [employer] Address [address] [facility] 7t [place] [address] Care Team Providers Care Fire Protection Specialist Name Role Phone Joleen Wilkinson MD Primary Care Provider [phone] Encounter Details Date Type Department Care Team ([facility] st Contact Info) Description 04/08/2024 Orders Only [facility] CHC MED & PEDS [address] [place], [place] [phone] oJleen Wilkinson MD [address] [place] [address] Social History Tobacco Use Types Packs/Day Years [...] t he electric, gas, oil or water Appy Couple threatened to shut off services in your [...] [facility] [address] [place] [address] Joleen Wilkinson MD [address] [place] [address] documented as of this encounter Visit Diagnoses Not on filedocumented in this encounter Additional Health Concerns Assessment Noted Time PHQ-9 Depression Total Score: 0 07/20/20 23 2:36 PM EDT documented as of this encounter Care Teams Fire Protection Specialist Relationship Specialty Start Date End Date Joleen Wilkinson MD [address] [place] [address] PCP - General Internal Medicine 03/26/17 documented as of this encounter
--- OUTSIDE RECORDS SUMMARY | 2025-01-12 13:54 | XMS_ITS | Encounter Summary ---
Author Organization [employer] Address [address] [facility] 7t [place] [address] Care Team Providers Care Adobe Maker Name Role Phone Joleen Wilkinson MD Primary Care Provider [phone] Reason for Visit * Reason Comments Filling Encounter Details Date Type Department Care Team ([facility] Contact Info) Description 12/21/2024 10:00 AM EST Office Visit [facility] ADULT DENTAL [address] [place] [address] Bryant Renee [address] [place] [address] Social History Tobacco Use Types Packs/Day Years [...] Timeout Date: 12/21/24, Timeout Time: 101 Location: [facility] Tooth: #12, #13, and #27 Procedure: Taoism Verified the above with patient, residential assistant, and provider. Confirmed via patient's chart, intraorally and by radiographs. Cap And Hat Production Supervisor: Yes. Language: Malay. Cap And Hat Production Supervisor's Name: Roosevelt Ross pt can understand Latvian partially Chief Complaint Patient presents with Filling [...] Etch Desensitizer: Gluma Liner/Base: None Haddad: I-Haddad Taoism Material: [employer] Packable Shade: A3 Polished. Occlusion & contacts verified. Patient satisfied with comfort and esthetics. Patient tolerated procedure well. Post-operative instructions were given. Patient departed alert, oriented, and in stable condition. 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 Pt was recommended to get eleni removed surgically as that makes acceptance of partial dentures difficult. [place]: post and core #19 Tractor Sweeper Driver: Roosevelt Dentist: Dr. Bryant Renee, DMD documented in this encounter Plan of Treatment Upcoming Encounters Date Type Department Care Team (Late st Contact Info) Description 01/31/2025 10:00 AM EDT Office Visit [facility] MED & PEDS [address] [place] [address] Joleen Wilkinson MD [address] [place], [place] [phone] Scheduled Orders Name Type Priority Associated Diagnoses [...] documented as of this encounter Care Teams Adobe Maker Relationship Specialty Start Date End Date Joleen Wilkinson MD [address] [place] [phone] PCP - General Internal Medicine 03/26/17 documented as of this encounter
--- OUTSIDE RECORDS SUMMARY | 2025-01-12 13:54 | XMS_ITS | Encounter Summary ---
Author Organization [employer] [facility] Address [address] [facility] [address] [place] [address] Care Team Providers Care Student Accounts Manager Name Role Phone Joleen Wilkinson MD Primary Care Provider [phone] Encounter Details Date Type Department Care Team (Late st Contact Info) Description 01/06/2025 Orders Only GENERIC EXTERNAL DATA DEPARTMENT Provider, [...] Description 01/31/2025 10:00 AM EDT Office Visit [facility] CHC MED & PEDS [address] [place] [address] Joleen Wilkinson MD [address] [place] [address] documented as of this encounter Procedures Procedure Name Priority Date/Time Associated Diagnosis Comments CBC WITH AUTO DIFFERENTIAL Routine 01/06/2025 9:48 AM EST SED RATE BY MODIFIED WESTERGREN Routine 01/06/2025 9:48 AM EST C-REACTIVE PROTEIN Routine 01/06/2025 9: 48 AM EST COMPREHENSIVE METABOLIC PANEL Routine 01/06/2025 9:48 AM EST documented in this encounter Results * (ABNORMAL) C-reactive Protein (01/06/2025 9:48 AM EST) C Reactive Protein 0.68(H) < or = 0.50 mg/dL [facility] 01/06/2025 9:48 AM EST 01/06/2025 9:48 AM EST us Generic External Data Provider LAB BLOOD ORDERAB LES Final Result [facility] [address] [place] [address] [phone] * (ABNORMAL) Comprehensive Metabolic Panel (01/06/2025 9:48 AM EST) Sodium 140 135 - 145 mmol/L [facility] Potassium 3.4 3.3 - 5.1 mmol/L [facility] Chloride 107 96 - 108 mmol/L [facility] Carbon Dioxide 23 22 - 29 mmol/L [facility] Anion Gap 13 12 - 20 [facility] Urea Nitrogen (BUN) 16 9 - 16 mg/dL [facility] Creatinine, Serum 0.80 0.5 - 1.4 mg/dL [facility] Estimated Glomerular Filt Rate >60 [facility] Comment:Chronic Kidney Disea se: Estimated GFR < 60 mL/min/1.23k1Msrhvd Kidney Disease: Estimated GFR < 15 mL/min/1.73m2 Glucose 151(H) 60 - 115 mg/dL [facility] Calcium 9.6 8.4 - 10.2 mg/dL [facility] Bilirubin, Total 0.2 0.0 - 1.0 mg/dL [facility] Aspartate Amino Transferase 24 5 - 37 U/L [facility] Alanine Aminotransferase 19 0 - 40 U/L [facility] Total Protein 7.7 6.5 - 8.0 g/dL [facility] Albumin Level 4.1 3.5 - 5.0 g/dL [facility] Alkaline Phosphatase 50 39 - 117 U/L [facility] 01/06/2025 9:48 AM EST 01/06/2025 9:48 AM EST us Generic External Data Provider LAB BLOOD ORDERAB LES Final Result Performing Organization Address City/State/[facility] Co de Phone Number [facility] [address] [place] [phone] * (ABNORMAL) Sed Rate by Modified Ant (01/06/2025 9:48 AM EST) Erythrocyte Sedimentation Rate 49(H) 0 - 15 MM/HR [facility] Comment:Patients with polycy themia and many hemoglobin abnormalitiesmay have depressed sed rates whereas patients with anemiamay have elevated sed rates. 01/06/2025 9:48 AM EST 01/06/2025 9:48 AM EST us Generic External Data Provider LAB BLOOD ORDERAB LES Final Result [facility] [address], [place] [phone] * (ABNORMAL) CBC auto differential (01/06/2025 9:48 AM EST) White Blood Count 12.4(H) 4.8 - 10.8 X10*3/uL [facility] Red Blood Count 4.40(L) 4.60 - 5.80 X10*6/uL [facility] Hemoglobin 13.0(L) 14.0 - 18.0 g/dl [facility] Hematocrit 39.0(L) 42.0 - 52.0 % [facility] Mean Corpuscular Volume 88.6 80.0 - 98.0 fL [facility] Mean Corpuscular Hemoglobin 29.5 27.0 - 33.0 pg [facility] Mean Corpuscular HGB Conc 33.3 31.0 - 36.0 g/dl [facility] Red Cell Distribution Width 14.2 11.0 - 16.0 % [facility] Platelet Count 241 160 - 400 X10*3/uL [facility] Mean Platelet Volume 11.5 9.4 - 12.4 fL [facility] Neutrophils Percent Auto 81.7(H) 45 - 73 % [facility] Imm Gran Pct Auto 0.5(H) 0.0 - 0.4 % [facility] Lymphocytes Percent Auto 10.8(L) 20 - 40 % [facility] Monocytes Percent Auto 6.8 2 - 11 % [facility] Eosinophils Percent Auto 0.0 0 - 4 % [facility] Basophils Percent Auto 0.2 0 - 2 % [facility] NRBC Pct Auto 0.0 0.0 - 0.2 /100WBC [facility] Neutrophils Absolute Auto 10.1(H) 2.0 - 8.3 x10*3/uL [facility] Imm Gran Abs Auto 0.06(H) 0.00 - 0.03 X10*3/uL [facility] Lymphocytes Absolute Auto 1.3 1.2 - 4.9 X10*3/uL [facility] Monocytes Absolute Auto 0.8 0.1 - 1.2 X10*3/uL [facility] Eosinophils Absolute Auto 0.0 0.0 - 0.4 X10*3/uL [facility] Basophils Absolute Auto 0.0 0.0 - 0.2 X10*3/uL [facility] NRBC Abs Auto 0.000 0.0 - 0.012 X10*3/uL [facility] 01/06/2025 9:48 AM EST 01/06/2025 9:48 AM EST us Generic External Data Provider LAB BLOOD ORDERAB LES Final Result Performing Organization Address City/State/[facility] Co de Phone Number [facility] [address] [place] [phone] documented in this encounter Visit Diagnoses Not on filedocumented in this encounter Additional Health Concerns Assessment Noted Time PHQ-9 Depression Total Score: 0 07/20/20 23 2:36 PM EDT documented as of this encounter Care Teams Student Accounts Manager Relationship Specialty Start Date End Date Joleen Wilkinson MD [address] [place] [phone] PCP - General Internal Medicine 03/26/17 documented as of this encounter
--- OUTSIDE RECORDS SUMMARY | 2025-01-12 13:54 | XMS_ITS | Encounter Summary ---
Author Organization [employer] Address [address] [facility] 7t [place] [address] Care Team Providers Care Video Presentation Operator Name Role Phone Joleen Wilkinson MD Primary Care Provider [phone] Encounter Details Date Type Department Care Team (Late st Contact Info) Description 09/23/[address] [facility] MEDICINE [address] [place] [address] Joleen Wilkinson MD [address] [place], [place] [phone] Social History Tobacco Use Types Packs/Day Years [...] 01/31/2025 10:00 AM EDT Office Visit [facility] MED & PEDS [address] [place] [address] Joleen Wilkinson MD [address] [place] [address] documented as of this encounter Procedures Procedure [...] documented as of this encounter Care Teams Video Presentation Operator Relationship Specialty Start Date End Date Joleen Wilkinson MD [address] [place] [address] PCP - General Internal Medicine 03/26/17 documented as of this encounter
--- OUTSIDE RECORDS SUMMARY | 2025-01-12 13:54 | XMS_ITS | Clinical Summary ---
Author Organization [employer] Address [address] [facility] 7t [place] [address] Care Team Providers Care Casual Shoe Inspector Name Role Phone Joleen Wilkinson MD Primary Care Provider [phone] Allergies No known active allergies Medications * This document contains information received from the source organization and may not represent a complete record from that organization. fexofenadine (Sharon) 180 MG tabletIndications: Urticaria Take 1 tablet (180 mg) by mouth if needed each day (Allergies). 30 tablet 1 3 Active diphenhydrAMINE (BENADryl) 25 MG tabletIndications: Urticaria Take 1 tablet (25 mg) by mouth if needed at bedtime for itching. 30 tablet 1 3 Active Restasis 0.05 % ophthalmic emulsion INSTILL INSTILL 1 DROP INTO BOTH EYES TWICE A DAY 3 Active folic acid (Folvite) 1 MG tablet Take 1,000 mcg by mouth in the morning. 3 Active vardenafil (Levitra) 10 MG tabletIndications: Other male erectile dysfunction Take 1 tablet (10 mg) by mouth if needed each day for erectile dysfunction. 10 tablet 3 Active Blood Glucose Monitoring Suppl (FreeStyle Lite) w/Device kitIndications:Pre diabetes 1 Units in the morning. 1 kit 3 Active Alcohol Swabs (Alcohol Pads) 70 % padsIndications:Pr ediabetes 1 Box in the morning. 100 each 11 3 Active gabapentin (Neurontin) 100 MG capsuleIndications :Periodic limb movement Take 1 capsule (100 mg) by mouth at bedtime. 30 capsule 11 3 Active zolpidem (Ambien) 10 MG tabletIndications: Other sleep apnea TAKE 1/2 TABLET BY MOUTH IF NEEDED AT BEDTIME FOR SLEEP FOR UP TO 1 DAYTAKE 1 TABLET 30 MINUTES BEFORE THE PROCEDURE.JASMIN HT TAKE ANOTHER IF NOT SLEEPING 2 tablet 3 Active baclofen (Lioresal) 20 MG tablet Take 1 tablet by mouth in the morning and 1 tablet in the evening. 2 Active naproxen (Naprosyn) 500 MG tablet Take 1 tablet by mouth every 12 (twelve) hours. 2 Active baclofen (Lioresal) 20 MG tabletIndications: Chronic left-sided low back pain without sciatica Take 1 tablet (20 mg) by mouth 3 times daily. 40 tablet 2 4 Active predniSONE (Deltasone) 20 MG tabletIndications: Acute pain of right knee 20 mg once a day x 3 days. 3 tablet 4 Active Mounjaro 7.5 MG/0.5ML solution auto-injectorIndic ations:Prediabetes ,Class 2 severe obesity due to excess calories with serious comorbidity and body mass index (BMI) of 37.0 to 37.9 in adult ([facility]) INJECT 7.5 MG UNDER THE SKIN 1 (ONE) TIME PER WEEK. 2 mL 1 4 Active naproxen (Naprosyn) 500 MG tabletIndications: Chronic left-sided low back pain without sciatica TAKE 1 TABLET BY MOUTH WITH BREAKFAST AND EVENING MEAL 60 tablet 3 4 Active leflunomide (Arava) 20 MG tablet Take 1 tablet by mouth Once per day. 4 Active metFORMIN XR (Glucophage-XR) 500 MG 24 hr tablet Take 500 mg by mouth with evening meal. 2 Active Mounjaro 10 MG/0.5ML solution auto-injectorIndic ations:Class 2 severe obesity due to excess calories with serious comorbidity and body mass index (BMI) of 37.0 to 37.9 in adult (CMS/HCC) INJECT 10 MG UNDER THE SKIN 1 (ONE) TIME PER WEEK. 2 mL 1 5 Active lisinopril-hydroCH LOROthiazide 20-12.5 MG tabletIndications: Essential hypertension TOME PABLO TABLETA TODOS [place] EN LA MANANA 90 tablet 2 5 Active atorvastatin (Lipitor) 40 MG tablet TOME PABLO TABLETA TODOS [place] 90 tablet 1 5 Active cholecalciferol (D3-1000) 25 MCG (1000 UT) tabletIndications: Other osteoarthritis involving multiple joints TAKE 1 TABLET BY MOUTH EVERY MORNING 90 tablet 3 5 Active Active Problems Problem Noted Date Diagnosed [...] Encounters Date Type Department Care Team Description 01/06/2025 Orders Only GENERIC EXTERNAL DATA DEPARTMENT Provider, Generic External Data 12/21/2024 10:00 AM EST Office Visit [facility] [address] [place] [address] Bryant Renee 12/09/2024 9:00 AM EST Office Visit [facility] [address] [place] [address] Hira Reneeprekenya 12/09/2024 Refill [facility] [address] [place] [address] Joleen Wilkinson MD Other osteoarthritis involving multiple joints 12/08/2024 Orders Only GENERIC EXTERNAL DATA DEPARTMENT Provider, Generic External Data 12/08/2024 Refill [facility] [address] [place] [address] Joleen Wilkinson MD Essential hypertension 12/04/2024 Refill [facility] [address] [place] [address] Joleen Wilkinson MD Class 2 severe obesity due to excess calories with serious comorbidity and body mass index (BMI) of 37.0 to 37.9 in adult ([facility]) 11/29/2024 11:00 AM EST Office Visit [facility] [address] [place] [address] Shantelle Mancia Dental calculus (Primary Dx) 11/29/2024 Orders Only [facility] External Provider, [facility] 11/09/2024 Refill [facility] [address] [place] [address] Joleen Wilkinson MD Chronic left-sided low back pain without sciatica 10/13/2024 9:15 AM EST Office Visit [facility] [address] [place] [address] Joleen Wilkinson MD Class 2 severe obesity due to excess calories with serious comorbidity and body mass index (BMI) of 37.0 to 37.9 in adult ([facility]) (Primary Dx); Prediabetes; 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 ([facility]); PMR (polymyalgia rheumatica) ([facility]) 10/13/2024 Travel from Last 3 Months Immunizations [...] 10:00 AM EDT Office Visit [facility] & PEDS [address] [place] [address] Joleen Wilkinson MD [address] [place] [address] Health Maintenance Due Date Last Done Comments [...] Mouth 08/20/2026 08/19/2023 Lipid Panel 07/12/2029 07/12/2024, 0811/2021, 06/11/2022 DTaP/Tdap/Td Vaccines (3 - Td or [...] Procedure Name Priority Date/Time Associated Diagnosis Comments C-REACTIVE PROTEIN Routine 01/06/2025 9: 48 AM EST COMPREHENSIVE METABOLIC PANEL Routine 01/06/2025 9:48 AM EST SED RATE BY MODIFIED WESTERGREN Routine 01/06/2025 9:48 AM EST CBC WITH AUTO DIFFERENTIAL Routine 01/06/2025 9:48 AM EST CASE PRESENTATION, DETAILED AND EXTENSIVE [...] (BMI) of 37.0 to 37.9 in adult ([facility]) Prediabetes POCT GLYCATED HEMOGLOBIN, TOTAL Routine 07/12/2024 11:24 AM EDT Prediabetes LIPID PANEL, STANDARD Routine 07/12/2024 10:44 AM EDT Primary hypertension Mixed hyperlipidemia INTRAORAL - COMPLETE SERIES OF RADIOGRAPHIC IMAGES Routine 08/19/2023 10:00 AM EDT HM COLONOSCOPY Routine 09/09/2022 FannyZZ HISTORICAL HEPATITIS C AB W/REFL TO HCV RNA, QN, PCR Routine 07/23/2022 8:48 AM EDT from Last 3 Months or Most Recently Relevant to Health Maintenance Results * (ABNORMAL) CBC auto differential (01/06/2025 9:48 AM EST) Only the most recent of2 resultswithin the time period is included. White Blood Count 12.4(H) 4.8 - 10.8 X10*3/uL [facility] Red Blood Count 4.40(L) 4.60 - 5.80 X10*6/uL [facility] Hemoglobin 13.0(L) 14.0 - 18.0 g/dl [facility] Hematocrit 39.0(L) 42.0 - 52.0 % [facility] Mean Corpuscular Volume 88.6 80.0 - 98.0 fL [facility] Mean Corpuscular Hemoglobin 29.5 27.0 - 33.0 pg [facility] Mean Corpuscular HGB Conc 33.3 31.0 - 36.0 g/dl [facility] Red Cell Distribution Width 14.2 11.0 - 16.0 % [facility] Platelet Count 241 160 - 400 X10*3/uL [facility] Mean Platelet Volume 11.5 9.4 - 12.4 fL [facility] Neutrophils Percent Auto 81.7(H) 45 - 73 % [facility] Imm Gran Pct Auto 0.5(H) 0.0 - 0.4 % [facility] Lymphocytes Percent Auto 10.8(L) 20 - 40 % [facility] Monocytes Percent Auto 6.8 2 - 11 % [facility] Eosinophils Percent Auto 0.0 0 - 4 % [facility] Basophils Percent Auto 0.2 0 - 2 % [facility] NRBC Pct Auto 0.0 0.0 - 0.2 /100WBC [facility] Neutrophils Absolute Auto 10.1(H) 2.0 - 8.3 x10*3/uL [facility] Imm Gran Abs Auto 0.06(H) 0.00 - 0.03 X10*3/uL [facility] Lymphocytes Absolute Auto 1.3 1.2 - 4.9 X10*3/uL [facility] Monocytes Absolute Auto 0.8 0.1 - 1.2 X10*3/uL [facility] Eosinophils Absolute Auto 0.0 0.0 - 0.4 X10*3/uL [facility] Basophils Absolute Auto 0.0 0.0 - 0.2 X10*3/uL [facility] NRBC Abs Auto 0.000 0.0 - 0.012 X10*3/uL [facility] 01/06/2025 9:48 AM EST 01/06/2025 9:48 AM EST us Generic External Data Provider LAB BLOOD ORDERAB LES Final Result Performing Organization Address [facility] Co de Phone Number [facility] [address] [place] [phone] * (ABNORMAL) Sed Rate by Modified Morisren (01/06/2025 9:48 AM EST) Only the most recent of2 resultswithin the time period is included. Erythrocyte Sedimentation Rate 49(H) 0 - 15 MM/HR [facility] Comment:Patients with polycy themia and many hemoglobin abnormalitiesmay have depressed sed rates whereas patients with anemiamay have elevated sed rates. 01/06/2025 9:48 AM EST 01/06/2025 9:48 AM EST us Generic External Data Provider LAB BLOOD ORDERAB LES Final Result Performing Organization Address [facility] Co de Phone Number [facility] [address] [place] [address] [phone] * (ABNORMAL) C-reactive Protein (01/06/2025 9:48 AM EST) Only the most recent of2 resultswithin the time period is included. C Reactive Protein 0.68(H) < or = 0.50 mg/dL [facility] 01/06/2025 9:48 AM EST 01/06/2025 9:48 AM EST us Generic External Data Provider LAB BLOOD ORDERAB LES Final Result [facility] [address] [place] [address] [phone] * (ABNORMAL) Comprehensive Metabolic Panel (01/06/2025 9:48 AM EST) Only the most recent of2 resultswithin the time period is included. Sodium 140 135 - 145 mmol/L [facility] Potassium 3.4 3.3 - 5.1 mmol/L [facility] Chloride 107 96 - 108 mmol/L [facility] Carbon Dioxide 23 22 - 29 mmol/L [facility] Anion Gap 13 12 - 20 [facility] Urea Nitrogen (BUN) 16 9 - 16 mg/dL [facility] Creatinine, Serum 0.80 0.5 - 1.4 mg/dL [facility] Estimated Glomerular Filt Rate >60 [facility] Comment:Chronic Kidney Disea se: Estimated GFR < 60 mL/min/1.74p4Btnaln Kidney Disease: Estimated GFR < 15 mL/min/1.73m2 Glucose 151(H) 60 - 115 mg/dL [facility] Calcium 9.6 8.4 - 10.2 mg/dL [facility] Bilirubin, Total 0.2 0.0 - 1.0 mg/dL [facility] Aspartate Amino Transferase 24 5 - 37 U/L [facility] Alanine Aminotransferase 19 0 - 40 U/L [facility] Total Protein 7.7 6.5 - 8.0 g/dL [facility] Albumin Level 4.1 3.5 - 5.0 g/dL [facility] Alkaline Phosphatase 50 39 - 117 U/L [facility] 01/06/2025 9:48 AM EST 01/06/2025 9:48 AM EST us Generic External Data Provider LAB BLOOD ORDERAB LES Final Result [facility] [address] [place] [address] [phone] * MR Lumbar Spine w/o Contrast (11/29/2024 7:03 PM EST) Anatomical Region Laterality Modality Spine, L-spine Magnetic Resonan ce 11/29/2024 7:03 PM EST Narrative 11/29/2024 7:04 PM EST ? [facility] ?[address] ?[place] [address] ? Magnetic Resonance Report ? Signed ? Patient: Jeferson Rae ?MR#: [id number] ?? [id number] ? : 1950 ?Acct:[id number] ? Age/Sex: 74 / M ?ADM Date: 11/29/24 ? Loc: HO.MRI ? Attending Dr: Caroline ALLEN ? Ordering Physician: Caroline Allison ?? Date of Service: 11/29/24 ?? Procedure(s): MR lumbar spine wo con ?? Accession Number(s): [id number] ? cc: Joleen Wilkinson MD; Caroline Allison [...] lesions by noncontrast ?? imaging in the xufnv-vo-gign. Conus terminates at T12-L1. ?? L1-L2: Disc [...] by Nathanael Espinoza MD in OV> ? 11/29/241903 ? DD/ 02 ? TD/TT: 11/29/241902 ? Padder: ? Procedure Note Venkatesh Melendez - 11/29/[address] [address] Magnetic Resonance Report Signed Patient: Charlie De La TorreBernard#: [id number] : 1950Acct:[id number] Age/Sex: 74 / MADM Date: 11/29/24 Loc: HO.MRI Attending Dr: Caroline ALLEN Ordering Physician: Caroline Allison Date of Service: 11/29/24 Procedure(s): MR lumbar spine wo con Accession Number(s): [id number] cc: Joleen Wilkinson MD; Caroline Allison CLINICAL [...] cystic lesions by noncontrast imaging in the xpwmr-sb-hpve. Conus terminates at T12-L1. L1-L2: Disc bulge [...] in OV> 11/29/241903 DD/ 02 TD/TT: 11/29/241902 Padder: [facility] External Provider IMG MRI PROCEDURES Edited Result - Final * POCT Glucose (10/13/2024 10:12 AM EST) Glucose Blood, POC 113 60 - 200 mg/dL QC Media Lot # [id number] Lot# Expiration Date Blood Capillary blood specimen / Unknown 10/13/2024 [...] 10:44 AM EDT) Triglycerides 182(H) <150 mg/dL [facility] Comment:Desirable Triglyceri de: less than 150 mg/dLBorderline High Triglyceride 150-199 mg/dLHigh Triglyceride: 200-499 mg/dLVery High Triglyceride: greater than or equal to 5OO mg/dL Cholesterol 129 <200 mg/dL [facility] Comment:Desirable Cholestero l: less than 200 mg/dLBorderline High Cholesterol: 200-239 mg/dLHigh Cholesterol: greater than 239 mg/dL LDL Cholesterol Calculated 58 <100 mg/dL [facility] Comment:Desirable LDL: less than 100 mg/dLNear Optimal/Above Optimal LDL: 110- 129 mg/dLBorderline High LDL: 130-159 mg/dLHigh LDL: 160-189 mg/dLVery High LDL: greater than or equal to 190 mg/dL HDL Cholesterol 35(L) >40 mg/dL [facility] Comment:Desirable HDL: great er than 40 mg/dL Note: This HDL assay may give artificially low results in patients with liver disease. Blood Venous blood specimen / Unknown 07/12/2024 10:44 AM EDT 07/12/2024 2:24 PM EDT us Joleen Wilkinson MD LAB BLOOD ORDERABLES Final Result Performing Organization Address City/[facility]/ZIP Co de Phone Number [facility] [address] [place] [address] [phone] * Hm Colonoscopy (09/09/2022) Colonoscopy Normal Normal Historical Provider HEALTH MAINTENANCE Edited Result - Final * HEPATITIS C AB W/REFL TO HCV RNA, QN, PCR (07/23/2022 8:48 AM EDT) HEPATITIS C ANTIBODY NON-REACT [facility] NON-REACT [facility] INDEX 0.17 <1.00 [facility] Comment: ?? HCV antibody was non-reactive. There is no laboratory ?? evidence of HCV infection. ?? In most cases, no further action is required. However, if recent HCV exposure is suspected, a test for HCV RNA (test code 42987) is suggested. ?? For additional information please refer to http://education.MobilePro/faq/XEC71y2 (This link is being provided for informational/ educational purposes only.) ?? 07/23/2022 8:48 AM EDT us Joleen Wilkinson MD HISTORICAL/NON ORDERABLE LA BS Final Result [facility] [address] from Last 3 Months or Most Recently Relevant to Health Maintenance Insurance [facility] STANDARD [employer] MEDICARE REPLACEMENT DENTAL - HSN FULL (MEDICAID) Care Teams Casual Shoe Inspector Relationship Specialty Start Date End Date Joleen Wilkinson MD [address] [place] [address] [place] [address] PCP - General Internal Medicine 03/26/17
--- OUTSIDE RECORDS SUMMARY | 2025-01-12 13:54 | XMS_ITS | Encounter Summary ---
Author Organization [employer] [facility] Address [address] [facility] 7t [place] [address] Care Team Providers Care Correctional Program Specialist Name Role Phone Joleen Wilkinson MD Primary Care Provider [phone]- [phone] Reason for Visit * Reason Onset Date Comments Lab Orders 02/23/2024 Referral 02/23/2024 Encounter Details Date Type Department Care Team ([facility] st Contact Info) Description 02/23/[address] [facility] [address] [place], [place] [phone] Joleen Wilkinson MD [address] [facility] [address] [place], [place] [phone] Lab Orders; Referral Social History Tobacco Use [...] 11:34 AM EDT Tc wilver Daniels from [place] Everywhere insurance calling on behalf of the patient requesting a referral for a Kidney Health Screening and a GFR Blood test as well as a ACR urine test documented in this encounter Plan of Treatment Upcoming Encounters Date Type Department Care Team ([facility] st Contact Info) Description 01/31/2025 10:00 AM EDT Office Visit [facility] & P[facility] [address] [place] [address] Joleen Wilkinson MD [address] [place] [address] documented as of this encounter Visit Diagnoses Not on filedocumented in this encounter Additional Health Concerns Assessment Noted Time PHQ-9 Depression Total Score: 0 07/20/20 23 2:36 PM EDT documented as of this encounter Care Teams Correctional Program Specialist Relationship Specialty Start Date End Date Joleen Wilkinson MD [address] [place] [address] PCP - General Internal Medicine 03/26/17 documented as of this encounter
--- OUTSIDE RECORDS SUMMARY | 2025-01-12 13:54 | XMS_ITS | Encounter Summary ---
Author Organization [employer] Address [address] [place] [address] [address] Care Team Providers Care Seed Tester Name Role Phone Joelen Wilkinson MD Primary Care Provider [phone]- [phone] Reason for Visit * Reason Onset Date Comments Appointment Confirmation 07/06/2023 Encounter Details Date Type Department Care Team ([facility] st Contact Info) Description 07/06/2023 Telephone [facility] MED & PEDS [address] [place] [address] Joleen Wilkinson MD [address] [place] [address] Appointment Confirmation Social History Tobacco Use Types [...] receive a call with appt details [place] [facility] but pt states that no one at [facility] has contact him with appt details. Please contact pt at [phone] German Speaker documented in this encounter Plan of Treatment Upcoming Encounters Date Type Department Care Team (Late st Contact Info) Description 01/31/2025 10:00 AM EDT Office Visit [facility] [address] [place] [address] Joleen Wilkinson MD [address] [place] [address] documented as of this encounter Visit Diagnoses Not on filedocumented in this encounter Care Teams Seed Tester Relationship Specialty Start Date End Date Joleen Wilkinson MD [address] [place] [address] PCP - General Internal Medicine 03/26/17 documented as of this encounter
--- OUTSIDE RECORDS SUMMARY | 2025-01-12 13:54 | XMS_ITS | Encounter Summary ---
Author Organization [employer] Address [address] [facility] 7t [place] [address] Care Team Providers Care Thrill Performer Name Role Phone Joleen Wilkinson MD Primary Care Provider [phone] [phone] Encounter Details Date Type Department Care Team ([facility] st Contact Info) Description 08/12/2024 Orders Only [facility] MED & PEDS [address] [place], [place] [phone] Joleen Wilkinson MD [address] [place] [address] Acute pain of right knee (Primary Dx) [...] [facility] [address] [place] [address] Joleen Wilkinson MD [address] [place] [address] documented as of this encounter Visit Diagnoses Diagnosis Acute pain of right knee- Primary documented in this encounter Additional Health Concerns Assessment Noted Time PHQ-9 Depression Total Score: 0 07/20/20 23 2:36 PM EDT documented as of this encounter Care Teams Thrill Performer Relationship Specialty Start Date End Date Joleen Wilkinson MD [address] [place] [address] PCP - General Internal Medicine 03/26/17 documented as of this encounter
--- OUTSIDE RECORDS SUMMARY | 2025-01-12 13:54 | XMS_ITS | Encounter Summary ---
Author Organization [employer] Address [address] [facility] [address] [place] [address] Care Team Providers Care Blast Setter Name Role Phone Joleen Wilkinson MD Primary Care Provider [phone] [phone] Encounter Details Date Type Department Care Team ([facility] st Contact Info) Description 06/06/2024 Orders Only [facility] MED & PEDS [address] [place], [place] [phone] Joleen Wilkinson MD [address] [place] [address] Class 2 obesity due to excess calories [...] 01/31/2025 10:00 AM EDT Office Visit [facility] MED & PEDS [address] [place] [address] Joleen Wilkinson MD [address] [place] [address] documented as of this encounter Visit Diagnoses Diagnosis Class 2 obesity due to excess calories without serious comorbidity with body mass index (BMI) of 37.0 to 37.9 in adult- Primary documented in this encounter Additional Health Concerns Assessment Noted Time PHQ-9 Depression Total Score: 0 07/20/20 23 2:36 PM EDT documented as of this encounter Care Teams Blast Setter Relationship Specialty Start Date End Date Joleen Wilkinson MD [address] [place] [address] PCP - General Internal Medicine 03/26/17 documented as of this encounter
--- OUTSIDE RECORDS SUMMARY | 2025-01-12 13:54 | XMS_ITS | Encounter Summary ---
Author Organization [facility] [employer] Address [address] [facility] 7t [place] [address] Care Team Providers Care Flange Machine Operator Name Role Phone Joleen Wilkinson MD Primary Care Provider [phone] Encounter Details Date Type Department Care Team ([facility] st Contact Info) Description 09/11/2023 Orders Only [facility] & PEDS [address] [place], [place] [phone] Joleen Wilkinson MD [address] [place] [address] Other sleep apnea (Primary Dx); Periodic limb [...] 10:00 AM EDT Office Visit [facility] [address], [place] [phone] Joleen Wilkinson MD [address] [place], [place] [phone] documented as of this encounter Procedures Procedure Name Priority Date/Time Associated Diagnosis Comments TSH W/REFLEX TO FT4 Routine 09/15/2023 8 :48 AM EDT Periodic limb movement FERRITIN Routine 09/15/2023 8:48 AM EDT Periodic limb movement VITAMIN B12 Routine 09/15/2023 8:48 AM EDT Periodic limb movement documented in this encounter Results * Ferritin (09/15/2023 8:48 AM EDT) Ferritin 125 20 - 250 ng/mL [facility] Blood Venous blood specimen / Unknown 09/15/2023 8:48 AM EDT 09/15/2023 2:36 PM EDT Joleen Wilkinson MD LAB BLOOD ORDERABLES Final Result [facility] [address] [place] [address] [phone] * (ABNORMAL) Vitamin B12 (09/15/2023 8:48 AM EDT) Vitamin B12 1,140(H) 200 - 900 pg/mL [facility] Comment:NORMAL 200-900 PG/ML INDETERMINATE 160-199 PG/ML DEFICIENT < 160 PG/ML Blood Venous blood specimen / Unknown 09/15/2023 8:48 AM EDT 09/15/2023 2:36 PM EDT us Joleen Wilkinson MD LAB BLOOD ORDERABLES Final Result Performing Organization Address [facility] Co de Phone Number [facility] [address] [place] [address] [phone] * TSH W/Reflex to FT4 (09/15/2023 8:48 AM EDT) TSH reflex Free T4 1.57 0.32 - 4.0 uIU/mL [facility] Blood 09/15/2023 8:48 AM EDT 09/15/2023 2:36 PM EDT us Joleen Wilkinson MD LAB BLOOD ORDERABLES Final Result Performing Organization Address [facility] de Phone Number [facility] [address] [place] [phone] documented in this encounter Visit Diagnoses Diagnosis Other sleep apnea- Primary Periodic limb movement Periodic limb movement disorder documented in this encounter Additional Health Concerns Assessment Noted Time PHQ-9 Depression Total Score: 0 07/20/20 23 2:36 PM EDT documented as of this encounter Care Teams Flange Machine Operator Relationship Specialty Start Date End Date Joleen Wilkinson MD [address] [place] [phone] PCP - General Internal Medicine 03/26/17 documented as of this encounter
--- OUTSIDE RECORDS SUMMARY | 2025-01-12 13:54 | XMS_ITS | Encounter Summary ---
Author Organization [employer] Address [address] [facility] 7t [place] [address] Care Team Providers Care Travograph Operator Name Role Phone Joleen Wilkinson MD Primary Care Provider [phone] Reason for Visit * Reason Onset Date Comments Call Back Request 10/21/2023 Encounter Details Date Type Department Care Team ([facility] st Contact Info) Description 10/21/2023 Telephone [facility] [address] [place] [address] Joleen Wilkinson MD [address] [facility] [address] [place], [place] [phone] Call Back Request Social History Tobacco Use [...] regards to lab work results. Patient speaks kazakh documented in this encounter Plan of Treatment Upcoming Encounters Date Type Department Care Team (Late st Contact Info) Description 01/31/2025 10:00 AM EDT Office Visit [facility] MED & PEDS [address] [place] [address] Joleen Wilkinson MD [address] [place] [address] documented as of this encounter Visit Diagnoses Not on filedocumented in this encounter Additional Health Concerns Assessment Noted Time PHQ-9 Depression Total Score: 0 07/20/20 23 2:36 PM EDT documented as of this encounter Care Teams Travograph Operator Relationship Specialty Start Date End Date Joleen Wilkinson MD [address] [place] [phone] PCP - General Internal Medicine 03/26/17 documented as of this encounter
--- OUTSIDE RECORDS SUMMARY | 2025-01-12 13:54 | XMS_ITS | Clinical Summary ---
Author Organization [facility] it Address [address] [place] [address] Care Team Providers Care Pet House Sitter Name Role Phone Joleen Wilkinson MD Primary Care Provider [phone] Social History Tobacco Use Types Packs/Day Years [...] AM EDT Narrative 07/15/2021 10:57 AM EDT [facility] Diagnostic Imaging Department [address] [place] [address] Patient: ??JEFERSON EDGE ?/Age/Sex: 1950 - 71 - M Unit#: ??[id number] ? Location/Status: ??SPDIUS/REG CLI ? Mnemonic/Ordering Site: ??AAASCRSTUD/SPUS Ordering Physician: ??JAE PATEL JUNIOR ACCOUNT MANAGER US Abdomen Aorta Scr Study AAA - [...] be of normal caliber, without aneurysm. Code 97810 G9551 Dictating Physician: ??LUIS MIGUEL STANTON MD Electronically Signed by: ??LUIS MIGUEL STANTON MD Dic Date/Time: ??07/15/21 1055 Sign date/Time: ??07/15/21 1057 Procedure Note Luis Miguel Stanton MD - 11/19/2022 [facility] Diagnostic Imaging Department [address] [place] [address] Patient: JEFERSON EDGE /Age/Sex: 1950 - 71 - M Unit#: [id number] [facility] Mn[facility]onic/Ordering Site: [facility] Ordering Physician: JAE PATEL JUNIOR ACCOUNT MANAGER US Abdomen Aorta Scr Study AAA - [...] be of normal caliber, without aneurysm. Code 86933 G9551 Dictating Physician: LUIS MIGUEL STANTON MD Electronically Signed by: LUIS MIGUEL STANTON MD Dic Date/Time: 07/15/21 1055 Sign date/Time: 07/15/21 105 us Jae Patel NP IMG US PROCEDURES Final Re sult from Last 3 Months or Most Recently Relevant to Health Maintenance Care Teams Pet House Sitter Relationship Specialty Start Date End Date Joleen Wilkinson MD [address] [place] [address] PCP - General Internal Medicine 08/05/22
--- OUTSIDE RECORDS SUMMARY | 2025-01-12 13:54 | XMS_ITS | Clinical Summary ---
Author Organization [facility] Address [address] [place] [address] Care Team Providers Care Motel Front Desk Clerk Name Role Phone Unavailable Primary Care Provider [...]
== END 2025-01-12 13:47 | disposition home or self-care (01) ==
PROVIDERS: PCP Internal Medicine; Visit Provider Student in an Organized Health Care Education/Training Program
DX: M15.9 Polyosteoarthritis, unspecified (principal)
CPT/HCPCS: 99214

== ENCOUNTER → 2025-01-12 13:00 | Outpatient (BNVA) | payer MEDICARE, MEDICAID, SELFPAY | PROVIDERS: PCP Internal Medicine; Visit Provider Student in an Organized Health Care Education/Training Program | DX: M15.9 Polyosteoarthritis, unspecified (principal) | CPT/HCPCS: 99212 ==

== ENCOUNTER 2025-02-02 10:04 | Outpatient (AMB) | payer MEDICARE, MEDICAID, SELFPAY ==
--- NOTE | 2025-02-02 10:30 | MHC.OFFVIS ---
Vital Signs 02/02/25 10:38 Height 5 ft 11 in Weight 258 lb BMI 36.0 BP 124/66 Blood Pressure Location Lt brachial Position Sitting Pulse 71 Pulse Source Pulse Oximeter Pulse Oximetry (%) 98 Oxygen Delivery Method Room Air Intake Visit Reasons: s/p left L4-L5 TFESI Intake Note: Pain today 05/02 Supervisor Coil Winding Required: Yes Supervisor Coil Winding Language: Warehouse Receiving Clerk Services: Supervisor Coil Winding Offered & Declined Supervisor Coil Winding Name: Shavonne Accompanied by: Spouse Allergies No Known Allergies [No Known Allergies*] Allergy (Verified 02/02/25 10:39) HPI Comments Details: Patient presents today to assess response to left L4-5 TFESI on 01/05/[address] Carolina. Patient reports ongoing 50% pain relief with partial improvement in his daily functioning, mobility or sleep. He denies any adverse reactions following this procedure. His current symptoms include axial low back pain radiating into the left leg, with noted exacerbation upon walking and stair climbing. The pain severity has persistently limited his mobility, confining him to walk only about a quarter of a mile before the onset of discomfort. The contributing factors to his current condition include underlying polymyalgia rheumatica and polyarthritis, managed by a Coverstitch Elastic Attacher, which affect joint functioning and exacerbate pain levels. The patient experiences pain primarily upon exertion and describes considerable stiffness and soreness in the morning, particularly in his hands. He is hesitant in Neurosurgical evaluation for additional back surgery. Patient is interested to address his axial low back pain with diagnostic lumbar medial branch blocks as next steps for potential Sprint PNS trial vs RFA. Denies any recent cough, cold, infection, fever or other significant changes in medical history since last office visit. - Onset/Timing: Chronic, longstanding since post-surgical intervention over 20 years ago. - Quality/Character: Radiating lower back pain with left-sided limb numbness. - Primary Location: Lower back, specifically left lumbar region. - Areas of Radiation: Left leg and lower back - Aggravating Factors: Walking, climbing stairs, prolonged exertion. - Relieving Factors: Nerve blocks and possibly radiofrequency ablation and Sprint PNS trial discussed. - Interference: Limits walking distance to a quarter mile, impacts daily function with morning stiffness in hands. Past Procedures: 01/05/25: Left L4-L5 TFESI-50% ongoing pain relief PRIOR: Patient presents today for follow up to discuss recent lumbar spine MRI results. Patient continues to endorse significant low back pain with radiation into both legs, worse on the left side in L5 distribution. Lumbar spine MRI results were discussed with patient and his with assistance of Medical frozen pie maker via Loopd Via device. Patient is interested to undergo therapeutic SALVATORE injections. Patient does not want additional back surgery but will consider neurosurgical evaluation if no relief with injection. Denies any recent cough, cold, infection, fever or any other significant changes in medical history since last office visit. Denies any changes to medications, medical history or recent hospitalizations. PRIOR: Patient is a pleasant 74 years old patient with history of arthritis, lumbar degenerative disc disease, h/o back surgery for L4 disc level over 20 years ago, bilateral hip pain, polymyalgia rheumatica, SHAVON, presents today for initial evaluation of lower back pain with radiation into bilateral lower extremities. Denies any recent trauma, injury or falls. He is on leflunomide therapy through [facility] Rheumatology for PMR. Patient reports low back pain that spreads across his waist line and into left buttock and lateral hip and into left anterior thigh. He also suffers from chronic multiple joint pain upper and lower extremities in his neck, hips, knees and legs. Patient also experiences bilateral sacroiliac joint pain. His walking is limited to 5 min, standing 10 min and sitting 20-30 min due to worsening low back pain. He reports no significant pain when sitting or resting but avoids prolonged sitting due to increased pain. Pain affects his daily activities and functioning, mobility, sleep, social interactions and quality of life. He completed 8 sessions of formal physical therapy and had to stop PT due to increasing pain with exercises. Patient reports he was getting spine injections in the past with various results. Denies any fever or chills, abdominal or groin pain, bladder or bowel dysfunction, or saddle anesthesia. Oswestry Low Back Pain Disability Score=26 (severe disability) Location: Lower back radiates down bilateral hips to knees, polyarthralgia Duration: Chronic pain, worsening for past 1 year Characteristics of symptom or complaint: Numbness, burning, tingling, pins and needles, sharp, pressure, shooting Aggravating or associated factors: Walking, standing, climbing or descending stairs, bending, lifting, heat Relieving factors: Cold therapy, topical OTC applications, naproxen, baclofen, rest Treatment: PT, injections [facility] Medical History Diverticulitis Degenerative disc disease, lumbar Right hip pain Bilateral hip pain Polymyalgia rheumatica SHAVON (obstructive sleep apnea) Bilateral hand pain Finger joint swelling Primary osteoarthritis involving multiple joints History of arthritis Pre-diabetes Hyperlipidemia HTN (hypertension) Surgical History Hx of hand surgery History of back surgery Family History Mother Guillain-Sula Social History Household Members: Spouse Alcohol intake: former Patient Tobacco Use Status: Former Tobacco user Current occupational status: retired Review of Systems Const All systems reviewed & are unremarkable except as noted in HPI and below Physical Exam Vital Signs: Last Vital Signs Pulse 71 02/02/25 10:38 BP 124/66 02/02/25 10:38 Pulse Ox 98 02/02/25 10:38 Oxygen Delivery Method Room Air 02/02/25 10:38 BMI result Body Mass Index 36.0 General: Appears afebrile. Alert and oriented. Mood and affect appropriate. Follows and participates in conversation appropriately. Respiratory effort is unlabored. No cough. Able to transition from sit to stand unassisted. Antalgic gait. Ambulates with normal heel strike and toe off on the right, increased pain on the left with toe/heel standing. General: Yes no CVA tenderness Back/Spine/Pelvis Other: Limited lumbar ROM due to pain. Mildly antalgic gait with limping. Lumbar pain significantly reproduced with extension and axial rotation. Mild to moderate pain with flexion or bending forward. Demonstrates 5/5 right and 4/5 left strength of quadriceps bilaterally as well as flexion/dorsiflexion of bilateral feet against resistance. 2+ pedal pulses bilaterally. Straight leg rise with dorsiflexion is positive on the left. Diminished patellar and achilles reflexes bilaterally. Facet loading test positive bilaterally. Nargis sign, Montez?s, Gaenslen, Pelvic compression and Stinchfield tests are positive bilaterally, right>left. Mild groin pain with I/E hip rotations on the right. Valsalva maneuver is negative. Back: no CVA tenderness Cervical Spine: loss of normal cervical lordosis, cervical muscular tenderness, pain with cervical ROM and No Cervical spine tenderness Thoracic/Lumbar Spine: thoracic and lumbar spine normal to inspection, Thoracic/lumbar spine scar(s), Lasegue's sign positive on the left and localized, pain with thoraco-lumbar ROM, paraspinal muscle tenderness, thoraco-lumbar ROM limited, No thoracic spinal tenderness and lumbar spinal tenderness (L4-S1) Pelvis: buttock tenderness (right>left) bilaterally Sacroiliac joints: bilaterally tender to palpation Extrem General: Yes capillary refill normal, Yes no clubbing, cyanosis or edema and Yes no calf tenderness Results Reviewed Results Reviewed: MR lumbar spine without gadolinium 11/29/24 Comparison: None available at this time Findings: Small subacute Schmorl's node of the lower endplate of L3. Otherwise, normal heights of 5 lumbar vertebrae. Mild retrolisthesis at L3-L4 and lumbosacral junction. Modic type 1 endplate changes at L3-L4, L4-L5, and L5-S1. Multifocal hemangiomas noted. Subcutaneous edema present. No drainable paraspinal fluid collection. No suspicious features of the imaged renal cystic lesions by noncontrast imaging in the czufw-on-usyi. Conus terminates at T12-L1. L1-L2: Disc bulge and bilateral facet arthropathy. No spinal stenosis. L2-L3: Disc bulge, annular fissure, endplate hypertrophy, and bilateral facet arthropathy. Mild bilateral lateral recess narrowing. Trace left foraminal narrowing. L3-L4: Disc bulge, annular fissure, small extrusion, endplate hypertrophy, and bilateral facet arthropathy. Mild spinal canal stenosis with moderate to marked bilateral lateral recess narrowing. Mild bilateral foraminal narrowing. L4-L5: Disc bulge, endplate hypertrophy, and bilateral facet arthropathy. No significant central spinal canal stenosis. Severe left lateral recess narrowing. Moderate -severe left-sided foraminal narrowing. L5-S1: Listhesis, disc bulge, endplate hypertrophy, and annular fissure. Mild left lateral recess narrowing. Mild right and mild-moderate left foraminal narrowing. IMPRESSION: 1. Severe left lateral recess narrowing and severe left-sided foraminal narrowing at L4-L5. 2. Additional spinal stenosis including bilateral lateral recess narrowing of L3-L4. 3. Multifocal facet arthropathy of the lumbar spine. Assessment & Plan Assessment & Plan (1) Degenerative disc disease, lumbar: Code(s): M51.36 - Other intervertebral disc degeneration, lumbar region Category: Medical (2) Lumbar radiculopathy: Code(s): M54.16 - Radiculopathy, lumbar region Category: Medical (3) Lumbar post-laminectomy syndrome: Code(s): M96.1 - Postlaminectomy syndrome, not elsewhere classified Category: Medical (4) Neuroforaminal stenosis of lumbar spine: Code(s): M48.061 - Spinal stenosis, lumbar region without neurogenic claudication Category: Medical (5) Lumbosacral spondylosis: Code(s): M47.817 - Spondylosis without myelopathy or radiculopathy, lumbosacral region Category: Medical Plan Patient is one month status post left L4-L5 TFESI with partial pain relief for left sided radiculopathy. He also endorses significant axial low back pain. The management involves minimizing chronic pain and improving function through conservative interventions. I proposed exploring nerve blocks as a diagnostic measure to address the patient's arthritic back pain. Should these provide adequate pain relief, radiofrequency ablation or Sprint PNS trial can be considered as a more lasting solution. I instructed the patient on signs to monitor and underlined the importance of contacting me if significant pain returns. Our goal is to facilitate daily living without advancing to surgical options, which the patient wishes to defer. Schedule Bilateral Diagnostic L3-L4 DR L5 MBB with local and fluoroscopy, oral Ativan. Expectations, risks and benefits were reviewed. Patient is aware he will be contacted to schedule this procedure. Continue regular follow ups with Rheumatology to ensure polymyalgia rheumatica and polyarthritis management remains optimized. All questions were answered and the patient is in agreement of plan. Follow-up after injections and sooner as needed. Patient was informed and verbally consented to the use of an ambient scribe for clinic note documentation during this visit. Coding Level of Care Code Est Pt Level 4 (12171) Complex EM visit Add On G2211 Diagnoses Degenerative disc disease, lumbar M51.36 Lumbar radiculopathy M54.16 Lumbar post-laminectomy syndrome M96.1 Neuroforaminal stenosis of lumbar spine M48.061 Lumbosacral spondylosis M47.817
[2025-02-02 10:38] VITALS: BP 124/66; PULSE 71; O2SAT 98; BMI 36.0
--- OUTSIDE RECORDS SUMMARY | 2025-02-02 12:28 | XMS_ITS | Clinical Summary ---
Author Organization [facility] Address [address] [place] [address] Care Team Providers Care Seam Presser Name Role Phone Yasir Patel Primary Care Provider [phone] [phone] Source Comments PLEASE NOTE, if this patient [...] H/O colonoscopy 12/01/2016 Overview (03/26/2021): January 2020 [facility] tubular adenoma x2, follow up 5-7 [...] Charting 06/12/2024 06/10/2023 Dental Prophy 06/12/2024 06/10/2023 [id number] ( season) 2024 10/10/2021, 02/09/2021, 01/12/2021 Imm-Influenza [...] 08/29/20 20, 09/30/2019, 09/03/2017, Additional history exists Procedures Procedure Name Priority Date/Time Associated Diagnosis Comments COMP PERIODONTAL EVALUATION - NEW/EST PATIENT Routine 06/10/2023 9:40 AM EDT Encounter for dental examination BITEWINGS - FOUR RADIOGRAPHIC IMAGES Routine 06/10/2023 9:40 AM EDT Fractured dental yazidi with loss of material Encounter for dental examination PROPHYLAXIS - ADULT Routine 06/10/2023 9 :40 AM EDT Encounter for dental examination PERIODIC ORAL EVALUATION ESTABLISHED PATIENT Routine 06/10/2023 9:40 AM EDT Encounter for dental examination HEMOGLOBIN GLYCOSYLATED A1C Routine 01/28/2022 3:54 PM EST Prediabetes LIPID PANEL Routine 09/05/2021 9:15 AM EDT Examination, medical, general Primary hypertension COLONOSCOPY Routine 01/31/2020 HEPATITIS A,B,C PANEL Routine 08/11/2019 11:33 AM EDT Laboratory exam ordered as part of routine general medical examination Need for hepatitis C screening test from Last 3 Months or Most Recently Relevant to Health Maintenance Results * (ABNORMAL) HEMOGLOBIN, GLYCOSYLATED (A1C) (01/28/2022 3:54 PM EST) HEMOGLOBIN A1C 5.9(H) <5.7 % of total Hgb [facility] Comment: For someone without known diabetes, a [...] EST 01/28/2022 3:55 PM EST Yasir Patel [facility] - BLOOD DRAW Edited R esult - Final [employer] [address] [address], [facility] [place] [employer] [place] [address] [address] * (ABNORMAL) LIPID PANEL (09/05/2021 9:15 AM EDT) CHOLESTEROL, TOTAL 146 <200 mg/dL [facility] HDL CHOLESTEROL 38(L) > OR = 40 mg/dL [facility] TRIGLYCERIDES 220(H) <150 mg/dL [facility] Comment: If a non-fasting specimen was collected, consider repeat triglyceride testing on a fasting specimen if clinically indicated. Kelby et al. J. of Clin. Lipidol. 2015;9:129-169. LDL-CHOLESTEROL 76 99 mg/dL (calc) [facility] Comment: Reference range: <100 Desirable range <100 mg/dL for primary prevention; ?? <70 mg/dL for patients with CHD or diabetic patients with > or = 2 CHD risk factors. LDL-C is now calculated using the Jaime-Brown calculation, which is a validated novel method providing better accuracy than the Friedewald equation in the estimation of LDL-C. Jaime SS et al. ANA LUISA. 2013;310(19): 3706-0605 (http://education.Aseptia/faq/PEA023) CHOL/HDLC RATIO 3.8 <5.0 (calc) [facility] NON-HDL CHOLESTEROL 108 <130 mg/dL (calc) [facility] Comment: For patients with diabetes plus 1 major ASCVD risk factor, treating to a non-HDL-C goal of <100 mg/dL (LDL-C of <70 mg/dL) is considered a therapeutic option. Blood Blood / Unknown 09/05/2021 9 :15 AM EDT 09/05/2021 9:15 AM EDT Yasir Patel [facility] - BLOOD DRAW Final Re sult [facility] [address] [address], [facility] [address] [address] * COLONOSCOPY (01/31/2020) us Provider [place] PROCEDURES Final Result * (ABNORMAL) HEPATITIS A,B,C PANEL (08/11/2019 11:33 AM EDT) HEPATITIS B SURFACE ANTIBODY NEGATIVE NEGATIVE [facility] HEPATITIS B SURFACE ANTIGEN NEGATIVE NEGATIVE [facility] Comment: Over the counter supplements containing high doses of biotin may interfere with this assay. ??If interference is suspected, patients shoud be retested after refraining from biotin supplements for 72 hours. HEPATITIS B CORE ANTIBODY NEGATIVE NEGATIVE [facility] HEPATITIS C VIRUS DIAGNOSTIC NEGATIVE NEGATIVE [facility] HEPATITIS A ANTIBODY TOTAL POSITIVE(A) NEGATIVE [facility] Comment: Over the counter supplements containing high doses of biotin may interfere with this assay. ??If interference is suspected, patients shoud be retested after refraining from biotin supplements for 72 hours. Blood specimen (specimen) Blood / Unknown 08/11/2019 11:33 AM EDT 08/11/2019 12:47 PM EDT Narrative [facility] - 08/11/2019 4:24 PM EDT [address], [place] [address] Bronc Breaker - Bethany Vigil MD PT ID [id number] ORD# [id number] Ranjan Kramer NP LAB - BLOOD DRAW Edited Result - Final Performing Organization Address City/[facility]/ZIP Co de Phone Number [employer] [address], from Last 3 Months or Most Recently Relevant to Health Maintenance Insurance [place] [employer] [employer] [place] [address] [place] [address] [employer] MEDICARE DENTAL Care Teams Seam Presser Relationship Specialty Start Date End Date Yasir Patel FNP [address] [place] [address] PCP - General Family Medicine, DIRECTOR OF STUDENT LIFE 06/17/23
--- OUTSIDE RECORDS SUMMARY | 2025-02-02 12:29 | XMS_ITS | Encounter Summary ---
Author Organization [employer] Address [address] [place] [address] 7 [place] [address] Care Team Providers Care Mechanical Striper Name Role Phone Joleen Wilkinson MD Primary Care Provider [phone] Reason for Visit * Reason Onset Date Comments Appointment Confirmation 07/06/2023 Encounter Details Date Type Department Care Team ([facility] st Contact Info) Description 07/06/2023 Telephone [facility] MED & PEDS [address] [place] [address] Joleen Wilkinson MD [address] [place] [address] Appointment Confirmation Social History Tobacco Use Types [...] receive a call with appt details at [facility] but [place] states that no one at [facility] has contact him with appt details. Please contact pt at [phone] Tajik Speaker documented in this encounter Plan of Treatment Upcoming Encounters Date Type Department Care Team (Late st Contact Info) Description 05/05/2025 2:30 PM EDT Office Visit [facility] MED & PEDS [address] [place] [address] Joleen Wilkinson MD [address] [place] [address] documented as of this encounter Visit Diagnoses Not on filedocumented in this encounter Care Teams Mechanical Striper Relationship Specialty Start Date End Date Joleen Wilkinson MD [address] [place] [address] PCP - General Internal Medicine 03/26/17 documented as of this encounter
--- OUTSIDE RECORDS SUMMARY | 2025-02-02 12:29 | XMS_ITS | Encounter Summary ---
Author Organization [employer] Address [address] [facility] 7t [place] [address] Care Team Providers Care Picked Edge Sewing Machine Operator Name Role Phone Joleen Wilkinson MD Primary Care Provider [phone] Reason for Visit * Reason Comments Pre-visit Planning SDOH unable to reach , number disconnected Encounter Details Date Type Department Care Team ([facility] Contact Info) Description 01/24/2025 Patient Outreach [facility] CHC MED & PEDS [address] [place] [address] Joleen Wilkinson MD 505 [place] [address] Pre-visit Planning (SDOH unable to reach, number disconnected) Social History Tobacco Use Types Packs/Day Years [...] as of this encounter Progress Notes * Leda aMrtinez - 01/24/2025 3:26 PM EST CC Leda Molina placed outbound call to patient to complete pre-visit planning. No answer at this time. Patient name and were not confirmed. CC unable to leave a message due to number not in service documented in this encounter Plan of Treatment Upcoming Encounters Date Type Department Care Team (Late st Contact Info) Description 05/05/2025 2:30 PM EDT Office Visit [facility] CH[facility] MED & PEDS [address] [place] [address] Joleen Wilkinson MD [address] [place] [address] documented as of this encounter Visit Diagnoses Not on filedocumented in this encounter Additional Health Concerns Assessment Noted Time PHQ-9 Depression Total Score: 0 07/20/20 23 2:36 PM EDT documented as of this encounter Care Teams Picked Edge Sewing Machine Operator Relationship Specialty Start Date End Date Joleen Wilkinson MD [address] [place] [address] PCP - General Internal Medicine 03/26/17 documented as of this encounter
--- OUTSIDE RECORDS SUMMARY | 2025-02-02 12:29 | XMS_ITS | Clinical Summary ---
Author Organization [facility] Address [address] [place] [address] Care Team Providers Care Osteopathic Neurologist Name Role Phone Unavailable Primary Care Provider [...]
--- OUTSIDE RECORDS SUMMARY | 2025-02-02 12:29 | XMS_ITS | Encounter Summary ---
Author Organization [employer] Address [address] [facility] 7t [place] [address] Care Team Providers Care Supervisor Blast Furnace Name Role Phone Joleen Wilkinson MD Primary Care Provider [phone] Encounter Details Date Type Department Care Team ([facility] st Contact Info) Description 04/08/2024 Orders Only [facility] CHC MED & PEDS [address] [place], [place] [phone] Joleen Wilkinson MD 505 [place] [address] Social History Tobacco Use Types Packs/Day Years [...] t he electric, gas, oil or water [employer] threatened to shut off services in your [...] Description 05/05/2025 2:30 PM EDT Office Visit [facility] MED & PEDS [address] [place] [address] Joleen Wilkinson MD [address] [place] [address] documented as of this encounter Visit Diagnoses Not on filedocumented in this encounter Additional Health Concerns Assessment Noted Time PHQ-9 Depression Total Score: 0 07/20/20 23 2:36 PM EDT documented as of this encounter Care Teams Supervisor Blast Furnace Relationship Specialty Start Date End Date Joleen Wilkinson MD [address] [place] [address] PCP - General Internal Medicine 03/26/17 documented as of this encounter
--- OUTSIDE RECORDS SUMMARY | 2025-02-02 12:29 | XMS_ITS | Encounter Summary ---
Author Organization [employer] Address [address] [facility] 7t [place] [address] Care Team Providers Care Painter Airbrush Name Role Phone Joleen Wilkinson MD Primary Care Provider [phone] Encounter Details Date Type Department Care Team ([facility] st Contact Info) Description 09/11/2023 Orders Only [facility] CH[facility] MED & PEDS [address] [place], [place] [phone] Joleen Wilkinson MD [address] [place] [address] Other sleep apnea (Primary Dx); Periodic limb [...] Description 05/05/2025 2:30 PM EDT Office Visit [facility] CH[facility] MED & PEDS [address] [place], [place] [phone] Joleen Wilkinson MD [address] [place], [place] [phone] documented as of this encounter Procedures Procedure Name Priority Date/Time Associated Diagnosis Comments TSH W/REFLEX TO FT4 Routine 09/15/2023 8 :48 AM EDT Periodic limb movement FERRITIN Routine 09/15/2023 8:48 AM EDT Periodic limb movement VITAMIN B12 Routine 09/15/2023 8:48 AM EDT Periodic limb movement documented in this encounter Results * Ferritin (09/15/2023 8:48 AM EDT) Ferritin 125 20 - 250 ng/mL [facility] Blood Venous blood specimen / Unknown 09/15/2023 8:48 AM EDT 09/15/2023 2:36 PM EDT Joleen Wilkinson MD LAB BLOOD ORDERABLES Final Result [facility] [address] [place] [address] [phone] * (ABNORMAL) Vitamin B12 (09/15/2023 8:48 AM EDT) Vitamin B12 1,140(H) 200 - 900 pg/mL [facility] Comment:NORMAL 200-900 PG/ML INDETERMINATE 160-199 PG/ML DEFICIENT < 160 PG/ML Blood Venous blood specimen / Unknown 09/15/2023 8:48 AM EDT 09/15/2023 2:36 PM EDT us Joleen Wilkinson MD LAB BLOOD ORDERABLES Final Result Performing Organization Address [facility] Co de Phone Number [facility] [address] [place] [address] [phone] * TSH W/Reflex to FT4 (09/15/2023 8:48 AM EDT) TSH reflex Free T4 1.57 0.32 - 4.0 uIU/mL [facility] Blood 09/15/2023 8:48 AM EDT 09/15/2023 2:36 PM EDT us Joleen Wilkinson MD LAB BLOOD ORDERABLES Final Result Performing Organization Address [facility] de Phone Number [facility] [address] [place] [phone] documented in this encounter Visit Diagnoses Diagnosis Other sleep apnea- Primary Periodic limb movement Periodic limb movement disorder documented in this encounter Additional Health Concerns Assessment Noted Time PHQ-9 Depression Total Score: 0 07/20/20 23 2:36 PM EDT documented as of this encounter Care Teams Painter Airbrush Relationship Specialty Start Date End Date Joleen Wilkinson MD [address] [place] [address] PCP - General Internal Medicine 03/26/17 documented as of this encounter
--- OUTSIDE RECORDS SUMMARY | 2025-02-02 12:29 | XMS_ITS | Encounter Summary ---
Author Organization [employer] Address [address] [facility] [facility] [address] 7[address] [place] [address] Care Team Providers Care Cut Off Sawyer Shingle Mill Name Role Phone Joleen Wilkinson MD Primary Care Provider [phone] Encounter Details Date Type Department Care Team (Latest Contact Info) Description 01/30/2025 Travel Social History Tobacco Use Types Packs/Day Years Used Date Smoking Tobacco: Never Passive Smoke Exposure: Never Smokeless Tobacco: Never Alcohol Use Standard Drinks/Week Comments Never 0 (1 standard drink = 0.6 oz pur e alcohol) Depression Answer Date Recorded Patient Health Questionnaire-9 Score 0 01/31/2025 Patient Health Questionnaire-9 Score 0 01/31/2025 Last PHQ-9: Questionnaire Data Not on file 0 01/31/2025 Housing Stability Answer Date Recorded What is your housing situation today? I have awilda hyman 01/31/[address] you li ve. Do you have problems with any of the following? None of the above 01/31/2025 Food Insecurity Answer Date Recorded Within the past 12 months, y ou worried that your food would run out before you got money to buy more: Never True 01/31/2025 Within the past 12 months,th e food you bought just didn't last and you didn't have enough money to get more: Never True 09/2025 Transportation Answer Date Recorded In the past 12 months, has l ack of transportation kept you from medical appts, meetings, work or from getting things needed for daily living? No 01/31/2025 Utilities Answer Date Recorded In the past 12 months, has t he electric, gas, oil or water company threatened to shut off services in your home? No 01/31/2025 Depression Answer Date Recorded Patient Health Questionnaire-2 Score 0 01/31/2025 Internet Access Answer Date Recorded Internet Access Q1 Yes 01/31/2025 Internet Access Q2 Not on file 01/31/2025 Sex and Gender Information Value Date Recorded Sex Assigned at Male 09/22/2022 10:31 AM EDT Legal Sex Male 10:31 AM EDT Gender Identity Male 03/20/2023 4:00 PM EDT Sexual Orientation Don't know 09/22/2022 10 :31 AM EDT documented as of this encounter Plan of Treatment Upcoming Encounters Date Type Department Care Team (Late st Contact Info) Description 05/05/2025 2:30 PM EDT Office Visit [facility] MED & PEDS [address] [place] [address] Joleen Wilkinson MD [address] [place] [address] documented as of this encounter Visit Diagnoses Not on filedocumented in this encounter Additional Health Concerns Assessment Noted Time PHQ-9 Depression Total Score: 0 07/20/20 23 2:36 PM EDT documented as of this encounter Care Teams Cut Off Sawyer Shingle Mill Relationship Specialty Start Date End Date Joleen Wilkinson MD [address] [place] [address] PCP - General Internal Medicine 03/26/17 documented as of this encounter
--- OUTSIDE RECORDS SUMMARY | 2025-02-02 12:29 | XMS_ITS | Encounter Summary ---
Author Organization [employer] Address [address] [facility] 7t [place] [address] Care Team Providers Care Fender Finisher Name Role Phone Joleen Wilkinson MD Primary Care Provider [phone] Encounter Details Date Type Department Care Team (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 (CMS/HCC); Class 2 severe obesity due to excess calories with serious comorbidity and body mass index (BMI) of 36.0 to 36.9 in adult (CMS/HCC); Prediabetes; Class 2 severe obesity due to excess calories with serious comorbidity and body mass index (BMI) of 37.0 to 37.9 in adult ([facility]/HCC); Urticaria Social History Tobacco Use Types Packs/Day Years [...] Sign Reading Time Taken Comments Blood Pressure 121/75 01/31/2025 10:07 AM EDT Pulse 86 01/31/2025 10:07 AM EDT Temperature 36.7 ??C (98 ??F) 01/31/2025 10:07 AM EDT Respiratory Rate 20 01/31/2025 10:07 AM EDT Oxygen Saturation 95% 01/31/2025 10:07 AM EDT Inhaled Oxygen Concentration - - Weight 119 kg (263 lb) 01/31/2025 10:07 AM EDT Height 182 cm (5' 11.65 ) 01/31/2025 10:07 AM ED T Body Mass Index 36.02 01/31/2025 10:07 AM EDT documented in this encounter Progress Notes * Joleen Wilkinson MD - 01/31/2025 10:00 AM EDT Subjective Patient ID: Jeferson De La Torre is a 75 y.o. male who presents for No chief complaint on file.. Back Pain The current episode started more than 1 year ago. The problem occurs daily. The problem has been waxing and waning since onset. The pain is present in the sacro-iliac. The quality of the pain is described as aching, burning and shooting. The pain radiates to the left foot, left knee, left thigh, right foot and right knee. The pain is at a severity of 10/10. The pain is The same all the time. The symptoms are aggravated by bending, position, lying down and standing. Stiffness is present In the morning. Associated symptoms include leg pain, numbness, paresthesias, tingling and weight loss. Pertinent negatives include no abdominal pain, bladder incontinence, bowel incontinence, chest pain, dysuria, fever, headaches, paresis, pelvic pain, perianal numbness or weakness. Risk factors include obesity. Patient with multiple medical condition here for follow-up. Denies any episode of hypoglycemia since the last office visit. Has chronic body aches and polyarthralgias. Recently received an epidural injection for his degenerative disc disease which has been very helpful. No reported fever or other constitutional symptoms. Last evaluation by rheumatology on September 13, 2024. Was on methotrexate for 7 months without improvement. He is currently now off prednisone. Patient is off medication for his presumed seronegative rheumatoid arthritis. Patient Active Problem List Diagnosis Arthritis pain Chronic back pain HTN (hypertension) Hyperlipidemia Microcytic anemia Muscle spasm OA (osteoarthritis) Obesity Other sleep apnea Prediabetes Rheumatoid arthritis with negative rheumatoid factor ([facility]) PMR (polymyalgia rheumatica) ([facility]) Current Outpatient Medications on File Prior to Visit Medication Sig Dispense Refill Alcohol Swabs (Alcohol Pads) 70 % pads 1 Box in the morning. 100 each 11 atorvastatin (Lipitor) 40 MG tablet TOME PABLO TABLETA TODOS [place] 90 tablet 1 baclofen (Lioresal) 20 MG tablet Take 1 tablet by mouth in the morning and 1 tablet in the evening.(Patient not taking: Reported on 11/29/2024) baclofen (Lioresal) 20 MG tablet Take 1 tablet (20 mg) by mouth 3 times daily. 40 tablet 2 Blood Glucose Monitoring Suppl (FreeStyle Lite) w/Device kit 1 Units in the morning. 1 kit 0 cholecalciferol (D3-1000) 25 MCG (1000 UT) tablet TAKE 1 TABLET BY MOUTH EVERY MORNING 90 tablet 3 diphenhydrAMINE (BENADryl) 25 MG tablet Take 1 tablet (25 mg) by mouth if needed at bedtime for itching. 30 tablet 1 fexofenadine (Sharon) 180 MG tablet Take 1 tablet (180 mg) by mouth if needed each day (Allergies). 30 tablet 1 folic acid (Folvite) 1 MG tablet Take 1,000 mcg by mouth in the morning. gabapentin (Neurontin) 100 MG capsule Take 1 capsule (100 mg) by mouth at bedtime. 30 capsule 11 leflunomide (Arava) 20 MG tablet Take 1 tablet by mouth Once per day. lisinopril-hydroCHLOROthiazide 20-12.5 MG tablet TOME PABLO TABLETA TODOS [place] EN LA BURTONANA 90 tablet 2 metFORMIN XR (Glucophage-XR) 500 MG 24 hr tablet Take 500 mg by mouth with evening meal. Mounjaro 10 MG/0.5ML solution auto-injector INJECT 10 MG UNDER THE SKIN 1 (ONE) TIME PER WEEK. 2 mL1 Mounjaro 7.5 MG/0.5ML solution auto-injector INJECT 7.5 MG UNDER THE SKIN 1 (ONE) TIME PER WEEK. 2 mL 1 naproxen (Naprosyn) 500 MG tablet Take 1 tablet by mouth every 12 (twelve) hours. (Patient not taking: Reported on 11/29/2024) naproxen (Naprosyn) 500 MG tablet TAKE 1 TABLET BY MOUTH WITH BREAKFAST AND EVENING MEAL 60 tablet 3 predniSONE (Deltasone) 20 MG tablet 20 mg once a day x 3 days. 3 tablet 0 Restasis 0.05 % ophthalmic emulsion INSTILL INSTILL 1 DROP INTO BOTH EYES TWICE A DAY vardenafil (Levitra) 10 MG tablet Take 1 tablet (10 mg) by mouth if needed each day for erectile dysfunction. 10 tablet 0 zolpidem (Ambien) 10 MG tablet TAKE 1/2 TABLET BY MOUTH IF NEEDED AT BEDTIME FOR SLEEP FOR UP TO 1 DAYTAKE 1 TABLET 30 MINUTES BEFORE THE PROCEDURE.MIGHT TAKE ANOTHER IF NOT SLEEPING 2 tablet 0 No current facility-administered medications on file prior to visit. Review of Systems Constitutional: Positive for weight loss. Negative for chills, fatigue and fever. Cardiovascular: Negative for chest pain, palpitations and leg swelling. Gastrointestinal: Negative for abdominal pain and bowel incontinence. Genitourinary: Negative for bladder incontinence, dysuria, enuresis and pelvic pain. Musculoskeletal: Positive for arthralgias and back pain. Neurological: Positive for tingling, numbness and paresthesias. Negative for weakness and headaches. Objective BP 121/75 (BP Location: Left arm, Patient Position: Sitting, BP Cuff Size: Adult long) Pulse 86 Temp 98 ??F (36.7 ??C) (Oral) Resp 20 Ht 5' 11.65 (1.82 m) Wt 263 lb (119 kg) SpO2 95% BMI 36.02 kg/m?? Physical Exam Constitutional: General: He is not in acute distress. Appearance: Normal appearance. He is obese. He is not ill-appearing, toxic- appearing or diaphoretic. Cardiovascular: Rate and Rhythm: Normal rate. Heart sounds: No gallop. Abdominal: General: Bowel sounds are normal. Neurological: General: No focal deficit present. Mental Status: He is alert. Assessment/Plan Diagnoses and all orders for this visit: Primary hypertension Comments: Blood pressure is at goal No change in medication Patient is to continue with the DASH diet. Mixed hyperlipidemia Comments: Low-cholesterol diet To continue with the same medication. 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 ([facility]) Comments: To follow-up with rheumatology Naproxen and baclofen as needed Class 2 severe obesity due to excess calories with serious comorbidity and body mass index (BMI) of36.0 to 36.9 in adult ([facility]) - Tirzepatide (Mounjaro) 10 MG/0.5ML solution auto-injector; Inject 10 mg under the skin 1 (one) time per week. Prediabetes Comments: Low-carb diet Keep as active as tolerated Orders: - POCT Glucose - POCT HGB A1C Class 2 severe obesity due to excess calories with serious comorbidity and body mass index (BMI) of37.0 to 37.9 in adult ([facility]) Comments: Continue with Mounjaro. Dose increased to 10 mg once a week Orders: - Tirzepatide (Mounjaro) 10 MG/0.5ML solution auto-injector; Inject 10 mg under the skin 1 (one) time per week. Urticaria - fexofenadine (Sharon) 180 MG tablet; Take 1 tablet (180 mg) by mouth if needed each day (Allergies). documented in this encounter Plan of Treatment Upcoming Encounters Date Type Department Care Team (Late st Contact Info) Description 05/05/2025 2:30 PM EDT Office Visit [facility] MED & PEDS [address] [place] [address] Joleen Wilkinson MD [address] [place] [address] documented as of this encounter Procedures Procedure Name Priority Date/Time Associated Diagnosis Comments POCT GLUCOSE Routine 01/31/2025 10:43 AM EDT Prediabetes POCT GLYCATED HEMOGLOBIN, TOTAL Routine 01/31/2025 10:42 AM EDT Prediabetes documented in this encounter Results * POCT Glucose (01/31/2025 10:43 AM EDT) Glucose Blood, POC 120 60 - 200 mg/dL QC Media Lot # [id number] Lot# Expiration Date 847,549 Comment:random Blood Capillary blood specimen / Unknown 01/31/2025 10:43 AM EDT Joleen Wilkinson MD POINT OF CARE TEST ENTER/ED IT ORDERABLES Final Result * POCT HGB A1C (01/31/2025 10:42 AM EDT) Hemoglobin A1C 5.6 4.0 - 6.0 % QC Media Lot # [id number] Lot# Expiration Date ,026 Blood 01/31/2025 10:4 2 AM EDT Joleen Wilkinson MD POINT OF CARE TEST ENTER/ED IT ORDERABLES Final Result documented in this encounter Visit Diagnoses Diagnosis Primary hypertension- Primary Unspecified essential hypertension Mixed hyperlipidemia 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 (CMS/[facility]) Class 2 severe obesity due to excess calories with serious comorbidity and body mass index (BMI) of 36.0 to 36.9 in adult ([facility]) Prediabetes Other abnormal glucose Class 2 severe obesity due to excess calories with serious comorbidity and body mass index (BMI) of 37.0 to 37.9 in adult ([facility]) Urticaria Unspecified urticaria documented in this encounter Additional Health Concerns Assessment Noted Time PHQ-9 Depression Total Score: 0 02/01/20 25 10:37 AM EDT documented as of this encounter Care Teams Fender Finisher Relationship Specialty Start Date End Date Joleen Wilkinson MD [address] [place] [address] PCP - General Internal Medicine 03/26/17 documented as of this encounter
--- OUTSIDE RECORDS SUMMARY | 2025-02-02 12:29 | XMS_ITS | Encounter Summary ---
Author Organization [employer] Address [address] [facility] 7[address] [place] [address] Care Team Providers Care Shale Planer Operator Helper Name Role Phone Joleen Wilkinson MD Primary Care Provider [phone] Encounter Details Date Type Department Care Team ([facility] st Contact Info) Description 07/16/2023 Orders Only [facility] MED & PEDS [address] [place], [place] [phone] Joleen Wilkinson MD [address] [place] [address] Other sleep apnea (Primary Dx) Social History [...] Description 05/05/2025 2:30 PM EDT Office Visit [facility] MED & PEDS [address] [place] [address] Joleen Wilkinson MD [address] [place] [address] documented as of this encounter Visit Diagnoses Diagnosis Other sleep apnea- Primary documented in this encounter Care Teams Shale Planer Operator Helper Relationship Specialty Start Date End Date Joleen Wilkinson MD [address] [place] [address] PCP - General Internal Medicine 03/26/17 documented as of this encounter
--- OUTSIDE RECORDS SUMMARY | 2025-02-02 12:29 | XMS_ITS | Encounter Summary ---
Author Organization [employer] Address [address] [facility] [address] [place] [address] Care Team Providers Care Cinder Pit Worker Name Role Phone Joleen Wilkinson MD Primary Care Provider [phone] Encounter Details Date Type Department Care Team (Latest Contact Info) Description 01/31/2025 Travel Social History Tobacco Use Types Packs/Day [...] PM EDT Office Visit [facility] MED & PEDS [address] [place] [address] Joleen Wilkinson MD [address] [place] [address] documented as of this encounter Visit Diagnoses Not on filedocumented in this encounter Additional Health Concerns Assessment Noted Time PHQ-9 Depression Total Score: 0 02/01/20 25 10:37 AM EDT documented as of this encounter Care Teams Cinder Pit Worker Relationship Specialty Start Date End Date Joleen Wilkinson MD [address] [place] [address] PCP - General Internal Medicine 03/26/17 documented as of this encounter
--- OUTSIDE RECORDS SUMMARY | 2025-02-02 12:29 | XMS_ITS | Encounter Summary ---
Author Organization [employer] Address [address] [facility] [address] [place] [address] Care Team Providers Care Buckshot Swage Operator Name Role Phone Joleen Wilkinson MD Primary Care Provider [phone] Encounter Details Date Type Department Care Team ([facility] st Contact Info) Description 06/06/2024 Orders Only [facility] MED & PEDS [address] [place], [place] [phone] Joleen Wilkinson MD [address] [place] [address] Class 2 obesity due to excess calories [...] Description 05/05/2025 2:30 PM EDT Office Visit [facility] MED & PEDS [address] [place] [address] Joleen Wilkinson MD [address] [place] [address] documented as of this encounter Visit Diagnoses Diagnosis Class 2 obesity due to excess calories without serious comorbidity with body mass index (BMI) of 37.0 to 37.9 in adult- Primary documented in this encounter Additional Health Concerns Assessment Noted Time PHQ-9 Depression Total Score: 0 07/20/20 23 2:36 PM EDT documented as of this encounter Care Teams Buckshot Swage Operator Relationship Specialty Start Date End Date Joleen Wilkinson MD [address] [place] [address] PCP - General Internal Medicine 03/26/17 documented as of this encounter
--- OUTSIDE RECORDS SUMMARY | 2025-02-02 12:29 | XMS_ITS | Encounter Summary ---
Author Organization [employer] Address [address] [facility] [address] [place] [address] Care Team Providers Care Radio Director Name Role Phone Joleen Wilkinson MD Primary Care Provider [phone]- [phone] Reason for Visit * Reason Onset Date Comments Call Back Request 10/21/2023 Encounter Details Date Type Department Care Team ([facility] st Contact Info) Description 10/21/2023 Telephone [facility] MEDICINE [address] [place] [address] Joleen Wilkinson MD [address] [facility] [address] [place], [place] [phone] Call Back Request Social History Tobacco Use [...] regards to lab work results. Patient speaks citizen of [place] documented in this encounter Plan of Treatment Upcoming Encounters Date Type Department Care Team (Late st Contact Info) Description 05/05/2025 2:30 PM EDT Office Visit [facility] MED & PEDS [address] [place] [address] Joleen Wilkinson MD [address] [place] [address] documented as of this encounter Visit Diagnoses Not on filedocumented in this encounter Additional Health Concerns Assessment Noted Time PHQ-9 Depression Total Score: 0 07/20/20 23 2:36 PM EDT documented as of this encounter Care Teams Radio Director Relationship Specialty Start Date End Date Joleen Wilkinson MD [address] [place] [id number] PCP - General Internal Medicine 03/26/17 documented as of this encounter
--- OUTSIDE RECORDS SUMMARY | 2025-02-02 12:29 | XMS_ITS | Encounter Summary ---
Author Organization [employer] Address [address] [facility] [address] [place] [address] Care Team Providers Care Associate Editor Name Role Phone Joleen Wilkinson MD Primary Care Provider [phone] Encounter Details Date Type Department Care Team ([facility] st Contact Info) Description 08/12/2024 Orders Only [facility] MED & PEDS [address] [place], [place] [phone] Joleen Wilkinson MD [address] [place] [address] Acute pain of right knee (Primary Dx) [...] 05/05/2025 2:30 PM EDT Office Visit [facility] MED & PEDS [address] [place] [address] oJleen Wilkinson MD [address] [place] [address] documented as of this encounter Visit Diagnoses Diagnosis Acute pain of right knee- Primary documented in this encounter Additional Health Concerns Assessment Noted Time PHQ-9 Depression Total Score: 0 07/20/20 23 2:36 PM EDT documented as of this encounter Care Teams Associate Editor Relationship Specialty Start Date End Date Joleen Wilkinson MD [address] [place] [address] PCP - General Internal Medicine 03/26/17 documented as of this encounter
--- OUTSIDE RECORDS SUMMARY | 2025-02-02 12:29 | XMS_ITS | Encounter Summary ---
Author Organization [employer] Address [address] [facility] [address] [place] [address] Care Team Providers Care Tunnel Heading Supervisor Name Role Phone Joleen Wilkinson MD Primary Care Provider [phone]- [phone] Reason for Visit * Reason Onset Date Comments Lab Orders 02/23/2024 Referral 02/23/2024 Encounter Details Date Type Department Care Team ([facility] st Contact Info) Description 02/23/2024 Telephone [facility] MEDICINE [address] [place], [place] [phone] Joleen Wilkinson MD [address] [facility] [address] [place], [place] [phone] Lab Orders; Referral Social History Tobacco Use [...] 11:34 AM EDT Tc wilver Daniels from [employer] insurance calling on behalf of the patient requesting a referral for a Kidney Health Screening and a GFR Blood test as well as a ACR urine test documented in this encounter Plan of Treatment Upcoming Encounters Date Type Department Care Team ([facility] st Contact Info) Description 05/05/2025 2:30 PM EDT Office Visit [facility] MED & PEDS [address] [place] [address] Joleen Wilkinson MD [address] [place] [address] documented as of this encounter Visit Diagnoses Not on filedocumented in this encounter Additional Health Concerns Assessment Noted Time PHQ-9 Depression Total Score: 0 07/20/20 23 2:36 PM EDT documented as of this encounter Care Teams Tunnel Heading Supervisor Relationship Specialty Start Date End Date Joleen Wilkinson MD [address] [place] [id number] PCP - General Internal Medicine 03/26/17 documented as of this encounter
--- OUTSIDE RECORDS SUMMARY | 2025-02-02 12:29 | XMS_ITS | Clinical Summary ---
Author Organization [employer] Address [address] [facility] 7[address] [place] [address] Care Team Providers Care Home Care Consultant Name Role Phone Joleen Wilkinson MD Primary Care Provider [phone] Allergies No known active allergies Medications * This document contains information received from the source organization and may not represent a complete record from that organization. Restasis 0.05 % ophthalmic emulsion INSTILL INSTILL 1 DROP INTO BOTH EYES TWICE A DAY 07/28/20 23 Active folic acid (Folvite) 1 MG tablet Take 1,000 mcg by mouth in the morning. 07/16/20 23 Active Blood Glucose Monitoring Suppl (FreeStyle Lite) w/Device kitIndications:Pre diabetes 1 Units in the morning. 1 kit 09/03/20 23 Active Alcohol Swabs (Alcohol Pads) 70 % padsIndications:Pr ediabetes 1 Box in the morning. 100 each 11 09/03/20 23 Active gabapentin (Neurontin) 100 MG capsuleIndications :Periodic limb movement Take 1 capsule (100 mg) by mouth at bedtime. 30 capsule 11 09/11/20 23 Active baclofen (Lioresal) 20 MG tablet Take 1 tablet by mouth in the morning and 1 tablet in the evening. 06/14/20 22 Active naproxen (Naprosyn) 500 MG tablet Take 1 tablet by mouth every 12 (twelve) hours. 06/11/20 22 Active baclofen (Lioresal) 20 MG tabletIndications: Chronic left-sided low back pain without sciatica Take 1 tablet (20 mg) by mouth 3 times daily. 40 tablet 2 07/12/20 24 Active naproxen (Naprosyn) 500 MG tabletIndications: Chronic left-sided low back pain without sciatica TAKE 1 TABLET BY MOUTH WITH BREAKFAST AND EVENING MEAL 60 tablet 3 11/09/20 24 Active metFORMIN XR (Glucophage-XR) 500 MG 24 hr tablet Take 500 mg by mouth with evening meal. 11/21/20 22 Active lisinopril-hydroCH LOROthiazide 20-12.5 MG tabletIndications: Essential hypertension TOME PABLO TABLETA TODOS [place] [facility] 90 tablet 2 12/08/19 25 Active atorvastatin (Lipitor) 40 MG tablet TOME PABLO TABLETA TODOS [place] 90 tablet 1 12/08/19 25 Active cholecalciferol (D3-1000) 25 MCG (1000 UT) tabletIndications: Other osteoarthritis involving multiple joints TAKE 1 TABLET BY MOUTH EVERY MORNING 90 tablet 3 12/09/19 25 Active Tirzepatide (Mounjaro) 10 MG/0.5ML solution auto-injectorIndic ations:Class 2 severe obesity due to excess calories with serious comorbidity and body mass index (BMI) of 36.0 to 36.9 in adult ([facility]) Inject 10 mg under the skin 1 (one) time per week. 2 mL 2 02/01/20 25 Active Tirzepatide (Mounjaro) 10 MG/0.5ML solution auto-injectorIndic ations:Class 2 severe obesity due to excess calories with serious comorbidity and body mass index (BMI) of 37.0 to 37.9 in adult ([facility]) Inject 10 mg under the skin 1 (one) time per week. 2 mL 1 02/01/20 25 Active fexofenadine (Sharon) 180 MG tabletIndications: Urticaria Take 1 tablet (180 mg) by mouth if needed each day (Allergies). 30 tablet 1 02/01/20 25 025 Active fexofenadine (Sharon) 180 MG tabletIndications: Urticaria Take 1 tablet (180 mg) by mouth if needed each day (Allergies). 30 tablet 1 07/20/20 23 025 Discontin ued(Thera py completed ) diphenhydrAMINE (BENADryl) 25 MG tabletIndications: Urticaria Take 1 tablet (25 mg) by mouth if needed at bedtime for itching. 30 tablet 1 07/20/20 23 025 Discontin ued(Thera py completed ) vardenafil (Levitra) 10 MG tabletIndications: Other male erectile dysfunction Take 1 tablet (10 mg) by mouth if needed each day for erectile dysfunction. 10 tablet 09/03/20 23 025 Discontin ued(Thera py completed ) zolpidem (Ambien) 10 MG tabletIndications: Other sleep apnea TAKE 1/2 TABLET BY MOUTH IF NEEDED AT BEDTIME FOR SLEEP FOR UP TO 1 DAYTAKE 1 TABLET 30 MINUTES BEFORE THE PROCEDURE.JASMIN HT TAKE ANOTHER IF NOT SLEEPING 2 tablet 10/05/20 23 025 Discontin ued(Thera py completed ) predniSONE (Deltasone) 20 MG tabletIndications: Acute pain of right knee 20 mg once a day x 3 days. 3 tablet 08/12/20 24 025 Discontin ued(Thera py completed ) Mounjaro 7.5 MG/0.5ML solution auto-injectorIndic ations:Prediabetes ,Class 2 severe obesity due to excess calories with serious comorbidity and body mass index (BMI) of 37.0 to 37.9 in adult ([facility]) INJECT 7.5 MG UNDER THE SKIN 1 (ONE) TIME PER WEEK. 2 mL 1 09/09/20 24 025 Discontin ued(Thera py completed ) leflunomide (Arava) 20 MG tablet Take 1 tablet by mouth Once per day. 11/10/20 24 025 Discontin ued(Thera py completed ) Mounjaro 10 MG/0.5ML solution auto-injectorIndic ations:Class 2 severe obesity due to excess calories with serious comorbidity and body mass index (BMI) of 37.0 to 37.9 in adult ([facility]) INJECT 10 MG UNDER THE SKIN 1 (ONE) TIME PER WEEK. 2 mL 1 12/05/19 25 025 Discontin ued(Thera py completed ) Active Problems Problem Noted Date Diagnosed Date [...] Encounters Date Type Department Care Team Description 01/31/2025 10:00 AM EDT Office Visit [facility] MED & PEDS [address] [place] [address] Joleen Wilkinson MD Primary hypertension (Primary Dx); Mixed hyperlipidemia; 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 ([facility]); Class 2 severe obesity due to excess calories with serious comorbidity and body mass index (BMI) of 36.0 to 36.9 in adult ([facility]); Prediabetes; Class 2 severe obesity due to excess calories with serious comorbidity and body mass index (BMI) of 37.0 to 37.9 in adult ([facility]); Urticaria 01/31/2025 Travel 01/30/2025 Travel 01/24/2025 Patient Outreach [facility] [address] [facility] [place] [address] Joleen Wilkinson MD Pre-visit Planning ([facility] unable to reach, number disconnected) 01/06/2025 Orders Only GENERIC EXTERNAL DATA DEPARTMENT Provider, Generic External Data 12/21/2024 10:00 AM EST Office Visit [facility] ADULT DENTAL [address] [place] [address] Bryant Renee 12/09/2024 9:00 AM EST Office Visit [facility] ADULT DENTAL [address] [place] [address] Bryant Renee 12/09/2024 Refill [facility] [address] [facility] [place] [address] Joleen Wilkinson MD Other osteoarthritis involving multiple joints 12/08/2024 Orders Only GENERIC EXTERNAL DATA DEPARTMENT Provider, Generic External Data 12/08/2024 Refill [facility] [address] [place] [address] Joleen Wilkinson MD Essential hypertension 12/04/2024 Refill [facility] [address] [place] [address] Joleen Wilkinson MD Class 2 severe obesity due to excess calories with serious comorbidity and body mass index (BMI) of 37.0 to 37.9 in adult ([facility]) 11/29/2024 11:00 AM EST Office Visit [facility] ADULT DENTAL [address] [place] [address] Shantelle Mancia Dental calculus (Primary Dx) 11/29/2024 Orders Only [facility] External Provider, [facility] 11/09/2024 Refill [facility]ED[facility] [address] [place] [address] Joleen Wilkinson MD Chronic left-sided low back pain without sciatica from Last 3 Months Immunizations Name Administration [...] Mass Index 36.02 01/31/2025 10:07 AM EDT Plan of Treatment Upcoming Encounters Date Type Department Care Team (Late st Contact Info) Description 05/05/2025 2:30 PM EDT Office Visit [facility] MED & PEDS [address] [place] [address] Joleen Wilkinson MD [address] [place] [address] Health Maintenance Due Date Last Done Comments CT Colonography 1950 FIT DNA/Cologuard 1950 FIT 1950 FOBT 1950 Sigmoidoscopy 1950 COVID-19 Vaccine ( season) 2024 10/10/2021, 02/09/2021, 01/12/2021 RSV Patients and Patients Aged 60 years or older (1 - 1-dose 75+ series) 2025 Dental Oral Exam 05/30/2025 11/29/2024, , 08/19/2023 Dental Prophylaxis 05/30/2025 11/29/2024, 0 02/18/2024, 08/19/2023 Dental X-Ray: Bitewings 11/30/2025 11/29/2024, 08/19 Tobacco Screening 12/21/2025 12/21/2024 Alcohol/Substance Use Screening 01/31/2026 01/31/2025 Depression Screening 01/31/2026 01/31/2025, 02/01/20 25 Diabetes: Hemoglobin A1C 01/31/2026 025, 07/12/2024, 07/23/2022, Additional history exists SDOH Screening 01/31/2026 01/31/2025 Dental X-Ray: Full Mouth 08/20/2026 08/19/2023 Lipid Panel 07/12/2029 07/12/2024, 0811/2021, 06/11/2022 DTaP/Tdap/Td Vaccines (3 - Td or Tdap) 08/11/2029 08/11/2019, 09/03/2017, 03/11/2001 Colonoscopy 09/09/2032 09/09/2022 Colorectal Cancer Screening 09/09/2032 Pneumococcal Vaccine: 50+ Years Completed 08/11/2019, 09/03/2017 Zoster Vaccines Completed 08/29/2020, 110 06/2019, 09/03/2017 Hepatitis C Screening Completed 07/23/2022, [...] TOTAL Routine 01/31/2025 10:42 AM EDT Prediabetes C-REACTIVE PROTEIN Routine 01/06/2025 9: 48 AM [...] COMPOSITE FILLING Routine 11/29/2024 12:00 AM EST LIPID PANEL, STANDARD Routine 07/12/2024 10:44 AM EDT Primary hypertension Mixed hyperlipidemia INTRAORAL - COMPLETE SERIES OF RADIOGRAPHIC IMAGES Routine 08/19/2023 10:00 AM EDT HM COLONOSCOPY Routine 09/09/2022 ANDREIA HISTORICAL HEPATITIS C AB W/REFL TO HCV RNA, QN, PCR Routine 07/23/2022 8:48 AM EDT from Last 3 Months or Most Recently Relevant to Health Maintenance Results * POCT Glucose (01/31/2025 10:43 AM EDT) Glucose Blood, POC 120 60 - 200 mg/dL QC Media Lot # [id number] Lot# Expiration Date [id number] Comment:random Blood Capillary blood specimen / Unknown 01/31/2025 10:43 AM EDT Joleen Wilkinson MD POINT OF CARE TEST ENTER/ED IT ORDERABLES Final Result * POCT HGB A1C (01/31/2025 10:42 AM EDT) Pathologist [facility] Hemoglobin A1C 5.6 4.0 - 6.0 % QC Media Lot # [id number] Lot# Expiration Date , Blood 01/31/2025 10:4 2 AM EDT Joleen Wilkinson MD POINT OF CARE TEST ENTER/ED IT ORDERABLES Final Result * (ABNORMAL) CBC auto differential (01/06/2025 9:48 AM EST) Only the most recent of2 resultswithin the time period is included. White Blood Count 12.4(H) 4.8 - 10.8 X10*3/uL [facility] Red Blood Count 4.40(L) 4.60 - 5.80 X10*6/uL [facility] Hemoglobin 13.0(L) 14.0 - 18.0 g/dl [facility] Hematocrit 39.0(L) 42.0 - 52.0 % [facility] Mean Corpuscular Volume 88.6 80.0 - 98.0 fL [facility] Mean Corpuscular Hemoglobin 29.5 27.0 - 33.0 pg [facility] Mean Corpuscular HGB Conc 33.3 31.0 - 36.0 g/dl [facility] Red Cell Distribution Width 14.2 11.0 - 16.0 % [facility] Platelet Count 241 160 - 400 X10*3/uL [facility] Mean Platelet Volume 11.5 9.4 - 12.4 fL [facility] Neutrophils Percent Auto 81.7(H) 45 - 73 % [facility] Imm Gran Pct Auto 0.5(H) 0.0 - 0.4 % [facility] Lymphocytes Percent Auto 10.8(L) 20 - 40 % [facility] Monocytes Percent Auto 6.8 2 - 11 % [facility] Eosinophils Percent Auto 0.0 0 - 4 % [facility] Basophils Percent Auto 0.2 0 - 2 % [facility] NRBC Pct Auto 0.0 0.0 - 0.2 /100WBC [facility] Neutrophils Absolute Auto 10.1(H) 2.0 - 8.3 x10*3/uL [facility] Imm Gran Abs Auto 0.06(H) 0.00 - 0.03 X10*3/uL [facility] Lymphocytes Absolute Auto 1.3 1.2 - 4.9 X10*3/uL [facility] Monocytes Absolute Auto 0.8 0.1 - 1.2 X10*3/uL [facility] Eosinophils Absolute Auto 0.0 0.0 - 0.4 X10*3/uL [facility] Basophils Absolute Auto 0.0 0.0 - 0.2 X10*3/uL [facility] NRBC Abs Auto 0.000 0.0 - 0.012 X10*3/uL [facility] 01/06/2025 9:48 AM EST 01/06/2025 9:48 AM EST us Generic External Data Provider LAB BLOOD ORDERAB LES Final Result [facility] [address] [place], [place] [phone] * (ABNORMAL) Sed Rate by Modified Westergren (01/06/2025 9:48 AM EST) Only the most recent of2 resultswithin the time period is included. Pathologist [facility] Erythrocyte Sedimentation Rate 49(H) 0 - 15 MM/HR [facility] Comment:Patients with polycy themia and many hemoglobin abnormalitiesmay have depressed sed rates whereas patients with anemiamay have elevated sed rates. 01/06/2025 9:48 AM EST 01/06/2025 9:48 AM EST Generic External Data Provider LAB BLOOD ORDERAB LES Final Result Performing Organization Address City/[facility]/ZIP Co de Phone Number [facility] [address] [place] [phone] * (ABNORMAL) C-reactive Protein (01/06/2025 9:48 AM EST) Only the most recent of2 resultswithin the time period is included. Pathologist [facility] C Reactive Protein 0.68(H) < or = 0.50 mg/dL [facility] 01/06/2025 9:48 AM EST 01/06/2025 9:48 AM EST Generic External Data Provider LAB BLOOD ORDERAB LES Final Result Performing Organization Address City/[facility]/ZIP Co de Phone Number [facility] [address] [place] [phone] * (ABNORMAL) Comprehensive Metabolic Panel (01/06/2025 9:48 AM EST) Only the most recent of2 resultswithin the time period is included. Pathologist [facility] Sodium 140 135 - 145 mmol/L [facility] Potassium 3.4 3.3 - 5.1 mmol/L [facility] Chloride 107 96 - 108 mmol/L [facility] Carbon Dioxide 23 22 - 29 mmol/L [facility] Anion Gap 13 12 - 20 [facility] Urea Nitrogen (BUN) 16 9 - 16 mg/dL [facility] Creatinine, Serum 0.80 0.5 - 1.4 mg/dL [facility] Estimated Glomerular Filt Rate >60 [facility] Comment:Chronic Kidney Disea se: Estimated GFR < 60 mL/min/[id number] Kidney Disease: Estimated GFR < 15 mL/min/1.73m2 Glucose 151(H) 60 - 115 mg/dL [facility] Calcium 9.6 8.4 - 10.2 mg/dL [facility] Bilirubin, Total 0.2 0.0 - 1.0 mg/dL [facility] Aspartate Amino Transferase 24 5 - 37 U/L [facility] Alanine Aminotransferase 19 0 - 40 U/L [facility] Total Protein 7.7 6.5 - 8.0 g/dL [facility] Albumin Level 4.1 3.5 - 5.0 g/dL [facility] Alkaline Phosphatase 50 39 - 117 U/L [facility] 01/06/2025 9:48 AM EST 01/06/2025 9:48 AM EST us Generic External Data Provider LAB BLOOD ORDERAB LES Final Result Performing Organization Address City/State/[facility] Co de Phone Number [facility] [address] [place] [address] [phone] * MR Lumbar Spine w/o Contrast (11/29/2024 7:03 PM EST) Anatomical Region Laterality Modality Spine, L-spine Magnetic Resonan ce 11/29/2024 7:03 PM EST Narrative 11/29/2024 7:04 PM EST ? [facility] ?[address] [facility] ?[place] [address] ? Magnetic Resonance Report ? Signed ? Patient: Guerra Wil,Jeferson ?MR#: [id number] ?? [id number] ? : 1950 ?Acct:[id number] ? Age/Sex: 74 / M ?ADM Date: 01/07/25 ? Loc: HO.MRI ? Attending Dr: Caroline ALLEN ? Ordering Physician: Caroline Allison ?? Date of Service: 11/29/24 ?? Procedure(s): MR lumbar spine wo con ?? Accession Number(s): [id number] ? cc: Joleen Wilkinson MD; Caroline Allison [...] lesions by noncontrast ?? imaging in the ajouw-iv-npyh. Conus terminates at T12-L1. ?? L1-L2: Disc [...] ? 11/29/241903 ? DD/ 02 ? TD/TT: 11/29/24 1903 ? Flatbed Owner Operator: ? Procedure Note Donotuseinterpreter, Image - 11/29/2024 [place] [address] Magnetic Resonance Report Signed Patient: Bernard Rae#: [id number] : 1950Acct:[id number] Age/Sex: 74 / MADM Date: 11/29/24 Loc: HO.MRI Attending Dr: Caroline ALLEN Ordering Physician: Caroline Allison Date of Service: 11/29/24 Procedure(s): MR lumbar spine wo con Accession Number(s): [id number] cc: Joleen Wilkinson MD; Caroline Allison CLINICAL [...] cystic lesions by noncontrast imaging in the iefxq-wc-gxqe. Conus terminates at T12-L1. L1-L2: Disc bulge [...] in OV> 11/29/241903 DD/ 02 TD/TT: 11/29/241902 Flatbed Owner Operator: [facility] External Provider IMG MRI PROCEDURES Edited Result - Final * (ABNORMAL) Lipid Panel, Standard (07/12/2024 10:44 AM EDT) Triglycerides 182(H) <150 mg/dL [facility] Comment:Desirable Triglyceri de: less than 150 mg/dLBorderline High Triglyceride 150-199 mg/dLHigh Triglyceride: 200-499 mg/dLVery High Triglyceride: greater than or equal to 5OO mg/dL Cholesterol 129 <200 mg/dL [facility] Comment:Desirable Cholestero l: less than 200 mg/dLBorderline High Cholesterol: 200-239 mg/dLHigh Cholesterol: greater than 239 mg/dL LDL Cholesterol Calculated 58 <100 mg/dL [facility] Comment:Desirable LDL: less than 100 mg/dLNear Optimal/Above Optimal LDL: 110- 129 mg/dLBorderline High LDL: 130-159 mg/dLHigh LDL: 160-189 mg/dLVery High LDL: greater than or equal to 190 mg/dL HDL Cholesterol 35(L) >40 mg/dL [facility] Comment:Desirable HDL: great er than 40 mg/dL Note: This HDL assay may give artificially low results in patients with liver disease. Blood Venous blood specimen / Unknown 07/12/2024 10:44 AM EDT 07/12/2024 2:24 PM EDT Joleen Wilkinson MD LAB BLOOD ORDERABLES Final Result [facility] [address] [place] [address] [phone] * Hm Colonoscopy (09/09/2022) Colonoscopy Normal Normal Historical Provider MD HEALTH MAINTENANCE Edited Result - Final * HEPATITIS C AB W/REFL TO HCV RNA, QN, PCR (07/23/2022 8:48 AM EDT) HEPATITIS C ANTIBODY NON-REACT MAURICE NON-REACT MAURICE [facility] INDEX 0.17 <1.00 [facility] Comment: ?? HCV antibody was non-reactive. There is no laboratory ?? evidence of HCV infection. ?? In most cases, no further action is required. However, if recent HCV exposure is suspected, a test for HCV RNA (test code 77800) is suggested. ?? For additional information please refer to http://education.[employer]/faq/JGI19i7 (This link is being provided for informational/ educational purposes only.) ?? 07/23/2022 8:48 AM EDT Joleen Wilkinson MD HISTORICAL/NON ORDERABLE LA BS Final Result [facility] [address] from Last 3 Months or Most Recently Relevant to Health Maintenance Insurance [facility] STANDARD [employer] MEDICARE REPLACEMENT DENTAL - HSN FULL (MEDICAID) Care Teams Home Care Consultant Relationship Specialty Start Date End Date Joleen Wilkinson MD [address] [place] [phone] PCP - General Internal Medicine 03/26/17
--- OUTSIDE RECORDS SUMMARY | 2025-02-02 12:29 | XMS_ITS | Encounter Summary ---
Author Organization [employer] Address [address] [facility] 7[address] [place] [address] Care Team Providers Care Bingo Attendant Name Role Phone Joleen Wilkinson MD Primary Care Provider [phone] Encounter Details Date Type Department Care Team [...] Description 05/05/2025 2:30 PM EDT Office Visit [facility] P[facility]S [address] [place] [address] Joleen Wilkinson MD [address] [place] [address] documented as of this encounter Procedures Procedure [...] Protein 0.68(H) < or = 0.50 mg/dL [facility] 01/06/2025 9:48 AM EST 01/06/2025 9:48 AM EST us Generic External Data Provider LAB BLOOD ORDERAB LES Final Result [facility] [address] [place] [address] [phone] * (ABNORMAL) Comprehensive Metabolic Panel (01/06/2025 9:48 AM EST) Sodium 140 135 - 145 mmol/L [facility] Potassium 3.4 3.3 - 5.1 mmol/L [facility] Chloride 107 96 - 108 mmol/L [facility] Carbon Dioxide 23 22 - 29 mmol/L [facility] Anion Gap 13 12 - 20 [facility] Urea Nitrogen (BUN) 16 9 - 16 mg/dL [facility] Creatinine, Serum 0.80 0.5 - 1.4 mg/dL [facility] Estimated Glomerular Filt Rate >60 [facility] Comment:Chronic Kidney Disea se: Estimated GFR < 60 mL/min/[id number] Kidney Disease: Estimated GFR < 15 mL/min/1.73m2 Glucose 151(H) 60 - 115 mg/dL [facility] Calcium 9.6 8.4 - 10.2 mg/dL [facility] Bilirubin, Total 0.2 0.0 - 1.0 mg/dL [facility] Aspartate Amino Transferase 24 5 - 37 U/L [facility] Alanine Aminotransferase 19 0 - 40 U/L [facility] Total Protein 7.7 6.5 - 8.0 g/dL [facility] Albumin Level 4.1 3.5 - 5.0 g/dL [facility] Alkaline Phosphatase 50 39 - 117 U/L [facility] 01/06/2025 9:48 AM EST 01/06/2025 9:48 AM EST us Generic External Data Provider LAB BLOOD ORDERAB LES Final Result Performing Organization Address City/State/[facility] Co de Phone Number [facility] [address] [place] [phone] * (ABNORMAL) Sed Rate by Modified Ant (01/06/2025 9:48 AM EST) Erythrocyte Sedimentation Rate 49(H) 0 - 15 MM/HR [facility] Comment:Patients with polycy themia and many hemoglobin abnormalitiesmay have depressed sed rates whereas patients with anemiamay have elevated sed rates. 01/06/2025 9:48 AM EST 01/06/2025 9:48 AM EST us Generic External Data Provider LAB BLOOD ORDERAB LES Final Result [facility] [address] [place], [place] [phone] * (ABNORMAL) CBC auto differential (01/06/2025 9:48 AM EST) White Blood Count 12.4(H) 4.8 - 10.8 X10*3/uL [facility] Red Blood Count 4.40(L) 4.60 - 5.80 X10*6/uL [facility] Hemoglobin 13.0(L) 14.0 - 18.0 g/dl [facility] Hematocrit 39.0(L) 42.0 - 52.0 % [facility] Mean Corpuscular Volume 88.6 80.0 - 98.0 fL [facility] Mean Corpuscular Hemoglobin 29.5 27.0 - 33.0 pg [facility] Mean Corpuscular HGB Conc 33.3 31.0 - 36.0 g/dl [facility] Red Cell Distribution Width 14.2 11.0 - 16.0 % [facility] Platelet Count 241 160 - 400 X10*3/uL [facility] Mean Platelet Volume 11.5 9.4 - 12.4 fL [facility] Neutrophils Percent Auto 81.7(H) 45 - 73 % [facility] Imm Gran Pct Auto 0.5(H) 0.0 - 0.4 % [facility] Lymphocytes Percent Auto 10.8(L) 20 - 40 % [facility] Monocytes Percent Auto 6.8 2 - 11 % [facility] Eosinophils Percent Auto 0.0 0 - 4 % [facility] Basophils Percent Auto 0.2 0 - 2 % [facility] NRBC Pct Auto 0.0 0.0 - 0.2 /100WBC [facility] Neutrophils Absolute Auto 10.1(H) 2.0 - 8.3 x10*3/uL [facility] Imm Gran Abs Auto 0.06(H) 0.00 - 0.03 X10*3/uL [facility] Lymphocytes Absolute Auto 1.3 1.2 - 4.9 X10*3/uL [facility] Monocytes Absolute Auto 0.8 0.1 - 1.2 X10*3/uL [facility] Eosinophils Absolute Auto 0.0 0.0 - 0.4 X10*3/uL [facility] Basophils Absolute Auto 0.0 0.0 - 0.2 X10*3/uL [facility] NRBC Abs Auto 0.000 0.0 - 0.012 X10*3/uL [facility] 01/06/2025 9:48 AM EST 01/06/2025 9:48 AM EST us Generic External Data Provider LAB BLOOD ORDERAB LES Final Result Performing Organization Address City/State/[facility] Co de Phone Number [facility] [address] [place] [address] [phone] documented in this encounter Visit Diagnoses Not on filedocumented in this encounter Additional Health Concerns Assessment Noted Time PHQ-9 Depression Total Score: 0 07/20/20 23 2:36 PM EDT documented as of this encounter Care Teams Bingo Attendant Relationship Specialty Start Date End Date Joleen Wilkinson MD [address] [place] [phone] PCP - General Internal Medicine 03/26/17 documented as of this encounter
--- OUTSIDE RECORDS SUMMARY | 2025-02-02 12:29 | XMS_ITS | Clinical Summary ---
Author Organization [facility] Address [address] [place] [address] Care Team Providers Care Chief Cardiopulmonary Technologist Name Role Phone Joleen Wilkinson MD Primary Care Provider [phone] Social History Tobacco Use Types Packs/Day Years [...] AM EDT Narrative 07/15/2021 10:57 AM EDT [facility] Diagnostic Imaging Department [address] [place] [address] Patient: ??JEFERSON EDGE ?/Age/Sex: 1950 - 71 - M Unit#: ??[id number] ? Location/Status: ??SPDIUS/REG CLI ? Mnemonic/Ordering Site: ??[facility]ASCRSTUD/SPUS Ordering Physician: ??JAE PATEL SHOWROOM CONSULTANT US Abdomen Aorta Scr Study AAA - [...] be of normal caliber, without aneurysm. Code 09405 G9551 Dictating Physician: ??LUIS MIGUEL STANTON MD Electronically Signed by: ??LUIS MIGUEL STANTON MD Dic Date/Time: ??07/15/21 1055 Sign date/Time: ??07/15/21 1057 Procedure Note Luis Miguel Stanton MD - 11/19/2022 [facility] Diagnostic Imaging Department [address] [place] [address] Patient: JEFERSON EDGE /Age/Sex: 1950 - 71 - M Unit#: [id number] [facility] Mnemonic/Ordering Site: [facility] Ordering Physician: JAE PATEL SHOWROOM CONSULTANT US Abdomen Aorta Scr Study AAA - [...] be of normal caliber, without aneurysm. Code 86284 G9551 Dictating Physician: LUIS MIGUEL STANTON MD Electronically Signed by: LUIS MIGUEL STANTON MD Dic Date/Time: 07/15/21 1055 Sign date/Time: 07/15/21 105 us Jae Patel NP IMG US PROCEDURES Final Re sult from Last 3 Months or Most Recently Relevant to Health Maintenance Care Teams Chief Cardiopulmonary Technologist Relationship Specialty Start Date End Date Joleen Wilkinson MD [address] [place] [address] PCP - General Internal Medicine 08/05/22
--- OUTSIDE RECORDS SUMMARY | 2025-02-02 12:29 | XMS_ITS | Encounter Summary ---
Author Organization [employer] Address [address] [facility] [address] [place] [address] Care Team Providers Care Commodity Merchant Name Role Phone Joleen Wilkinson MD Primary Care Provider [phone] Encounter Details Date Type Department Care Team (Late st Contact Info) Description 09/23/2023 Abstract [facility] [address] [place] [address] Joleen Wilkinson MD [address] [place], [place] [id number] Social History Tobacco Use Types Packs/Day Years [...] Description 05/05/2025 2:30 PM EDT Office Visit [facility] [address] [place] [address] Joleen Wilkinson MD [address] [place] [address] documented as of this encounter Procedures Procedure [...] documented as of this encounter Care Teams Commodity Merchant Relationship Specialty Start Date End Date Joleen Wilkinson MD [address] [place] [address] PCP - General Internal Medicine 03/26/17 documented as of this encounter
== END 2025-02-02 11:06 | disposition home or self-care (01) ==
LOC: HO.PMC 10:05
PROVIDERS: PCP Internal Medicine; Visit Provider Nurse Practitioner Family
DX: M51.369 Other intervertebral disc degeneration, lumbar region without mention of lumbar back pain or lower extremity pain (principal); M54.16 Radiculopathy, lumbar region; M96.1 Postlaminectomy syndrome, not elsewhere classified; M48.061 Spinal stenosis, lumbar region without neurogenic claudication; M47.817 Spondylosis without myelopathy or radiculopathy, lumbosacral region
CPT/HCPCS: 99214; G2211

== ENCOUNTER → 2025-02-02 10:04 | Outpatient (BNVA) | payer MEDICARE, MEDICAID, SELFPAY | PROVIDERS: PCP Internal Medicine; Visit Provider Nurse Practitioner Family | DX: M51.369 Other intervertebral disc degeneration, lumbar region without mention of lumbar back pain or lower extremity pain (principal); M54.16 Radiculopathy, lumbar region; M96.1 Postlaminectomy syndrome, not elsewhere classified; M48.061 Spinal stenosis, lumbar region without neurogenic claudication; M47.817 Spondylosis without myelopathy or radiculopathy, lumbosacral region | CPT/HCPCS: 99212 ==

== ENCOUNTER 2025-05-05 11:33 | Outpatient (AMB) | payer MEDICARE, MEDICAID, SELFPAY ==
--- NOTE | 2025-05-05 11:36 | MHC.OFFVIS ---
Vital Signs 05/05/25 11:42 Height 5 ft 11 in Weight 261 lb 7.492 oz BMI 36.5 BP 124/70 Blood Pressure Location Lt brachial Position Sitting Pulse 76 Pulse Source Pulse Oximeter Pulse Oximetry (%) 97 Oxygen Delivery Method Room Air Intake Visit Reasons: PMR Intake Note: Patient presents for PMR follow up. Microwave Oven Assembler Required: Yes Microwave Oven Assembler Language: Family Law Attorney Services: Microwave Oven Assembler Present Microwave Oven Assembler Name: Melissa [id number] Information Interpreted: non-clinical & clinical Allergies No Known Allergies (No Known Allergies*) Allergy (Verified 05/05/25 11:41) Medication List - Last Reconciled 05/05/25 by Jil Claros MD atorvastatin 40 mg PO BEDTIME blood sugar diagnostic ([employer] Ultra Test strips) As directed blood-glucose meter ([employer]Touch Ultra2 Meter) As directed cholecalciferol (vitamin D3) (Vitamin D3) 25 mcg PO QAM cyclosporine 0.05% (Restasis) 1 drp ophthalmic (eye) BID diclofenac sodium 1% 4 grams topical QID dulaglutide (Trulicity) 1.5 mg subcut QWEEK gabapentin 300 mg PO TID 30 days hydrocodone-acetaminophen 5-325 mg 1 tab PO BID PRN lancets ([employer]Touch Delica Plus Lancet) As directed lisinopril-hydrochlorothiazide 20-12.5 mg 1 tab PO DAILY HPI Comments Details: Patient is a 74-year-old male with hyperlipidemia, diabetes, hypertension, degenerative disc disease of the lumbar spine, polyarticular osteoarthritis and polymyalgia rheumatica/Seronegative RA here today for follow up Interval History: Patient last seen 01/12/2025 with me. At that time he was following up for PMR/seronegative RA not on immunosuppression due to failure to complete his monitoring labs with Dr. Weinberg. He did not have any evidence of any synovitis at that visit and so his immunosuppression was not continued. Joint pain attributed to degenerative disease and his gabapentin was increased and topical diclofenac gel was recommended Today, Patient reports the increase in gabapentin and the topical diclofenac gel has helped his pain but they still persist involving the hips, knees and 1st MTPs bilaterally Rheumatologic History: Diagnosed 09/2023 Diagnosed with PMR based on elevated inflammatory markers, shoulder stiffness and response to prednisone Tapered off prednisone 07/2024 Methotrexate - ineffective Leflunomide - partially effective but stopped due to noncompliance with monitoring labs DMARDs not restarted 12/2024 Initial history: Mr. De La Torre 73 yoM, accompanied by his , is here for evaluation of multiple joint pains. The patient has transferred his care from the [facility] due to insurance reasons. Patient reports that he is being treated for arthritis. However, per patient the current provider states he is not able to tell what is the reason for his joint pains. He is currently on methotrexate 2.5 mg 6 pills per week with folic acid 1 mg per day. Patient reports that initial onset was within 3 months of him taking the COVID vaccine in 2021. Therefore, he has been experiencing this for an estimated 7 months. Initially it was in his shoulders and his upper arms and now it is mainly in his buttocks and thighs; his glutes hurt and it makes walking difficult. He states that the only thing that has helped is prednisone. He was on prednisone for about 2 months. After it was stopped he could feel the pain returned. Given that he is prediabetic they did not want him to stay on the prednisone for too much longer. He was then started on methotrexate for the last 7 months and does not think that methotrexate is helping. He describes morning stiffness that takes him at least half an hour to loosen up. He says that when he wakes up in the morning he starts to exercise in the bed before he gets up. It makes it easier to get up and move around -his hands, knees and mainly his hips are stiff in the morning. He also reports lower back pain. He endorses dry eyes and uses restasis about 2 times per day. He denies episodes of red warm swollen joints; denies gout. He reports occasional swelling in lower extremities but thinks this is because of circulation - when he elevates his feet at night they are not swollen. He denies known family history of inflammatory arthritis and autoimmune diseases. He reports a brother that at 80 years old from nephritis secondary to severely high albumin levels. The patient denies Raynaud's phenomenon, butterfly rash on face or other rashes; denies photosensitivity - getting sick or developing a rash from being out in the sun; denies blood or froth in urine; patient denies hx of SOB, chest pain. Patient denies hx of Carditis or Pleuritis. Patient denies any history of DVT/PE and is not taking a blood thinner. Denies fevers, excessive fatigue, unexplained weight-loss or weight-gain, Denies: thinning hair or hair loss, hx of rashes; Denies: red burning eyes needing steroids to treat; dry mouth, mouth sores or ulcers; nose bleed; ringing in the ear, He has a history of diverticulitis but denies chronic abdominal pain, blood or mucous in stool; nausea, vomiting and diarrhea , difficulty swallowing, heartburn. Current Rheumatology Medication(s): Gabapentin 300mg tid diclofenac 1% qid [facility] Medical History Diverticulitis Degenerative disc disease, lumbar Right hip pain Bilateral hip pain Polymyalgia rheumatica SHAVON (obstructive sleep apnea) Bilateral hand pain Finger joint swelling Primary osteoarthritis involving multiple joints History of arthritis Pre-diabetes Hyperlipidemia HTN (hypertension) Surgical History Hx of hand surgery History of back surgery Family History Mother Guillain-[place] Social History Household Members: Spouse Alcohol intake: former Patient Tobacco Use Status: Former Tobacco user Current occupational status: retired Review of Systems Const Details: Review of Systems Constitutional: Denies fever, chills, weight loss ENT: Denies vision changes, eye pain or eye redness, dental caries, dry mouth GI: Denies nausea, vomiting, diarrhea, abdominal pain, change in BM Pulm: Denies SOB, KELLOGG, hemoptysis, wheezing Cards: Denies chest pain, palpitations Skin: Denies Raynaud's, rash, nail changes, photosensitivity, WRECKING CAR DRIVER: Denies headaches, weakness, paresthesias, recurrent falls MSK: as per HPI All other systems reviewed and are unremarkable except noted above Physical Exam Vital Signs: Last Vital Signs Pulse 76 05/05/25 11:42 BP 124/70 05/05/25 11:42 Pulse Ox 97 05/05/25 11:42 Oxygen Delivery Method Room Air 05/05/25 11:42 BMI result Body Mass Index 36.5 Vital signs reviewed Physical Examination CONSTITUITIONAL Patient alert and cooperative. Well appearing and in no apparent painful distress MSK No synovitis noted No fibromyalgia tender points SKIN No rashes Results Reviewed Results Reviewed: Laboratory Tests 01/06/25 05/11/25 09:48 08:30 WBC 7.3 RBC 4.31 L Hgb 13.1 L Hct 39.2 L Plt Count 209 ESR 49 H 29 H Sodium 141 Potassium 3.5 Chloride 104 Carbon Dioxide 29 BUN 16 Creatinine 0.80 Total Bilirubin 0.3 AST 22 ALT 17 Alkaline Phosphatase 50 C-Reactive Protein 0.68 H 0.57 H Total Protein 7.1 Albumin 4.2 MR L Spine 11/2024 Findings: Small subacute Schmorl's node of the lower endplate of L3. Otherwise, normal heights of 5 lumbar vertebrae. Mild retrolisthesis at L3-L4 and lumbosacral junction. Modic type 1 endplate changes at L3-L4, L4-L5, and L5-S1. Multifocal hemangiomas noted. Subcutaneous edema present. No drainable paraspinal fluid collection. No suspicious features of the imaged renal cystic lesions by noncontrast imaging in the [id number]. Conus terminates at T12-L1. L1-L2: Disc bulge and bilateral facet arthropathy. No spinal stenosis. L2-L3: Disc bulge, annular fissure, endplate hypertrophy, and bilateral facet arthropathy. Mild bilateral lateral recess narrowing. Trace left foraminal narrowing. L3-L4: Disc bulge, annular fissure, small extrusion, endplate hypertrophy, and bilateral facet arthropathy. Mild spinal canal stenosis with moderate to marked bilateral lateral recess narrowing. Mild bilateral foraminal narrowing. L4-L5: Disc bulge, endplate hypertrophy, and bilateral facet arthropathy. No significant central spinal canal stenosis. Severe left lateral recess narrowing. Moderate -severe left-sided foraminal narrowing. L5-S1: Listhesis, disc bulge, endplate hypertrophy, and annular fissure. Mild left lateral recess narrowing. Mild right and mild-moderate left foraminal narrowing. IMPRESSION: 1. Severe left lateral recess narrowing and severe left-sided foraminal narrowing at L4-L5. 2. Additional spinal stenosis including bilateral lateral recess narrowing of L3-L4. 3. Multifocal facet arthropathy of the lumbar spine. Assessment & Plan Assessment & Plan (1) Primary osteoarthritis involving multiple joints: Code(s): M15.9 - Polyosteoarthritis, unspecified Category: Medical Plan: #Polyarticular OA Patient today based on my exam does not have any evidence of inflammatory arthritis. He is on leflunomide 20 mg but continues to report OA type symptoms with 30 minutes of morning stiffness in the hands, no MCP or PIP involvement and no swelling to any joints. Discussed increasing his gabapentin to 300 mg t.i.d. and using topical diclofenac q.i.d.. We will hold leflunomide for now Unsure if the elevated inflammatory markers are related to an underlying inflammatory process. We will monitor off immunosuppression and see if there is any change in his numbers. Plan - Stop leflunomide - Topical diclofenac q.i.d. to bilateral hands - Increase gabapentin to 300 mg t.i.d. - RTC 4 months - Labs prior to visit: CBC, CMP, ESR, CRP (2) Polymyalgia rheumatica: Comment: Diagnosed 09/2023 Diagnosed with PMR based on elevated inflammatory markers, shoulder stiffness and response to prednisone Tapered off prednisone 07/2024 Methotrexate - ineffective Leflunomide - partially effective but stopped due to noncompliance with monitoring labs DMARDs not restarted 12/2024 Code(s): M35.3 - Polymyalgia rheumatica Category: Medical Plan: #PMR No evidence of continue PMR symptoms ESR/CRP chronically elevated but actually decreased related to prior Will continue to monitor off DMARDs and steroids Plan I spent 30 minutes reviewing the record and labs, taking a history, examining the patient, discussing the treatment plan and documenting in the medical record Orders: Orders Comprehensive Met. Panel 6 Months M35.3 - Polymyalgia rheumatica C Reactive Protein 6 Months M35.3 - Polymyalgia rheumatica Erythrocyte Sedimentation Rate 6 Months M35.3 - Polymyalgia rheumatica Complete Blood Count Auto Diff 6 Months M35.3 - Polymyalgia rheumatica Medications: Refilled gabapentin 300 mg PO TID 90 caps 5RF pain 30 days M51.36 - Other intervertebral disc degeneration, lumbar region, M51.360 - Other intervertebral disc degeneration, lumbar region with discogenic back pain only, M54.16 - Radiculopathy, lumbar region, M54.31 - Sciatica, right side, M96.1 - Postlaminectomy syndrome, not elsewhere classified diclofenac sodium 1% apply to single knee, ankle, foot; for foot includes sole/toes/top of foot 4 grams topical QID 100 grams 4RF M19.049 - Primary osteoarthritis, unspecified hand Coding Level of Care Code Est Pt Level 4 (90680) Complex EM visit Add On G2211 Diagnoses Primary osteoarthritis involving multiple joints M15.9 Polymyalgia rheumatica M35.3
[2025-05-05 11:42] VITALS: BP 124/70; PULSE 76; O2SAT 97; BMI 36.5
--- OUTSIDE RECORDS SUMMARY | 2025-05-05 12:30 | XMS_ITS | Clinical Summary ---
Author Organization [facility] Address [address] [place] [address] Care Team Providers Care Surface Mount Technology Operator Name Role Phone Yasir Patel [facility] Primary Care Prov ider Source Comments PLEASE NOTE, if this patient [...] not move, called 911, went to [facility], had emergency surgery, got better but for ever has some pain, some days worse than others. H/O colonoscopy 12/01/2016 Overview (03/26/2021): January 2020 [facility] tubular adenoma x2, follow up 5-7 years Immunizations Immunization Administration Dates Next Due Flu, Adjuvant, 65y+ (Fluad) 08/04/2020, 0 Flu, Multi Dose 0.5 ML 08/17/2018,08/17/2018 Flu, Preservative Free 08/11/2019,09/08/2017, Influenza (FLUZONE), high-do se, trivalent, PF 10/22/2021 Moderna COVID-19 Vaccine, re d cap blue label, 12+ Primary Series 10/10/2021,02/09/2021,01/12/2021 PNEUMOCOCCAL CONJUGATE PCV 13 08/11/2019 PNEUMOCOCCAL POLYSACCHARIDE PPV23 (Pneumovax 23) 09/03/2017,09/03/2017 TDAP 08/11/2019,09/03/2017,09/03/2017 Td (adult) unspecified 03/11/2001 ZOSTER [...] Comments Dental FMX/Pano 1950 Tobacco Screening 1950 Medicare Annual Wellness Visit 1968 CT Colonography 1995 FIT/gFOBT 1995 Fecal DNA 1995 Flexible Sigmoidoscopy 1995 Falls Prevention 02/28/2022 02/28/2021, 09/30/2019 Lipid Screening 09/05/2022 09/05/2021, 1005/2020, 08/11/2019, Additional history exists Dental BW 06/12/2024 06/10/2023 Dental Examination 06/12/2024 06/10/2023 Dental Perio Charting 06/12/2024 06/10/2023 Dental Prophy 06/12/2024 06/10/2023 Diabetes Screening 07/03/2024 07/03/2023, 0 07/23/2022, 06/11/2022, Additional history exists [id number] ( season) 2024 10/10/2021, 02/09/2021, 01/12/2021 Alcohol and Drug Screen 11/23/2024 01/29/20 22, 08/27/2021, 02/28/2021, Additional history exists Depression Annual Screen 11/23/2024 0308 022, 08/29/2020, 12/01/2016 Colonoscopy 01/30/2025 01/31/2020 Colorectal Cancer Screening 01/30/2025 Imm-Influenza (Season Ended) 2025, 08/29/2020 (Managed by Outside Provider), 08/04/2020, Additional history exists Imm-DTaP/Tdap/Td (4 - Td or Tdap) 08/11/2029 [...] Routine 06/10/2023 9:40 AM EDT Fractured dental church with loss of material Encounter for dental [...] A1C 5.9(H) <5.7 % of total Hgb [employer] [facility] Comment: For someone without known diabetes, a [...] EST 01/28/2022 3:55 PM EST Yasir Patel [facility] LAB - BLOOD DRAW E dited Result - Final [employer] [address] [address], [employer] [address] [address] * (ABNORMAL) LIPID PANEL (09/05/2021 9:15 AM EDT) CHOLESTEROL, TOTAL 146 <200 mg/dL [facility] HDL CHOLESTEROL 38(L) > OR = 40 mg/dL [facility] TRIGLYCERIDES 220(H) <150 mg/dL [facility] Comment: If a non-fasting specimen was collected, consider repeat triglyceride testing on a fasting specimen if clinically indicated. Kelby et al. J. of Clin. Lipidol. 2015;9:129-169. LDL-CHOLESTEROL 76 99 mg/dL (calc) [facility] Comment: Reference range: <100 Desirable range <100 mg/dL for primary prevention; ?? <70 mg/dL for patients with CHD or diabetic patients with > or = 2 CHD risk factors. LDL-C is now calculated using the Jaime-Brown calculation, which is a validated novel method providing better accuracy than the Friedewald equation in the estimation of LDL-C. Jaime SS et al. ANA LUISA. 2013;310(19): 4649-4424 (http://education.[employer]faq/NUN584) CHOL/HDLC RATIO 3.8 <5.0 (calc) [facility] NON-HDL CHOLESTEROL 108 <130 mg/dL (calc) [facility] Comment: For patients with diabetes plus 1 major ASCVD risk factor, treating to a non-HDL-C goal of <100 mg/dL (LDL-C of <70 mg/dL) is considered a therapeutic option. Blood Blood / Unknown 09/05/2021 9 :15 AM EDT 09/05/2021 9:15 AM EDT Yasir Patel [facility] LAB - BLOOD DRAW F inal Result [facility] [address] [facility] [address] [place] [address], [place] [facility] [address] [address] * COLONOSCOPY (01/31/2020) us Provider [facility] PROCEDURES Final Result * (ABNORMAL) HEPATITIS A,B,C PANEL (08/11/2019 11:33 AM EDT) HEPATITIS B SURFACE ANTIBODY NEGATIVE NEGATIVE [facility] HEPATITIS B SURFACE ANTIGEN NEGATIVE NEGATIVE [facility] Comment: Over the counter supplements containing high doses of biotin may interfere with this assay. ??If interference is suspected, patients shoud be retested after refraining from biotin supplements for 72 hours. HEPATITIS B CORE ANTIBODY NEGATIVE NEGATIVE [facility] HEPATITIS C VIRUS DIAGNOSTIC NEGATIVE NEGATIVE [facility] HEPATITIS A ANTIBODY TOTAL POSITIVE(A) NEGATIVE [facility] Comment: Over the counter supplements containing high doses of biotin may interfere with this assay. ??If interference is suspected, patients shoud be retested after refraining from biotin supplements for 72 hours. Blood specimen (specimen) Blood / Unknown 08/11/2019 11:33 AM EDT 08/11/2019 12:47 PM EDT Narrative [facility] - 08/11/2019 4:24 PM EDT [employer], a member of [address] [address] Infrastructure Technician - Bethany Vigil MD PT ID [id number] ORD# [id number] Ranjan Kramer NP LAB - BLOOD DRAW Edited Result - Final [facility] [phone] [address], from Last 3 Months or Most Recently Relevant to Health Maintenance [place] HEALTH SAF[place]Y NET DENTAL [facility] AETNA MEDICARE DENTAL Care Teams Surface Mount Technology Operator Relationship Specialty Start Date End Date Yasir Patel FNP [address] [place] [address] PCP - General Family Medicine, ASSOCIATE BIOLOGICAL SALES 06/17/23
== END 2025-05-05 12:03 | disposition home or self-care (01) ==
LOC: HO.RHE 11:33
PROVIDERS: PCP Internal Medicine; Visit Provider Student in an Organized Health Care Education/Training Program
DX: M15.9 Polyosteoarthritis, unspecified (principal); M35.3 Polymyalgia rheumatica
CPT/HCPCS: 99214; G2211

== ENCOUNTER → 2025-05-05 11:33 | Outpatient (BNVA) | payer MEDICARE, MEDICAID, SELFPAY | PROVIDERS: PCP Internal Medicine; Visit Provider Student in an Organized Health Care Education/Training Program | DX: M35.3 Polymyalgia rheumatica (principal); M54.31 Sciatica, right side; M54.16 Radiculopathy, lumbar region; M51.360 Other intervertebral disc degeneration, lumbar region with discogenic back pain only; M96.1 Postlaminectomy syndrome, not elsewhere classified; M19.049 Primary osteoarthritis, unspecified hand | CPT/HCPCS: 99212 ==

== ENCOUNTER 2025-05-11 08:25 | Outpatient (REF) | payer MEDICARE, MEDICAID, SELFPAY ==
--- OUTSIDE RECORDS SUMMARY | 2025-05-11 08:36 | XMS_ITS | Clinical Summary ---
Author Organization [facility] Address [address] [place] [address] Care Team Providers Care Radio Tester Name Role Phone Yasir Patel [facility] Primary Care Prov ider Source Comments [...] not move, called 911, went to the [facility], had emergency surgery, got better but for ever has some pain, some days worse than others. H/O colonoscopy 12/01/2016 Overview (03/26/2021): January 2020 [facility] tubular adenoma x2, follow up 5-7 [...] 71 07/20/2023 1:04 PM EDT Temperature 37.4 C (99.4 F) 10/29/2021 1:47 PM EST Respiratory Rate 18 01/28/2022 3:15 PM EST [...] 07/03/2023, 0 07/23/2022, 06/11/2022, Additional history exists [id number] ( season) 2024 10/10/2021, 02/09/2021, 01/12/2021 Alcohol and Drug Screen 11/23/2024 01/29/20 22, 08/27/2021, 02/28/2021, Additional history exists Depression Annual Screen 11/23/2024 03 022, 08/29/2020, 12/01/2016 Colonoscopy 01/30/2025 01/31/2020 Colorectal [...] Routine 06/10/2023 9:40 AM EDT Fractured dental mu-ism with loss of material Encounter for dental [...] A1C 5.9(H) <5.7 % of total Hgb [employer] [facility] Comment: For someone without known diabetes, a [...] EST 01/28/2022 3:55 PM EST Yasir Patel [facility] LAB - BLOOD DRAW E dited Result - Final Performing Organization Address City/[facility]/ZIP Co de Phone Number [employer] [facility] [address] [address], [employer] [facility] [address] [address] * (ABNORMAL) LIPID PANEL (09/05/2021 9:15 AM EDT) [facility] Signature CHOLESTEROL, TOTAL 146 <200 mg/dL [employer] [facility] HDL CHOLESTEROL 38(L) > OR = 40 mg/dL [employer] TRIGLYCERIDES 220(H) <150 mg/dL [employer] [facility] Comment: If a non-fasting specimen was collected, consider repeat triglyceride testing on a fasting specimen if clinically indicated. Kelby et al. J. of Clin. Lipidol. 2015;9:129-169. LDL-CHOLESTEROL 76 99 mg/dL (calc) [employer] Comment: Reference range: <100 Desirable range <100 mg/dL for primary prevention; <70 mg/dL for patients with CHD or diabetic patients with > or = 2 CHD risk factors. LDL-C is now calculated using the Jaime-Brown calculation, which is a validated novel method providing better accuracy than the Friedewald equation in the estimation of LDL-C. Jaime SS et al. ANA LUISA. 2013;310(19): 8305-1346 (http://education.NEXGRID/faq/CWD612) CHOL/HDLC RATIO 3.8 <5.0 (calc) [employer] [facility] NON-HDL CHOLESTEROL 108 <130 mg/dL (calc) [employer] Comment: For patients with diabetes plus 1 major ASCVD risk factor, treating to a non-HDL-C goal of <100 mg/dL (LDL-C of <70 mg/dL) is considered a therapeutic option. Blood Blood / Unknown 09/05/2021 9 :15 AM EDT 09/05/2021 9:15 AM EDT Yasir Patel [facility] LAB - BLOOD DRAW F inal Result Performing Organization Address City/[facility]/ZIP Co de Phone Number [facility] [address] [facility] [address]RD [place] [address], [facility] [address] [address] * COLONOSCOPY (01/31/2020) us Provider [facility] PROCEDURES Final Result * (ABNORMAL) HEPATITIS A,B,C PANEL (08/11/2019 11:33 AM EDT) HEPATITIS B SURFACE ANTIBODY NEGATIVE NEGATIVE [facility] HEPATITIS B SURFACE ANTIGEN NEGATIVE NEGATIVE [facility] Comment: Over the counter supplements containing high doses of biotin may interfere with this assay. If interference is suspected, patients shoud be retested after refraining from biotin supplements for 72 hours. HEPATITIS B CORE ANTIBODY NEGATIVE NEGATIVE [facility] HEPATITIS C VIRUS DIAGNOSTIC NEGATIVE NEGATIVE [facility] HEPATITIS A ANTIBODY TOTAL POSITIVE(A) NEGATIVE [facility] Comment: Over the counter supplements containing high doses of biotin may interfere with this assay. If interference is suspected, patients shoud be retested after refraining from biotin supplements for 72 hours. Blood specimen (specimen) Blood / Unknown 08/11/2019 11:33 AM EDT 08/11/2019 12:47 PM EDT Narrative [facility] - 08/11/2019 4:24 PM EDT [employer], [place] [address] Lock Corner Machine Operator - Bethany Vigil MD PT ID [id number] ORD# [id number] Ranjan Kramer NP LAB - BLOOD DRAW Edited Result - Final [address] [address], from Last 3 Months or Most Recently Relevant to Health Maintenance Insurance [place] MEDICA[place] HEALTH SAFETY NET DENTAL [facility] AETNA MEDICARE DENTAL Care Teams Radio Tester Relationship Specialty Start Date End Date Yasir Patel FNP [address] [place] [address] PCP - General Family Medicine, NUCLEAR PLANT OPERATOR 06/17/23
[2025-05-11 10:39] LABS: MANUAL DIFF FLAG NO
[2025-05-11 10:45] LABS: Basophils Percent Auto 0.5 % (0-2); Eosinophils Absolute Auto 0.1 X10*3/uL (0.0-0.4); Eosinophils Percent Auto 1.6 % (0-4); Hematocrit 39.2 % (42.0-52.0); Hemoglobin 13.1 g/dl (14.0-18.0); Imm Gran Abs Auto 0.01 X10*3/uL (0.00-0.03); Imm Gran Pct Auto 0.1 % (0.0-0.4); Lymphocytes Percent Auto 27.8 % (20-40); Mean Corpuscular HGB Conc 33.4 g/dl (31.0-36.0); Mean Corpuscular Hemoglobin 30.4 pg (27.0-33.0); Mean Platelet Volume 11.1 fL (9.4-12.4); Monocytes Absolute Auto 0.5 X10*3/uL (0.1-1.2); Monocytes Percent Auto 7.4 % (2-11); Neutrophils Absolute Auto 4.6 x10*3/uL (2.0-8.3); Neutrophils Percent Auto 62.6 % (45-73); Platelet Count 209 X10*3/uL (160-400); Red Blood Count 4.31 X10*6/uL (4.60-5.80); Red Cell Distribution Width 14.3 % (11.0-16.0); White Blood Count 7.3 X10*3/uL (4.8-10.8)
[2025-05-11 11:24] LABS: Erythrocyte Sedimentation Rate 29 MM/HR (0-15)
[2025-05-11 11:35] LABS: Alanine Aminotransferase 17 U/L (0-40); Albumin Level 4.2 g/dL (3.5-5.0); Alkaline Phosphatase 50 U/L (39-117); Anion Gap 12 (12-20); Aspartate Amino Transferase 22 U/L (5-37); Bilirubin Total 0.3 mg/dL (0.0-1.0); Blood Urea Nitrogen 16 mg/dL (9-16); C Reactive Protein 0.57 mg/dL (< or = 0.50); Calcium 9.2 mg/dL (8.4-10.2); Carbon Dioxide 29 mmol/L (22-29); Chloride 104 mmol/L (96-108); Estimated Glomerular Filt Rate > 60; Glucose Random 137 mg/dL (60-115); Potassium 3.5 mmol/L (3.3-5.1); Sodium 141 mmol/L (135-145); Total Protein 7.1 g/dL (6.5-8.0)
== END 2025-05-11 08:26 | disposition home or self-care (01) ==
LOC: HO.10HDL 08:25
PROVIDERS: Visit Provider Student in an Organized Health Care Education/Training Program
DX: M35.3 Polymyalgia rheumatica (principal)
CPT/HCPCS: 36415; 80053; 85025; 85652; 86140

== ENCOUNTER 2025-10-27 08:11 | Outpatient (REF) | payer MEDICARE, MEDICAID, SELFPAY ==
[2025-10-27 14:14] LABS: MANUAL DIFF FLAG NO
[2025-10-27 14:25] LABS: Hematocrit 39.9 % (42.0-52.0); Hemoglobin 12.7 g/dl (14.0-18.0); Imm Gran Abs Auto 0.01 X10*3/uL (0.00-0.03); Imm Gran Pct Auto 0.1 % (0.0-0.4); Lymphocytes Absolute Auto 2.1 X10*3/uL (1.2-4.9); Mean Corpuscular HGB Conc 31.8 g/dl (31.0-36.0); Mean Corpuscular Hemoglobin 30.0 pg (27.0-33.0); Mean Corpuscular Volume 94.1 fL (80.0-98.0); NRBC Abs Auto 0.000 X10*3/uL (0.0-0.012); NRBC Pct Auto 0.0 /100WBC (0.0-0.2); Platelet Count 231 X10*3/uL (160-400); Red Blood Count 4.24 X10*6/uL (4.60-5.80); White Blood Count 6.8 X10*3/uL (4.8-10.8)
[2025-10-27 15:10] LABS: Erythrocyte Sedimentation Rate 28 MM/HR (0-15)
[2025-10-27 17:24] LABS: Alanine Aminotransferase 24 U/L (0-40); Albumin Level 4.2 g/dL (3.5-5.0); Alkaline Phosphatase 57 U/L (39-117); Anion Gap 10 (12-20); Aspartate Amino Transferase 26 U/L (5-37); Blood Urea Nitrogen 17 mg/dL (9-16); Calcium 9.2 mg/dL (8.4-10.2); Carbon Dioxide 27 mmol/L (22-29); Chloride 108 mmol/L (96-108); Estimated Glomerular Filt Rate > 60; Potassium 3.8 mmol/L (3.3-5.1); Sodium 141 mmol/L (135-145); Total Protein 7.3 g/dL (6.5-8.0)
== END 2025-10-27 08:12 | disposition home or self-care (01) ==
LOC: HO.CHCLDS 08:11
PROVIDERS: Visit Provider Student in an Organized Health Care Education/Training Program
DX: M35.3 Polymyalgia rheumatica (principal)
CPT/HCPCS: 36415; 80053; 85025; 85652; 86140

== ENCOUNTER 2025-10-28 10:15 | Emergency (ER) | payer MEDICARE, MEDICAID, SELFPAY ==
[2025-10-28 10:32] VITALS: BP 130/64; PULSE 75; RESP 18; TEMP 36.6; O2SAT 98; BMI 34.6
--- NOTE | 2025-10-28 11:04 | ED.GENADULT ---
HPI - General Adult General Chief complaint: General Medical Stated complaint: rash Time Seen by Provider: 10/28/25 10:55 Source: patient, RN notes reviewed and second cutter Mode of arrival: ambulatory Limitations: language barrier History of Present Illness ED Provider: Fe Ayala PA-C HPI narrative: This is a 75-year-old male, with a past medical history of hypertension, who presents emergency department with concerns of itchy rash on bilateral legs and feet for the last 3 days. Patient states that he was seen by his desktop publishing associate and was placed on an antifungal cream. He states that he started using the several days ago and noticed a very itchy rash develop on the tops of his feet. He has been using Benadryl, as well as Vaseline onto his feet which did not provide him with any relief. He denies any difficulty breathing, difficulty swallowing. Denies history of similar rashes in the past. Denies any pain associated with the rash. No other complaints or concerns at this time. MD complaint: Rash Onset (ago): day(s) Quality: aching Pain Consistency: constant Relieving factors: none Exacerbating factors: none Associated symptoms: denies other symptoms Treatments prior to arrival: none Related Data Home Medications ?Medication ?Instructions ?Recorded ?Confirmed atorvastatin 40 mg tablet 40 mg PO BEDTIME 10/13/23 05/05/25 blood sugar diagnostic (Camera AgroalimentosTouch #10 ea 10/13/23 05/05/25 Ultra Test strips) blood-glucose meter (OneTouch #1 ea 10/13/23 05/05/25 Ultra2 Meter) cholecalciferol (vitamin D3) 25 25 mcg PO QAM 10/13/23 05/05/25 mcg (1,000 unit) tablet (Vitamin D3) cyclosporine 0.05 % eye drops in a 1 drp ophthalmic (eye) BID 10/13/23 05/05/25 dropperette (Restasis) dulaglutide 1.5 mg/0.5 mL 1.5 mg subcut QWEEK 10/13/23 05/05/25 subcutaneous pen injector (Trulicity) lancets 33 gauge (Camera AgroalimentosTouch [place] #100 ea 10/13/23 05/05/25 Plus Lancet) lisinopril 20 1 tab PO DAILY 10/13/23 05/05/25 mg-hydrochlorothiazide 12.5 mg tablet Previous Rx's ?Medication ?Instructions ?Recorded hydrocodone 5 mg-acetaminophen 325 1 tab PO BID PRN pain #20 tabs 12/08/24 mg tablet diclofenac sodium 1 % topical gel 4 g topical QID #100 grams 05/11/25 gabapentin 300 mg capsule 300 mg PO TID pain 30 days #90 caps 05/11/25 hydroxyzine HCl 25 mg tablet 25 mg PO BID PRN itching #7 tabs 10/28/25 prednisone 20 mg tablet 40 mg (2 x 20 mg) PO DAILY 5 days 10/28/25 #10 tabs Allergies Allergy/AdvReac Type Severity Reaction Status Date / Time No Known Allergies (No Known Allergy Verified 10/28/25 10:34 Allergies*) Review of Systems Review of Systems: Constitutional : No Fever, No Chills ENT/Mouth : No sore throat, No Rhinorrhea Eyes: No Eye Pain, No Swelling, No Redness Cardiovascular : No Chest Pain, No SOB Respiratory : No Cough, No Sputum Gastrointestinal : No Nausea, No Vomiting, No Diarrhea, No abdominal Pain Genitourinary : No Dysuria, No Hematuria Musculoskeletal : No joint pain, No Myalgias, No Joint Swelling Skin : +rash Neuro : No Weakness, No Numbness, No Headache All other systems reviewed and are negative Yes all other systems are reviewed and are negative Constitutional: Constitutional: Reports as per [facility] Past Medical History Attestation statement: The following information was validated with the patient. Medical History Diverticulitis Degenerative disc disease, lumbar Right hip pain Bilateral hip pain Polymyalgia rheumatica SHAVON (obstructive sleep apnea) Bilateral hand pain Finger joint swelling Primary osteoarthritis involving multiple joints History of arthritis Pre-diabetes Hyperlipidemia HTN (hypertension) Surgical History Hx of hand surgery History of back surgery Family History Family History Mother Guillain-Jackson Social History Social History Household Members: Spouse Alcohol intake: former Patient Tobacco Use Status: Former Tobacco user Advance Directives: No Advance Directives Information Provided: Yes Do you have a plan to hurt others: No Plan Current occupational status: retired Physical Exam ED Exam Exam: General: Awake, alert, and oriented X3. No acute distress. HEENT: Normal inspection CVS: Normal heart rate and rhythm. Pulses normal. Respiratory: No respiratory distress Skin: Warm, dry. Extremities: See photo below Neuro: Oriented X 3. No motor deficit. No sensory deficit. BL feet dorsal aspect with dry, scaling, blanching macular rash, scattered papules throughout Vital Signs: Vital Signs - 24 hr 10/28/25 10:32 Temperature 98 F Pulse Rate 75 Respiratory Rate 18 Blood Pressure 130/64 Pulse Oximetry 98 BMI result Body Mass Index 34.6 Medical Decision Making Medical Decision Making MDM Narrative: This is a 75 y/o M here with itchy rash to feet that started 3 days ago. Sr. Director started on antifungal cream, has had rash since. Rash is itchy and blanchable. DDX cellulitis, atopic dermatitis, contact dermatitis, tinea pedis. Discussed with pt likely due to recent new cream. Advised to d/c. Start on prednisone, advised to f/u with podiatry. He understands and agrees with plan. Pt stable for d.c. Differential Diagnosis Differential Diagnoses: The differential diagnosis associated with the presentation includes see above Discharge Plan Discharge Clinical Impression: Rash Patient Disposition: Home, Self-Care Instructions: Contact Dermatitis (ED), Acute Rash (ED) Additional Instructions: You were seen in the emergency department due to an itchy rash on both of your feet. You recently were treated with a topical ointment prescribed by her desktop publishing associate which could be causing you to have this rash. Do not use this cream anymore. Please contact your desktop publishing associate as they may need to switch over your medication. You have an underlying fungal infection to your feet however you also may be exhibiting an allergic type rash. Please take prednisone as prescribed. Hydroxyzine can also provide you with some relief with itching. Use sparingly. Please be advised that this can cause drowsiness, do not drink alcohol or drive while taking this medication. If any new or worsening symptoms occur including but not limited to worsening itchy numbness, worsening redness, rash, fevers, chills, please seek emergent care. Prescriptions: New prednisone 20 mg tablet 40 mg PO DAILY 5 Days Qty: 10 0RF hydroxyzine HCl 25 mg tablet 25 mg PO BID PRN (Reason: itching) Qty: 7 0RF No Action hydrocodone-acetaminophen 5-325 mg tablet 1 tab PO BID PRN (Reason: pain) Qty: 20 0RF Rx Instructions: Partial Fill upon patient request. gabapentin 300 mg capsule 300 mg PO TID 30 Days Qty: 90 5RF diclofenac sodium 1 % gel 4 g topical QID Qty: 100 4RF Rx Instructions: apply to single knee, ankle, foot; for foot includes sole/toes/top of foot cholecalciferol (vitamin D3) [Vitamin D3] 25 mcg (1,000 unit) tablet 25 mcg PO QAM Trulicity 1.5 mg/0.5 mL pen injector 1.5 mg subcut QWEEK Patient Comments: takes on Thursday (DME) lancets [OneTouch Delica Plus Lancet] 33 gauge misc See Rx Instructions .ROUTE DAILY Qty: 100 Rx Instructions: As directed (DME) OneTouch Ultra Test Strip See Rx Instructions .ROUTE .MEDSUPPLY Qty: 10 Rx Instructions: As directed (DME) blood-glucose meter [OneTouch Ultra2 Meter] Misc See Rx Instructions .ROUTE DAILY Qty: 1 Rx Instructions: As directed atorvastatin 40 mg tablet 40 mg PO BEDTIME lisinopril-hydrochlorothiazide 20-12.5 mg tablet 1 tab PO DAILY cyclosporine [Restasis] 0.05 % dropperette 1 drp ophthalmic (eye) BID Interventions: ED Discharge Assessment Last Done: 10/28/25 11:52 Discharge Date/Time: 10/28/25 11:53 Print Language: Setswana
--- OUTSIDE RECORDS SUMMARY | 2025-10-28 11:06 | XMS_ITS | Encounter Summary ---
Author Organization [employer] Address [address] [facility] 7t [place] [address] Care Team Providers Care Monitoring Coordinator Name Role Phone Joleen Wilkinson MD Primary Care Provider [phone] Encounter Details Date Type Department Care Team ([facility] st Contact Info) Description 08/12/2024 Orders Only [facility] MED & PEDS [address] [place], [place] [phone] Joleen Wilkinson MD [address] [place], [place] [phone] Acute pain of right knee (Primary Dx) [...] Care Team (Late st Contact Info) Description 12/21/2025 12:45 PM EST Office Visit [facility] CH[facility] ADULT DENTAL [address] [place] [address] Shantelle Mancia documented as of this encounter Visit Diagnoses Diagnosis Acute pain of right knee- Primary documented in this encounter Additional Health Concerns Assessment Noted Time PHQ-9 Depression Total Score: 0 07/20/20 23 2:36 PM EDT documented as of this encounter Care Teams Monitoring Coordinator Relationship Specialty Start Date End Date Joleen Wilkinson MD [address] [place] [address] PCP - General Internal Medicine 03/26/17 documented as of this encounter
--- OUTSIDE RECORDS SUMMARY | 2025-10-28 11:06 | XMS_ITS | Encounter Summary ---
Author Organization [employer] Address [address] [facility] 7t [place] [address] Care Team Providers Care Assessment Clinician Name Role Phone Joleen Wilkinson MD Primary Care Provider [phone] Encounter Details Date Type Department Care Team ([facility] st Contact Info) Description 10/03/2025 Orders Only [facility] CHC MED & PEDS [address] [place], [place] [phone] Joleen Wilkinson MD [address] [place] [address] Class 2 severe obesity due to excess calories with serious comorbidity and body mass index (BMI) of 35.0 to 35.9 in adult (Primary Dx); Other sleep apnea Social History Tobacco Use Types Packs/Day Years [...] your housing situation today? I have awilda boogie 01/31/[address] you li [...] Description 12/21/2025 12:45 PM EST Office Visit [facility] ADULT D[facility]AL [address] [place] [address] Shantelle Mancia documented as of this encounter Visit Diagnoses Diagnosis Class 2 severe obesity due to excess calories with serious comorbidity and body mass index (BMI) of 35.0 to 35.9 in adult- Primary Other sleep apnea documented in this encounter Additional Health Concerns Assessment Noted Time PHQ-9 Depression Total Score: 0 02/01/20 25 10:37 AM EDT documented as of this encounter Care Teams Assessment Clinician Relationship Specialty Start Date End Date Joleen Wilkinson MD [address] [place] [address] PCP - General Internal Medicine 03/26/17 documented as of this encounter
--- OUTSIDE RECORDS SUMMARY | 2025-10-28 11:06 | XMS_ITS | Encounter Summary ---
Author Organization [employer] Address [address] [facility] 7t [place] [address] Care Team Providers Care Recreational Assistant Name Role Phone Joleen Wilkinson MD Primary Care Provider [phone] Encounter Details Date Type Department Care Team ([facility] st Contact Info) Description 09/05/2025 Orders Only [facility] CHC MED & PEDS [address] [place], [place] [phone] Joleen Wilkinson MD [address] [place] [address] Arthritis pain (Primary Dx) Social History Tobacco Use Types [...] Description 12/21/2025 12:45 PM EST Office Visit [facility] CHC ADULT DENTAL [address] [place] [address] Shantelle Mancia documented as of this encounter Visit Diagnoses Diagnosis Arthritis pain- Primary documented in this encounter Additional Health Concerns Assessment Noted Time PHQ-9 Depression Total Score: 0 02/01/20 25 10:37 AM EDT documented as of this encounter Care Teams Recreational Assistant Relationship Specialty Start Date End Date Joleen Wilkinson MD [address] [place] [address] PCP - General Internal Medicine 03/26/17 documented as of this encounter
--- OUTSIDE RECORDS SUMMARY | 2025-10-28 11:06 | XMS_ITS | Encounter Summary ---
Author Organization [employer] Address [address] [facility] [address] 7[address] [place] [address] Care Team Providers Care Cokeman Name Role Phone Joleen Wilkinson MD Primary Care Provider [phone] Encounter Details Date Type Department Care Team (Late st Contact Info) Description 09/23/2023 Abstract [facility] MEDICINE [address] [place] [address] Joleen Wilkinson MD [address] [facility] [address] [place], [place] [phone] Social History Tobacco Use Types Packs/Day Years Used Date Smoking Tobacco: Never Passive Smoke Exposure: Never Smokeless Tobacco: Never Alcohol Use Standard Drinks/Week Comments Never 0 (1 standard drink = 0.6 oz pur e alcohol) Depression Answer Date Recorded Patient Health Questionnaire-9 Score 0 07/20/2023 Housing Stability Answer Date Recorded What is your housing situation today? I have awilda boogie 09/09/[address] you li [...] Description 12/21/2025 12:45 PM EST Office Visit [facility] ADULT DENTAL [address] [place] [address] Shantelle Mancia documented as of this encounter Procedures Procedure [...] documented as of this encounter Care Teams Cokeman Relationship Specialty Start Date End Date Joleen Wilkinson MD [address] [place] [address] PCP - General Internal Medicine 03/26/17 documented as of this encounter
--- OUTSIDE RECORDS SUMMARY | 2025-10-28 11:06 | XMS_ITS | Clinical Summary ---
Author Organization [address] [place] [address] Address [address] [place] [address] Phone Care Team Providers Care Wash Plant Operator Name Role Phone Joleen Wilkinson MD Primary Care Provider [phone] Allergies No known active allergies Medications ketoconazole (NIZORAL) 2 % cream Apply topically 1 (one) time each day. 60 g 2 Active Encounters Date Type Department Care Team Description 10/11/2025 10:00 AM EST Consult Orthopedic Surgery [facility] [address] [phone] John Falcon, DPM Metatarsalgia of left foot (Primary Dx); Hammertoes of both feet; Arthritis of both feet; Tinea pedis of both feet; Dermatophytosis, nail from Last 3 Months Social History Tobacco Use Types Packs/Day Years Used Date Smoking Tobacco: Former Smokeless Tobacco: Never Alcohol Use Standard Drinks/Week Comments Never 0 (1 standard drink = 0.6 oz pur e alcohol) Sex and Gender Information Value Date Recorded Sex Assigned at Not on file Legal Sex Male 2:10 PM EST Gender Identity Not on file Sexual Orientation Not on file Obstetrics History Last Filed Vital Signs Vital Sign Reading Time Taken Comments Blood Pressure - - Pulse - - Temperature - - Respiratory Rate - - Oxygen Saturation - - Inhaled Oxygen Concentration - - Weight 118 kg (260 lb) 10/11/2025 10:18 AM EST Height 180.3 cm (5' 11 ) 10/11/2025 10:18 AM EST Body Mass Index 36.26 10/11/2025 10:18 AM EST Plan of Treatment Upcoming Encounters Date Type Department Care Team (Late st Contact Info) Description 11/02/2025 10:00 AM EST Office Visit Orthopedic Surgery - [place] [address] [facility] [address] [place] [phone] John Falcon, DPHang [address] [facility] [address] [place] [address] Health Maintenance Due Date Last Done Comments Colorectal Cancer Screening: Colonoscopy 1950 Depression Screening 11/23/2024 RSV Immunization Adult Patients (1 - 1-dose 75+ series) 2025 COVID-19 Vaccine (4 - 2024- season) 2025 10/10/2021, 02/09/2021, 01/12/2021 Influenza Vaccine (#1) 2025 , 09/04/2023, 10/22/2022, Additional history exists Falls Risk Assessment 09/20/2025 Hepatitis C Screening 09/20/2025 Medicare Annual Wellness Visit 09/20/2025 Social Influencers of Health Screening 09/20/2025 Hypertension/CHF/CAD Annual BMP Blood Test 10/11/2025 Cholesterol Screening (Lipid Panel) 07/12/2029 07/12/2024, 09/05/2021, 09/05/2021, Additional history exists DTaP,Tdap,and Td Vaccines (4 - Td or Tdap) 08/11/2029 08/11/2019, 09/03/2017, 03/11/2001 Pneumococcal Vaccine: 50+ Years Completed 08/11/2019, 09/03/2017 Zoster Vaccines Completed 08/29/2020, 11/0 06/2019, 09/03/2017 Abdominal Aortic Aneurysm (AAA) Screen Discontinued 07/15/2021 HIB Vaccines Aged Out No longer [...] age to complete this topic Meningococcal B Vaccine Aged Out No l onger eligible based on patient's age to complete this topic RSV Immunization Patients Under 20 months Aged Out No longer eligible based on [...] EDT [facility] Diagnostic Imaging Department [address] [place] [address] Patient: JEFERSON EDGE /Age/Sex: 1950 - 71 - M Unit#: [id number] Location/Status: [facility] Mnemonic/Ordering Site: [facility] Ordering Physician: JAE PATEL NP US Abdomen Aorta Scr Study AAA - 07/15/21 - 1046 HISTORY: The patient is a 71-year-old male smoker with hypercholesterolemia presenting for screening for an abdominal aortic aneurysm. FINDINGS: Real-time ultrasonography of the abdominal aorta is performed. The examination is somewhat limited by the patient's body habitus. The abdominal aorta is normal in caliber, with the suprarenal aorta measuring 2.2 x 2.3 cm, the proximal infrarenal aorta measuring 1.9 x 2.3 cm, and the distal infrarenal aorta measuring 1.7 x 2.4 cm. The common iliac arteries are normal in caliber, with the right NICO measuring 1.1 cm and the left NICO measuring 1.2 cm. IMPRESSION: Somewhat limited examination demonstrates the abdominal aorta to be of normal caliber, without aneurysm. Code 57789 G9551 Dictating Physician: LUIS MIGUEL STANTON MD Electronically Signed by: LUIS MIGUEL STANTON MD Dic Date/Time: 07/15/211054 Sign date/Time: 07/15/211056 Procedure Note Luis Miguel Stanton MD - 11/19/2022 [facility] Diagnostic Imaging Department [address] [place] [address] Patient: JEFERSON EDGE /Age/Sex: 1950 - 71 - M Unit#: [id number] Location/Status: [facility] Mnemonic/Ordering Site: [facility]CRSTUD/SPUS Ordering Physician: JAE PATEL DIRECTOR HOME US Abdomen Aorta Scr Study AAA - [...] be of normal caliber, without aneurysm. Code 34463 G9551 Dictating Physician: LUIS MIGUEL STANTON MD Electronically Signed by: LUIS MIGUEL STANTON MD Dic Date/Time: 07/15/21 105 Sign date/Time: 07/15/21 105 us Jae Patel DIRECTOR HOME IMG US PROCEDURES Final Re sult from Last 3 Months or Most Recently Relevant to Health Maintenance Insurance MEDICAID - [place] [address] Care Teams Wash Plant Operator Relationship Specialty Start Date End Date Joleen Wilkinson MD [address] [place] [address] PCP - General Internal Medicine 08/05/22
--- OUTSIDE RECORDS SUMMARY | 2025-10-28 11:06 | XMS_ITS | Encounter Summary ---
Author Organization [employer] Address [address] [place] [address] 7t [place] [address] Care Team Providers Care Therapist Occupational Name Role Phone Joleen Wilkinson MD Primary Care Provider [phone] Reason for Visit * Reason Comments Med Change Request Encounter Details Date Type Department Care Team ([facility] Contact Info) Description 10/05/2025 Refill [facility] MED & PEDS [address] [place] [address] Joleen Wilkinson MD [address] [place] [address] Class 2 severe obesity due to excess calories with serious comorbidity and body mass index (BMI) of 35.0 to 35.9 in adult; Other sleep apnea Social History Tobacco Use [...] Description 12/21/2025 12:45 PM EST Office Visit [facility] [address] [place] [address] Shantelle Mancia documented as of this encounter Visit Diagnoses Diagnosis Class 2 severe obesity due to excess calories with serious comorbidity and body mass index (BMI) of 35.0 to 35.9 in adult Other sleep apnea documented in this encounter Additional Health Concerns Assessment Noted Time PHQ-9 Depression Total Score: 0 02/01/20 25 10:37 AM EDT documented as of this encounter Care Teams Therapist Occupational Relationship Specialty Start Date End Date Joleen Wilkinson MD [address] [place] [address] PCP - General Internal Medicine 03/26/17 documented as of this encounter
--- OUTSIDE RECORDS SUMMARY | 2025-10-28 11:06 | XMS_ITS | Encounter Summary ---
Author Organization [email or web address] Address [address] [facility] 7t [place] [address] Care Team Providers Care Certified Anesthesiologist Assistant Name Role Phone Joleen Wilkinson MD Primary Care Provider [phone] Reason for Visit * Reason Onset Date Comments Lab Orders 02/23/2024 Referral 02/23/2024 Encounter Details Date Type Department Care Team (Late st Contact Info) Description 02/23/2024 Telephone [facility] [address] [place] [address] Joleen Wilkinson MD [address] [place], [place] [phone] Lab Orders; Referral Social History Tobacco Use [...] 11:34 AM EDT Tc wilver Daniels from [employer] calling on behalf of the patient requesting a referral for a Kidney Health Screening and a GFR Blood test as well as a ACR urine test documented in this encounter Plan of Treatment Upcoming Encounters Date Type Department Care Team (Late st Contact Info) Description 12/21/2025 12:45 PM EST Office Visit [facility] [address] [place] [address] Shantelle Mancia documented as of this encounter Visit Diagnoses Not on filedocumented in this encounter Additional Health Concerns Assessment Noted Time PHQ-9 Depression Total Score: 0 07/20/20 23 2:36 PM EDT documented as of this encounter Care Teams Certified Anesthesiologist Assistant Relationship Specialty Start Date End Date Joleen Wilkinson MD [address] [place] [address] PCP - General Internal Medicine 03/26/17 documented as of this encounter
--- OUTSIDE RECORDS SUMMARY | 2025-10-28 11:06 | XMS_ITS | Encounter Summary ---
Author Organization [employer] Address [address] [facility] 7t [place] [address] Care Team Providers Care Auger Supervisor Name Role Phone Joleen Wilkinson MD Primary Care Provider [phone] Encounter Details Date Type Department Care Team ([facility] st Contact Info) Description 06/06/[address] [facility] MED & PEDS [address] [place], [place] [phone] Joleen Wilkinson MD [address] [place] [address] Class 2 obesity due to excess calories [...] 12:45 PM EST Office Visit [facility] [address] [place] [address] Shantelle Mancia documented as of this encounter Visit Diagnoses Diagnosis Class 2 obesity due to excess calories without serious comorbidity with body mass index (BMI) of 37.0 to 37.9 in adult- Primary documented in this encounter Additional Health Concerns Assessment Noted Time PHQ-9 Depression Total Score: 0 07/20/20 23 2:36 PM EDT documented as of this encounter Care Teams Auger Supervisor Relationship Specialty Start Date End Date Joleen Wilkinson MD [address] [place] [address] PCP - General Internal Medicine 03/26/17 documented as of this encounter
--- OUTSIDE RECORDS SUMMARY | 2025-10-28 11:06 | XMS_ITS | Clinical Summary ---
Author Organization [employer] Address [address] [facility] 7t [place] [address] Care Team Providers Care Hot Baller Name Role Phone Joleen Wilkinson MD Primary Care Provider [phone] Allergies No known active allergies Medications * This document contains information received from the source organization and may not represent a complete record from that organization. Restasis 0.05 % ophthalmic emulsion INSTILL INSTILL 1 DROP INTO BOTH EYES TWICE A DAY 023 Active cholecalciferol (D3-1000) 25 MCG (1000 UT) tabletIndications :Other osteoarthritis involving multiple joints TAKE 1 TABLET BY MOUTH EVERY MORNING 90 tablet 3 025 Active fexofenadine (Sharon) 180 MG tabletIndications :Urticaria Take 1 tablet (180 mg) by mouth if needed each day (Allergies). 30 tablet 1 025 Active Additional Information Patient not taking.Reported on 05/09/2025 baclofen (Lioresal) 20 MG tablet TAKE 1 TABLET BY MOUTH TWICE A DAY 40 tablet 2 025 Active gabapentin (Neurontin) 300 MG capsuleIndication s:Chronic left-sided low back pain without sciatica Take 1 capsule (300 mg) by mouth 3 times daily. 90 capsule 11 025 2025 Active Alcohol Swabs (Alcohol Pads) 70 % padsIndications:P rediabetes 1 Box Once per day. 100 each 025 Active baclofen (Lioresal) 20 MG tabletIndications :Chronic left-sided low back pain without sciatica Take 1 tablet (20 mg) by mouth 3 times daily. 40 tablet 2 025 Active lisinopril-hydroC HLOROthiazide 20-12.5 MG tabletIndications :Essential hypertension Take 1 tablet by mouth Once per day. TOME PABLO TABLETA TODOS [place] EN LA MANANA 90 tablet 3 Active atorvastatin (Lipitor) 40 MG tablet TOME 1 TABLETA POR VIA ORAL TODOS [place] 90 tablet 1 Active Tirzepatide (Mounjaro) 12.5 MG/0.5ML solution auto-injectorIndi cations:Class 2 severe obesity due to excess calories with serious comorbidity and body mass index (BMI) of 35.0 to 35.9 in adult,Other sleep apnea Inject 12.5 mg under the skin 1 (one) time per week. 2 mL 3 Active naproxen (Naprosyn) 500 MG tabletIndications :Arthritis pain TAKE 1 TABLET (500 MG) BY MOUTH EVERY 12 (TWELVE) HOURS 40 tablet Active Tirzepatide (Mounjaro) 15 MG/0.5ML solution auto-injectorIndi cations:Class 2 severe obesity due to excess calories with serious comorbidity and body mass index (BMI) of 35.0 to 35.9 in adult Inject 15 mg under the skin every 7 (seven) days. 2 mL 3 025 2024 Discontinued(T herapy completed) naproxen (Naprosyn) 500 MG tabletIndications :Arthritis pain Take 1 tablet (500 mg) by mouth every 12 (twelve) hours. 40 tablet 025 2024 Discontinued Tirzepatide-Weigh t Management (Zepbound) 12.5 MG/0.5ML solutionIndicatio ns:Class 2 severe obesity due to excess calories with serious comorbidity and body mass index (BMI) of 35.0 to 35.9 in adult,Other sleep apnea Inject 12.5 mg under the skin 1 (one) time per week. 2 mL 11 025 2024 Discontinued Zepbound 12.5 MG/0.5ML solutionIndicatio ns:Class 2 severe obesity due to excess calories with serious comorbidity and body mass index (BMI) of 35.0 to 35.9 in adult,Other sleep apnea INJECT 0.5 ML (12.5 MG) UNDER THE SKIN ONCE A WEEK 2 mL 11 025 2024 Discontinued Tirzepatide-Weigh t Management (Zepbound) 12.5 MG/0.5ML solution auto-injectorIndi cations:Class 2 severe obesity due to excess calories with serious comorbidity and body mass index (BMI) of 35.0 to 35.9 in adult,Other sleep apnea Inject 0.5 mL (12.5 mg) under the skin 1 (one) time per week. INJECT 0.5 ML (12.5 MG) UNDER THE SKIN ONCE A WEEK 2 mL 3 025 2024 Discontinued(C ost of medication) Active Problems Problem Noted Date Diagnosed Date Rheumatoid arthritis with ne gative rheumatoid factor ([facility]) 10/13/2024 PMR (polymyalgia rheumatica) 10/13/2024 Arthritis pain 10/22/2022 Microcytic anemia 07/24/2022 Prediabetes 08/30/2020 Overview (04/23/2023): August 2020- A1c 6.4% Chronic back pain 03/26/2017 Obesity 03/26/2017 Other sleep apnea 03/26/2017 Overview (04/23/2023): On CPAP Muscle spasm 12/01/2016 OA (osteoarthritis) 12/01/2016 HTN (hypertension) 03/26/1999 Resolved Problems Problem Noted Date Diagnosed Date Resolved Date Hyperlipidemia 12/01/2016 05/09/2025 Encounters Date Type Department Care Team Description 10/15/2025 Refill [facility] & PEDS [address] [place] [address] Joleen Wilkinson MD Arthritis pain 10/09/2025 Telephone [facility] [address] [place] [address] Joleen Wilkinson MD Med Refill 10/05/2025 Refill [facility] [address] [place], [place] [phone] Joleen Wilkinson MD Class 2 severe obesity due to excess calories with serious comorbidity and body mass index (BMI) of 35.0 to 35.9 in adult; Other sleep apnea 10/04/2025 Refill [facility] [address] [place] [address] Joleen Wilkinson MD Class 2 severe obesity due to excess calories with serious comorbidity and body mass index (BMI) of 35.0 to 35.9 in adult; Other sleep apnea 10/03/2025 Refill [facility] [address] [place], [place] [phone] Joleen Wilkinson MD Class 2 severe obesity due to excess calories with serious comorbidity and body mass index (BMI) of 35.0 to 35.9 in adult; Other sleep apnea 10/03/2025 Refill [facility] [address] [place], [place] [phone] Joleen Wilkinson MD Class 2 severe obesity due to excess calories with serious comorbidity and body mass index (BMI) of 35.0 to 35.9 in adult; Other sleep apnea 10/03/2025 Orders Only [facility] [address] [place], [place] [phone] Joleen Wilkinson MD Class 2 severe obesity due to excess calories with serious comorbidity and body mass index (BMI) of 35.0 to 35.9 in adult (Primary Dx); Other sleep apnea 09/14/2025 Telephone [facility] [address] [place], [place] [phone] Joleen Wilkinson MD Prior Authorization 09/05/2025 Orders Only [facility] [address] [place] [address] Joleen Wilkinson MD Arthritis pain (Primary Dx) 09/05/2025 Telephone [facility] [address] [place], [place] [phone] Joleen Wilkinson MD Med Refill 08/23/2025 Refill [facility] [address] [place], [place] [phone] Joleen Wilkinson MD Chronic left-sided low back pain without sciatica; Essential hypertension 08/15/2025 Telephone [facility] [address] [place] [address] Joleen Wilkinson MD Prior Authorization 08/09/2025 10:30 AM EDT Office Visit [facility] [address] [place] [address] Joleen Wilkinson MD Primary hypertension (Primary Dx); Prediabetes; Class 2 severe obesity due to excess calories with serious comorbidity and body mass index (BMI) of 35.0 to 35.9 in adult ([facility]); Left foot pain; Arthritis pain 08/09/2025 Travel 08/07/2025 Telephone [facility] [address] [place] [address] Joleen Wilkinson MD chart prep 08/06/2025 Refill [facility] [address] [place] [address] Joleen Wilkinson MD Class 2 severe obesity due to excess calories with serious comorbidity and body mass index (BMI) of 35.0 to 35.9 in adult ([facility]); Prediabetes 08/02/2025 Patient Outreach [facility] [address] [place] [address] Joleen Wilkinson MD Pre-visit Planning ([facility] screening completed on 01/31/25) from Last 3 Months Immunizations Immunization Administration Dates Next Due Influenza High-dose Quadriva [...] Sign Reading Time Taken Comments Blood Pressure 111/66 08/09/2025 10:34 AM EDT Pulse 66 08/09/2025 10:34 AM EDT Temperature 36.7 C (98 F) 05/05/2025 2:34 PM EDT Respiratory Rate 19 08/09/2025 10:34 AM EDT Oxygen Saturation 96% 08/09/2025 10:34 AM EDT Inhaled Oxygen Concentration - - Weight 117 kg (257 lb) 08/09/2025 10:34 AM EDT Height 182 cm (5' 11.65 ) 08/09/2025 10:34 AM ED T Body Mass Index 35.2 08/09/2025 10:34 AM EDT Plan of Treatment Upcoming Encounters Date Type Department Care Team (Late st Contact Info) Description 12/21/2025 12:45 PM EST Office Visit [facility] [address] [place] [address] Shantelle Mancia Health Maintenance Due Date Last Done Comments CT Colonography 1950 FIT DNA/Cologuard 1950 FIT 1950 FOBT 1950 Sigmoidoscopy 1950 RSV Patients and Patients Aged 60 years or older (1 - 1-dose 75+ series) 2025 COVID-19 Vaccine ( season) 2025 10/10/2021, 02/09/2021, 01/12/2021 Influenza Vaccine (#1) 2025 , 09/04/2023, 10/22/2022, Additional history exists Dental Oral Exam 11/09/2025 05/09/2025, 05/2025, 02/18/2024, Additional history exists Dental Prophylaxis 11/09/2025 05/09/2025, 0 11/29/2024, 02/18/2024, Additional history exists Alcohol/Substance Use Screening 01/31/2026 01/31/2025 Depression Screening 01/31/2026 01/31/2025, 02/01/20 SDOH Screening 01/31/2026 01/31/2025 Dental X-Ray: Bitewings 05/10/2026 05/09/20 25, 11/29/2024, 08/19/2023 Diabetes: Hemoglobin A1C 08/09/2026 025, 05/05/2025, 01/31/2025, Additional history exists Tobacco Screening 08/09/2026 08/09/2025 Dental X-Ray: Full Mouth 08/20/2026 08/19/2023 Lipid Panel 07/12/2029 07/12/2024, 08/11/2021, 06/11/2022 DTaP/Tdap/Td Vaccines (3 - Td or Tdap) 08/11/2029 08/11/2019, 09/03/2017, 03/11/2001 Colonoscopy 09/09/2032 09/09/2022 Colorectal Cancer Screening 09/09/2032 Pneumococcal Vaccine: 50+ Years Completed 08/11/2019, 09/03/2017 Zoster Vaccines Completed 08/29/2020, 1106/2019, 09/03/2017 Hepatitis C Screening Completed 07/23/2022, 022 HIB Vaccines Aged Out No longer eligi [...] Procedure Name Priority Date/Time Associated Diagnosis Comments AMB REFERRAL TO PODIATRY Routine 10/11/2025 Left foot pain POCT GLYCATED HEMOGLOBIN, TOTAL Routine 08/09/2025 10:36 AM EDT Prediabetes POCT GLUCOSE Routine 08/09/2025 10:35 AM EDT Prediabetes PROPHYLAXIS - ADULT Routine 05/09/2025 1 0:00 AM EDT BITEWING - SINGLE RADIOGRAPHIC IMAGE Routine 05/09/2025 10:00 AM EDT PERIODIC ORAL EVALUATION - ESTABLISHED PATIENT Routine 05/09/2025 10:00 AM EDT LIPID PANEL, STANDARD Routine 07/12/2024 10:44 AM EDT Primary hypertension Mixed hyperlipidemia INTRAORAL - COMPLETE SERIES OF RADIOGRAPHIC IMAGES Routine 08/19/2023 10:00 AM EDT HM COLONOSCOPY Routine 09/09/2022 ZZZ HISTORICAL HEPATITIS C AB W/REFL TO HCV RNA, QN, PCR Routine 07/23/2022 8:48 AM EDT from Last 3 Months or Most Recently Relevant to Health Maintenance Results * Referral to Podiatry (10/11/2025) us Joleen Wilkinson MD OUTPATIENT REFERRAL ORDERAB LES Final Result * POCT Hgb A1c (08/09/2025 10:36 AM EDT) Hemoglobin A1C 5.5 4.0 - 5.7 % QC Media Lot # [id number] Lot# Expiration Date 608,658 Blood 08/09/2025 10:3 6 AM EDT Joleen Wilkinson MD POINT OF CARE TEST ENTER/ED IT ORDERABLES Final Result * POCT Glucose (08/09/2025 10:35 AM EDT) Glucose Blood, POC 101 60 - 200 mg/dL QC Media Lot # [id number] Lot# Expiration Date ,000 Comment:random Blood Capillary blood specimen / Unknown 08/09/2025 10:35 AM EDT us Joleen Wilkinson MD POINT OF CARE TEST ENTER/ED IT ORDERABLES Final Result * (ABNORMAL) Lipid Panel, Standard (07/12/2024 10:44 AM EDT) Triglycerides 182(H) <150 mg/dL [facility] Comment:Desirable Triglyceri de: less than 150 mg/dLBorderline High Triglyceride 150-199 mg/dLHigh Triglyceride: 200-499 mg/dLVery High Triglyceride: greater than or equal to 5OO mg/dL Cholesterol 129 <200 mg/dL [facility] Comment:Desirable Cholestero l: less than 200 mg/dLBorderline High Cholesterol: 200-239 mg/dLHigh Cholesterol: greater than 239 mg/dL LDL Cholesterol Calculated 58 <100 mg/dL [facility] Comment:Desirable LDL: less than 100 mg/dLNear Optimal/Above Optimal LDL: 110- 129 mg/dLBorderline High LDL: 130-159 mg/dLHigh LDL: 160-189 mg/dLVery High LDL: greater than or equal to 190 mg/dL HDL Cholesterol 35(L) >40 mg/dL [facility] Comment:Desirable HDL: great er than 40 mg/dL Note: This HDL assay may give artificially low results in patients with liver disease. Blood Venous blood specimen / Unknown 07/12/2024 10:44 AM EDT 07/12/2024 2:24 PM EDT Joleen Wilkinson MD LAB BLOOD ORDERABLES Final Result [facility] [address] [place] [phone] * Colonoscopy (09/09/2022) [facility] Colonoscopy Normal Normal Historical Provider HEALTH MAINTENANCE Edited Result - Final * HEPATITIS C AB W/REFL TO HCV RNA, QN, PCR (07/23/2022 8:48 AM EDT) [facility] HEPATITIS C ANTIBODY NON-REACT [facility] NON-REACT [facility] INDEX 0.17 <1.00 [facility] Comment: HCV antibody was non-reactive. There is no laboratory evidence of HCV infection. In most cases, no further action is required. However, if recent HCV exposure is suspected, a test for HCV RNA (test code 40872) is suggested. For additional information please refer to http://education.Is That Odd/faq/BHP12u1 (This link is being provided for informational/ educational purposes only.) 07/23/2022 8:48 AM EDT us Joleen Wilkinson MD HISTORICAL/NON ORDERABLE JESUS ALEXANDER Final Result [facility] [address] from Last 3 Months or Most Recently Relevant to Health Maintenance Insurance [facility] STANDARD [facility] MEDICARE ADVANTAGE HMO [facility] MEDICARE ADVANTAGE DENTAL - HSN FULL (MEDICAID) Care Teams Hot Baller Relationship Specialty Start Date End Date Joleen Wilkinson MD [address] [place] [address] JEFFERSON Brown13 PCP - General Internal Medicine 03/26/17
--- OUTSIDE RECORDS SUMMARY | 2025-10-28 11:06 | XMS_ITS | Encounter Summary ---
Author Organization [employer] Address [address] [facility] 7t [place] [address] Care Team Providers Care Dispensing Audiologist Name Role Phone Joleen Wilkinson MD Primary Care Provider [phone] Encounter Details Date Type Department Care Team ([facility] st Contact Info) Description 04/08/2024 Orders Only [facility] MED & PEDS [address] [place], [place] [phone] Joleen Wilkinson MD [address] [place] [address] Social History Tobacco Use Types Packs/Day Years [...] PM EST Office Visit [facility] [address] [place] [address] Shantelle Mancia documented as of this encounter Visit Diagnoses Not on filedocumented in this encounter Additional Health Concerns Assessment Noted Time PHQ-9 Depression Total Score: 0 07/20/20 23 2:36 PM EDT documented as of this encounter Care Teams Dispensing Audiologist Relationship Specialty Start Date End Date Joleen Wilkinson MD [address] [place] [address] PCP - General Internal Medicine 03/26/17 documented as of this encounter
--- OUTSIDE RECORDS SUMMARY | 2025-10-28 11:06 | XMS_ITS | Encounter Summary ---
Author Organization [employer] Address [address] [facility] 7t [place] [address] Care Team Providers Care Woolen Suiting Shrinker Name Role Phone Joleen Wilkinson MD Primary Care Provider [phone] Reason for Visit * Reason Onset Date Comments Med Refill 10/09/2025 Encounter Details Date Type Department Care Team ([facility] st Contact Info) Description 10/09/2025 Telephone [facility] [address] [place] [address] Joleen Wilkinson MD [address] [place] [address] Med Refill Social History Tobacco Use Types Packs/Day Years [...] your housing situation today? I have awilda sing 01/31/[address] you li [...] enough money to get more: Never True 03/ 09/2025 Transportation Answer Date Recorded In the [...] encounter Miscellaneous Notes * Telephone Encounter - Jaylyn Hollins - 10/09/2025 2:47 PM EST TC from pt requesting a refill for Tirzepatide (Mounjaro) 15 MG/0.5ML solution auto-injector Pt stated medication Zepbound insurance doesn't cover PP Dr. Wilkinson documented in this encounter Plan of Treatment Upcoming Encounters Date Type Department Care Team (Late st Contact Info) Description 12/21/2025 12:45 PM EST Office Visit [facility] [address] [place] [address] Shantelle Mancia documented as of this encounter Visit Diagnoses Not on filedocumented in this encounter Additional Health Concerns Assessment Noted Time PHQ-9 Depression Total Score: 0 02/01/20 25 10:37 AM EDT documented as of this encounter Care Teams Woolen Suiting Shrinker Relationship Specialty Start Date End Date Joleen Wilkinson MD [address] [place] [address] PCP - General Internal Medicine 03/26/17 documented as of this encounter
--- OUTSIDE RECORDS SUMMARY | 2025-10-28 11:06 | XMS_ITS | Encounter Summary ---
Author Organization [employer] Address [address] [place] [address] 7t [place] [address] Care Team Providers Care Horse Groomer Name Role Phone Joleen Wilkinson MD Primary Care Provider [phone] Reason for Visit * Reason Comments Med Change Request Encounter Details Date Type Department Care Team ([facility] Contact Info) Description 10/04/2025 Refill [facility] MED & PEDS [address] [place] [address] Joleen Wilkinson MD [address] [place] [address] Class 2 severe obesity due to excess [...] 12:45 PM EST Office Visit [facility] [address] [place] [address] Shantelle Mancia documented as of this encounter Visit Diagnoses Diagnosis Class 2 severe obesity due to excess calories with serious comorbidity and body mass index (BMI) of 35.0 to 35.9 in adult Other sleep apnea documented in this encounter Additional Health Concerns Assessment Noted Time PHQ-9 Depression Total Score: 0 02/01/20 25 10:37 AM EDT documented as of this encounter Care Teams Horse Groomer Relationship Specialty Start Date End Date Joleen Wilkinson MD [address] [place] [address] PCP - General Internal Medicine 03/26/17 documented as of this encounter
--- OUTSIDE RECORDS SUMMARY | 2025-10-28 11:06 | XMS_ITS | Encounter Summary ---
Author Organization [employer] Address [address] [facility] 7t [place] [address] Care Team Providers Care Private Duty Lpn Name Role Phone Joleen Wilkinson MD Primary Care Provider [phone] Reason for Visit * Reason Onset Date Comments Call Back Request 10/21/2023 Encounter Details Date Type Department Care Team ([facility] st Contact Info) Description 10/21/2023 Telephone [facility] [address] [place] [address] Joleen Wilkinson MD [address] [facility] [address] [place], [place] [phone] Call Back Request Social History Tobacco Use [...] CPAP and supplies. * Telephone Encounter - Clauido Barraza - 10/21/2023 1:38 PM EST Tc from patient requesting a call back in regards to lab work results. Patient speaks burkinan documented in this encounter Plan of Treatment Upcoming Encounters Date Type Department Care Team (Late st Contact Info) Description 12/21/2025 12:45 PM EST Office Visit [facility] [address] [place] [address] Shantelle Mancia documented as of this encounter Visit Diagnoses Not on filedocumented in this encounter Additional Health Concerns Assessment Noted Time PHQ-9 Depression Total Score: 0 07/20/20 23 2:36 PM EDT documented as of this encounter Care Teams Private Duty Lpn Relationship Specialty Start Date End Date Joleen Wilkinson MD [address] [place] [id number] PCP - General Internal Medicine 03/26/17 documented as of this encounter
--- OUTSIDE RECORDS SUMMARY | 2025-10-28 11:06 | XMS_ITS | Encounter Summary ---
Author Organization [employer] Address [address] [place] [address] 7 [place] [address] Care Team Providers Care Geometry Tutor Name Role Phone Joleen Wilkinson MD Primary Care Provider [phone] Encounter Details Date Type Department Care Team ([facility] st Contact Info) Description 07/16/2023 Orders Only [facility] MED & PEDS [address] [place], [place] [phone] Joleen Wilkinson MD [address] [place] [address] Other sleep apnea (Primary Dx) Social History [...] 12:45 PM EST Office Visit [facility] ADULT DENTAL [address] [place] [address] Shantelle Mancia documented as of this encounter Visit Diagnoses Diagnosis Other sleep apnea- Primary documented in this encounter Care Teams Geometry Tutor Relationship Specialty Start Date End Date Joleen Wilkinson MD [address] [place] [address] PCP - General Internal Medicine 03/26/17 documented as of this encounter
--- OUTSIDE RECORDS SUMMARY | 2025-10-28 11:06 | XMS_ITS | Encounter Summary ---
Author Organization [employer] Address [address] [place] [address] [address] [place] [address] Care Team Providers Care Story Reader Name Role Phone Joleen Wilkinson MD Primary Care Provider [phone] Reason for Visit * Reason Onset Date Comments Appointment Confirmation 07/06/2023 Encounter Details Date Type Department Care Team ([facility] Contact Info) Description 07/06/[address] [facility] CH[facility] MED & PEDS [address] [place] [address] Joleen Wilkinson MD [address] [place] [address] Appointment Confirmation Social History Tobacco Use Types [...] receive a call [place] [facility] [place] states that no one at [facility] has contact him with appt details. Please contact pt at [phone] Occitan Speaker documented in this encounter Plan of Treatment Upcoming Encounters Date Type Department Care Team (Late st Contact Info) Description 12/21/2025 12:45 PM EST Office Visit [facility] ADULT [facility] [address] [place] [address] Shantelle Mancia documented as of this encounter Visit Diagnoses Not on filedocumented in this encounter Care Teams Story Reader Relationship Specialty Start Date End Date Joleen Wilkinson MD [address] [place] [address] PCP - General Internal Medicine 03/26/17 documented as of this encounter
--- OUTSIDE RECORDS SUMMARY | 2025-10-28 11:06 | XMS_ITS | Encounter Summary ---
Author Organization [employer] Address [address] [facility] [address] [place] [address] Care Team Providers Care Cordwood Cutter Helper Name Role Phone Joleen Wilkinson MD Primary Care Provider [phone] Reason for Visit * Reason Comments Med Refill Encounter Details Date Type Department Care Team ([facility] Contact Info) Description 03/21/2025 Refill [facility] MED & PEDS [address] [place] [address] Joleen Wilkinson MD [address] [place] [address] Chronic left-sided low back pain without sciatica Social History Tobacco Use Types Packs/Day Years [...] 12:45 PM EST Office Visit [facility] ADULT DENTAL [address] [place] [address] Shantelle Mancia documented as of this encounter Visit Diagnoses Diagnosis Chronic left-sided low back pain without sciatica documented in this encounter Additional Health Concerns Assessment Noted Time PHQ-9 Depression Total Score: 0 02/01/20 25 10:37 AM EDT documented as of this encounter Care Teams Cordwood Cutter Helper Relationship Specialty Start Date End Date Joleen Wilkinson MD [address] [place] [address] PCP - General Internal Medicine 03/26/17 documented as of this encounter
--- OUTSIDE RECORDS SUMMARY | 2025-10-28 11:06 | XMS_ITS | Encounter Summary ---
Author Organization [employer] Address [address] [facility] [address] [place] [address] Care Team Providers Care Operations Lead Name Role Phone Joleen Wilkinson MD Primary Care Provider [phone] Encounter Details Date Type Department Care Team ([facility] st Contact Info) Description 09/11/2023 Orders Only [facility] CHC MED & PEDS [address] [place], [place] [phone] Joleen Wilkinson MD [address] [place], [place] [phone] Other sleep apnea (Primary Dx); Periodic limb [...] Description 12/21/2025 12:45 PM EST Office Visit [facility] ADULT DENTAL [address] [place] [address] Shantelle Mancia documented as of this encounter [...] EDT) Ferritin 125 20 - 250 ng/mL [facility] Blood Venous blood specimen / Unknown 09/15/2023 8:48 AM EDT 09/15/2023 2:36 PM EDT us Joleen Wilkinson MD LAB BLOOD ORDERABLES Final Result [facility] [address] [place] [address] [phone] * (ABNORMAL) Vitamin B12 (09/15/2023 8:48 AM EDT) Vitamin B12 1,140(H) 200 - 900 pg/mL [facility] Comment:NORMAL 200-900 PG/ML INDETERMINATE 160-199 PG/ML DEFICIENT < 160 PG/ML Blood Venous blood specimen / Unknown 09/15/2023 8:48 AM EDT 09/15/2023 2:36 PM EDT us Joleen Wilkinson MD LAB BLOOD ORDERABLES Final Result Performing Organization Address [facility] Co de Phone Number [facility] [address] [place] [address] [phone] * TSH W/Reflex to FT4 (09/15/2023 8:48 AM EDT) TSH reflex Free T4 1.57 0.32 - 4.0 uIU/mL [facility] Blood 09/15/2023 8:48 AM EDT 09/15/2023 2:36 PM EDT us Joleen Wilkinson MD LAB BLOOD ORDERABLES Final Result Performing Organization Address [facility] de Phone Number [facility] [address] [place] [phone] documented in this encounter Visit Diagnoses Diagnosis Other sleep apnea- Primary Periodic limb movement Periodic limb movement disorder documented in this encounter Additional Health Concerns Assessment Noted Time PHQ-9 Depression Total Score: 0 07/20/20 23 2:36 PM EDT documented as of this encounter Care Teams Operations Lead Relationship Specialty Start Date End Date Joleen Wilkinson MD [address] [place] [phone] PCP - General Internal Medicine 03/26/17 documented as of this encounter
--- OUTSIDE RECORDS SUMMARY | 2025-10-28 11:06 | XMS_ITS | Clinical Summary ---
Author Organization [facility] Prior to 04/22/[address] [place] [address] Care Team Providers Care Professional Healthcare Representative Name Role Phone Unavailable Primary Care Provider [...]
--- NOTE | 2025-10-28 11:14 | PC.NURSE ---
Pt c/o itchy rash to artem feet x3days. Used OTC topicals without relief.
[2025-10-28 11:52] VITALS: BP 129/85; PULSE 80; RESP 18; TEMP 36.8; O2SAT 98
== END 2025-10-28 11:53 | disposition home or self-care (01) ==
PROVIDERS: Emergency Provider Emergency Medicine; PCP Internal Medicine
DX: R21 Rash and other nonspecific skin eruption (principal); I10 Essential (primary) hypertension; E78.5 Hyperlipidemia, unspecified
CPT/HCPCS: 99283; 99284